=== PATIENT | female | born 1950 | race Caucasian/White ===

== ENCOUNTER 2017-05-22 16:38 | Inpatient (IN) | payer MEDICARE ==
[2017-05-22 17:20] LABS: #Eosinphils 0.2 thou/uL (0.0-0.7); #Lymphocytes 0.8 thou/uL (1.20-3.40); #Monocytes 0.6 thou/uL (0.11-0.59); #Neutrophils 5.1 thou/uL (1.40-6.50); %Basophils 0.2 % (0.0-1.0); %Eosinophils 2.8 % (0.0-10.0); %Lymphocytes 11.5 % (21.0-51.0); %Monocytes 9.5 % (0.0-10.0); Hematocrit 39.8 % (36.0-47.0); Mean Platelet Volume 10.7 fL (7.4-10.4); Red Blood Cell (RBC) Count 4.32 mill/uL (4.20-5.40); White Blood Cell (WBC) Count 6.7 thou/uL (4.8-10.8)
[2017-05-22 17:27] LABS: PTT 29.9 SEC (22.9-36.1)
[2017-05-22 17:46] LABS: Anion Gap 10 mmol/L (10-20); BUN (Urea Nitrogen) 17 mg/dL (9.8-20.1); Calc. Creatinine Clearance 72 mL/min (70-130); Carbon Dioxide 25 mmol/L (23-31); Chloride 109 mmol/L (98-107)
[2017-05-22 17:47] LABS: ALT (SGPT) 10 U/L (8-55); AST (SGOT) 14 U/L (5-34); Alkaline Phosphatase 105 U/L (40-150); Bilirubin, Total 0.3 mg/dL (0.2-1.2); Calcium 9.5 mg/dL (7.8-10.44); Estimated GFR-MDRD 49; Globulin 2.8 g/dL (2.4-3.5); Magnesium 2.1 mg/dL (1.6-2.6); Protein, Total 6.8 g/dL (6.0-8.3)
--- NOTE | 2017-05-22 17:54 | RAD ---
PA AND LATERAL CHEST X-RAY 05/22/17 HISTORY: CHF. COMPARISON: 01/29/17. FINDINGS: The cardiac silhouette remains enlarged. The pulmonary vasculature is within normal limits. There ar e small bilateral pleural effusions, greater on the left with associated subsegmental atelectasis in the region of the lingula. Vascular calcifications are seen in the thoracic aorta as well as invol ving the visualized abdominal aorta. Degenerative changes are present in the spine. No other interva l change. IMPRESSION: 1. Cardiomegaly with pulmonary vasculature at the upper limits of normal. 2. Small bilateral pleural effusions. POS: [facility]
[2017-05-22 18:01] LABS: Bilirubin Negative (Negative); Blood, Urine Negative (Negative); Glucose, Urine (Dipstick) Negative (Negative); Ketone, Urine Negative (Negative); Nitrite Negative (Negative); Protein, Urine (Dipstick) Negative (Neg-Trace)
[2017-05-22 18:03] LABS: Bacteria/HPF None Seen HPF (None Seen); Hyaline Casts/LPF 0-3 HYALINE CAST LPF (0-3 Hyaline); RBC/HPF 0-3 HPF (0-3); Squamous Epithelial 0-3 HPF (0-3)
[2017-05-22] MEDS ORDERED: Furosemide 100 MG/10 ML VIAL SLOW IVP SCH (18:15)
--- NOTE | 2017-05-22 19:46 | HP ---
DATE OF ADMISSION: 05/22/2017 ADMITTING PHYSICIAN: Dinh Arce MD REASON FOR ADMISSION: Heart failure and pericardial effusion. HISTORY OF PRESENT ILLNESS: Ms. Swan is a pleasant 66-year-old white female who comes to the hospital as a direct admit from my office. She had a scheduled transthoracic echo in the office [facility] and she was found to have a large pericardial effusion. There was no hemodynamic evidence of [place] ponade, normal blood pressures; however, talking with her, she seems to be in heart failure. She is very symptomatic. She gets short of breath with any exertion. She has noticed increased swelling on both legs to the point where her shoes almost do not fit anymore. She has noted she cannot buckl e her jeans anymore as her abdominal girth is also increased. She has noted coughing when she lays flat on her back. She gets a little short of breath and she has had to lift her back with about 4 p illows at about 30 degrees to try to feel a little bit better and wake up. Sometimes she would fall off the pillows and wakeup coughing and had to get accommodated again. She denies any chest pain, tightness, or pressure. No syncope or presyncope. PAST MEDICAL HISTORY: 1. Paroxysmal atrial fibrillation. 2. Chronic myeloid leukemia in remission, treated by MD Aldair. 3. Hypertension. 4. Hyperlipidemia. 5. Anxiety of depression. 6. Obesity. 7. Diverticulitis. 8. Coronary artery disease, status post stenting to the LAD with jailing of the diagonal and subseq uent small diagonal OH. PAST SURGICAL HISTORY: 1. History of pericardial effusion, status post pericardiocentesis in the past. 2. Hysterectomy. 3. Bilateral tubal ligation. FAMILY HISTORY: Positive for early coronary artery disease, two brothers with MIs, one at 46 and on e at 54. OUTPATIENT MEDICATIONS: Include: 1. Allopurinol 100 mg a day. 2. Tylenol No.3. 3. Iron sulfate. 4. Fluoxetine 20 mg b.i.d. 5. Flexeril. 6. Bosutinib 200 mg daily. 7. Aspirin 81 daily. 8. Amiodarone 200 mg. 9. Ticagrelor 90 mg b.i.d. 10. Simvastatin 20 mg at bedtime. 11. Klor-Con. 12. Nifedipine 60 mg. 13. Lisinopril 5 mg a day. ALLERGIES: No known drug allergies. SOCIAL HISTORY: No alcohol, tobacco, or drugs. REVIEW OF SYSTEMS: Twelve-point review of systems was done and is all negative unless stated in the history of present illness. PHYSICAL EXAMINATION: VITAL SIGNS: Temperature 97.6, pulse 60, respiration rate 16, satting 95% on room air. Blood press ure 186/83. GENERAL: Awake, alert, oriented x3, in no distress. HEENT: Normocephalic, atraumatic. NECK: Supple. LUNGS: Clear. CARDIOVASCULAR: S1, S2 little distant, but not muffled. No S3 or S4. No murmurs or rubs. ABDOMEN: Soft, positive bowel sounds. EXTREMITIES: 3+ edema. SKIN: Warm and dry. LABORATORY WORK: Reviewed. CBC is unremarkable. White count is 6.7 with 76% neutrophils, 11% lymp hocytes. Coags were normal. Chemistries were unremarkable except for creatinine 1.12, which is georgia[place] se to her baseline of 0.7 to 0.9. BNP was 671. UA shows small amount of leukocyte esterase, 7-10 w teresa cells. TSH is pending. IMAGING: EKG shows sinus bradycardia with lateral infarct, age undetermined. ASSESSMENT: 1. Large pericardial effusion. 2. Acute on chronic systolic heart failure. 3. Coronary artery disease, stable. 4. Paroxysmal atrial fibrillation, currently in sinus. 5. Chronic amiodarone use. 6. Chronic myeloid leukemia in remission. PLAN: 1. We will try to diurese her to see if we can make her feel better; if her effusion does not get b adriana or she remains short of breath, we will plan on doing a window tomorrow. We will have to leav e her n.p.o. post-midnight just in case this happens. 2. Lovenox subcutaneous for DVT prophylaxis. 3. Proton pump inhibitor for stress ulcer prophylaxis. 4. We will hold any antihypertensives given the possibility of her going as tamponade and needing a ll the blood pressure she can have. 5. FULL CODE.
[2017-05-22] MEDS ORDERED: FLU VACC TS2017-18 (>65YR) 0.5 ML SYRINGE IM ONE (21:00)
[2017-05-22] MEDS: Pregabalin 50 MG CAP PO SCH (21:18)
[2017-05-22] MEDS: TICAGRELOR 90 MG TABLET PO SCH (21:19)
[2017-05-22] MEDS: Atorvastatin Calcium 10 MG TAB PO SCH (21:19)
[2017-05-23] MEDS ORDERED: Furosemide 100 MG/10 ML VIAL SLOW IVP SCH (06:00)
[2017-05-23 06:13] VITALS: BMI 30.7
[2017-05-23] MEDS: Pregabalin 50 MG CAP PO SCH ×2 (08:24→21:20)
[2017-05-23] MEDS: FLUoxetine HCl 20 MG/5 ML UDCUP PO SCH (08:24)
[2017-05-23] MEDS: Aspirin 81 mg Enteric Coated Tablet PO SCH (08:24)
[2017-05-23] MEDS: TICAGRELOR 90 MG TABLET PO SCH (08:24)
[2017-05-23] MEDS ORDERED: Enoxaparin Sodium 40 MG/0.4 ML SYRINGE SC SCH (09:00)
[2017-05-23 11:11] LABS: #Eosinphils 0.1 thou/uL (0.0-0.7); #Lymphocytes 0.7 thou/uL (1.20-3.40); #Monocytes 0.5 thou/uL (0.11-0.59); #Neutrophils 4.1 thou/uL (1.40-6.50); %Basophils 0.5 % (0.0-1.0); %Eosinophils 2.7 % (0.0-10.0); %Lymphocytes 12.1 % (21.0-51.0); %Monocytes 9.6 % (0.0-10.0); Hematocrit 39.1 % (36.0-47.0); Mean Platelet Volume 10.7 fL (7.4-10.4); Red Blood Cell (RBC) Count 4.28 mill/uL (4.20-5.40); White Blood Cell (WBC) Count 5.4 thou/uL (4.8-10.8)
[2017-05-23 11:26] LABS: Anion Gap 12 mmol/L (10-20); BUN (Urea Nitrogen) 15 mg/dL (9.8-20.1); Calc. Creatinine Clearance 62 mL/min (70-130); Calcium 9.8 mg/dL (7.8-10.44); Carbon Dioxide 30 mmol/L (23-31); Chloride 103 mmol/L (98-107); Estimated GFR-MDRD 43
[2017-05-23] MEDS ORDERED: Fentanyl 100 MCG/2 ML VIAL ONE ×4 (11:31→13:44)
[2017-05-23] MEDS ORDERED: Norepinephrine 4 MG/4 ML VIAL ONE (11:58)
--- NOTE | 2017-05-23 12:13 | PDOC.CTH ---
Cardiology Progress Note - Subjective No new issues or complaints. He has not any more episodes. - Objective Vital Signs Temp Pulse Resp BP Pulse Ox 05/23/17 08:24 97.7 F 51 L 14 162/72 H 94 L 05/23/17 04:32 97.7 F 51 L 18 148/66 H 95 Weight 196 lb 6.4 oz 05/22/17 05/23/17 05/24/17 06:59 06:59 06:59 Intake Total 360 Output Total 2700 Balance -2340 - Physical Examination General/Neuro: alert & oriented x3, NAD Neck: no JVD present Lungs: CTA, unlabored respirations Heart: RRR Abdomen: NT/ND Extremities: other: (no edema.) - Telemetry Telemetry Rhythm: NSR - Labs Result Diagrams: 05/23/17 10:39 05/23/17 10:39 - Assessment/Plan 1. Large pericardial effusion 2. Acute decompensated heart failure likely from effusion. 3. CML 4. CAD, S/P LAD PCI, stable PLAN: - Dr. Tsai saw pt and will take her to do a window today. - Likely cause of her effusions is the Bosutinib currently on hold.
[2017-05-23] MEDS ORDERED: Ondansetron HCl/PF 4 MG/2 ML Vial IVP PRN ×2 (12:20→14:31)
[2017-05-23] MEDS ORDERED: Propofol 200 MG/20 ML VIAL ONE (12:23)
[2017-05-23] MEDS ORDERED: Ondansetron HCl/PF 4 MG/2 ML Vial ONE (12:23)
[2017-05-23] MEDS ORDERED: Dexamethasone 20 MG/5 ML VIAL ONE (12:23)
[2017-05-23] MEDS ORDERED: Lidocaine 1% PF 5 ML VIAL ONE (12:23)
[2017-05-23] MEDS ORDERED: Glycopyrrolate 0.2 MG/ML 5 ML SYRINGE ONE (12:23)
[2017-05-23 13:05] LABS: BF Reference Range Comment Note:
--- NOTE | 2017-05-23 13:36 | CON ---
DATE OF CONSULTATION: 05/23/2017 REASON FOR CONSULTATION: Evaluation for subxiphoid pericardial window. PERTINENT HISTORY: Patient is a 66-year-old female with recent history of progressive exertional shortness of breath, abdominal and lower extremity edema , and 4-pillow orthopnea. She was seen by Dr. Arce in the office yesterday where transthoracic echo demonstrated a large pericardial effusion without distinct tamponade physiology. She was subsequently admitted. BNP was elevated at 671. Chest x-ray demonstrated an enlarged cardiac silhouette, increased pulmonary vasculature, and small bilateral pleural effusions. On the transthoracic echocardiogram, ejection fraction was 60%. The patient's symptoms have not improved overnight with aggressive diuresis. The patient is now referred for subxiphoid pericardial window. PAST MEDICAL HISTORY: 1. Hypertension. 2. Paroxysmal atrial fibrillation. 3. CML. 4. Dyslipidemia. 5. Anxiety/depression. 6. Obesity. 7. Diverticulitis. 8. Coronary artery disease, status post recent LAD stent. PAST SURGICAL HISTORY: 1. Hysterectomy. 2. BTL. 3. Pericardiocentesis approximately 2 years ago at [facility] in [place], details unknown. FAMILY HISTORY: Noncontributory. ALLERGIES: None. REVIEW OF SYSTEMS: No history of diabetes, kidney or liver disease, stroke, or claudication. SOCIAL HISTORY: Nonsmoker. Nondrinker. CURRENT MEDICATIONS: Amiodarone 200 mg daily, Ecotrin 81 mg daily, Lipitor 10 mg daily, Lovenox 40 mg daily, Prozac 20 mg daily, Lasix 80 mg IV q.6 hours, Protonix 40 mg daily, Lyrica 50 mg b.i.d., and Brilinta 90 mg b.i.d. with last dose given last evening. LABORATORY DATA AND X-RAY: Creatinine 1.12. INR 1.0. Hemoglobin 12.4. Platelet count 178,000. PHYSICAL EXAMINATION: VITAL SIGNS: Height 5 feet 8 inches, weight 196 pounds, blood pressure 162/72, heart rate 51, temperature 97.7. GENERAL: Obese female in no acute distress. She is fully oriented. HEENT: Grossly unremarkable. NECK: Without obvious JVD or adenopathy. HEART: Sinus bradycardia with markedly diminished tones. No murmur or rub. ABDOMEN: Soft and nontender. EXTREMITIES: With marked pretibial edema bilaterally. VASCULAR: Palpable radial and femoral pulses bilaterally. No carotid bruits were appreciated. NEUROLOGIC: No focal deficits. IMPRESSION: Large pericardial effusion in setting of unexplained and markedly symptomatic heart failure. RECOMMENDATIONS: Subxiphoid pericardial window to which the patient is in agreement following discussion with her referring admissions supervisor and myself. The indications, benefits, alternatives, and risks were explained in detail to the patient and her and daughter. All questions were answered. The patient agrees to proceed without reservations. MILLER
[2017-05-23 13:54] LABS: BF Color Red; BF WBC/Nonhematics Ct. - Manua 15 /cumm; RBC Count-Automated 82000 /cumm
--- NOTE | 2017-05-23 14:02 | RAD ---
SINGLE VIEW OF THE CHEST: COMPARISON: 01/29/2017 HISTORY: Status post pericardial drain. FINDINGS: Single view of the chest shows an enlarged cardiomediastinal silhouette. A drain projects over the heart. There is no evidence of consolidation, mass, pneumothorax, or pleural effusion. IMPRESSION: Cardiomegaly without evidence of acute cardiopulmonary disease. POS: [facility]
[2017-05-23 14:17] LABS: Number Cells Counted-Fluids 6
[2017-05-23] MEDS ORDERED: HYDROcodone/Acetaminophen 5/325 mg Tablet PO PRN (14:31)
--- NOTE | 2017-05-23 15:01 | OP ---
PREOPERATIVE DIAGNOSIS: Pericardial effusion. SURGEON: Linwood Tsai M.D. GATE SERVICES SUPERVISOR: None. POSTOPERATIVE DIAGNOSIS: Pericardial effusion. SPONGE AND NEEDLE COUNTS: Correct. ANESTHESIA: General. OPERATION PERFORMED: Subxiphoid pericardial window with drainage and biopsy. FINDINGS AT OPERATION: Approximately 600 mL of rust-colored fluid which was sent for cytology, cell count, and culture. No obvious epicardial or parietal pericardial studding within the limits of visual and digital exploration. DESCRIPTION OF OPERATION: The patient was taken to the operating room. Following the induction of general endotracheal anesthesia, the patient was prepped and draped in the usual sterile fashion. A small subxiphoid incision was made. Dissection was carried back to the pericardium. An opening in the pericardium was made retrieving the above volume of rust-colored pericardial fluid. An oval piece of parietal pericardium was excised and sent for permanent pathology. Visual and digital exploration revealed no obvious studding of the epicardial or parietal pleural surfaces. Meticulous hemostasis was assured. A 24 Raphael drain was placed within the pericardial well. It exited via a separate stab wound inferior to the incision and was secured to the skin with a silk stitch. Drain was placed to bulb suction. Fascia was closed with interrupted [id number] Vicryl sutures. Subcutaneous tissues were reapproximated with a running 2-0 Vicryl suture followed by skin closure with a 3-0 Vicryl subcuticular stitch. Dermabond was applied. The patient was subsequently awakened and taken to the recovery room in stable condition. Blood loss negligible. MTDD
[2017-05-23] MEDS: HYDROcodone/Acetaminophen 5/325 mg Tablet PO PRN (17:29)
[2017-05-23] MEDS ORDERED: Sodium Chloride 0.9% 10 ML ONE (21:07)
[2017-05-23] MEDS: Atorvastatin Calcium 10 MG TAB PO SCH (21:20)
[2017-05-23] MEDS: Ketorolac Tromethamine 30 MG/ML VIAL IVP PRN (21:21)
[2017-05-24] MEDS ORDERED: Sodium Chloride 0.9% 10 ML ONE ×2 (05:46→06:05)
[2017-05-24] MEDS: Ketorolac Tromethamine 30 MG/ML VIAL IVP PRN ×2 (06:07→12:40)
[2017-05-24 06:20] LABS: #Lymphocytes 0.6 thou/uL (1.20-3.40); #Monocytes 1.2 thou/uL (0.11-0.59); #Neutrophils 10.7 thou/uL (1.40-6.50); %Eosinophils 0.1 % (0.0-10.0); %Monocytes 9.2 % (0.0-10.0); Hematocrit 40.8 % (36.0-47.0); Mean Platelet Volume 10.8 fL (7.4-10.4); Red Blood Cell (RBC) Count 4.46 mill/uL (4.20-5.40); White Blood Cell (WBC) Count 12.5 thou/uL (4.8-10.8)
[2017-05-24 06:42] LABS: Anion Gap 13 mmol/L (10-20); BUN (Urea Nitrogen) 16 mg/dL (9.8-20.1); Calc. Creatinine Clearance 64 mL/min (70-130); Calcium 8.9 mg/dL (7.8-10.44); Carbon Dioxide 27 mmol/L (23-31); Chloride 101 mmol/L (98-107); Estimated GFR-MDRD 44
[2017-05-24] MEDS: Aspirin 81 mg Enteric Coated Tablet PO SCH (07:40)
[2017-05-24] MEDS: Pregabalin 50 MG CAP PO SCH ×2 (07:40→22:28)
[2017-05-24] MEDS: FLUoxetine HCl 20 MG/5 ML UDCUP PO SCH (09:15)
[2017-05-24] MEDS: Atorvastatin Calcium 10 MG TAB PO SCH (22:28)
[2017-05-25] MEDS: HYDROcodone/Acetaminophen 5/325 mg Tablet PO PRN (04:16)
[2017-05-25 05:55] LABS: #Eosinphils 0.1 thou/uL (0.0-0.7); #Lymphocytes 0.7 thou/uL (1.20-3.40); #Monocytes 1.1 thou/uL (0.11-0.59); #Neutrophils 6.4 thou/uL (1.40-6.50); %Basophils 0.2 % (0.0-1.0); %Eosinophils 0.8 % (0.0-10.0); %Lymphocytes 8.1 % (21.0-51.0); Hematocrit 38.6 % (36.0-47.0); Mean Platelet Volume 10.9 fL (7.4-10.4); Red Blood Cell (RBC) Count 4.25 mill/uL (4.20-5.40); White Blood Cell (WBC) Count 8.2 thou/uL (4.8-10.8)
[2017-05-25 06:23] LABS: Anion Gap 11 mmol/L (10-20); BUN (Urea Nitrogen) 20 mg/dL (9.8-20.1); Calc. Creatinine Clearance 58 mL/min (70-130); Calcium 8.6 mg/dL (7.8-10.44); Carbon Dioxide 27 mmol/L (23-31); Chloride 103 mmol/L (98-107); Estimated GFR-MDRD 40
[2017-05-25] MEDS: FLUoxetine HCl 20 MG/5 ML UDCUP PO SCH (07:32)
[2017-05-25] MEDS: Aspirin 81 mg Enteric Coated Tablet PO SCH (07:32)
[2017-05-25] MEDS: Pregabalin 50 MG CAP PO SCH ×2 (07:32→21:19)
[2017-05-25] MEDS ORDERED: Furosemide 20 MG/2 ML VIAL SLOW IVP SCH (10:45)
[2017-05-25] MEDS ORDERED: Milk Of Magnesia 30 ML UDCUP PO PRN (14:49)
[2017-05-25] MEDS: Ketorolac Tromethamine 30 MG/ML VIAL IVP PRN (21:19)
[2017-05-25] MEDS: Atorvastatin Calcium 10 MG TAB PO SCH (21:19)
[2017-05-26 06:32] LABS: Anion Gap 10 mmol/L (10-20); BUN (Urea Nitrogen) 14 mg/dL (9.8-20.1); Calc. Creatinine Clearance 70 mL/min (70-130); Calcium 8.8 mg/dL (7.8-10.44); Carbon Dioxide 31 mmol/L (23-31); Chloride 102 mmol/L (98-107); Estimated GFR-MDRD 50; Hematocrit 36.2 % (36.0-47.0); Mean Platelet Volume 11.2 fL (7.4-10.4); Neutrophil 59 % (42-75); Reactive Lymphocytes 1 % (0-10); Red Blood Cell (RBC) Count 3.94 mill/uL (4.20-5.40); White Blood Cell (WBC) Count 4.6 thou/uL (4.8-10.8)
[2017-05-26] MEDS: Aspirin 81 mg Enteric Coated Tablet PO SCH (08:55)
[2017-05-26] MEDS: FLUoxetine HCl 20 MG/5 ML UDCUP PO SCH (08:55)
[2017-05-26] MEDS: Pregabalin 50 MG CAP PO SCH ×2 (08:56→20:47)
--- NOTE | 2017-05-26 11:35 | PDOC.CTH ---
Cardiology Progress Note - Subjective She feels better. She is able to sleep better. No longer having a cough, no PND or orthopnea. Her drain continues to get serosanguineous fluid out. - Objective Vital Signs Temp Pulse Pulse Pulse Resp BP BP 05/26/17 10:07 90 80 134/67 98/56 L 05/26/17 08:51 98.2 F 105 H 16 05/26/17 04:00 98.3 F 88 18 BP Pulse Ox Pulse Ox Pulse Ox 05/26/17 10:07 96 95 05/26/17 08:51 114/75 98 05/26/17 04:00 104/57 L 98 Weight 193 lb 3.2 oz 05/25/17 05/26/17 05/27/17 06:59 06:59 06:59 Intake Total 2024 1320 Output Total 1610 2920 Balance 415 -1600 - Physical Examination General/Neuro: alert & oriented x3, NAD Neck: no JVD present Lungs: CTA, unlabored respirations Heart: RRR Abdomen: NT/ND Extremities: + edema B (Trace) - Telemetry Telemetry Rhythm: Afib HR 105 - Labs Result Diagrams: 05/26/17 04:55 05/26/17 04:55 - Assessment/Plan 1. Large pericardial effusion 2. Acute decompensated heart failure likely from effusion. 3. CML 4. CAD, S/P LAD PCI, stable 5. Paroxysmal Afib 6. Hx of GI bleeding, diverticular bleed. PLAN: - S/P pericardial window, still draining. - Afib is reasonably well controlled she is going in and out of afib. Aspirin alone for stroke prophylaxis for now as she has a history of diverticular bleed and is already on both aspirin and brilinta. - Will back off on IV lasix for now. - Will talk to her Installer Technician Dr. Marcus Harris in [facility] to get guidance as far as her Bosulif is concerned. he may want to decrease dose as this is most likely cause of her effusion. - Will repeat echocardiogram to assess effusion.
[2017-05-26] MEDS ORDERED: Enoxaparin Sodium 30 MG/0.3 ML SYRINGE SC SCH (11:45)
[2017-05-26] MEDS ORDERED: Senokot S 8.6-50 MG TAB PO SCH (12:15)
[2017-05-26] MEDS: Atorvastatin Calcium 10 MG TAB PO SCH (20:46)
[2017-05-26] MEDS: Senokot S 8.6-50 MG TAB PO SCH (20:48)
[2017-05-26] MEDS: Ketorolac Tromethamine 30 MG/ML VIAL IVP PRN (20:52)
[2017-05-27 06:29] LABS: Anion Gap 12 mmol/L (10-20); BUN (Urea Nitrogen) 18 mg/dL (9.8-20.1); Calc. Creatinine Clearance 70 mL/min (70-130); Calcium 8.6 mg/dL (7.8-10.44); Carbon Dioxide 26 mmol/L (23-31); Chloride 104 mmol/L (98-107); Estimated GFR-MDRD 50
[2017-05-27 06:45] LABS: Hematocrit 37.1 % (36.0-47.0); Mean Platelet Volume 11.5 fL (7.4-10.4); Neutrophil 70 % (42-75); Red Blood Cell (RBC) Count 4.08 mill/uL (4.20-5.40); White Blood Cell (WBC) Count 5.5 thou/uL (4.8-10.8)
[2017-05-27] MEDS: Aspirin 81 mg Enteric Coated Tablet PO SCH (08:39)
[2017-05-27] MEDS: Pregabalin 50 MG CAP PO SCH ×2 (08:39→20:33)
[2017-05-27] MEDS: Enoxaparin Sodium 30 MG/0.3 ML SYRINGE SC SCH (08:40)
[2017-05-27] MEDS: Senokot S 8.6-50 MG TAB PO SCH ×2 (08:40→20:33)
[2017-05-27] MEDS: FLUoxetine HCl 20 MG/5 ML UDCUP PO SCH (09:44)
--- NOTE | 2017-05-27 17:34 | PDOC.CTH ---
Cardiology Progress Note - Subjective She is doing well. She continues to put out fluid from her drain. - Objective Vital Signs Temp Pulse Pulse Pulse Resp BP BP 05/27/17 16:35 97.5 F L 57 L 18 05/27/17 12:12 97.9 F 55 L 16 05/27/17 09:25 64 61 137/63 110/52 L 05/27/17 08:45 98.0 F 54 L 16 BP BP Pulse Ox Pulse Ox Pulse Ox 05/27/17 16:35 156/67 H 97 05/27/17 12:12 134/57 L 97 05/27/17 09:25 97 98 05/27/17 08:45 112/56 L 97 Weight 193 lb 6.4 oz 05/26/17 05/27/17 05/28/17 06:59 06:59 06:59 Intake Total 1320 1880 Output Total 2920 4140 50 Balance -1600 -2260 -50 - Physical Examination General/Neuro: alert & oriented x3, NAD Neck: carotid US brisk Lungs: unlabored respirations Heart: RRR Abdomen: NT/ND Extremities: + edema B (Trace) - Telemetry Telemetry Rhythm: NSR, Afib earlier - Labs Result Diagrams: 05/27/17 05:53 05/27/17 05:53 - Assessment/Plan 1. Large pericardial effusion 2. Acute decompensated heart failure likely from effusion. Improved. 3. CML 4. CAD, S/P LAD PCI, stable 5. Paroxysmal Afib 6. Hx of GI bleeding, diverticular bleed. PLAN: - S/P pericardial window, still draining. - Currently in sinus. Will stop diltiazem and restart her home dose of amiodarone. - Will try to talk to her Pinion Polisher Dr. Marcus Harris in [facility] for management of her CLL. - Repeat echo with reduced LV function likely from Afib. Will re evaluate before discharge hopefully while in sinus. - Will restart Brilinta once drain out.
[2017-05-27] MEDS ORDERED: Simvastatin 20 MG TAB PO SCH (21:00)
[2017-05-28 05:28] LABS: #Eosinphils 0.2 thou/uL (0.0-0.7); #Monocytes 0.8 thou/uL (0.11-0.59); #Neutrophils 3.7 thou/uL (1.40-6.50); %Basophils 0.7 % (0.0-1.0); %Eosinophils 2.9 % (0.0-10.0); %Lymphocytes 17.8 % (21.0-51.0); %Monocytes 13.3 % (0.0-10.0); Hematocrit 36.7 % (36.0-47.0); Mean Platelet Volume 10.7 fL (7.4-10.4); Red Blood Cell (RBC) Count 4.03 mill/uL (4.20-5.40); White Blood Cell (WBC) Count 5.6 thou/uL (4.8-10.8)
[2017-05-28 05:54] LABS: Anion Gap 9 mmol/L (10-20); BUN (Urea Nitrogen) 16 mg/dL (9.8-20.1); Calc. Creatinine Clearance 77 mL/min (70-130); Carbon Dioxide 31 mmol/L (23-31); Chloride 104 mmol/L (98-107); Estimated GFR-MDRD 55
[2017-05-28] MEDS ORDERED: Lisinopril 5 MG TAB PO SCH (09:00)
[2017-05-28] MEDS ORDERED: Allopurinol 100 MG TAB PO SCH (09:00)
[2017-05-28] MEDS: Pregabalin 50 MG CAP PO SCH (09:25)
[2017-05-28] MEDS: Aspirin 81 mg Enteric Coated Tablet PO SCH (09:27)
[2017-05-28] MEDS: Senokot S 8.6-50 MG TAB PO SCH (09:27)
[2017-05-28] MEDS: Enoxaparin Sodium 30 MG/0.3 ML SYRINGE SC SCH (09:27)
[2017-05-28] MEDS: FLUoxetine HCl 20 MG/5 ML UDCUP PO SCH (09:28)
[2017-05-28 12:14] VITALS: BP 131/60; TEMP 97.8
--- NOTE | 2017-05-28 13:46 | DIS ---
DATE OF ADMISSION: 05/22/2017 DATE OF DISCHARGE: 05/28/2017 DISCHARGING PHYSICIAN: Dinh Arce M.D. PRIMARY DIAGNOSES: 1. Large pericardial fluid. 2. Decompensated heart failure. 3. Atrial fibrillation, paroxysmal. 4. Coronary artery disease, stable. SUMMARY: Ms. Swan is a very pleasant 66-year-old white female who comes to the hospital as a direct admission for a large pericardial effusion and heart failure. She saw Dr. Tsai for window and about 600 mL of serosanguineous fluid were removed. The drain stayed until this morning. When the drain was removed, the drainage was minimal. She is doing much better. She was diuresed with I V Lasix. She put out about 6 liters of total negative and lost about 10 pounds. She is feeling muc h better. We have stopped her Bosutinib, which we think is the cause of her effusion. She will see her oncologist in the next day, actually she has talked over the phone with him today to see where to go with this medication to see if there is any alternatives. In the meantime, this has to be sto pped as pericardial effusion is a life-threatening condition. She had an echocardiogram while she w as in atrial fibrillation and her EF was a little bit reduced at about 40%-45%, so she was started o n heart failure medications, but I am optimistic that this will improve once she is back in sinus. She is currently in sinus bradycardia. Her EF during her original echo in the office was normal hea rt function. She is doing much better. She will be discharged home in stable condition. DISCHARGE MEDICATIONS: Unchanged except for stopping Bosutinib, stopping ticagrelor, stopping nifed ipine, increasing lisinopril to 10 mg a day, adding Coreg to 3.125 mg b.i.d. and adding Plavix 75 mg a day. Prescriptions have been written and given to her. She will follow up with us in 1 week with pre-clinic echocardiogram. Over 30 minutes were spent at bedside with counseling on discharge.
[2017-05-28] MEDS ORDERED: Carvedilol 3.125 MG TAB PO SCH (17:00)
[2017-05-29] MEDS ORDERED: Clopidogrel Bisulfate 75 MG TAB PO SCH (09:00)
[2017-05-29] MEDS ORDERED: Lisinopril 10 MG TAB PO SCH (09:00)
== END 2017-05-28 16:21 | disposition home or self-care (01) | DRG 270 ==
LOC: 2NO 16:38
PROVIDERS: ADMIT Internal Medicine Cardiovascular Disease; ATTEND Internal Medicine Cardiovascular Disease
PROC: 0W9D0ZZ Drainage of Pericardial Cavity, Open Approach (ICD-10-PCS; principal; 2017-05-23)
DX: I31.3 Pericardial effusion (noninflammatory) (principal); I50.23 Acute on chronic systolic (congestive) heart failure; C92.11 Chronic myeloid leukemia, BCR/ABL-positive, in remission; I11.0 Hypertensive heart disease with heart failure; I48.0 Paroxysmal atrial fibrillation; I25.10 Atherosclerotic heart disease of native coronary artery without angina pectoris; Z79.899 Other long term (current) drug therapy; Z95.5 Presence of coronary angioplasty implant and graft; Z82.49 Family history of ischemic heart disease and other diseases of the circulatory system
CPT/HCPCS: 36415; 71010; 71020; 80048; 80053; 81001; 83735; 83880; 84443; 85025; 85060; 85610; 85730; 86850; 86900; 86901; 87040; 87070; 87205; 88112; 88305; 89051; 90471; 90682; 93005; 93010; 93306; 93798; A4216; G0008; J0690; J1100; J1650; J1885; J1940; J2001; J2405; J2704; J3010; J7050; Q2036

== ENCOUNTER 2017-06-02 03:21 | Inpatient (IN) | payer MEDICARE ==
[2017-06-02] MEDS ORDERED: Diltiazem 125 MG/25 ML ONE (03:59)
[2017-06-02 04:10] LABS: #Basophils 0.1 thou/uL (0.0-0.2); #Eosinphils 0.1 thou/uL (0.0-0.7); #Lymphocytes 1.3 thou/uL (1.20-3.40); #Neutrophils 8.1 thou/uL (1.40-6.50); %Basophils 0.6 % (0.0-1.0); %Eosinophils 1.4 % (0.0-10.0); %Lymphocytes 12.3 % (21.0-51.0); %Monocytes 9.4 % (0.0-10.0); Bilirubin Negative (Negative); Blood, Urine Negative (Negative); Glucose, Urine (Dipstick) Negative (Negative); Hematocrit 39.4 % (36.0-47.0); Ketone, Urine Negative (Negative); Mean Platelet Volume 10.7 fL (7.4-10.4); Nitrite Negative (Negative); Protein, Urine (Dipstick) Trace mg/dL (Neg-Trace); Red Blood Cell (RBC) Count 4.42 mill/uL (4.20-5.40); White Blood Cell (WBC) Count 10.6 thou/uL (4.8-10.8)
[2017-06-02] MEDS ORDERED: Nitroglycerin 0.4 MG TAB (25 Tab Bottle) ONE (04:13)
[2017-06-02] MEDS ORDERED: Nitroglycerin 2% Ointment 1 INCH/1 GM Packet ONE (04:13)
[2017-06-02 04:16] LABS: PTT 34.7 SEC (22.9-36.1); Prothrombin Time 13.7 SEC (12.0-14.7)
[2017-06-02 04:34] LABS: Troponin I 0.034 ng/mL (< 0.028)
[2017-06-02 04:48] LABS: ALT (SGPT) 17 U/L (8-55); AST (SGOT) 33 U/L (5-34); Alkaline Phosphatase 210 U/L (40-150); Anion Gap 14 mmol/L (10-20); BUN (Urea Nitrogen) 19 mg/dL (9.8-20.1); Bilirubin, Total 0.4 mg/dL (0.2-1.2); CK (CPK) 45 U/L (29-168); Calc. Creatinine Clearance 0 mL/min (70-130); Calcium 9.3 mg/dL (7.8-10.44); Carbon Dioxide 24 mmol/L (23-31); Chloride 106 mmol/L (98-107); Estimated GFR-MDRD 48; Globulin 3.2 g/dL (2.4-3.5); Lipase 15 U/L (8-78); Protein, Total 6.9 g/dL (6.0-8.3)
[2017-06-02] MEDS ORDERED: Acetaminophen 325 MG TAB PO PRN (07:01)
[2017-06-02] MEDS ORDERED: HYDROcodone/Acetaminophen 5/325 mg Tablet PO PRN ×2 (07:01)
[2017-06-02] MEDS ORDERED: Ondansetron ODT 4 MG TAB PO PRN (07:02)
[2017-06-02] MEDS ORDERED: Ondansetron HCl/PF 4 MG/2 ML Vial IVP PRN (07:02)
[2017-06-02] MEDS ORDERED: Diltiazem 125 MG in Sodium Chloride 0.9% 100 ML IVPB SCH ×2 (07:15→08:30)
[2017-06-02] MEDS ORDERED: Calcium Carbonate 500 MG ChewTAB PO PRN (08:15)
[2017-06-02] MEDS ORDERED: Senokot 8.6 MG TAB PO PRN (08:15)
[2017-06-02] MEDS ORDERED: Nitroglycerin 0.4 MG TAB (25 Tab Bottle) PO PRN (08:15)
[2017-06-02 08:42] LABS: Magnesium 2.1 mg/dL (1.6-2.6); Phosphorus 3.1 mg/dL (2.3-4.7)
[2017-06-02 08:50] LABS: Troponin I 0.063 ng/mL (< 0.028)
--- NOTE | 2017-06-02 08:50 | HP ---
DATE OF ADMISSION: 06/02/2017 PRIMARY CARE PHYSICIAN: Sara Roy D.O. PRIMARY AERIAL INSTALLER: Dinh Arce M.D. CHIEF COMPLAINT: Chest discomfort. HISTORY OF PRESENT ILLNESS: Patient is a 66-year-old female with coronary artery disease, status po st OH with recent pericardial window presented to the hospital with above complaints. Patient felt normal after surgical procedure. The patient woke up around 1 a.m. with sudden onset of chest discomfort along with shortness of yusef th. The chest discomfort was moderate in intensity, left-sided, radiating to her left arm. She fel t nauseous; however, denies any vomiting, diaphoresis. She also felt intermittent palpitations. Fo r this reason, she presented to the emergency room. She denies recent immobilization. She has been ambulating normally post-surgery. No fevers or chills reported. In the emergency room, initial vital signs showed temperature of 97.7, respiration 22, pulse rate in 140s with blood pressure in systolic 150s. Her EKG showed atrial fibrillation with rapid ventricul ar response at heart rate of 149. She was started on Cardizem drip. An one inch nitro patch was pl aced after sublingual tablet. She received 20 mg of Cardizem IV push along with aspirin as well. PAST MEDICAL HISTORY: 1. Recent pericardial window for large pericardial effusion. 2. Paroxysmal atrial fibrillation. 3. Coronary artery disease status post OH in the past. 4. Chronic myeloid leukemia followed by MD Quinteros. 5. Dyslipidemia. 6. Anxiety and depression. 7. Diverticulosis 8. Chronic low back pain. PAST SURGICAL HISTORY: 1. Coronary stent placement. 2. Recent pericardial window. 3. History of pericardiocentesis in the past for pericardial effusion. 4. Hysterectomy. 5. Bilateral tubal ligation. ALLERGIES: Patient denies any drug allergies. CURRENT HOME MEDICATIONS: Patient does not remember any of her home medications. Her is ge tting the list today. SOCIAL HISTORY: Currently lives at home. No tobacco, alcohol or drug use. Makes her own decision. She is FULL CODE. FAMILY HISTORY: Positive for OH in her father. One brother had OH at age of 46. Another brother d ied at age 54 from OH. REVIEW OF SYSTEMS: The following complete review of systems was negative, unless otherwise mentione d in the HPI or below: Constitutional: Weight loss or gain, ability to conduct usual activities. Skin: Rash, itching. Eyes: Double vision, pain. ENT/Mouth: Nose bleeding, neck stiffness, pain, tenderness. Cardiovascular: Palpitations, dyspnea on exertion, orthopnea. Respiratory: Shortness of breath, wheezing, cough, hemoptysis, fever or night sweats. Gastrointestinal: Poor appetite, abdominal pain, heartburn, nausea, vomiting, constipation, or diar darling. Genitourinary: Urgency, frequency, dysuria, nocturia. Musculoskeletal: Pain, swelling. Neurologic/Psychiatric: Anxiety, depression. Allergy/Immunologic: Skin rash, bleeding tendency. PHYSICAL EXAMINATION: VITAL SIGNS: As discussed above. GENERAL: A 66-year-old female in no apparent distress. Denies any chest discomfort at this time, a ppears comfortable. Shortness of breath has improved. HEENT: Head is atraumatic, normocephalic. Sclerae are anicteric. Moist mucous membrane, no oral l esion. NECK: Supple, no JVD elevation. LUNGS: Showed bibasilar crackles with scattered rhonchi. No wheezing. Lungs were symmetrical. HEART: S1 and S2 present. Irregularly irregular, rate controlled. Recent surgical scars are heali ng well. ABDOMEN: Soft, nontender, bowel sounds present. EXTREMITIES: No edema or calf tenderness. NEUROLOGIC: Grossly nonfocal, moves all four extremities. PSYCHIATRY: Alert, awake, oriented x3. SKIN: Warm and dry. LYMPH NODES: No palpable lymph nodes in the neck. PERIPHERAL VASCULAR: Radial pulses palpable bilaterally. MUSCULOSKELETAL: No joint swelling or tenderness. LABORATORY DATA AND IMAGIN. CBC showed WBC 10.6 with hemoglobin 12.7. 2. PT, INR, PTT normal range. 3. Potassium 5.3 with creatinine 1.1, BUN 19, lactic acid was 1. Initial troponin 0.034, CK-MB 1.4 . Urinalysis was negative for WBC, bacteria. 4. Chest x-ray by my review showed pulmonary vascular congestion. 5. EKG by my review as discussed above. IMPRESSION AND PLAN: 1. Atrial fibrillation with rapid ventricular response. Cardizem drip will be continued. We will resume home dose of amiodarone 200 mg daily along with carvedilol 3.125. Cardiology will be consult ed. We will continue aspirin and Plavix for now. Will discuss with Cardiology regarding anticoagul ation. 2. Coronary artery disease, status post stent placement and myocardial infarction in the past. Pat ient has indeterminate troponins. We will continue aspirin, Plavix, and beta blockers. We will res ume other home medications once confirmed. The patient is not sure whether she is on SINDI inhibitor at home. to get accurate list of medications. 3. Indeterminate troponins, probably secondary to demand ischemia from rapid ventricular rate. We will repeat cardiac enzymes. 4. Chronic kidney disease stage 3. 5. Hyperkalemia, probably medication induced. 6. Chronic myeloid leukemia, currently in remission, followed by MD Quinteros. Bosutinib was discon tinued by Cardiology on 05/28/2017. Per patient report, she was started back on this medicine at a lower dose. Again, the accurate list of home medications will be provided by the later srinivas bell. 7. Chronic low back pain. 8. Obesity with body mass index at 30.7 in the past. 9. History of paroxysmal atrial fibrillation. 10. Dyslipidemia. 11. Anxiety and depression. 12. Plan of care was discussed with the patient. She stated understanding. 13. The patient will require 2-3 days for stabilization and echocardiogram will be repeated.
[2017-06-02] MEDS ORDERED: Clopidogrel Bisulfate 75 MG TAB PO SCH (09:00)
[2017-06-02] MEDS ORDERED: Carvedilol 3.125 MG TAB PO SCH (09:00)
--- NOTE | 2017-06-02 09:02 | RAD ---
PORTABLE CHEST ONE VIEW: 06/02/2017 at 4:27 a.m. HISTORY: Atrial fibrillation. Chest pain. COMPARISON: 05/23/2017 FINDINGS: The heart size is enlarged. There is pulmonary vascular congestion. No lobar consolidation, pneumo thorax, deon pulmonary edema, or large effusions are seen. A small left pleural effusion may be pr esent. POS: [facility]
[2017-06-02] MEDS: Clopidogrel Bisulfate 75 MG TAB PO SCH (11:30)
[2017-06-02] MEDS: Amiodarone 200 MG TAB PO SCH (11:30)
[2017-06-02] MEDS: Aspirin 81 mg Enteric Coated Tablet PO SCH (11:30)
[2017-06-02] MEDS: Docusate 100 MG CAP PO SCH ×2 (11:31→20:30)
[2017-06-02] MEDS: Acetaminophen 325 MG TAB PO PRN ×2 (11:31→23:38)
[2017-06-02] MEDS: Famotidine 20 MG TAB PO SCH ×2 (11:31→20:30)
--- NOTE | 2017-06-02 12:06 | ULT ---
ULTRASOUND WITH DOPPLER DUPLEX VENOUS LOWER EXTREMITIES BILATERAL: HISTORY: 66-year-old female with dyspnea. TECHNIQUE: Color flow Doppler, spectral waveform analysis of pulsed Doppler, and chavarria-scale imaging with compre ssion and augmentation, were used to evaluate the bilateral common femoral, femoral, popliteal, post erior tibial, and superficial femoral, veins; and the proximal portions of the profunda femoral and greater saphenous, veins. FINDINGS: There is normal compressibility, demonstration of blood flow by color Doppler and pulsed Doppler, an d response to augmentation, in all interrogated veins. There is mild bilateral lower extremity soft tissue edema. IMPRESSION: 1. No deep vein thrombosis in the bilateral lower extremities. 2. Mild bilateral lower extremity soft tissue edema. jnr POS: [id number]
[2017-06-02 12:33] LABS: Troponin I 0.052 ng/mL (< 0.028)
[2017-06-02] MEDS ORDERED: Furosemide 40 MG/4 ML VIAL SLOW IVP SCH (16:15)
[2017-06-02] MEDS ORDERED: Protamine Sulfate 250 MG/25 ML VIAL ONE (16:41)
[2017-06-02] MEDS ORDERED: Heparin 30,000 units/30 ml VIAL ONE (16:41)
[2017-06-02] MEDS ORDERED: Papaverine 60 MG/2 ML VIAL ONE (16:41)
[2017-06-02] MEDS ORDERED: Calcium Chloride 1 GM/10 ML Abboject SYRINGE ONE (16:41)
[2017-06-02] MEDS ORDERED: Heparin 5,000 UNITS/ML VIAL ONE (16:41)
[2017-06-02] MEDS ORDERED: Thrombin 5000 UNITS/5 ML VIAL ONE (16:41)
[2017-06-02] MEDS ORDERED: Nitroglycerin 50 MG/250 ML BOT ONE (16:41)
[2017-06-02] MEDS ORDERED: DOPamine 400 MG/10 ML VIAL ONE (16:41)
--- NOTE | 2017-06-02 17:49 | CON ---
CARDIOLOGY CONSULTATION NOTE DATE OF CONSULTATION: 06/02/2017 REASON FOR CONSULTATION: Atrial fibrillation, rapid ventricular response and heart failure. HISTORY OF PRESENT ILLNESS: Ms. Swan is a very pleasant 66-year-old white female well known to myself who comes to the hospital for increased shortness of breath. She states that she noticed since she left the hospital recently that her breathing started to get worse. She decided to come in for evaluation. She was found to be in atrial fibrillation with rapid ventricular response, so she was admitted for further treatment. She was started on a diltiazem drip for rate control and her heart rate went in the 150s down to the 90s, 80s and she continues to feel short of breath. She also noted that she has been feeling short of breath again when she was lying flat on her back just like she was last time she was here and she is concerned her effusion might come back. She restarted her bosutinib over the weekend. Today is Friday and she had been off of it for about the last week or so. PAST MEDICAL HISTORY: 1. History of paroxysmal atrial fibrillation. On talking to her, she did not have any atrial fibrillation beforehand and her atrial fibrillation started after being on this bosutinib medication. 2. Coronary artery disease, status post percutaneous coronary intervention to her left anterior descending with a bare metal stent in 01/2017. This was complicated by jailing the diagonal and subsequently losing that diagonal as it had severe ostial disease, it was a small vessel. Her left ventricular function was about 50% after the whole event that she had been doing well. A repeat echocardiogram after the [place] showed preserved ejection fraction with a little hypokinesis of the anterolateral wall. When she came in last time she did have paroxysms of atrial fibrillation, but they improved on their own. She went back into normal sinus rhythm once we restarted her amiodarone. 3. 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 4. Hyperlipidemia. 5. Anxiety and depression. 6. Diverticulosis. 7. Chronic low back pain. PAST SURGICAL HISTORY: 1. PCI to LAD as above. 2. Recent pericardial window. 3. Pericardiocentesis in the past in the setting of bosutinib, which is thought to be the culprit of the effusion. 4. Hysterectomy. 5. Bilateral tubal ligation. ALLERGIES: No known drug allergies. OUTPATIENT MEDICATIONS: 1. Bosutinib 200 mg a day. 2. Cyclobenzaprine. 3. Zocor 20 mg at bedtime. 4. Iron sulfate. 5. Plavix 75 mg a day. 6. Lyrica 50 mg b.i.d. 7. Zestril 10 mg a day. 8. Fluoxetine 20 mg a day. 9. Carvedilol 3.125 mg b.i.d. 10. Aspirin 81 a day. 11. Amiodarone 200 mg a day. 12. Allopurinol 100 mg a day. SOCIAL HISTORY: No alcohol, tobacco or drugs. FAMILY HISTORY: [place] in her father, brother with [place] at 46, another brother of [place] at 54. REVIEW OF SYSTEMS: A twelve-point review of systems was done and is all negative unless stated in the history of present illness. PHYSICAL EXAMINATION: VITAL SIGNS: Temperature 98.0, pulse 85, respiration rate 16, satting 95% on room air on 2 liters and blood pressure 143/68. GENERAL: Awake, alert, and oriented x3, in no distress. HEENT: Normocephalic, atraumatic. NECK: Supple. LUNGS: Clear. CARDIOVASCULAR: S1, S2. Irregularly irregular heart rate. ABDOMEN: Soft, positive bowel sounds. EXTREMITIES: 2+ edema. SKIN: Warm and dry. LABORATORY DATA AND IMAGING DATA: Laboratory work was reviewed. Sodium of 139 , potassium is 5.3, creatinine is 1.1 4 less slightly higher than before. Troponins have been 0.03, 0.06 and 0.05, indeterminate range. CK-MB was normal x3, Phos and mag were normal. UA was normal. Chloride was normal. Hematology was unremarkable. Hemoglobin of 12.7. EKG was reviewed, AFib, RVR. ASSESSMENT AND PLAN: Include; 1. Atrial fibrillation with rapid ventricular response: Rate controlled on diltiazem. We will continue home dose of amiodarone and we will switch her Coreg to 12.5 b.i.d. 2. Echocardiogram shows reduced left ventricular function: May be related to her atrial fibrillation. She may need a repeat heart catheterization, we will hold off at this time. We will continue to treat medically for left ventricular dysfunction. We will give her some IV Lasix as this is probably just a systolic dysfunction. 3. Pericardial effusion: Small effusion now compared to before, we will watch the next few days with a repeat echo. Thank you for letting us to participate in care of your patient. We will follow. MILLER
[2017-06-02] MEDS: Carvedilol 25 MG TAB PO SCH (20:30)
[2017-06-03] MEDS: Furosemide 40 MG/4 ML VIAL SLOW IVP SCH ×2 (05:26→13:22)
[2017-06-03 05:42] LABS: #Lymphocytes 0.8 thou/uL (1.20-3.40); #Monocytes 0.6 thou/uL (0.11-0.59); #Neutrophils 7.6 thou/uL (1.40-6.50); %Basophils 0.4 % (0.0-1.0); %Eosinophils 0.5 % (0.0-10.0); %Lymphocytes 8.5 % (21.0-51.0); %Monocytes 6.2 % (0.0-10.0); Hematocrit 37.8 % (36.0-47.0); Mean Platelet Volume 10.1 fL (7.4-10.4); Red Blood Cell (RBC) Count 4.33 mill/uL (4.20-5.40)
[2017-06-03 06:04] LABS: ALT (SGPT) 14 U/L (8-55); AST (SGOT) 15 U/L (5-34); Alkaline Phosphatase 150 U/L (40-150); Anion Gap 12 mmol/L (10-20); BUN (Urea Nitrogen) 17 mg/dL (9.8-20.1); Bilirubin, Total 0.5 mg/dL (0.2-1.2); Calc. Creatinine Clearance 71 mL/min (70-130); Calcium 9.4 mg/dL (7.8-10.44); Carbon Dioxide 27 mmol/L (23-31); Chloride 105 mmol/L (98-107); Estimated GFR-MDRD 50; Globulin 3.1 g/dL (2.4-3.5); Protein, Total 6.6 g/dL (6.0-8.3)
[2017-06-03] MEDS: Docusate 100 MG CAP PO SCH ×2 (07:57→20:17)
[2017-06-03] MEDS: Carvedilol 25 MG TAB PO SCH (07:57)
[2017-06-03] MEDS: Aspirin 81 mg Enteric Coated Tablet PO SCH (07:57)
[2017-06-03] MEDS: Clopidogrel Bisulfate 75 MG TAB PO SCH (07:57)
[2017-06-03] MEDS: Acetaminophen 325 MG TAB PO PRN ×3 (07:57→20:20)
[2017-06-03] MEDS: Amiodarone 200 MG TAB PO SCH (07:57)
[2017-06-03] MEDS: Famotidine 20 MG TAB PO SCH ×2 (07:57→20:17)
[2017-06-03] MEDS: Promethazine 25 MG TAB PO PRN (11:56)
--- NOTE | 2017-06-03 16:53 | PDOC.CTH ---
Cardiology Progress Note - Subjective She is feeling slightly better but still SOB and cannot lay flat without getting short winded. - Objective Vital Signs Temp Pulse Resp BP Pulse Ox 06/03/17 15:35 98.5 F 51 L 20 104/54 L 93 L 06/03/17 11:50 97.8 F 55 L 20 140/65 93 L 06/03/17 08:00 97.8 F 50 L 20 06/03/17 07:53 97.8 F 50 L 20 167/70 H 93 L Weight 198 lb 1.6 oz 06/02/17 06/03/17 06/04/17 06:59 06:59 06:59 Intake Total 1230 Output Total 1400 Balance -170 - Physical Examination General/Neuro: alert & oriented x3, NAD Neck: no JVD present Lungs: unlabored respirations Heart: RRR, other: (bradyc) Abdomen: NT/ND Extremities: + edema B (1+) - Telemetry Telemetry Rhythm: S elizabeth - Labs Result Diagrams: 06/03/17 04:57 06/03/17 04:57 Troponin/CKMB CK-MB (CK-2) 1.9 ng/mL (0-6.6) 06/02/17 11:48 Troponin I 0.052 ng/mL (< 0.028) H 06/02/17 11:48 - Assessment/Plan 1. Afib RVR, paroxysmal, now in sinus. 2. LV dysfunction. EF now at 30-35% 3. Pericardial effusion, small no tamponade 4. 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 Acute on chronic systolic dysfunction. PLAN: - Will continue IV diuresis. - Will repeat echo now that she is back in sinus. - If her EF remians low in sinus will have to do a LHC to assess her LAD stent and if intervention needed will choose GREG this time. - Continue amiodarone
[2017-06-03] MEDS ORDERED: Carvedilol 6.25 MG TAB PO SCH (17:00)
--- NOTE | 2017-06-03 20:45 | PDOC.PN ---
- Subjective Encounter Start Date: 06/03/17 Encounter Start Time: 14:00 Patient seen and examined. No new complaints. No overnight events. In SR/SB. Cardizem drip dced. - Objective Resuscitation Status: Resuscitation Status FULL:Full Resuscitation MAR Reviewed: Yes Vital Signs & Weight: Vital Signs (12 hours) Temp Pulse Resp BP Pulse Ox 06/03/17 19:55 98.7 F 58 L 20 148/60 H 91 L 06/03/17 15:35 98.5 F 51 L 20 104/54 L 93 L 06/03/17 11:50 97.8 F 55 L 20 140/65 93 L Weight Weight 198 lb 1.6 oz I&O: 06/02/17 06/03/17 06/04/17 06:59 06:59 06:59 Intake Total 1230 2400 Output Total 1400 2800 Balance -170 -400 Result Diagrams: 06/03/17 04:57 06/04/17 06:00 EKG Reviewed by me: Yes (Tele SB) Phys Exam - Physical Examination Constitutional: NAD Respiratory: no wheezing, no rhonchi Cardiovascular: RRR, no rub Gastrointestinal: soft, non-tender, positive bowel sounds Musculoskeletal: no edema Neurological: non-focal, moves all 4 limbs Psychiatric: A&O x 3 Dx/Plan - Plan IMPRESSION: 1. Atrial fibrillation with rapid ventricular response. in SR. Off Cardizem drip. on home dose of amiodarone 200 mg daily + carvedilol 3.125. Cardiology following. 2. Coronary artery disease, status post stent placement and myocardial infarction in the past. 3. Indeterminate troponins, probably secondary to demand ischemia from rapid ventricular rate. 4. New onset systolic heart failure - acute - on diuretics 5. Hyperkalemia, probably medication induced. improved 6. Chronic myeloid leukemia, currently in remission, followed by [facility]. on Bosutinib 7. Chronic low back pain. 8. Obesity with body mass index at 30.7 in the past. 9. History of paroxysmal atrial fibrillation. 10. Dyslipidemia. 11. Anxiety and depression. 12. Chronic kidney disease stage 3. PLAN: * Cont current meds as below * Reduce Coreg dose due to bradycardia * Cont diuresis * AM labs * Consut CV team * Counselled on CHF * ?[facility] * Resume other home meds * Hold Lisinopril for now to facilitate diuresis Review of Systems - Review of Systems Respiratory: negative: Cough, Dry, Shortness of Breath, Hemoptysis, SOB with Excertion, Pleuritic Pain, Sputum, Wheezing Cardiovascular: negative: Chest Pain, Palpitations, Orthopnea, Paroxysmal Noc. Dyspnea, Edema, Light Headedness, Other Gastrointestinal: negative: Nausea, Vomiting, Abdominal Pain, Diarrhea, Constipation, Melena, Hematochezia, Other - Medications/Allergies Allergies/Adverse Reactions: Allergies Allergy/AdvReac Type Severity Reaction Status Date / Time No Known Drug Allergies Allergy Verified 01/29/17 19:23 Medications: Current Medications Acetaminophen (Tylenol) 650 mg PO Q4H PRN PRN Reason: Headache/Fever or Pain Last Admin: 06/03/17 20:20 Dose: 650 mg Amiodarone HCl (Cordarone) 200 mg PO DAILY [facility] Last Admin: 06/03/17 07:57 Dose: 200 mg Aspirin (Ecotrin) 81 mg PO DAILY [facility] Last Admin: 06/03/17 07:57 Dose: 81 mg Calcium Carbonate (Tums) 1,000 mg PO Q4H PRN PRN Reason: Heartburn or Indigestion Carvedilol (Coreg) 3.125 mg PO BID [facility] Clopidogrel Bisulfate (Plavix) 75 mg PO QAM [facility] Last Admin: 06/03/17 07:57 Dose: 75 mg Docusate Sodium (Colace) 100 mg PO BID [facility] Last Admin: 06/03/17 20:17 Dose: 100 mg Famotidine (Pepcid) 20 mg PO BID [facility] Last Admin: 06/03/17 20:17 Dose: 20 mg Furosemide (Lasix) 80 mg SLOW IVP 0600,1400 [facility] Nitroglycerin (Nitrostat) 0.4 mg PO Q5MIN PRN PRN Reason: Chest Pain Promethazine HCl (Phenergan) 25 mg PO Q4H PRN PRN Reason: Nausea Last Admin: 06/03/17 11:56 Dose: 25 mg Senna (Senokot) 2 tab PO HSPRN PRN PRN Reason: Constipation Sodium Chloride (Flush - Normal Saline) 10 ml IVF Q12HR [facility] Last Admin: 06/03/17 20:17 Dose: 10 ml Sodium Chloride (Flush - Normal Saline) 10 ml IVF PRN PRN PRN Reason: Saline Flush Last Admin: 06/03/17 13:22 Dose: 10 ml
[2017-06-04] MEDS: Furosemide 100 MG/10 ML VIAL SLOW IVP SCH ×2 (05:13→12:58)
[2017-06-04] MEDS ORDERED: Cyclobenzaprine 10 MG TAB PO PRN (05:53)
[2017-06-04 07:22] LABS: Anion Gap 12 mmol/L (10-20); BUN (Urea Nitrogen) 19 mg/dL (9.8-20.1); Calc. Creatinine Clearance 66 mL/min (70-130); Calcium 9.4 mg/dL (7.8-10.44); Carbon Dioxide 28 mmol/L (23-31); Chloride 102 mmol/L (98-107); Estimated GFR-MDRD 46; Magnesium 1.8 mg/dL (1.6-2.6); Phosphorus 2.4 mg/dL (2.3-4.7)
[2017-06-04] MEDS: Pregabalin 50 MG CAP PO SCH ×2 (07:43→20:40)
[2017-06-04] MEDS: Allopurinol 100 MG TAB PO SCH (07:44)
[2017-06-04] MEDS: Docusate 100 MG CAP PO SCH ×2 (07:44→20:41)
[2017-06-04] MEDS: Aspirin 81 mg Enteric Coated Tablet PO SCH (07:44)
[2017-06-04] MEDS: Famotidine 20 MG TAB PO SCH ×2 (07:44→20:41)
[2017-06-04] MEDS: Amiodarone 200 MG TAB PO SCH (07:44)
[2017-06-04] MEDS: FLUoxetine HCl 20 MG CAP PO SCH (07:45)
[2017-06-04] MEDS: Carvedilol 3.125 MG TAB PO SCH ×2 (07:45→20:41)
[2017-06-04] MEDS: Clopidogrel Bisulfate 75 MG TAB PO SCH (07:45)
[2017-06-04] MEDS: Promethazine 25 MG TAB PO PRN (07:48)
[2017-06-04] MEDS ORDERED: FLUoxetine HCl 20 MG/5 ML UDCUP PO SCH (09:00)
[2017-06-04] MEDS ORDERED: BOSUTINIB PO SCH (09:00)
--- NOTE | 2017-06-04 13:04 | PDOC.CTH ---
Cardiology Progress Note - Subjective Her breathing remains difficult. She had been in sinus rhythm but converted back to afib earlier today. - Objective Vital Signs Temp Pulse Pulse Pulse Resp BP BP 06/04/17 11:23 98.1 F 54 L 16 06/04/17 10:19 56 L 56 L 135/63 165/71 H 06/04/17 08:00 99.4 F 59 L 20 06/04/17 07:45 98.4 F 58 L 16 06/04/17 04:00 99.4 F 59 L 20 BP Pulse Ox Pulse Ox Pulse Ox 06/04/17 11:23 131/59 L 93 L 06/04/17 10:19 90 L 94 L 06/04/17 08:00 06/04/17 07:45 143/65 H 95 06/04/17 04:00 144/63 H 92 L Weight 196 lb 4.8 oz 06/03/17 06/04/17 06/05/17 06:59 06:59 06:59 Intake Total 1230 2528 Output Total 1400 2800 Balance -170 -272 - Physical Examination General/Neuro: alert & oriented x3 Neck: no JVD present Lungs: unlabored respirations Heart: other: (irreg) Abdomen: NT/ND Extremities: + edema B (1+) - Telemetry Telemetry Rhythm: Afib HRT 105-115 - Labs Result Diagrams: 06/03/17 04:57 06/04/17 06:00 Troponin/CKMB CK-MB (CK-2) 1.9 ng/mL (0-6.6) 06/02/17 11:48 Troponin I 0.052 ng/mL (< 0.028) H 06/02/17 11:48 - Assessment/Plan 1. Afib RVR, paroxysmal, now in sinus. 2. LV dysfunction. EF now at 30-35% 3. Pericardial effusion, small no tamponade 4. 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 Acute on chronic systolic dysfunction. PLAN: - Will continue IV diuresis. - Repeat echo showed EF at 35-40% with anterior and anterolateral hypokinesis. - Will have to reassess LAD with a [facility]. She cannot lay flat today so will have to wait until more stable. - Will change amiodarone to a drip. - If diuresis not effective with current lasix dose we may need to add dobatumine. I Am reluctant to add today as she is in afib, would preffer to have her on IV amio for 12 hours before considering starting an inotrope.
[2017-06-04] MEDS: Amiodarone HCl 450 MG, Admixture Fee 1 EACH in Dextrose 5% in Water 250 ML IVPB SCH ×6 (13:25→21:44)
--- NOTE | 2017-06-04 15:48 | PDOC.PN ---
- Subjective Encounter Start Date: 06/04/17 Encounter Start Time: 15:00 Patient seen and examined. No overnight events. SOB + - Objective Resuscitation Status: Resuscitation Status FULL:Full Resuscitation MAR Reviewed: Yes Vital Signs & Weight: Vital Signs (12 hours) Temp Pulse Pulse Pulse Resp BP BP 06/04/17 15:32 98.9 F 107 H 16 06/04/17 13:48 06/04/17 11:23 98.1 F 54 L 16 06/04/17 10:19 56 L 56 L 135/63 165/71 H 06/04/17 08:00 99.4 F 59 L 20 06/04/17 07:45 98.4 F 58 L 16 06/04/17 04:00 99.4 F 59 L 20 BP Pulse Ox Pulse Ox Pulse Ox 06/04/17 15:32 135/76 96 06/04/17 13:48 98 06/04/17 11:23 131/59 L 93 L 06/04/17 10:19 90 L 94 L 06/04/17 08:00 06/04/17 07:45 143/65 H 95 06/04/17 04:00 144/63 H 92 L Weight Weight 196 lb 4.8 oz I&O: 06/03/17 06/04/17 06/05/17 06:59 06:59 06:59 Intake Total 1230 2528 Output Total 1400 2800 Balance -170 -272 Result Diagrams: 06/05/17 04:32 06/05/17 04:32 EKG Reviewed by me: Yes (Tele Afib) Phys Exam - Physical Examination Constitutional: NAD Respiratory: no wheezing, no rhonchi Bibasilar rales Cardiovascular: no rub, irregular Gastrointestinal: soft, non-tender, positive bowel sounds Musculoskeletal: no edema Neurological: moves all 4 limbs Dx/Plan - Plan IMPRESSION: 1. Atrial fibrillation with rapid ventricular response. in SR. Off Cardizem drip. Started on Amiodarone drip. on carvedilol 3.125. Cardiology following. 2. Coronary artery disease, status post stent placement and myocardial infarction in the past. on aspirin, Plavix, and beta blockers. 3. NSVT earlier today. 4. New onset systolic heart failure - acute - on diuretics - dose increased 5. Hyperkalemia, probably medication induced. resolved 6. Chronic myeloid leukemia, currently in remission, followed by [facility]. on Bosutinib at home - discontinued by Cardiology 7. Chronic low back pain. 8. Obesity with body mass index at 30.7 in the past. 9. History of paroxysmal atrial fibrillation. 10. Dyslipidemia. 11. Anxiety and depression. 12. Indeterminate troponins, probably secondary to demand ischemia from rapid ventricular rate. 13. Chronic kidney disease stage 3. PLAN: * Cont current meds as below * Cont diuresis * Echo repeated today * AM labs * 2 gm Mg IVPB x 1 * Lisinopril on hold * AM labs Review of Systems - Review of Systems Respiratory: Shortness of Breath, SOB with Excertion. negative: Cough, Dry, Hemoptysis, Pleuritic Pain, Sputum, Wheezing Cardiovascular: Orthopnea. negative: Chest Pain, Palpitations, Paroxysmal Noc. Dyspnea, Edema, Light Headedness, Other Gastrointestinal: negative: Nausea, Vomiting, Abdominal Pain, Diarrhea, Constipation, Melena, Hematochezia, Other - Medications/Allergies Allergies/Adverse Reactions: Allergies Allergy/AdvReac Type Severity Reaction Status Date / Time No Known Drug Allergies Allergy Verified 01/29/17 19:23 Medications: Current Medications Acetaminophen (Tylenol) 650 mg PO Q4H PRN PRN Reason: Headache/Fever or Pain Last Admin: 06/03/17 20:20 Dose: 650 mg Allopurinol (Zyloprim) 100 mg PO DAILY [facility] Last Admin: 06/04/17 07:44 Dose: 100 mg Aspirin (Ecotrin) 81 mg PO DAILY [facility] Last Admin: 06/04/17 07:44 Dose: 81 mg Calcium Carbonate (Tums) 1,000 mg PO Q4H PRN PRN Reason: Heartburn or Indigestion Carvedilol (Coreg) 3.125 mg PO BID [facility] Last Admin: 06/04/17 07:45 Dose: 3.125 mg Clopidogrel Bisulfate (Plavix) 75 mg PO QAM [facility] Last Admin: 06/04/17 07:45 Dose: 75 mg Cyclobenzaprine HCl (Flexeril) 5 mg PO TIDPRN PRN PRN Reason: Back spasm Docusate Sodium (Colace) 100 mg PO BID [facility] Last Admin: 06/04/17 07:44 Dose: 100 mg Enoxaparin Sodium (Lovenox) 90 mg SC 0900,2100 [facility] Famotidine (Pepcid) 20 mg PO BID [facility] Last Admin: 06/04/17 07:44 Dose: 20 mg Fluoxetine HCl (Prozac) 20 mg PO DAILY [facility] Last Admin: 06/04/17 07:45 Dose: 20 mg Furosemide (Lasix) 80 mg SLOW IVP 0600,1400 [facility] Last Admin: 06/04/17 12:58 Dose: 80 mg Amiodarone HCl 450 mg/Miscellaneous Medication 1 each/ Dextrose/Water 259 mls @ 0 mls/hr IVPB INF [facility]; Per Protocol PRN Reason: Protocol Last Admin: 06/04/17 13:25 Dose: 259 mls Magnesium Sulfate 2 gm/ Sodium (Chloride) 104 mls @ 100 mls/hr IVPB ONE [facility] Lisinopril (Zestril) 2.5 mg PO DAILY [facility] Nitroglycerin (Nitrostat) 0.4 mg PO Q5MIN PRN PRN Reason: Chest Pain Pregabalin (Lyrica) 50 mg PO BID [facility] Last Admin: 06/04/17 07:43 Dose: 50 mg Promethazine HCl (Phenergan) 25 mg PO Q4H PRN PRN Reason: Nausea Last Admin: 06/04/17 07:48 Dose: 25 mg Senna (Senokot) 2 tab PO HSPRN PRN PRN Reason: Constipation Simvastatin (Zocor) 20 mg PO HS [facility] Sodium Chloride (Flush - Normal Saline) 10 ml IVF Q12HR [facility] Last Admin: 06/04/17 07:45 Dose: 10 ml Sodium Chloride (Flush - Normal Saline) 10 ml IVF PRN PRN PRN Reason: Saline Flush Last Admin: 06/03/17 13:22 Dose: 10 ml
--- NOTE | 2017-06-04 16:05 | RAD ---
UPRIGHT PORTABLE CHEST ONE VIEW: History: 66-year-old female with history of atrial fibrillation with history of chest pain and shortness of b reath, follow up. Comparison: 06-02-17 FINDINGS: There is cardiomegaly with bilateral vascular congestion and mild interstitial edema and pleural eff usions, showing improvement from the 06-02-17 study. Monitor leads overlie the chest. IMPRESSION: Improving congestive heart failure and vascular congestion and interstitial edema. Continued short t erm follow up for complete clearing or stability. POS: JUDAH
[2017-06-04] MEDS ORDERED: Magnesium 2 GM/NS 0.9% 50 ML 2 GM in Premix Bag 1 BAG IVPB SCH ×4 (16:15)
--- NOTE | 2017-06-04 17:52 | RAD ---
UNILATERAL VIEW OF THE CHEST 06/04/2017 HISTORY: Newly developed atrial fibrillation. COMPARISON: Portable AP chest x-ray also obtained on 06/04/2017, earlier today. FINDINGS: There is evidence of what appears to be bilateral pleural effusions, larger on the left. There are minimal patchy densities seen overlying the posterior lung bases on the lateral projection, likely i n the left lower lobe which may be related to atelectasis as well. There are degenerative changes i n the spine. IMPRESSION: Bilateral pleural effusions, greater on the left, with probable atelectasis at the left lung base. POS: MED
[2017-06-04] MEDS: Enoxaparin Sodium 100 MG/ML SYRINGE SC SCH (20:40)
[2017-06-04] MEDS: Simvastatin 20 MG TAB PO SCH (20:41)
[2017-06-04] MEDS ORDERED: Enoxaparin Sodium 80 MG/0.8 ML SYRINGE SC SCH (21:00)
[2017-06-05 05:15] LABS: Hematocrit 39.4 % (36.0-47.0)
[2017-06-05 05:31] LABS: Anion Gap 12 mmol/L (10-20); BUN (Urea Nitrogen) 18 mg/dL (9.8-20.1); BUN/Creatinine Ratio 17.65; Calc. Creatinine Clearance 72 mL/min (70-130); Calcium 9.5 mg/dL (7.8-10.44); Carbon Dioxide 30 mmol/L (23-31); Chloride 101 mmol/L (98-107); Estimated GFR-MDRD 54; Magnesium 2.1 mg/dL (1.6-2.6); Phosphorus 2.5 mg/dL (2.3-4.7)
[2017-06-05] MEDS: Furosemide 100 MG/10 ML VIAL SLOW IVP SCH ×2 (05:45→13:13)
[2017-06-05] MEDS: Docusate 100 MG CAP PO SCH ×2 (08:44→21:04)
[2017-06-05] MEDS: Allopurinol 100 MG TAB PO SCH (08:44)
[2017-06-05] MEDS: Clopidogrel Bisulfate 75 MG TAB PO SCH (08:44)
[2017-06-05] MEDS: Aspirin 81 mg Enteric Coated Tablet PO SCH (08:44)
[2017-06-05] MEDS: Carvedilol 3.125 MG TAB PO SCH ×2 (08:44→21:04)
[2017-06-05] MEDS: Enoxaparin Sodium 100 MG/ML SYRINGE SC SCH (08:45)
[2017-06-05] MEDS: Lisinopril 2.5 MG TAB PO SCH (08:45)
[2017-06-05] MEDS: FLUoxetine HCl 20 MG CAP PO SCH (08:45)
[2017-06-05] MEDS: Famotidine 20 MG TAB PO SCH ×2 (08:45→21:04)
[2017-06-05] MEDS: Pregabalin 50 MG CAP PO SCH ×2 (08:46→21:04)
[2017-06-05] MEDS: Amiodarone HCl 450 MG, Admixture Fee 1 EACH in Dextrose 5% in Water 250 ML IVPB SCH ×3 (13:12)
[2017-06-05] MEDS: Potassium Chloride 10 MEQ TAB PO SCH ×2 (13:14→16:54)
[2017-06-05] MEDS ORDERED: Communication Order-Pharmacy FS SCH (13:15)
--- NOTE | 2017-06-05 15:08 | PDOC.PN ---
- Subjective Encounter Start Date: 06/05/17 Encounter Start Time: 08:30 Patient seen and examined. No new complaints. No overnight events. SOB better. - Objective Resuscitation Status: Resuscitation Status FULL:Full Resuscitation MAR Reviewed: Yes Vital Signs & Weight: Vital Signs (12 hours) Temp Pulse Pulse Pulse Resp BP BP 06/05/17 11:45 98.9 F 57 L 18 06/05/17 09:40 122 H 126 H 122/78 06/05/17 08:45 110 H 121/81 06/05/17 08:00 98.9 F 57 L 18 06/05/17 07:54 98.1 F 110 H 16 06/05/17 04:45 98.8 F 97 20 BP BP Pulse Ox Pulse Ox Pulse Ox 06/05/17 11:45 120/61 95 06/05/17 09:40 122/79 96 95 06/05/17 08:45 06/05/17 08:00 06/05/17 07:54 135/85 95 06/05/17 04:45 127/68 93 L Weight Weight 186 lb 3.2 oz I&O: 06/04/17 06/05/17 06/06/17 06:59 06:59 06:59 Intake Total 2528 2554 Output Total 2800 3750 Balance -272 -0856 Result Diagrams: 06/05/17 04:32 06/05/17 04:32 EKG Reviewed by me: Yes (Tele Afib) Phys Exam - Physical Examination Constitutional: NAD Respiratory: no wheezing, no rales Dec AE at bases Cardiovascular: no rub, irregular Gastrointestinal: soft, non-tender, positive bowel sounds Musculoskeletal: no edema Neurological: moves all 4 limbs Psychiatric: A&O x 3 Dx/Plan - Plan IMPRESSION: 1. Atrial fibrillation with rapid ventricular response. in SR. Off Cardizem drip. Started on Amiodarone drip. on carvedilol 3.125. Cardiology following. Anticoag 2. Coronary artery disease, status post stent placement and myocardial infarction in the past. on aspirin, Plavix, and beta blockers. 3. NSVT. on Amiodarone. 4. New onset systolic heart failure - acute - on diuretics 5. Hypokalemia 6. Chronic myeloid leukemia, currently in remission, followed by [facility]. on Bosutinib at home - discontinued by Cardiology 7. Chronic low back pain. 8. Obesity with body mass index at 30.7 in the past. 9. History of paroxysmal atrial fibrillation. 10. Dyslipidemia. 11. Anxiety and depression. 12. Indeterminate troponins, probably secondary to demand ischemia from rapid ventricular rate. 13. Chronic kidney disease stage 3. 14. Hyperkalemia - resolved PLAN: * Replace Potassium * Cont current meds as below * Cont diuresis per Cardiology * Low dose Lisinopril * AM labs * Cont to monitor * Cardiac rehab * On Amiodarone drip * ?Cardiac Cath Review of Systems - Review of Systems Respiratory: SOB with Excertion. negative: Cough, Dry, Shortness of Breath, Hemoptysis, Pleuritic Pain, Sputum, Wheezing Cardiovascular: negative: Chest Pain, Palpitations, Orthopnea, Paroxysmal Noc. Dyspnea, Edema, Light Headedness, Other - Medications/Allergies Allergies/Adverse Reactions: Allergies Allergy/AdvReac Type Severity Reaction Status Date / Time No Known Drug Allergies Allergy Verified 01/29/17 19:23 Medications: Current Medications Acetaminophen (Tylenol) 650 mg PO Q4H PRN PRN Reason: Headache/Fever or Pain Last Admin: 06/03/17 20:20 Dose: 650 mg Allopurinol (Zyloprim) 100 mg PO DAILY [facility] Last Admin: 06/05/17 08:44 Dose: 100 mg Aspirin (Ecotrin) 81 mg PO DAILY [facility] Last Admin: 06/05/17 08:44 Dose: 81 mg Calcium Carbonate (Tums) 1,000 mg PO Q4H PRN PRN Reason: Heartburn or Indigestion Carvedilol (Coreg) 3.125 mg PO BID [facility] Last Admin: 06/05/17 08:44 Dose: 3.125 mg Clopidogrel Bisulfate (Plavix) 75 mg PO QAM [facility] Last Admin: 06/05/17 08:44 Dose: 75 mg Cyclobenzaprine HCl (Flexeril) 5 mg PO TIDPRN PRN PRN Reason: Back spasm Docusate Sodium (Colace) 100 mg PO BID [facility] Last Admin: 06/05/17 08:44 Dose: 100 mg Famotidine (Pepcid) 20 mg PO BID [facility] Last Admin: 06/05/17 08:45 Dose: 20 mg Fluoxetine HCl (Prozac) 20 mg PO DAILY [facility] Last Admin: 06/05/17 08:45 Dose: 20 mg Furosemide (Lasix) 80 mg SLOW IVP 0600,1400 [facility] Last Admin: 06/05/17 13:13 Dose: 80 mg Amiodarone HCl 450 mg/Miscellaneous Medication 1 each/ Dextrose/Water 259 mls @ 0 mls/hr IVPB INF [facility]; Per Protocol PRN Reason: Protocol Last Admin: 06/05/17 13:12 Dose: 259 mls Sodium Chloride (Normal Saline 0.9%) 1,000 mls @ 50 mls/hr IV .Q20H [facility] Stop: 06/06/17 11:00 Lisinopril (Zestril) 2.5 mg PO DAILY [facility] Last Admin: 06/05/17 08:45 Dose: 2.5 mg Miscellaneous Information (Communication Order-Pharmacy) 0 each FS ONE [facility] Stop: 06/05/17 23:59 Nitroglycerin (Nitrostat) 0.4 mg PO Q5MIN PRN PRN Reason: Chest Pain Potassium Chloride (Klor-Con 10) 20 meq PO TID-WM [facility] Stop: 06/06/17 08:01 Last Admin: 06/05/17 13:14 Dose: 20 meq Pregabalin (Lyrica) 50 mg PO BID [facility] Last Admin: 06/05/17 08:46 Dose: 50 mg Promethazine HCl (Phenergan) 25 mg PO Q4H PRN PRN Reason: Nausea Last Admin: 06/04/17 07:48 Dose: 25 mg Senna (Senokot) 2 tab PO HSPRN PRN PRN Reason: Constipation Simvastatin (Zocor) 20 mg PO HS [facility] Last Admin: 06/04/17 20:41 Dose: 20 mg Sodium Chloride (Flush - Normal Saline) 10 ml IVF Q12HR [facility] Last Admin: 06/05/17 08:46 Dose: Not Given Sodium Chloride (Flush - Normal Saline) 10 ml IVF PRN PRN PRN Reason: Saline Flush Last Admin: 06/03/17 13:22 Dose: 10 ml
--- NOTE | 2017-06-05 18:12 | PDOC.CTH ---
Cardiology Progress Note - Subjective She feels much better today, she has diuressed better . She went back into afib yesterday evening but is back on sinus this morning. She is now able to lay flat. - Objective Vital Signs Temp Pulse Pulse Pulse Resp BP BP 06/05/17 15:35 98.5 F 54 L 18 06/05/17 11:45 98.9 F 57 L 18 06/05/17 09:40 122 H 126 H 122/78 06/05/17 08:45 110 H 121/81 06/05/17 08:06 06/05/17 08:00 98.9 F 57 L 18 06/05/17 07:54 98.1 F 110 H 16 BP BP Pulse Ox Pulse Ox Pulse Ox 06/05/17 15:35 110/57 L 94 L 06/05/17 11:45 120/61 95 06/05/17 09:40 122/79 96 95 06/05/17 08:45 06/05/17 08:06 96 06/05/17 08:00 06/05/17 07:54 135/85 95 Weight 186 lb 3.2 oz 06/04/17 06/05/17 06/06/17 06:59 06:59 06:59 Intake Total 2528 2554 Output Total 2800 3750 1400 Balance -140 -2555 -1400 - Physical Examination General/Neuro: alert & oriented x3, NAD Neck: no JVD present Lungs: unlabored respirations Heart: RRR Abdomen: NT/ND Extremities: + edema B (1+) - Telemetry Telemetry Rhythm: S Kane - Labs Result Diagrams: 06/05/17 04:32 06/05/17 04:32 Troponin/CKMB CK-MB (CK-2) 1.9 ng/mL (0-6.6) 06/02/17 11:48 Troponin I 0.052 ng/mL (< 0.028) H 06/02/17 11:48 - Assessment/Plan 1. Afib RVR, paroxysmal, now in sinus. 2. LV dysfunction. EF now at 35-40% 3. Pericardial effusion, small no tamponade 4. 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 Acute on chronic systolic dysfunction. PLAN: - Will continue IV diuresis today. - Continue amiodarone to a drip. - Will plan on doing LHC tomorrow. we spoke about risks and benefits and she agrees to proceed. - Replace Buddy
[2017-06-05] MEDS: Simvastatin 20 MG TAB PO SCH (21:04)
[2017-06-06] MEDS: Amiodarone HCl 450 MG, Admixture Fee 1 EACH in Dextrose 5% in Water 250 ML IVPB SCH ×6 (04:20→20:33)
[2017-06-06 04:25] LABS: Hematocrit 37.7 % (36.0-47.0)
[2017-06-06 04:44] LABS: Anion Gap 9 mmol/L (10-20); BUN (Urea Nitrogen) 21 mg/dL (9.8-20.1); BUN/Creatinine Ratio 15.56; Calc. Creatinine Clearance 55 mL/min (70-130); Calcium 9.3 mg/dL (7.8-10.44); Carbon Dioxide 33 mmol/L (23-31); Chloride 101 mmol/L (98-107); Estimated GFR-MDRD 39; Phosphorus 2.5 mg/dL (2.3-4.7)
[2017-06-06] MEDS ORDERED: Sodium Chloride 0.9% 1,000 ML IV SCH (06:00)
[2017-06-06] MEDS: Aspirin 81 mg Enteric Coated Tablet PO SCH (06:34)
[2017-06-06] MEDS: Potassium Chloride 10 MEQ TAB PO SCH (06:34)
[2017-06-06] MEDS: Clopidogrel Bisulfate 75 MG TAB PO SCH (06:35)
[2017-06-06] MEDS: Carvedilol 3.125 MG TAB PO SCH ×2 (06:35→20:33)
[2017-06-06] MEDS: Lisinopril 2.5 MG TAB PO SCH (06:35)
[2017-06-06] MEDS: FLUoxetine HCl 20 MG CAP PO SCH (06:35)
[2017-06-06] MEDS: Famotidine 20 MG TAB PO SCH ×2 (06:35→20:33)
[2017-06-06] MEDS: Allopurinol 100 MG TAB PO SCH (06:35)
[2017-06-06] MEDS: Pregabalin 50 MG CAP PO SCH ×2 (06:36→20:34)
[2017-06-06] MEDS: Docusate 100 MG CAP PO SCH ×2 (06:36→20:34)
[2017-06-06] MEDS: Furosemide 100 MG/10 ML VIAL SLOW IVP SCH (06:48)
[2017-06-06] MEDS ORDERED: Midazolam HCl 2 mg/2 ml Vial ONE (07:14)
[2017-06-06] MEDS ORDERED: Fentanyl 100 MCG/2 ML VIAL ONE (07:15)
[2017-06-06] MEDS ORDERED: traMADol HCl 50 MG TAB PO PRN (07:29)
[2017-06-06] MEDS ORDERED: Acetaminophen/Codeine 30-300mg Tablet PO PRN (07:29)
[2017-06-06] MEDS ORDERED: Sodium Chloride 0.9% 200 ML IV SCH (07:30)
[2017-06-06] MEDS ORDERED: Iopamidol 370 76% 100 ML VIAL ONE (15:52)
--- NOTE | 2017-06-06 18:55 | CON ---
DATE OF CONSULTATION: 06/06/2017 REASON FOR CONSULTATION: Evaluation for coronary artery bypass surgery. PERTINENT HISTORY: Patient is a 66-year-old female with a history of coronary artery disease, having undergone stenting to the proximal-mid LAD in January of this year, at which time ejection fraction was 60%. Two large diagonals were jailed in the process of stent placement. She was hospitalized earlier this month for a recurrent pericardial effusion for which subxiphoid pericardial window was performed on 05/23/2017, retrieving approximately 600 mL of rust- colored fluid with nondiagnostic analysis; however, cytology and pathology of the excised pericardium were both negative for malignancy. Ejection fraction at that time by echo had decreased to 40-45%. She was readmitted on 06/02/2017 for complaints of progressive shortness of breath and left shoulder pain, at which time she was found to be in atrial fibrillation with rapid ventricular response. Peak troponin I was 0.063; however, BNP was elevated at 2643 with chest x-ray demonstrating bilateral pleural effusions. Diuresis was conducted. She had return to normal sinus rhythm with amiodarone therapy. Transthoracic echo at this time; however, demonstrated continued decrement in her heart function with ejection fraction now 30% to 35% with global hypokinesis and a small residual pericardial effusion. Repeat cardiac catheterization today demonstrated severe LAD in-stent restenosis with very minimal appreciation of the above-mentioned jailed diagonal branches. Ejection fraction at catheterization today was 30% with LVEDP of 12-17. The patient was subsequently referred for coronary artery bypass surgery. PAST MEDICAL HISTORY: 1. 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 2. Paroxysmal atrial fibrillation. 3. Hypertension. 4. Dyslipidemia. 5. Anxiety/depression. 6. Obesity. 7. Diverticular disease. 8. 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 PAST SURGICAL HISTORY: 1. Hysterectomy. 2. BTL. 3. Pericardiocentesis 2 years ago at [facility] [place] in [place]. 4. Recent subxiphoid pericardial window as described above. FAMILY HISTORY: Significant for coronary artery disease in her father and 2 brothers. ALLERGIES: None. REVIEW OF SYSTEMS: No history of diabetes, kidney or liver disease, stroke, or claudication. SOCIAL HISTORY: Nonsmoker. Nondrinker. LABORATORY DATA AND X-RAY: Creatinine 1.0-1.35. INR 1.0. Hemoglobin 12.0, platelet count 253,000. Chest x-ray and echo as described above. CURRENT MEDICATIONS: Allopurinol 100 mg daily; amiodarone drip; aspirin 81 mg daily; Coreg 3.125 mg b.i.d.; Plavix 75 mg daily, stopped today; Flexeril 5 mg t.i.d. p.r.n.; Colace 100 mg b.i.d.; Prozac 20 mg daily; Pepcid 20 mg b.i.d.; Lasix 80 mg IV q.6 hours, stopped today; Zestril 2.5 mg daily; potassium 20 mEq t.i.d., stopped today; Lyrica 50 mg b.i.d.; Zocor 20 mg at bedtime; and multiple p.r.n. medications. PHYSICAL EXAMINATION: VITAL SIGNS: Height 5 feet 8 inches, weight 189 pounds. Blood pressure 145/69 , heart rate 58, temperature 99.2. GENERAL: Obese female currently in no acute distress. She is not on supplemental oxygen and can lay flat. She is fully oriented. HEENT: Grossly unremarkable. NECK: Without JVD or adenopathy. LUNGS: With slightly diminished breath sounds at each base. HEART: Sinus bradycardia without murmur or rub. ABDOMEN: Soft and nontender without palpable mass or hepatosplenomegaly. Subxiphoid incision is clean, intact and dry. EXTREMITIES Without appreciable edema. VASCULAR: Palpable radial, femoral, and ankle pulses bilaterally. No carotid bruits were appreciated. NEUROLOGIC: No focal deficits. IMPRESSION: 1. Acute coronary syndrome, severe 1-vessel coronary artery disease with severe left anterior descending in-stent restenosis, and moderate to severe reduction in left ventricular systolic function. 2. Paroxysmal atrial fibrillation. 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 The indications, benefits, alternatives, and risks were explained in detail to the patient and her . All questions were answered. The patient agrees to proceed without reservations. Case will be scheduled for this coming 06/10/2017. It was explained that attempted epicardial MAZE ablation will be performed as well as ligation of the left atrial appendage. MILLER
[2017-06-06] MEDS: Simvastatin 20 MG TAB PO SCH (20:33)
--- NOTE | 2017-06-06 21:33 | PDOC.PN ---
- Subjective Encounter Start Date: 06/06/17 Encounter Start Time: 16:30 Patient seen and examined. No new complaints. No overnight events. s/p Cath. - Objective Resuscitation Status: Resuscitation Status FULL:Full Resuscitation MAR Reviewed: Yes Vital Signs & Weight: Vital Signs (12 hours) Temp Pulse Resp BP Pulse Ox 06/06/17 19:52 98.7 F 64 14 95/51 L 94 L 06/06/17 15:50 99.2 F 57 L 16 145/69 H 94 L 06/06/17 11:35 98.4 F 55 L 16 120/60 95 Weight Weight 189 lb 6.4 oz I&O: 06/05/17 06/06/17 06/07/17 06:59 06:59 06:59 Intake Total 2554 486 1154 Output Total 3750 1400 1000 Balance -1196 -914 154 Result Diagrams: 06/06/17 04:00 06/07/17 03:27 EKG Reviewed by me: Yes (Tele SB) Phys Exam - Physical Examination Constitutional: NAD Respiratory: no wheezing, no rhonchi Cardiovascular: RRR, no rub Gastrointestinal: soft, no distention, positive bowel sounds Musculoskeletal: no edema Neurological: non-focal, moves all 4 limbs Dx/Plan - Plan cont current plan of care, DVT proph w/SCDs IMPRESSION: 1. Atrial fibrillation with rapid ventricular response. in SR. on Amiodarone drip. on carvedilol 3.125. Cardiology following. Off Cardizem drip. 2. Coronary artery disease, status post stent placement and myocardial infarction in the past. on aspirin, Plavix, and beta blockers. CABG on 06/10 3. NSVT. on Amiodarone. 4. New onset systolic heart failure - acute - on diuretics - Repeat Echo is SR - EF 35-40% 5. Hypokalemia - replaced 6. Chronic myeloid leukemia, currently in remission, followed by MD Quinteros. (on Bosutinib at home - discontinued by Cardiology) 7. Chronic low back pain. 8. Obesity with body mass index at 30.7 in the past. 9. History of paroxysmal atrial fibrillation. 10. Dyslipidemia. 11. Anxiety and depression. 12. Indeterminate troponins, probably secondary to demand ischemia from rapid ventricular rate. 13. Chronic kidney disease stage 3 with mild JOSE ENRIQUE/Contraction alkalosis. 14. Hyperkalemia - resolved PLAN: * Cont current meds as below * DC IV Lasix due to elevated Cr * Hold Lisinopril due to JOSE ENRIQUE * AM labs * Cont to monitor * Cardiac rehab * On Amiodarone drip per Cardiology Review of Systems - Review of Systems Respiratory: negative: Cough, Dry, Shortness of Breath, Hemoptysis, SOB with Excertion, Pleuritic Pain, Sputum, Wheezing Cardiovascular: negative: Chest Pain, Palpitations, Orthopnea, Paroxysmal Noc. Dyspnea, Edema, Light Headedness, Other Gastrointestinal: negative: Nausea, Vomiting, Abdominal Pain, Diarrhea, Constipation, Melena, Hematochezia, Other - Medications/Allergies Allergies/Adverse Reactions: Allergies Allergy/AdvReac Type Severity Reaction Status Date / Time No Known Drug Allergies Allergy Verified 01/29/17 19:23 Medications: Current Medications Acetaminophen (Tylenol) 650 mg PO Q4H PRN PRN Reason: Headache/Fever or Pain Last Admin: 06/03/17 20:20 Dose: 650 mg Acetaminophen/Codeine Phosphate (Tylenol #3) 1 tab PO Q4H PRN PRN Reason: Mild Pain (1-3) Allopurinol (Zyloprim) 100 mg PO DAILY [facility] Last Admin: 06/07/17 08:37 Dose: 100 mg Aspirin (Ecotrin) 81 mg PO DAILY [facility] Last Admin: 06/07/17 08:35 Dose: 81 mg Calcium Carbonate (Tums) 1,000 mg PO Q4H PRN PRN Reason: Heartburn or Indigestion Carvedilol (Coreg) 3.125 mg PO BID [facility] Last Admin: 06/07/17 08:36 Dose: 3.125 mg Cyclobenzaprine HCl (Flexeril) 5 mg PO TIDPRN PRN PRN Reason: Back spasm Docusate Sodium (Colace) 100 mg PO BID [facility] Last Admin: 06/07/17 08:35 Dose: Not Given Famotidine (Pepcid) 20 mg PO BID [facility] Last Admin: 06/07/17 08:36 Dose: 20 mg Fluoxetine HCl (Prozac) 20 mg PO DAILY [facility] Last Admin: 06/07/17 08:37 Dose: 20 mg Furosemide (Lasix) 40 mg PO DAILY-AC [facility] Amiodarone HCl 450 mg/Miscellaneous Medication 1 each/ Dextrose/Water 259 mls @ 0 mls/hr IVPB INF [facility]; Per Protocol PRN Reason: Protocol Last Admin: 06/06/17 20:33 Dose: 259 mls Lisinopril (Zestril) 2.5 mg PO DAILY [facility] Last Admin: 06/06/17 06:35 Dose: 2.5 mg Nitroglycerin (Nitrostat) 0.4 mg PO Q5MIN PRN PRN Reason: Chest Pain Potassium Chloride (Klor-Con 10) 10 meq PO BID-[facility] Last Admin: 06/07/17 08:35 Dose: 10 meq Pregabalin (Lyrica) 50 mg PO BID [facility] Last Admin: 06/07/17 08:35 Dose: 50 mg Promethazine HCl (Phenergan) 25 mg PO Q4H PRN PRN Reason: Nausea Last Admin: 06/04/17 07:48 Dose: 25 mg Senna (Senokot) 2 tab PO HSPRN PRN PRN Reason: Constipation Simvastatin (Zocor) 20 mg PO HS [facility] Last Admin: 06/06/17 20:33 Dose: 20 mg Sodium Chloride (Flush - Normal Saline) 10 ml IVF Q12HR [facility] Last Admin: 06/07/17 08:37 Dose: Not Given Sodium Chloride (Flush - Normal Saline) 10 ml IVF PRN PRN PRN Reason: Saline Flush Last Admin: 06/03/17 13:22 Dose: 10 ml Tramadol HCl (Ultram) 50 mg PO Q6H PRN PRN Reason: Moderate Pain (4-6)
[2017-06-07 03:57] LABS: Anion Gap 11 mmol/L (10-20); BUN (Urea Nitrogen) 17 mg/dL (9.8-20.1); BUN/Creatinine Ratio 14.17; Calc. Creatinine Clearance 63 mL/min (70-130); Calcium 9.1 mg/dL (7.8-10.44); Carbon Dioxide 27 mmol/L (23-31); Chloride 104 mmol/L (98-107); Estimated GFR-MDRD 45
[2017-06-07 04:18] LABS: Phosphorus 2.8 mg/dL (2.3-4.7)
[2017-06-07] MEDS: Potassium Chloride 10 MEQ TAB PO SCH ×2 (08:35→17:06)
[2017-06-07] MEDS: Aspirin 81 mg Enteric Coated Tablet PO SCH (08:35)
[2017-06-07] MEDS: Pregabalin 50 MG CAP PO SCH ×2 (08:35→20:35)
[2017-06-07] MEDS: Docusate 100 MG CAP PO SCH ×2 (08:35→20:36)
[2017-06-07] MEDS: Carvedilol 3.125 MG TAB PO SCH ×2 (08:36→20:36)
[2017-06-07] MEDS: Famotidine 20 MG TAB PO SCH ×2 (08:36→20:36)
[2017-06-07] MEDS: Allopurinol 100 MG TAB PO SCH (08:37)
[2017-06-07] MEDS: FLUoxetine HCl 20 MG CAP PO SCH (08:37)
--- NOTE | 2017-06-07 10:13 | PDOC.PN ---
- Subjective Encounter Start Date: 06/07/17 Encounter Start Time: 08:30 Patient seen and examined. No new complaints. No overnight events - Objective Resuscitation Status: Resuscitation Status FULL:Full Resuscitation MAR Reviewed: Yes Vital Signs & Weight: Vital Signs (12 hours) Temp Pulse Resp BP Pulse Ox 06/07/17 07:33 99.2 F 56 L 20 137/60 93 L 06/07/17 04:19 98 F 96 18 121/58 L 96 06/07/17 00:06 98 F 54 L 16 94/53 L 94 L Weight Weight 191 lb 3.2 oz I&O: 06/06/17 06/07/17 06/08/17 06:59 06:59 06:59 Intake Total 486 1274 Output Total 1400 1250 Balance -914 24 Result Diagrams: 06/06/17 04:00 06/07/17 03:27 EKG Reviewed by me: Yes (Tele SB) Phys Exam - Physical Examination Constitutional: NAD Respiratory: no wheezing, no rhonchi Cardiovascular: RRR, no rub Gastrointestinal: soft, non-tender, positive bowel sounds Musculoskeletal: no edema Neurological: moves all 4 limbs Dx/Plan - Plan DVT proph w/SCDs IMPRESSION: 1. Atrial fibrillation with rapid ventricular response. in SR. on Amiodarone drip. on carvedilol 3.125. Cardiology following. Off Cardizem drip. 2. Coronary artery disease, status post stent placement and myocardial infarction in the past. on aspirin, Plavix, and beta blockers. - for CABG on 3. NSVT. on Amiodarone. 4. New onset systolic heart failure - acute - on diuretics - Repeat Echo is SR - EF 35-40% 5. Hypokalemia - replaced 6. Chronic myeloid leukemia, currently in remission, followed by MD Quinteros. (on Bosutinib at home - discontinued by Cardiology) 7. Chronic low back pain. 8. Obesity with body mass index at 30.7 in the past. 9. History of paroxysmal atrial fibrillation. 10. Dyslipidemia. 11. Anxiety and depression. 12. Indeterminate troponins, probably secondary to demand ischemia from rapid ventricular rate. 13. Chronic kidney disease stage 3 with mild JOSE ENRIQUE/Contraction alkalosis. 14. Hyperkalemia - resolved PLAN: * Resume PO Lasix and Lisinopril * Cont current meds as below * AM labs * Cont to monitor * On Amiodarone drip per Cardiology Review of Systems - Review of Systems Respiratory: negative: Cough, Dry, Shortness of Breath, Hemoptysis, SOB with Excertion, Pleuritic Pain, Sputum, Wheezing Cardiovascular: negative: Chest Pain, Palpitations, Orthopnea, Paroxysmal Noc. Dyspnea, Edema, Light Headedness, Other Gastrointestinal: negative: Nausea, Vomiting, Abdominal Pain, Diarrhea, Constipation, Melena, Hematochezia, Other - Medications/Allergies Allergies/Adverse Reactions: Allergies Allergy/AdvReac Type Severity Reaction Status Date / Time No Known Drug Allergies Allergy Verified 01/29/17 19:23 Medications: Current Medications Acetaminophen (Tylenol) 650 mg PO Q4H PRN PRN Reason: Headache/Fever or Pain Last Admin: 06/03/17 20:20 Dose: 650 mg Acetaminophen/Codeine Phosphate (Tylenol #3) 1 tab PO Q4H PRN PRN Reason: Mild Pain (1-3) Allopurinol (Zyloprim) 100 mg PO DAILY [facility] Last Admin: 06/07/17 08:37 Dose: 100 mg Aspirin (Ecotrin) 81 mg PO DAILY [facility] Last Admin: 06/07/17 08:35 Dose: 81 mg Calcium Carbonate (Tums) 1,000 mg PO Q4H PRN PRN Reason: Heartburn or Indigestion Carvedilol (Coreg) 3.125 mg PO BID [facility] Last Admin: 06/07/17 08:36 Dose: 3.125 mg Cyclobenzaprine HCl (Flexeril) 5 mg PO TIDPRN PRN PRN Reason: Back spasm Docusate Sodium (Colace) 100 mg PO BID [facility] Last Admin: 06/07/17 08:35 Dose: Not Given Famotidine (Pepcid) 20 mg PO BID [facility] Last Admin: 06/07/17 08:36 Dose: 20 mg Fluoxetine HCl (Prozac) 20 mg PO DAILY [facility] Last Admin: 06/07/17 08:37 Dose: 20 mg Furosemide (Lasix) 40 mg PO DAILY-AC [facility] Amiodarone HCl 450 mg/Miscellaneous Medication 1 each/ Dextrose/Water 259 mls @ 0 mls/hr IVPB INF [facility]; Per Protocol PRN Reason: Protocol Last Admin: 06/06/17 20:33 Dose: 259 mls Lisinopril (Zestril) 2.5 mg PO DAILY [facility] Nitroglycerin (Nitrostat) 0.4 mg PO Q5MIN PRN PRN Reason: Chest Pain Potassium Chloride (Klor-Con 10) 10 meq PO BID-[facility] Last Admin: 06/07/17 08:35 Dose: 10 meq Pregabalin (Lyrica) 50 mg PO BID [facility] Last Admin: 06/07/17 08:35 Dose: 50 mg Promethazine HCl (Phenergan) 25 mg PO Q4H PRN PRN Reason: Nausea Last Admin: 06/04/17 07:48 Dose: 25 mg Senna (Senokot) 2 tab PO HSPRN PRN PRN Reason: Constipation Simvastatin (Zocor) 20 mg PO HS [facility] Last Admin: 06/06/17 20:33 Dose: 20 mg Sodium Chloride (Flush - Normal Saline) 10 ml IVF Q12HR [facility] Last Admin: 06/07/17 08:37 Dose: Not Given Sodium Chloride (Flush - Normal Saline) 10 ml IVF PRN PRN PRN Reason: Saline Flush Last Admin: 06/03/17 13:22 Dose: 10 ml Tramadol HCl (Ultram) 50 mg PO Q6H PRN PRN Reason: Moderate Pain (4-6)
[2017-06-07] MEDS: Amiodarone HCl 450 MG, Admixture Fee 1 EACH in Dextrose 5% in Water 250 ML IVPB SCH ×3 (11:54)
--- NOTE | 2017-06-07 18:38 | PRG ---
DATE OF SERVICE: 06/07/2017 SUBJECTIVE: Ms. Swan is feeling well. No complaints. No chest pain. OBJECTIVE: VITAL SIGNS: Blood pressure 142/66, pulse 56 and regular. LUNGS: Clear. CARDIAC: Normal S1, S2. ABDOMEN: Soft, nontender. EXTREMITIES: No edema. ASSESSMENT: 1. Coronary artery disease was scheduled for bypass next week. 2. Atrial fibrillation, maintaining sinus rhythm. PLAN: 1. Decrease amiodarone intravenously. 2. Start oral amiodarone. 3. Surgery scheduled for Friday.
[2017-06-07] MEDS: Simvastatin 20 MG TAB PO SCH (20:36)
[2017-06-07] MEDS: Amiodarone 200 MG TAB PO SCH (20:36)
[2017-06-08 04:59] LABS: Anion Gap 11 mmol/L (10-20); BUN (Urea Nitrogen) 15 mg/dL (9.8-20.1); Calc. Creatinine Clearance 73 mL/min (70-130); Calcium 9.2 mg/dL (7.8-10.44); Carbon Dioxide 26 mmol/L (23-31); Chloride 105 mmol/L (98-107); Estimated GFR-MDRD 52; Magnesium 2.2 mg/dL (1.6-2.6)
[2017-06-08] MEDS: Pregabalin 50 MG CAP PO SCH ×2 (08:26→20:29)
[2017-06-08] MEDS: Lisinopril 2.5 MG TAB PO SCH (08:27)
[2017-06-08] MEDS: Famotidine 20 MG TAB PO SCH ×2 (08:27→20:30)
[2017-06-08] MEDS: Allopurinol 100 MG TAB PO SCH (08:27)
[2017-06-08] MEDS: Potassium Chloride 10 MEQ TAB PO SCH ×2 (08:27→15:22)
[2017-06-08] MEDS: Furosemide 40 MG TAB PO SCH (08:27)
[2017-06-08] MEDS: Amiodarone 200 MG TAB PO SCH ×3 (08:27→20:30)
[2017-06-08] MEDS: FLUoxetine HCl 20 MG CAP PO SCH (08:27)
[2017-06-08] MEDS: Carvedilol 3.125 MG TAB PO SCH ×2 (08:27→20:30)
[2017-06-08] MEDS: Docusate 100 MG CAP PO SCH ×2 (08:27→20:30)
[2017-06-08] MEDS: Aspirin 81 mg Enteric Coated Tablet PO SCH (08:27)
--- NOTE | 2017-06-08 10:38 | PDOC.PN ---
- Subjective Encounter Start Date: 06/08/17 Encounter Start Time: 10:36 Patient seen at bedside. No overnight events, no C/P, SOB - Objective Resuscitation Status: Resuscitation Status FULL:Full Resuscitation MAR Reviewed: Yes Vital Signs & Weight: Vital Signs (12 hours) Temp Pulse Resp BP Pulse Ox 06/08/17 08:27 59 L 06/08/17 08:00 97.8 F 59 L 18 06/08/17 07:40 97.8 F 59 L 18 148/69 H 93 L 06/08/17 03:51 99.0 F 56 L 16 111/54 L 92 L 06/07/17 23:33 99.5 F 61 20 113/56 L 92 L Weight Weight 192 lb 9.6 oz I&O: 06/07/17 06/08/17 06/09/17 06:59 06:59 06:59 Intake Total 1274 1662 Output Total 1250 Balance 24 1662 Result Diagrams: 06/06/17 04:00 06/08/17 04:32 Phys Exam - Physical Examination Constitutional: NAD HEENT: moist MMs Neck: no JVD Respiratory: clear to auscultation bilateral Cardiovascular: RRR Gastrointestinal: soft Musculoskeletal: pulses present Neurological: moves all 4 limbs Psychiatric: A&O x 3 Dx/Plan (1) Atrial fibrillation with RVR Code(s): I48.91 - UNSPECIFIED ATRIAL FIBRILLATION Status: Resolved (2) NSTEMI (non-ST elevated myocardial infarction) Code(s): I21.4 - NON-ST ELEVATION (NSTEMI) MYOCARDIAL INFARCTION Status: Acute (3) CML (chronic myelocytic leukemia) Code(s): C92.10 - CHRONIC MYELOID LEUK, BCR/ABL-POSITIVE, NOT ACHIEVE REMIS Status: Chronic (4) Dyslipidemia Code(s): E78.5 - HYPERLIPIDEMIA, UNSPECIFIED Status: Chronic (5) Hypertension Code(s): I10 - ESSENTIAL (PRIMARY) HYPERTENSION Status: Chronic - Plan cont current plan of care, plan discussed w/ family, social services counselor, incentive spirometry, out of bed/ambulate * IV Amiodarone has been d/c and transitioned to PO. * ASA/Coreg/Statin * Continue with diuresis * Bosutinib for CML on hold per cardiology * For CABG on 06/10 *
--- NOTE | 2017-06-08 16:35 | ULT ---
LEFT UPPER EXTREMITY VENOUS DUPLEX ULTRASOUND INCLUDING COLOR AND SPECTRAL DOPPLER IMAGING: History: Palpable finding in the lateral aspect of the arm above the level of the elbow. Newly diagnosed atri al fibrillation. The left jugular, subclavian, axillary, brachial, and radial and ulnar veins appear patent. Left cep halic and basilic veins appear patent. IMPRESSION: No evidence for deep venous thrombosis. No significant superficial thrombosed veins demonstrated. POS: STACIA
[2017-06-08] MEDS: Simvastatin 20 MG TAB PO SCH (20:30)
[2017-06-09] MEDS: Carvedilol 3.125 MG TAB PO SCH ×2 (09:57→20:15)
[2017-06-09] MEDS: Allopurinol 100 MG TAB PO SCH (09:57)
[2017-06-09] MEDS: FLUoxetine HCl 20 MG CAP PO SCH (09:57)
[2017-06-09] MEDS: Aspirin 81 mg Enteric Coated Tablet PO SCH (09:57)
[2017-06-09] MEDS: Docusate 100 MG CAP PO SCH ×2 (09:57→20:14)
[2017-06-09] MEDS: Furosemide 40 MG TAB PO SCH (09:57)
[2017-06-09] MEDS: Lisinopril 2.5 MG TAB PO SCH (09:57)
[2017-06-09] MEDS: Amiodarone 200 MG TAB PO SCH ×3 (09:57→20:14)
[2017-06-09] MEDS: Famotidine 20 MG TAB PO SCH ×2 (09:58→20:14)
[2017-06-09] MEDS: Pregabalin 50 MG CAP PO SCH ×2 (09:58→20:14)
[2017-06-09] MEDS: Potassium Chloride 10 MEQ TAB PO SCH ×2 (09:58→17:05)
[2017-06-09] MEDS ORDERED: Ibuprofen 200 MG TAB PO SCH (10:45)
--- NOTE | 2017-06-09 11:29 | PDOC.PN ---
- Subjective Encounter Start Date: 06/09/17 Encounter Start Time: 10:30 Patient seen and examined. No new complaints. No overnight events. Swelling of the left arm - same as yesterday - doppler negative for DVT - Objective Resuscitation Status: Resuscitation Status FULL:Full Resuscitation MAR Reviewed: Yes Vital Signs & Weight: Vital Signs (12 hours) Temp Pulse Resp BP Pulse Ox 06/09/17 09:57 64 06/09/17 08:03 96 06/09/17 08:00 100.9 F H 64 20 147/66 H 93 L 06/09/17 04:45 99.4 F 63 16 169/73 H 94 L 06/09/17 00:00 98.9 F 57 L 19 130/62 93 L Weight Weight 192 lb I&O: 06/08/17 06/09/17 06/10/17 06:59 06:59 06:59 Intake Total 1662 1860 Balance 1662 1860 Result Diagrams: 06/06/17 04:00 06/08/17 04:32 EKG Reviewed by me: Yes (Tele SR) Phys Exam - Physical Examination Constitutional: NAD Respiratory: no wheezing, no rhonchi Cardiovascular: RRR, no rub Gastrointestinal: soft, non-tender, positive bowel sounds Musculoskeletal: no edema warmth/tenderness over the left arm near elbow Neurological: non-focal, moves all 4 limbs Psychiatric: A&O x 3 Dx/Plan - Plan cont current plan of care, DVT proph w/SCDs IMPRESSION: 1. Atrial fibrillation with rapid ventricular response. in SR. on Amiodarone & carvedilol 3.125. Cardiology following. Off Cardizem/Amiodarone drip. 2. Coronary artery disease, status post stent placement and myocardial infarction in the past. on aspirin and beta blockers. - for CABG on 06/10. Plavix on hold 3. NSVT. no new episodes. on Amiodarone. 4. New onset systolic heart failure - acute - prob due to ischemic CM with tachyarrythmias, on diuretics - Repeat Echo is SR - EF 35-40% 5. Hypokalemia - replaced 6. Chronic myeloid leukemia, currently in remission, followed by MD Quinteros. (on Bosutinib at home - discontinued by Cardiology) 7. Chronic low back pain. 8. Obesity with body mass index at 30.7 in the past. 9. History of paroxysmal atrial fibrillation. 10. Dyslipidemia. 11. Anxiety and depression. 12. Indeterminate troponins, probably secondary to demand ischemia from rapid ventricular rate. 13. Chronic kidney disease stage 3 with mild JOSE ENRIQUE/Contraction alkalosis. 14. Hyperkalemia - resolved 15. Superficial thrombophlebitis PLAN: * Add Keflex. Will give one dose of 400 mg Ibuprofen * Cont current meds as below * AM labs * Cont to monitor * Cardio/CT following Review of Systems - Review of Systems Respiratory: negative: Cough, Dry, Shortness of Breath, Hemoptysis, SOB with Excertion, Pleuritic Pain, Sputum, Wheezing Cardiovascular: negative: Chest Pain, Palpitations, Orthopnea, Paroxysmal Noc. Dyspnea, Edema, Light Headedness, Other Gastrointestinal: negative: Nausea, Vomiting, Abdominal Pain, Diarrhea, Constipation, Melena, Hematochezia, Other - Medications/Allergies Allergies/Adverse Reactions: Allergies Allergy/AdvReac Type Severity Reaction Status Date / Time No Known Drug Allergies Allergy Verified 01/29/17 19:23 Medications: Current Medications Acetaminophen (Tylenol) 650 mg PO Q4H PRN PRN Reason: Headache/Fever or Pain Last Admin: 06/03/17 20:20 Dose: 650 mg Acetaminophen/Codeine Phosphate (Tylenol #3) 1 tab PO Q4H PRN PRN Reason: Mild Pain (1-3) Allopurinol (Zyloprim) 100 mg PO DAILY [facility] Last Admin: 06/09/17 09:57 Dose: 100 mg Amiodarone HCl (Cordarone) 200 mg PO TID [facility] Last Admin: 06/09/17 09:57 Dose: 200 mg Aspirin (Ecotrin) 81 mg PO DAILY [facility] Last Admin: 06/09/17 09:57 Dose: 81 mg Calcium Carbonate (Tums) 1,000 mg PO Q4H PRN PRN Reason: Heartburn or Indigestion Carvedilol (Coreg) 3.125 mg PO BID [facility] Last Admin: 06/09/17 09:57 Dose: 3.125 mg Cephalexin (Keflex) 250 mg PO QID [facility] Cyclobenzaprine HCl (Flexeril) 5 mg PO TIDPRN PRN PRN Reason: Back spasm Docusate Sodium (Colace) 100 mg PO BID [facility] Last Admin: 06/09/17 09:57 Dose: 100 mg Famotidine (Pepcid) 20 mg PO BID [facility] Last Admin: 06/09/17 09:58 Dose: 20 mg Fluoxetine HCl (Prozac) 20 mg PO DAILY [facility] Last Admin: 06/09/17 09:57 Dose: 20 mg Furosemide (Lasix) 40 mg PO DAILY-AC [facility] Last Admin: 06/09/17 09:57 Dose: 40 mg Ibuprofen (Motrin) 400 mg PO NOW [facility] Stop: 06/09/17 12:00 Lisinopril (Zestril) 2.5 mg PO DAILY [facility] Last Admin: 06/09/17 09:57 Dose: 2.5 mg Nitroglycerin (Nitrostat) 0.4 mg PO Q5MIN PRN PRN Reason: Chest Pain Potassium Chloride (Klor-Con 10) 10 meq PO BID-[facility] Last Admin: 06/09/17 09:58 Dose: 10 meq Pregabalin (Lyrica) 50 mg PO BID [facility] Last Admin: 06/09/17 09:58 Dose: 50 mg Promethazine HCl (Phenergan) 25 mg PO Q4H PRN PRN Reason: Nausea Last Admin: 06/04/17 07:48 Dose: 25 mg Senna (Senokot) 2 tab PO HSPRN PRN PRN Reason: Constipation Simvastatin (Zocor) 20 mg PO HS [facility] Last Admin: 06/08/17 20:30 Dose: 20 mg Sodium Chloride (Flush - Normal Saline) 10 ml IVF Q12HR [facility] Last Admin: 06/09/17 09:58 Dose: 10 ml Sodium Chloride (Flush - Normal Saline) 10 ml IVF PRN PRN PRN Reason: Saline Flush Last Admin: 06/03/17 13:22 Dose: 10 ml Tramadol HCl (Ultram) 50 mg PO Q6H PRN PRN Reason: Moderate Pain (4-6)
--- NOTE | 2017-06-09 12:34 | PDOC.CTH ---
Cardiology Progress Note - Subjective She is doing well. Her breathing is back to normal. No chest pain. - Objective Vital Signs Temp Pulse Resp BP Pulse Ox 06/09/17 12:00 99.3 F 60 20 124/59 L 96 06/09/17 09:57 64 06/09/17 08:30 100.9 F H 64 20 96 06/09/17 08:03 96 06/09/17 08:00 100.9 F H 64 20 147/66 H 93 L 06/09/17 04:45 99.4 F 63 16 169/73 H 94 L Weight 192 lb 06/08/17 06/09/17 06/10/17 06:59 06:59 06:59 Intake Total 1662 1860 600 Balance 1662 1860 600 - Physical Examination General/Neuro: alert & oriented x3, NAD Neck: no JVD present Lungs: unlabored respirations Heart: RRR Abdomen: NT/ND Extremities: other: (no edema) - Telemetry Telemetry Rhythm: NSR - Labs Result Diagrams: 06/06/17 04:00 06/08/17 04:32 Troponin/CKMB CK-MB (CK-2) 1.9 ng/mL (0-6.6) 06/02/17 11:48 Troponin I 0.052 ng/mL (< 0.028) H 06/02/17 11:48 - Assessment/Plan 1. Afib RVR, paroxysmal, currently in sinus. 2. LV dysfunction. EF now at 35-40% 3. Pericardial effusion, small no tamponade 4. 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 Acute on chronic systolic dysfunction. Improved. 6. Severe in stent re stenosis of the LAD. DONNY II flow to both diagonals. PLAN: - SHANNON Tsai evaluated her and is planing on doing CABG with CUCA appendage ligation and epicardial MAZE procedure tomorrow.
[2017-06-09] MEDS: Cephalexin 250 MG CAP PO SCH ×3 (14:10→20:18)
[2017-06-09] MEDS ORDERED: Communication Order-Pharmacy FS ONE (18:09)
[2017-06-09] MEDS: Simvastatin 20 MG TAB PO SCH (20:15)
[2017-06-10 05:13] LABS: Anion Gap 12 mmol/L (10-20); BUN (Urea Nitrogen) 17 mg/dL (9.8-20.1); BUN/Creatinine Ratio 15.89; Calc. Creatinine Clearance 71 mL/min (70-130); Calcium 9.3 mg/dL (7.8-10.44); Carbon Dioxide 26 mmol/L (23-31); Chloride 105 mmol/L (98-107); Estimated GFR-MDRD 51; Magnesium 2.1 mg/dL (1.6-2.6)
[2017-06-10 05:16] LABS: #Eosinphils 0.1 thou/uL (0.0-0.7); #Lymphocytes 0.9 thou/uL (1.20-3.40); #Monocytes 1.2 thou/uL (0.11-0.59); #Neutrophils 6.5 thou/uL (1.40-6.50); %Basophils 0.2 % (0.0-1.0); %Eosinophils 1.4 % (0.0-10.0); %Lymphocytes 10.4 % (21.0-51.0); %Monocytes 13.4 % (0.0-10.0); Hematocrit 39.4 % (36.0-47.0); Mean Platelet Volume 10.2 fL (7.4-10.4); Red Blood Cell (RBC) Count 4.47 mill/uL (4.20-5.40); White Blood Cell (WBC) Count 8.7 thou/uL (4.8-10.8)
[2017-06-10] MEDS: Lisinopril 2.5 MG TAB PO SCH (05:47)
[2017-06-10] MEDS: Carvedilol 3.125 MG TAB PO SCH (05:48)
[2017-06-10] MEDS ORDERED: Norepinephrine 8 MG/0.9% NS 250 ML ONE (07:05)
[2017-06-10] MEDS ORDERED: Vecuronium 10 MG VIAL ONE (07:05)
[2017-06-10] MEDS ORDERED: Albumin 5% 500 ML ONE (07:05)
[2017-06-10] MEDS ORDERED: Calcium Carbonate 500 MG ChewTAB PO PRN (09:09)
[2017-06-10] MEDS ORDERED: Acetaminophen 325 MG TAB PO PRN (09:09)
[2017-06-10] MEDS ORDERED: Nitroglycerin 0.4 MG TAB (25 Tab Bottle) PO PRN (09:10)
[2017-06-10] MEDS ORDERED: Promethazine 25 MG TAB PO PRN (09:11)
[2017-06-10] MEDS ORDERED: Cyclobenzaprine 10 MG TAB PO PRN (09:11)
[2017-06-10] MEDS ORDERED: Senokot 8.6 MG TAB PO PRN (09:11)
[2017-06-10] MEDS ORDERED: traMADol HCl 50 MG TAB PO PRN (09:13)
[2017-06-10] MEDS ORDERED: Acetaminophen/Codeine 30-300mg Tablet PO PRN (09:13)
[2017-06-10] MEDS ORDERED: Communication Order-Pharmacy FS SCH (09:15)
[2017-06-10] MEDS: Cephalexin 250 MG CAP PO SCH ×4 (09:36→21:23)
[2017-06-10] MEDS: Amiodarone 200 MG TAB PO SCH ×3 (09:37→21:23)
[2017-06-10] MEDS: FLUoxetine HCl 20 MG CAP PO SCH (09:37)
[2017-06-10] MEDS: Allopurinol 100 MG TAB PO SCH (09:37)
[2017-06-10] MEDS: Potassium Chloride 10 MEQ TAB PO SCH ×2 (09:37→16:40)
[2017-06-10] MEDS: Pregabalin 50 MG CAP PO SCH ×2 (09:38→21:22)
[2017-06-10] MEDS: Aspirin 81 mg Enteric Coated Tablet PO SCH (09:38)
[2017-06-10] MEDS: Furosemide 40 MG TAB PO SCH (09:38)
--- NOTE | 2017-06-10 11:29 | PDOC.PN ---
- Subjective Encounter Start Date: 06/10/17 Encounter Start Time: 11:28 CC; AFIB Sub: Pt denies any complaints. Procedure cancelled this am. - Objective Resuscitation Status: Resuscitation Status FULL:Full Resuscitation Vital Signs & Weight: Vital Signs (12 hours) Temp Pulse Resp BP Pulse Ox 06/10/17 08:00 98.7 F 111 H 18 06/10/17 07:37 98.7 F 111 H 18 140/90 93 L 06/10/17 04:05 98.3 F 52 L 18 132/61 93 L 06/10/17 00:04 98.3 F 51 L 18 143/66 H 95 Weight Weight 191 lb 1.6 oz I&O: 06/09/17 06/10/17 06/11/17 06:59 06:59 06:59 Intake Total 1859 1969 Balance 1859 1969 Result Diagrams: 06/10/17 04:39 06/10/17 04:39 Additional Labs: Accuchecks 06/10/17 04:57 POC Glucose 81 Phys Exam - Physical Examination Constitutional: NAD HEENT: moist MMs Neck: no JVD Respiratory: no wheezing, no rales, no rhonchi Cardiovascular: RRR, no significant murmur, no rub, gallop Gastrointestinal: soft, non-tender distended, no guarding, no rebound tenderness Musculoskeletal: no edema Neurological: non-focal Psychiatric: normal affect Skin: no rash Dx/Plan - Plan Pt is 66 yrs old female 1. Atrial fibrillation with rapid ventricular response. in SR. on Amiodarone & carvedilol 3.125. Cardiology following. Off Cardizem/Amiodarone drip. 2. Coronary artery disease, status post stent placement and myocardial infarction in the past. on aspirin and beta blockers. - for CABG on 06/10. Plavix on hold 3. NSVT. no new episodes. on Amiodarone. 4. New onset systolic heart failure - acute - prob due to ischemic CM with tachyarrythmias, on diuretics - Repeat Echo is SR - EF 35-40% 5. Hypokalemia - replaced 6. Chronic myeloid leukemia, currently in remission, followed by MD Quinteros. (on Bosutinib at home - discontinued by Cardiology) 7. Chronic low back pain. 8. Obesity with body mass index at 30.7 in the past. 9. History of paroxysmal atrial fibrillation. 10. Dyslipidemia. 11. Anxiety and depression. 12. Indeterminate troponins, probably secondary to demand ischemia from rapid ventricular rate. 13. Chronic kidney disease stage 3 with mild JOSE ENRIQUE/Contraction alkalosis. 14. Hyperkalemia - resolved 15. Superficial thrombophlebitis PLAN: * HR controlled. continue po amiodaroine. Possible CABG in amAppreciate cardio and CT surgery input * bp stable. continue coreg * Continue allopurinol * K level stable * AM labs * Cont to monitor case d/w pt & RN
--- NOTE | 2017-06-10 12:47 | PDOC.CTH ---
Cardiology Progress Note - Subjective She is doing well. No new issues or complaints. - Objective Vital Signs Temp Pulse Resp BP Pulse Ox 06/10/17 11:45 97.6 F 58 L 18 120/58 L 92 L 06/10/17 08:00 98.7 F 111 H 18 06/10/17 07:37 98.7 F 111 H 18 140/90 93 L 06/10/17 04:05 98.3 F 52 L 18 132/61 93 L Weight 191 lb 1.6 oz 06/09/17 06/10/17 06/11/17 06:59 06:59 06:59 Intake Total 1859 1969 Balance 1859 1969 - Physical Examination General/Neuro: alert & oriented x3, NAD Neck: no JVD present Lungs: unlabored respirations Heart: RRR Abdomen: NT/ND Extremities: + edema B (trace) - Telemetry Telemetry Rhythm: Afib --> NSR - Labs Result Diagrams: 06/10/17 04:39 06/10/17 04:39 Troponin/CKMB CK-MB (CK-2) 1.9 ng/mL (0-6.6) 06/02/17 11:48 Troponin I 0.052 ng/mL (< 0.028) H 06/02/17 11:48 - Assessment/Plan 1. Afib RVR, paroxysmal, currently in sinus. 2. LV dysfunction. EF now at 35-40% 3. Pericardial effusion, small no tamponade 4. 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 Acute on chronic systolic dysfunction. Improved. 6. Severe in stent re stenosis of the LAD. DONNY II flow to both diagonals. PLAN: - PO lasix - Had a small run of afib this morning from 6am to 9am, back in sinus. - Dr. Tsai to do CABG with CUCA appendage ligation and epicardial MAZE procedure tomorrow.
[2017-06-10] MEDS ORDERED: Simvastatin 20 MG TAB PO SCH (21:00)
[2017-06-10] MEDS: Famotidine 20 MG TAB PO SCH (21:23)
[2017-06-10] MEDS: Docusate 100 MG CAP PO SCH (21:31)
[2017-06-11] MEDS ORDERED: Lisinopril 2.5 MG TAB PO SCH (05:30)
[2017-06-11] MEDS ORDERED: Carvedilol 3.125 MG TAB PO SCH (05:30)
[2017-06-11] MEDS ORDERED: Heparin 10,000 UNITS/1 ML VIAL 30,000 UNITS in Sodium Chloride 0.9% 1,000 ML FS SCH (07:00)
[2017-06-11] MEDS ORDERED: Furosemide 40 MG TAB PO SCH (07:30)
[2017-06-11] MEDS ORDERED: CEFAZOLIN/Water 2 GM/20 ML SYRINGE ONE (07:56)
[2017-06-11] MEDS ORDERED: Midazolam HCl 5 mg/5 ml Vial ONE (08:54)
[2017-06-11] MEDS ORDERED: Albumin 5% 0 ML ONE (08:54)
[2017-06-11] MEDS ORDERED: Fentanyl 250 MCG/5 ML VIAL ONE (08:54)
[2017-06-11] MEDS ORDERED: Vancomycin HCl 1.5 GM, Admixture Fee 1 EACH in Sodium Chloride 0.9% 250 ML 300 ML IVPB SCH (09:00)
[2017-06-11] MEDS ORDERED: Phenylephrine 10 MG/NS 250 ML 250 ML ONE (09:02)
--- NOTE | 2017-06-11 09:17 | PDOC.PN ---
- Subjective Encounter Start Date: 06/11/17 Encounter Start Time: 14:50 -: non-verbal Subjective: Patient just back from CABG with mammary artery. Still intubated. - Objective Resuscitation Status: Resuscitation Status FULL:Full Resuscitation MAR Reviewed: Yes Vital Signs & Weight: Vital Signs (12 hours) Temp Pulse Resp BP BP BP Pulse Ox 06/11/17 07:30 98.5 F 54 L 18 06/11/17 05:24 54 L 131/63 06/11/17 05:15 98.5 F 54 L 18 131/63 96 06/11/17 00:14 98.4 F 51 L 16 118/56 L 96 Weight Weight 192 lb I&O: 06/10/17 06/11/17 06/12/17 06:59 06:59 06:59 Intake Total 1969 1270 Balance 1969 1270 Result Diagrams: 06/10/17 04:39 06/10/17 04:39 Additional Labs: Accuchecks 06/11/17 05:21 POC Glucose 103 Phys Exam - Physical Examination Constitutional: NAD HEENT: moist MMs Respiratory: no wheezing, no rales, no rhonchi Cardiovascular: RRR loud friction rub after surgery Gastrointestinal: soft, positive bowel sounds Musculoskeletal: no edema, pulses present Deviation from normal: Sedated on vent Dx/Plan - Plan 1. Atrial fibrillation with rapid ventricular response now in SR. on Amiodarone & carvedilol 3.125. Cardiology following. Off Cardizem/Amiodarone drip. 2. Coronary artery disease, status post stent placement and myocardial infarction in the past. On aspirin and beta blockers. Plavix on hold. CABG done today. 3. NSVT. no new episodes. on Amiodarone. 4. New onset systolic heart failure - acute - prob due to ischemic CM with tachyarrythmias, on diuretics - Repeat Echo is SR - EF 35-40% 5. Hypokalemia - replaced 6. Chronic myeloid leukemia, currently in remission, followed by MD Quinteros. (on Bosutinib at home - discontinued by Cardiology) 7. Chronic low back pain. 8. Obesity with body mass index at 30.7 in the past. 9. History of paroxysmal atrial fibrillation. 10. Dyslipidemia. 11. Anxiety and depression. 12. Indeterminate troponins, probably secondary to demand ischemia from rapid ventricular rate. 13. Chronic kidney disease stage 3 with mild JOSE ENRIQUE/Contraction alkalosis. 14. Hyperkalemia - resolved 15. Superficial thrombophlebitis PLAN: * HR controlled. continue po amiodaroine. CABG done today. * bp stable. continue coreg * Continue allopurinol * K level stable * AM labs * Cont to monitor - Discharge Day Encounter end time: 15:10
[2017-06-11] MEDS ORDERED: CEFAZOLIN 2 GM in Sodium Chloride 0.9% 100 ML IVPB SCH (09:30)
[2017-06-11] MEDS ORDERED: CEFAZOLIN/Water 2 GM/20 ML SYRINGE SLOW IVP SCH (09:30)
[2017-06-11] MEDS ORDERED: Etomidate 20 MG/10 ML VIAL ONE (09:42)
[2017-06-11] MEDS ORDERED: PHENYLEPHRINE-NS 100 MCG/ML 10 ML SYRINGE ONE (09:42)
[2017-06-11] MEDS ORDERED: Lidocaine 2% MPF 10 ML AMP (For Epidural Use) ONE (09:42)
[2017-06-11] MEDS ORDERED: ePHEDrine/0.9% NaCl/PF SYRINGE 50 mg/10 ml ONE (09:42)
[2017-06-11] MEDS ORDERED: Vecuronium 10 MG VIAL ONE (09:42)
[2017-06-11] MEDS ORDERED: Albumin 5% 500 ML ONE (09:47)
[2017-06-11] MEDS: Potassium Chloride 10 MEQ TAB PO SCH (12:58)
[2017-06-11] MEDS: Allopurinol 100 MG TAB PO SCH (12:58)
[2017-06-11] MEDS: Cephalexin 250 MG CAP PO SCH (12:58)
[2017-06-11] MEDS: Aspirin 81 mg Enteric Coated Tablet PO SCH (12:58)
[2017-06-11] MEDS: Amiodarone 200 MG TAB PO SCH (12:58)
[2017-06-11] MEDS: Pregabalin 50 MG CAP PO SCH (12:59)
[2017-06-11] MEDS: FLUoxetine HCl 20 MG CAP PO SCH (12:59)
[2017-06-11] MEDS: Famotidine 20 MG TAB PO SCH (12:59)
[2017-06-11] MEDS: Docusate 100 MG CAP PO SCH (12:59)
[2017-06-11] MEDS ORDERED: Bisacodyl 10 MG SUPP PR PRN (14:41)
[2017-06-11] MEDS ORDERED: DOPamine 400 MG/D5W 250 ML 250 ML IVPB PRN (14:41)
[2017-06-11] MEDS ORDERED: HYDROcodone/Acetaminophen 5/325 mg Tablet PO PRN (14:41)
[2017-06-11] MEDS ORDERED: Promethazine HCl 25 MG/ML VIAL IM PRN (14:41)
[2017-06-11] MEDS ORDERED: Guaifenesin DM 100-10/5 ML UDCUP PO PRN (14:41)
[2017-06-11] MEDS ORDERED: Phenylephrine 10 MG/NS 250 ML 250 ML IVPB PRN (14:41)
[2017-06-11] MEDS ORDERED: Bisacodyl 5 MG TAB PO PRN (14:41)
[2017-06-11] MEDS ORDERED: Fentanyl 100 MCG/2 ML VIAL SLOW IVP PRN (14:41)
[2017-06-11] MEDS ORDERED: Nitroglycerin 50 MG/250 ML BOT 250 ML IVPB PRN (14:41)
[2017-06-11] MEDS ORDERED: Mag-Al 1200 mg/1200 mg/30 ML UDCUP PO PRN (14:41)
[2017-06-11] MEDS ORDERED: Potassium Chloride 20 MEQ/100 ML PREMIX BAG IVPB PRN (14:41)
[2017-06-11] MEDS ORDERED: hydrALAZINE 20 MG/ML VIAL SLOW IVP PRN (14:41)
[2017-06-11] MEDS ORDERED: Acetaminophen 325 MG TAB PO PRN (14:41)
[2017-06-11] MEDS ORDERED: Post-Op Insulin Drip Protocol IVPB ONE (14:41)
[2017-06-11] MEDS ORDERED: Norepinephrine 8 MG/0.9% NS 250 ML IVPB PRN (14:41)
[2017-06-11] MEDS ORDERED: Sodium Chloride 0.9% 1,000 ML IV SCH (14:45)
[2017-06-11 14:59] LABS: Oxyhemoglobin 95.5 % (94.0-97.0); Sodium 142 mmol/L (135-148)
[2017-06-11] MEDS: Fentanyl 100 MCG/2 ML VIAL SLOW IVP PRN ×2 (15:00→22:32)
[2017-06-11] MEDS ORDERED: Dextrose 5% in Water 1,000 ML IV PRN (15:00)
[2017-06-11] MEDS ORDERED: Dextrose 50% Abboject 50 ML SYRINGE SLOW IVP PRN (15:00)
[2017-06-11] MEDS ORDERED: Insulin Regular 300 UNITS/3 ML VIAL SC PRN (15:00)
[2017-06-11 15:03] LABS: Mechanical Tidal Volume 500 ml; Modified Allen's Test POSITIVE; Vent YES
[2017-06-11 15:04] LABS: Mode SIMV; Pressure Support 10 cmH2O
[2017-06-11 15:09] LABS: #Eosinphils 0.1 thou/uL (0.0-0.7); #Lymphocytes 0.9 thou/uL (1.20-3.40); #Neutrophils 12.6 thou/uL (1.40-6.50); %Basophils 0.2 % (0.0-1.0); %Eosinophils 0.8 % (0.0-10.0); %Lymphocytes 6.3 % (21.0-51.0); %Monocytes 6.6 % (0.0-10.0); Hematocrit 30.1 % (36.0-47.0); Red Blood Cell (RBC) Count 3.44 mill/uL (4.20-5.40); White Blood Cell (WBC) Count 14.6 thou/uL (4.8-10.8)
[2017-06-11 15:13] LABS: Prothrombin Time 16.1 SEC (12.0-14.7)
[2017-06-11 15:24] LABS: Anion Gap 10 mmol/L (10-20); BUN (Urea Nitrogen) 15 mg/dL (9.8-20.1); Calc. Creatinine Clearance 92 mL/min (70-130); Calcium 8.7 mg/dL (7.8-10.44); Carbon Dioxide 25 mmol/L (23-31); Chloride 108 mmol/L (98-107); Estimated GFR-MDRD 69
[2017-06-11] MEDS: Ondansetron HCl/PF 4 MG/2 ML Vial IVP PRN (15:34)
--- NOTE | 2017-06-11 16:07 | OP ---
PREOPERATIVE DIAGNOSES: Acute coronary syndrome, severe 1-vessel coronary artery disease with severe left anterior descending in-stent restenosis, and moderate to severe reduction in left ventricular function. SURGEON: Linwood Tsai M.D. INDUCTION MACHINE OPERATOR: Dr. Zelaya. POSTOPERATIVE DIAGNOSES: Acute coronary syndrome, severe 1-vessel coronary artery disease with severe left anterior descending in-stent restenosis, and moderate to severe reduction in left ventricular function. SPONGE AND NEEDLE COUNTS: Correct. ANESTHESIA: General. OPERATION PERFORMED: Off-pump coronary artery bypass grafting x1 with left internal mammary artery to LAD. FINDINGS AT OPERATION: Diffusely thickened, inflamed, and hemorrhagic pericardium producing diffuse pericardial adhesions. Epicardial tissues were very friable and also covered with fibro-exudative debris. The LAD was ultimately able to be identified. It was a good target vessel at 2 mm. Left internal mammary artery was an excellent conduit. Diagonal branches were not able to be identified. DESCRIPTION OF PROCEDURE: The patient was taken to the operating room. Following the induction of general endotracheal anesthesia, the patient was prepped and draped in the usual sterile fashion. Sternotomy was performed using the oscillating saw. This was due to her prior history of both pericardiocentesis and recent subxiphoid pericardial window. Pericardium was carefully opened. The above described issues related to the pericardium and epicardium made dissection and isolation of the heart exceedingly difficult. The ascending aorta was additionally encased in thick scar. Ultimately, the heart was able to be isolated. The LAD was able to be identified. It was felt that this could be bypassed using the off pump approach. Attempting to bypass the diagonals and perform the epicardial MAZE with ligation of the left atrial appendage would have required cannulation and placing the patient on cardiopulmonary bypass. This was not deemed possible via the conventional approach and would have required placing the patient on pump through the groin vessels.. Decision was made to proceed with off pump bypass to the LAD only. Left internal mammary artery was now taken down in extrapleural fashion. Heparin dose was given achieving an ACT greater than 350. The operation was performed using the [employer] system and Mist Blower. The left internal mammary artery was now anastomosed in end-to-side fashion to the LAD using a continuous 7-0 Prolene suture. Anastomosis required no additional sutures. Mammary artery pedicle was tacked to the epicardium using 6-0 Prolene sutures. Heparin was fully reversed with protamine. Diffuse bleeding ultimately responded to 2 units of FFP and 1 single donor pack of platelets. The patient was on aspirin and plavix preoperatively. Left pleural cavity was opened with retrieval of approximately 400 mL of serous fluid. Sternum was markedly friable requiring careful attention to wire closure. Raphael drains were positioned within the pericardial well and left pleural cavity. Sternum was reapproximated with interrupted #5 stainless steel wires. Linea alba and fascia were closed with running #1 Vicryl sutures followed by closure of the subcutaneous tissues with a running 2-0 Vicryl suture. Skin was closed with a 4-0 Monocryl stitch. Dermabond was applied. The patient was subsequently taken to the ICU. MILLER
--- NOTE | 2017-06-11 17:13 | RAD ---
PORTABLE SUPINE FRONTAL CHEST RADIOGRAPH: 06/11/2017 COMPARISON: 06/04/2017 HISTORY: Status post open heart surgery. FINDINGS: There is an endotracheal tube in proper position. There is a right-sided vascular catheter, distal tip overlying the right atrium. There are postoperative drains overlying the left hemithorax, the m ediastinum, and the left lung base. There is dense opacity in the left lower lobe region suggesting consolidation/collapse of the left lower lobe with possible associated pleural fluid. Midline ster notomy wires and mediastinal clips have been placed since the prior exam. IMPRESSION: Postoperative lines and tubes as above. Findings are consistent with interval midline sternotomy an d CABG. Dense opacity in the left base for which follow-up radiograph is advised. POS: [facility]
[2017-06-11 17:26] LABS: Oxyhemoglobin 95.5 % (94.0-97.0); Sodium 141 mmol/L (135-148)
[2017-06-11 17:28] LABS: Mode PSV; PIP 5 cmH2O; Spontaneous Rate 13 min; Vent YES
[2017-06-11] MEDS: Ketorolac Tromethamine 30 MG/ML VIAL IVP SCH ×2 (18:11→23:56)
[2017-06-11] MEDS: CEFAZOLIN/Water 2 GM/20 ML SYRINGE SLOW IVP SCH (18:11)
--- NOTE | 2017-06-11 19:04 | PDOC.CTH ---
Cardiology Progress Note - Subjective She had CABg earlier today. She is awake following commands. Will be extubated soon. - Objective Vital Signs Temp Pulse Resp BP Pulse Ox 06/11/17 18:00 13 06/11/17 16:00 98.2 F 11 L 06/11/17 15:03 97.8 F 50 L 12 97 06/11/17 14:47 61 06/11/17 14:44 97.8 F 129/50 L 100 06/11/17 07:30 98.5 F 54 L 18 Weight 192 lb 06/10/17 06/11/17 06/12/17 06:59 06:59 06:59 Intake Total 1969 1270 268.5 Output Total 382 Balance 1969 1270 -113.5 - Physical Examination General/Neuro: other: (Intubated) Neck: no JVD present Lungs: unlabored respirations Heart: RRR Abdomen: NT/ND Extremities: + edema B (trace) - Telemetry Telemetry Rhythm: S elizabeth - Labs Result Diagrams: 06/11/17 15:01 06/11/17 15:01 Troponin/CKMB CK-MB (CK-2) 1.9 ng/mL (0-6.6) 06/02/17 11:48 Troponin I 0.052 ng/mL (< 0.028) H 06/02/17 11:48 - Assessment/Plan 1. Afib RVR, paroxysmal, currently in sinus. 2. LV dysfunction. EF now at 35-40% 3. Pericardial effusion, small no tamponade 4. 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 Acute on chronic systolic dysfunction. Improved. 6. Severe in stent re stenosis of the LAD. DONNY II flow to both diagonals. 7. S/P CABG with ALDANA to LAD. PLAN: - She had a bloody effusion and pericardium was fibrosed. Dr. Tsai could not identify two small diagonals and could only treat his LAD with a ALDANA. Could not do a CUCA ligation or epicardial MAZE due to the large amount of adhesions and hemorrhagic pericardium. - Continue supportive care for now.
[2017-06-11] MEDS: HYDROcodone/Acetaminophen 5/325 mg Tablet PO PRN (19:30)
[2017-06-11 19:56] LABS: Hematocrit 28.1 % (36.0-47.0)
[2017-06-11] MEDS: Famotidine/PF 20 mg/2ml Vial SLOW IVP SCH (20:02)
[2017-06-11] MEDS: Vancomycin HCl 1.5 GM in Sodium Chloride 0.9% 250 ML 300 ML IVPB SCH (23:56)
[2017-06-12] MEDS: CEFAZOLIN/Water 2 GM/20 ML SYRINGE SLOW IVP SCH ×2 (01:15→09:38)
[2017-06-12 05:09] LABS: Anion Gap 13 mmol/L (10-20); BUN (Urea Nitrogen) 19 mg/dL (9.8-20.1); Calc. Creatinine Clearance 68 mL/min (70-130); Calcium 8.8 mg/dL (7.8-10.44); Carbon Dioxide 22 mmol/L (23-31); Chloride 109 mmol/L (98-107); Estimated GFR-MDRD 49
[2017-06-12 05:18] LABS: #Basophils 0.1 thou/uL (0.0-0.2); #Lymphocytes 0.5 thou/uL (1.20-3.40); #Monocytes 0.7 thou/uL (0.11-0.59); #Neutrophils 8.3 thou/uL (1.40-6.50); %Basophils 0.6 % (0.0-1.0); %Eosinophils 0.1 % (0.0-10.0); %Lymphocytes 4.7 % (21.0-51.0); Hematocrit 24.2 % (36.0-47.0); Red Blood Cell (RBC) Count 2.72 mill/uL (4.20-5.40); White Blood Cell (WBC) Count 9.5 thou/uL (4.8-10.8)
[2017-06-12] MEDS: Ketorolac Tromethamine 30 MG/ML VIAL IVP SCH ×4 (05:23→23:23)
[2017-06-12] MEDS ORDERED: Amiodarone HCl 150 MG, Admixture Fee 1 EACH in Dextrose 5% in Water 100 ML IVPB SCH ×3 (05:30)
[2017-06-12] MEDS: Amiodarone HCl 450 MG, Admixture Fee 1 EACH in Dextrose 5% in Water 250 ML IVPB SCH ×6 (05:42→14:50)
--- NOTE | 2017-06-12 09:35 | RAD ---
PORTABLE AP CHEST: Date: 06/12/17 HISTORY: Postop open heart surgery. COMPARISON: 06/11/17. FINDINGS: Endotracheal tube has been removed. Right subclavian central venous catheter, mediastinal drains, an d left-sided thoracostomy tube remain in place and unchanged in position. Postsurgical changes relat ed to CABG are again present. Cardiac silhouette is enlarged. There are parenchymal densities at the medial right lung base, probably related to atelectasis. There has been improvement in the dense op acity at the left lung base and the left hemidiaphragm is now visualized, although parenchymal opaci ty does persist. Findings are probably related to improving atelectasis. The aortic contour is also not well visualized on this exam; however, this is a stable finding. No other interval change. IMPRESSION: 1. Interval removal of the nasogastric tube. 2. Remaining lines and tubes are stable in position. 3. Postsurgical changes related to CABG with improvement in aeration at the left lung base, althoug h persistent parenchymal opacity is noted, likely related to atelectasis. 4. Enlargement of the cardiac silhouette which extends up to the level of the aortic arch and aorti c contour is not well delineated. These findings may be postsurgical in origin, and findings are aga in overall stable from the prior study. 5. Mild atelectasis right lung base. POS: [facility]
[2017-06-12] MEDS: FLUoxetine HCl 20 MG CAP PO SCH (09:38)
[2017-06-12] MEDS: Aspirin 325 MG TAB PO SCH (09:38)
[2017-06-12] MEDS: Famotidine/PF 20 mg/2ml Vial SLOW IVP SCH ×2 (09:38→21:37)
[2017-06-12] MEDS: HYDROcodone/Acetaminophen 5/325 mg Tablet PO PRN ×2 (09:43→20:20)
[2017-06-12] MEDS: Ondansetron HCl/PF 4 MG/2 ML Vial IVP PRN (11:44)
[2017-06-12] MEDS: Vancomycin HCl 1.5 GM in Sodium Chloride 0.9% 250 ML 300 ML IVPB SCH (11:45)
[2017-06-12 14:28] VITALS: BMI 35.2
[2017-06-12] MEDS ORDERED: Furosemide 100 MG/10 ML VIAL SLOW IVP SCH (16:30)
--- NOTE | 2017-06-12 17:09 | PDOC.PN ---
- Subjective Encounter Start Date: 06/12/17 Encounter Start Time: 15:00 Patient seen and examined. No new complaints. No overnight events. No CP. - Objective Resuscitation Status: Resuscitation Status FULL:Full Resuscitation MAR Reviewed: Yes Vital Signs & Weight: Vital Signs (12 hours) Temp Pulse Pulse Resp BP Pulse Ox 06/12/17 11:03 97.8 F 99 13 120/70 100 06/12/17 11:00 97.8 F 06/12/17 07:57 97.5 F L 101 H 13 100 06/12/17 07:56 97.5 F L 108 H 13 108/68 100 06/12/17 07:34 97.9 F 96 13 105/60 100 06/12/17 07:00 97.9 F Weight Admit Weight 200 lb Weight 186 lb 11.696 oz Most Recent Monitor Data Heart Rate from ECG 51 NIBP 107/39 NIBP BP-Mean 81 Respiration from ECG 9 SpO2 100 I&O: 06/11/17 06/12/17 06/13/17 06:59 06:59 06:59 Intake Total 1270 1644.4 1146 Output Total 1107 230 Balance 1270 537.4 916 Result Diagrams: 06/12/17 04:29 06/12/17 04:29 Additional Labs: Accuchecks 06/12/17 06/12/17 06/12/17 09:02 08:16 06:41 POC Glucose 115 H 115 H 116 H 06/12/17 06/12/17 06/12/17 05:23 03:57 02:47 POC Glucose 104 117 H 110 06/12/17 06/12/17 06/11/17 01:43 00:37 23:37 POC Glucose 109 117 H 101 06/11/17 06/11/17 06/11/17 22:36 21:38 20:32 POC Glucose 105 119 H 124 H 06/11/17 06/11/17 06/11/17 19:20 17:15 13:14 POC Glucose 119 H 154 H 176 H 06/11/17 06/11/17 12:25 09:57 POC Glucose 133 H 94 EKG Reviewed by me: Yes (Tele SR) Phys Exam - Physical Examination Constitutional: NAD on Amio drip, Chest tube + Respiratory: no wheezing, no rhonchi Dec AE at bases Cardiovascular: RRR, no rub Gastrointestinal: soft, non-tender, positive bowel sounds Musculoskeletal: no edema Neurological: non-focal, moves all 4 limbs Dx/Plan - Plan cont current plan of care, incentive spirometry, DVT proph w/SCDs IMPRESSION: 1. Atrial fibrillation with rapid ventricular response. in SR. Cardiology following. Off Cardizem/ on Amiodarone drip. 2. Coronary artery disease, status post stent placement and myocardial infarction in the past. on aspirin and beta blockers. - s/p CABG on 06/11. Plavix /Coreg on hold 3. NSVT. no new episodes. on Amiodarone. 4. New onset systolic heart failure - acute - prob due to ischemic CM with tachyarrythmias, on diuretics - Repeat Echo is SR - EF 35-40% 5. CKD 3 6. Chronic myeloid leukemia, currently in remission, followed by MD Quinteros. (on Bosutinib at home - discontinued by Cardiology) 7. Chronic low back pain. 8. Obesity with body mass index at 30.7 in the past. 9. History of paroxysmal atrial fibrillation. 10. Dyslipidemia. 11. Anxiety and depression. 12. Indeterminate troponins, probably secondary to demand ischemia from rapid ventricular rate. 13. Superficial thrombophlebitis 14. Hyperkalemia/Hypokalemia - resolved PLAN: * Cont supportive care * Cont current meds as below * AM labs * Cont to monitor * Cardio/CT following Review of Systems - Review of Systems Respiratory: negative: Cough, Dry, Shortness of Breath, Hemoptysis, SOB with Excertion, Pleuritic Pain, Sputum, Wheezing Cardiovascular: negative: Chest Pain, Palpitations, Orthopnea, Paroxysmal Noc. Dyspnea, Edema, Light Headedness, Other Gastrointestinal: negative: Nausea, Vomiting, Abdominal Pain, Diarrhea, Constipation, Melena, Hematochezia, Other - Medications/Allergies Allergies/Adverse Reactions: Allergies Allergy/AdvReac Type Severity Reaction Status Date / Time No Known Drug Allergies Allergy Verified 01/29/17 19:23 Medications: Current Medications Acetaminophen (Tylenol) 650 mg PO Q6H PRN PRN Reason: Headache/Fever Or Mild Pain Hydrocodone Bitart/Acetaminophen ([place] 5/325) 1 tab PO Q4H PRN PRN Reason: Moderate Pain (4-6) Hydrocodone Bitart/Acetaminophen ([place] 5/325) 2 tab PO Q4H PRN PRN Reason: Severe Pain (7-10) Last Admin: 06/12/17 09:43 Dose: 2 tab Al Hydroxide/Mg Hydroxide (Maalox) 30 ml PO Q4H PRN PRN Reason: Indigestion Albuterol/Ipratropium (Duoneb) 3 ml NEB [id number] PRN PRN Reason: SHORTNESS OF BREATH Aspirin (Aspirin) 325 mg PO DAILY [facility] Last Admin: 06/12/17 09:38 Dose: 325 mg Bisacodyl (Dulcolax) 10 mg PO Q12H PRN PRN Reason: Constipation Bisacodyl (Dulcolax) 10 mg NC Q12H PRN PRN Reason: Constipation Dextrose/Water (Dextrose 50%) 25 gm SLOW IVP PRN PRN PRN Reason: PER HYPOGLYCEMIC PROTOCOL Famotidine (Pepcid) 20 mg SLOW IVP Q12HR [facility] Last Admin: 06/12/17 09:38 Dose: 20 mg Fentanyl (Sublimaze) 25 mcg SLOW IVP Q2H PRN PRN Reason: Moderate Pain (4-6) Stop: 06/13/17 14:34 Fentanyl (Sublimaze) 50 mcg SLOW IVP Q2H PRN PRN Reason: Severe Pain (7-10) Stop: 06/13/17 14:34 Last Admin: 06/11/17 22:32 Dose: 50 mcg Fluoxetine HCl (Prozac) 20 mg PO DAILY [facility] Last Admin: 06/12/17 09:38 Dose: 20 mg Furosemide (Lasix) 60 mg SLOW IVP NOW [facility] Stop: 06/12/17 18:30 Glucagon (Glucagon) 1 mg SC PRN PRN PRN Reason: PER HYPOGLYCEMIC PROTOCOL Guaifenesin/Dextromethorphan (Robitussin Dm) 15 ml PO Q4H PRN PRN Reason: Cough Hydralazine HCl (Apresoline) 10 mg SLOW IVP Q6H PRN PRN Reason: To Maintain SBP< 140mmHG Dopamine HCl/Dextrose (Dopamine/D5w) 250 mls @ 0 mls/hr IVPB PRN PRN; Protocol ; Titrate PRN Reason: To maintain SBP > 90 mmHG Norepinephrine Bitartrate (Levophed) 250 mls @ 0 mls/hr IVPB PRN PRN; Protocol ; Titrate PRN Reason: To maintain SBP > 90 mmHG Nicardipine HCl 25 mg/ Sodium (Chloride) 260 mls @ 0 mls/hr IVPB INF PRN; Protocol; Titrate PRN Reason: To Maintain SBP< 140mmHG Nitroglycerin/Dextrose (Nitroglycerin 50 Mg/250 Ml Bot) 250 mls @ 0 mls/hr IVPB PRN PRN; Protocol; Titrate PRN Reason: To Maintain SBP< 140mmHG Phenylephrine HCl (Ramón-Synephrine) 250 mls @ 0 mls/hr IVPB PRN PRN; Protocol; Titrate PRN Reason: To maintain SBP > 90 mmHG Dextrose/Water (D5w) 1,000 mls @ 0 mls/hr IV INF PRN; As Directed PRN Reason: PRN HYPOGLYCEMIC PROTOCOL Amiodarone HCl 450 mg/Miscellaneous Medication 1 each/ Dextrose/Water 259 mls @ 0 mls/hr IVPB INF ZULEIKA; As Directed PRN Reason: Protocol Last Admin: 06/12/17 14:50 Dose: 259 mls Ketorolac Tromethamine (Toradol) 15 mg IVP Q6HR [facility] Stop: 06/14/17 18:01 Last Admin: 06/12/17 11:44 Dose: 15 mg Morphine Sulfate (Morphine) 2 mg SLOW IVP Q15MIN PRN PRN Reason: Severe Pain (7-10) Last Admin: 06/11/17 15:34 Dose: 2 mg Ondansetron HCl (Zofran) 4 mg IVP Q6H PRN PRN Reason: Nausea/Vomiting Last Admin: 06/12/17 11:44 Dose: 4 mg Potassium Chloride (Kcl) 20 meq IVPB PRN PRN PRN Reason: K level </= 4.0 Last Admin: 06/11/17 15:50 Dose: 20 meq Pregabalin (Lyrica) 50 mg PO BID ZULEIKA Promethazine HCl (Phenergan) 6.25 mg IM Q4H PRN PRN Reason: Nausea/Vomiting Sodium Chloride (Flush - Normal Saline) 10 ml IVF PRN PRN PRN Reason: Saline Flush
--- NOTE | 2017-06-12 18:17 | CON ---
DATE OF CONSULTATION: 06/12/2017 HISTORY OF PRESENT ILLNESS: Ms. Swan is a 66-year-old female who is in the Intensive Care Uni . I was consulted because of her presence in Critical Care Unit. She underwent an off pump zamora ry bypass grafting to her LAD using a ALDANA yesterday. She apparently had hemorrhagic thickened infl kateryna pericardium. This made surgery apparently difficult initially. She is doing well postoperatively. She has been extubated. She was sitting in the chair having soft mechanical diet earlier today. She had an episode of nausea this morning that had resolved. Pericardium showed acute inflammation, no granulomas were reported in the report. PAST MEDICAL HISTORY: 1. Remarkable for CML followed at [facility]. 2. History of atrial fibrillation. 3. History of hypertension. 4. Lipid disorder. 5. History of diverticular disease. 6. History of recurrent pericardial effusions, felt to be secondary to her treatment of her leukemi a. 7. History of hysterectomy. 8. History of pericardiocentesis 2 years ago at [facility]. 9. History of a pericardial window. This was done on 05/23/2017. Ejection fraction was noted then to be decreased. FAMILY HISTORY: Negative for lung disease at an early age. REVIEW OF SYSTEMS: Otherwise negative. She has minimal discomfort in her chest. PHYSICAL EXAMINATION: VITAL SIGNS: Heart rate is in the 50s. Blood pressure 107/39, respiratory rate is in the teens. I ntake and output is positive 537. Chest tube put out 640. HEENT: Pupils are equal. NECK: Supple. LUNGS: Clear. HEART: Regular rhythm. S1 and S2 are normal. Still has chest tube in place. ABDOMEN: Soft and nontender. EXTREMITIES: Warm and without edema. LABORATORY DATA: White count 9.5, hemoglobin 7.8, platelets 277,000. Sodium 139, potassium 4.7, ch loride 109, bicarbonate 22, BUN 19, creatinine 1.12. IMPRESSION: 1. Status post coronary bypass grafting. 2. History of drug-induced pericarditis, status post window. 3. History of chronic myeloid leukemia. PLAN: Continue Cardiology. She appears to be medically stable at this time, her drainage appears t o be decreasing out of her chest.
--- NOTE | 2017-06-12 19:20 | PDOC.CTH ---
Cardiology Progress Note - Subjective She is doing better today. She is now extubated and only complain is chest soreness. She went back into afib overnight and is currently rate controlled on Amiodarone drip. - Objective Vital Signs Temp Pulse Pulse Resp BP Pulse Ox 06/12/17 16:00 97.0 F L 06/12/17 11:03 97.8 F 99 13 120/70 100 06/12/17 11:00 97.8 F 06/12/17 07:57 97.5 F L 101 H 13 100 06/12/17 07:56 97.5 F L 108 H 13 108/68 100 06/12/17 07:34 97.9 F 96 13 105/60 100 Admit Weight 200 lb Weight 186 lb 11.696 oz 06/11/17 06/12/17 06/13/17 06:59 06:59 06:59 Intake Total 1270 1644.4 1649 Output Total 1107 310 Balance 1270 537.4 1339 - Physical Examination General/Neuro: alert & oriented x3, NAD Neck: no JVD present Lungs: unlabored respirations Heart: other: (irreg) Abdomen: NT/ND Extremities: + edema B (1+) - Telemetry Telemetry Rhythm: Afib HR 80's - Labs Result Diagrams: 06/12/17 04:29 06/12/17 04:29 Troponin/CKMB CK-MB (CK-2) 1.9 ng/mL (0-6.6) 06/02/17 11:48 Troponin I 0.052 ng/mL (< 0.028) H 06/02/17 11:48 - Assessment/Plan 1. Afib RVR, paroxysmal 2. LV dysfunction. EF at 35-40% 3. 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 Acute on chronic systolic dysfunction. Improved. 6. Severe in stent re stenosis of the LAD. DONNY II flow to both diagonals. 7. S/P CABG with ALDANA to LAD. PLAN: - Continue post operative care. - Aspirin and statin for life. - Currently her BP is borderline low for any BB or ACEI. - Continue amiodarone drip for afib. - She did not get a CUCA ligation but may be a candidate for a watchman or lariat in the future, continue aspirin alone for now.
[2017-06-12] MEDS: Pregabalin 50 MG CAP PO SCH (21:38)
[2017-06-13 04:06] LABS: #Eosinphils 0.2 thou/uL (0.0-0.7); #Lymphocytes 0.9 thou/uL (1.20-3.40); #Monocytes 0.9 thou/uL (0.11-0.59); #Neutrophils 5.8 thou/uL (1.40-6.50); %Basophils 0.6 % (0.0-1.0); %Eosinophils 2.7 % (0.0-10.0); %Lymphocytes 11.1 % (21.0-51.0); %Monocytes 11.4 % (0.0-10.0); Hematocrit 27.5 % (36.0-47.0); Mean Platelet Volume 9.4 fL (7.4-10.4); Red Blood Cell (RBC) Count 3.09 mill/uL (4.20-5.40); White Blood Cell (WBC) Count 7.8 thou/uL (4.8-10.8)
[2017-06-13 04:32] LABS: Anion Gap 13 mmol/L (10-20); BUN (Urea Nitrogen) 27 mg/dL (9.8-20.1); Calc. Creatinine Clearance 33 mL/min (70-130); Calcium 9.4 mg/dL (7.8-10.44); Carbon Dioxide 22 mmol/L (23-31); Chloride 105 mmol/L (98-107); Estimated GFR-MDRD 22
[2017-06-13] MEDS: Amiodarone HCl 450 MG, Admixture Fee 1 EACH in Dextrose 5% in Water 250 ML IVPB SCH ×6 (05:28→22:09)
[2017-06-13] MEDS: Ketorolac Tromethamine 30 MG/ML VIAL IVP SCH (06:39)
[2017-06-13] MEDS: Ondansetron HCl/PF 4 MG/2 ML Vial IVP PRN (06:42)
[2017-06-13] MEDS ORDERED: Sodium Chloride 0.45% 1,000 ML IV SCH (07:30)
--- NOTE | 2017-06-13 07:47 | PRG ---
DATE OF SERVICE: 06/13/2017 Ms. Swan is sitting in a chair already this morning. She says she is feeling better. PHYSICAL EXAMINATION: VITAL SIGNS: Her recorded blood pressure is 64/37, but when I round on her, her blood pressure was in the 90s. Heart rate was in the 50s. I suspect this is not an accurate auto recorded blood pres sure. LUNGS: Clear. HEART: Regular rhythm. ABDOMEN: Soft. Intake and output is positive 1349. Chest tube drainage 270 mL out. LABORATORY: Hemoglobin is 8.3, it was 7.8 yesterday. White count 7.8, platelets 289. Electrolytes are unremarkable. Creatinine is 2.21 up from 1.12. She probably does not need any more diuretics today. I would get rid of the nonsteroidals for pain on her MAR. She does not appear to be bleeding. She may need to continue with her gentle hydration for now.
[2017-06-13] MEDS: Aspirin 325 MG TAB PO SCH (08:33)
[2017-06-13] MEDS: FLUoxetine HCl 20 MG CAP PO SCH (08:33)
[2017-06-13] MEDS: Pregabalin 50 MG CAP PO SCH ×2 (08:33→20:40)
[2017-06-13] MEDS: Sodium Chloride 0.45% 1,000 ML IV SCH (08:48)
--- NOTE | 2017-06-13 08:48 | RAD ---
SEMIUPRIGHT PORTABLE CHEST 1 VIEW: Date: 06/13/17 HISTORY: 66-year-old female follow-up postop open heart. COMPARISON: 06/12/17. FINDINGS: Postop midline sternotomy. Monitor leads overlie the chest. Chest tubes in place. Right subclavian c atheter in place. Mild vascular congestion with some increased markings in the left perihilar region and left lower lobe with some left pleural effusion. Evidence for some postoperative change, probab ly some subsegmental atelectasis. No pneumothorax. IMPRESSION: Cardiomegaly. Recent postop midline sternotomy. Small left pleural effusion and linear parenchymal c hanges in the left perihilar and infrahilar region, probably subsegmental atelectasis. Continue shor t-term follow-up. No pneumothorax. POS: [facility]
[2017-06-13 10:30] LABS: Oxyhemoglobin 97.3 % (94.0-97.0); Sodium 143 mmol/L (135-148)
[2017-06-13 10:31] LABS: Oxyhemoglobin 97.3 % (94.0-97.0); Sodium 141 mmol/L (135-148)
[2017-06-13 10:31] LABS: Oxyhemoglobin 97.5 % (94.0-97.0); Sodium 140 mmol/L (135-148)
[2017-06-13 10:31] LABS: Oxyhemoglobin 96.3 % (94.0-97.0); Sodium 142 mmol/L (135-148)
[2017-06-13 10:33] LABS: Oxyhemoglobin 95.1 % (94.0-97.0); Sodium 143 mmol/L (135-148)
[2017-06-13 10:34] LABS: Oxyhemoglobin 97.8 % (94.0-97.0); Sodium 143 mmol/L (135-148)
[2017-06-13 10:50] LABS: Mode OR ABG; Vent YES
[2017-06-13 10:51] LABS: Mode OR ABG; Vent YES
[2017-06-13 10:52] LABS: Mode OR ABG; Vent YES
[2017-06-13 10:54] LABS: Mode OR ABG; Vent YES
[2017-06-13 10:55] LABS: Vent YES
[2017-06-13 10:56] LABS: Mode OR ABG
[2017-06-13 10:58] LABS: Mode OR ABG; Vent YES
--- NOTE | 2017-06-13 13:27 | PDOC.CTH ---
Cardiology Progress Note - Subjective She is doing better today. Less soreness. Trying to have a BM but no movement yet. - Objective Vital Signs Temp Pulse Resp Pulse Ox 06/13/17 11:00 98.0 F 06/13/17 08:00 98.0 F 54 L 12 96 06/13/17 07:00 97.6 F 06/13/17 04:00 97.6 F Admit Weight 200 lb Weight 188 lb 14.978 oz 06/12/17 06/13/17 06/14/17 06:59 06:59 06:59 Intake Total 1644.4 2079 240 Output Total 1107 730 150 Balance 537.4 1349 90 - Physical Examination General/Neuro: alert & oriented x3, NAD Neck: no JVD present Lungs: unlabored respirations Heart: RRR Abdomen: NT/ND Extremities: other: (no edema) - Telemetry Telemetry Rhythm: AFib --> S Kane - Labs Result Diagrams: 06/13/17 03:20 06/13/17 03:20 Troponin/CKMB CK-MB (CK-2) 1.9 ng/mL (0-6.6) 06/02/17 11:48 Troponin I 0.052 ng/mL (< 0.028) H 06/02/17 11:48 - Assessment/Plan 1. Afib RVR, paroxysmal, currenlty in sinus 2. LV dysfunction. EF at 35-40% 3. 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 Acute on chronic systolic dysfunction. Improved. 6. Severe in stent re stenosis of the LAD. DONNY II flow to both diagonals. 7. S/P CABG with ALDANA to LAD. 8. JOSE ENRIQUE on CKD. PLAN: - Continue post operative care. - Aspirin and statin for life. - Currently her BP is borderline low for any BB or ACEI. - Continue amiodarone drip to avoid her going back into afib. Plan to switch to 200 mg BID tomorrow. - Continue aspirin alone for stroke prophylaxis.
--- NOTE | 2017-06-13 16:01 | EKG ---
Test Reason : POST CABG Blood Pressure : / mmHG Vent. Rate : 063 BPM Atrial Rate : 063 BPM P-R Int : 156 ms QRS Dur : 102 ms QT Int : 500 ms P-R-T Axes : -23 048 068 degrees QTc Int : 511 ms Normal sinus rhythm Lateral infarct , age undetermined T wave abnormality, consider anterior ischemia Prolonged QT Abnormal ECG When compared with ECG of 02-JUN-2017 03:29, (Unconfirmed) Previous ECG has undetermined rhythm, needs review Incomplete left bundle branch block is no longer Present Lateral infarct is now Present Confirmed by DR. Buddy GRIFFIN ([id number]) on 06/13/2017 4:00:39 PM Referred By: BRIAN Confirmed By:DR. Buddy GRIFFIN
--- NOTE | 2017-06-13 16:30 | PDOC.PN ---
- Subjective Encounter Start Date: 06/13/17 Encounter Start Time: 15:00 Patient seen and examined. No new complaints. No overnight events. Feels better. Pain controlled. - Objective Resuscitation Status: Resuscitation Status FULL:Full Resuscitation MAR Reviewed: Yes Vital Signs & Weight: Vital Signs (12 hours) Temp Pulse Resp Pulse Ox 06/13/17 11:00 98.0 F 06/13/17 08:00 98.0 F 54 L 12 96 06/13/17 07:00 97.6 F Weight Admit Weight 200 lb Weight 188 lb 14.978 oz Most Recent Monitor Data Heart Rate from ECG 53 NIBP 112/49 NIBP BP-Mean 61 Respiration from ECG 21 SpO2 87 I&O: 06/12/17 06/13/17 06/14/17 06:59 06:59 06:59 Intake Total 1644.4 2079 480 Output Total 1107 730 305 Balance 537.4 1349 175 Result Diagrams: 06/13/17 03:20 06/13/17 03:20 Additional Labs: Accuchecks 06/12/17 06/12/17 11:53 09:40 POC Glucose 113 H 93 EKG Reviewed by me: Yes (Tele SR) Phys Exam - Physical Examination Constitutional: NAD Respiratory: no wheezing, no rhonchi Dec AE at bases, Chest tube + Cardiovascular: RRR, no rub Gastrointestinal: soft, non-tender, positive bowel sounds Musculoskeletal: no edema Neurological: non-focal, moves all 4 limbs Dx/Plan - Plan incentive spirometry, out of bed/ambulate, DVT proph w/SCDs IMPRESSION: 1. Atrial fibrillation with rapid ventricular response. in SR. Cardiology following. Off Cardizem. currently on Amiodarone drip. 2. Coronary artery disease, status post stent placement and myocardial infarction in the past. on aspirin and beta blockers. - s/p CABG on 06/11. Plavix /Coreg on hold 3. NSVT. no new episodes. on Amiodarone. 4. New onset systolic heart failure - acute - prob due to ischemic CM with tachyarrythmias - Repeat Echo is SR - EF 35-40% 5. CKD 3 6. Chronic myeloid leukemia, currently in remission, followed by MD Quinteros. (on Bosutinib at home - discontinued by Cardiology) 7. Chronic low back pain. 8. Obesity with body mass index at 30.7 in the past. 9. History of paroxysmal atrial fibrillation. 10. Dyslipidemia. 11. Anxiety and depression. 12. Indeterminate troponins, probably secondary to demand ischemia from rapid ventricular rate. 13. Superficial thrombophlebitis - resolved. 14. Hyperkalemia/Hypokalemia - resolved PLAN: * Cont supportive care * Cont current meds as below * AM labs * Cont to monitor * Cardio/CT following * Change Amiodarone to PO per Cardiology in AM Review of Systems - Review of Systems Respiratory: negative: Cough, Dry, Shortness of Breath, Hemoptysis, SOB with Excertion, Pleuritic Pain, Sputum, Wheezing Cardiovascular: negative: Chest Pain, Palpitations, Orthopnea, Paroxysmal Noc. Dyspnea, Edema, Light Headedness, Other Gastrointestinal: negative: Nausea, Vomiting, Abdominal Pain, Diarrhea, Constipation, Melena, Hematochezia, Other - Medications/Allergies Allergies/Adverse Reactions: Allergies Allergy/AdvReac Type Severity Reaction Status Date / Time No Known Drug Allergies Allergy Verified 01/29/17 19:23 Medications: Current Medications Acetaminophen (Tylenol) 650 mg PO Q6H PRN PRN Reason: Headache/Fever Or Mild Pain Hydrocodone Bitart/Acetaminophen ([place] 5/325) 1 tab PO Q4H PRN PRN Reason: Moderate Pain (4-6) Last Admin: 06/13/17 14:11 Dose: 1 tab Hydrocodone Bitart/Acetaminophen ([place] 5/325) 2 tab PO Q4H PRN PRN Reason: Severe Pain (7-10) Last Admin: 06/12/17 09:43 Dose: 2 tab Al Hydroxide/Mg Hydroxide (Maalox) 30 ml PO Q4H PRN PRN Reason: Indigestion Albuterol/Ipratropium (Duoneb) 3 ml NEB [id number] PRN PRN Reason: SHORTNESS OF BREATH Aspirin (Aspirin) 325 mg PO DAILY ZULEIKA Last Admin: 06/13/17 08:33 Dose: 325 mg Bisacodyl (Dulcolax) 10 mg PO Q12H PRN PRN Reason: Constipation Bisacodyl (Dulcolax) 10 mg [place] Q12H PRN PRN Reason: Constipation Dextrose/Water (Dextrose 50%) 25 gm SLOW IVP PRN PRN PRN Reason: PER HYPOGLYCEMIC PROTOCOL Famotidine (Pepcid) 20 mg SLOW IVP 2100 ZULEIKA Fluoxetine HCl (Prozac) 20 mg PO DAILY ZULEIKA Last Admin: 06/13/17 08:33 Dose: 20 mg Glucagon (Glucagon) 1 mg SC PRN PRN PRN Reason: PER HYPOGLYCEMIC PROTOCOL Guaifenesin/Dextromethorphan (Robitussin Dm) 15 ml PO Q4H PRN PRN Reason: Cough Hydralazine HCl (Apresoline) 10 mg SLOW IVP Q6H PRN PRN Reason: To Maintain SBP< 140mmHG Dopamine HCl/Dextrose (Dopamine/D5w) 250 mls @ 0 mls/hr IVPB PRN PRN; Protocol ; Titrate PRN Reason: To maintain SBP > 90 mmHG Norepinephrine Bitartrate (Levophed) 250 mls @ 0 mls/hr IVPB PRN PRN; Protocol ; Titrate PRN Reason: To maintain SBP > 90 mmHG Nicardipine HCl 25 mg/ Sodium (Chloride) 260 mls @ 0 mls/hr IVPB INF PRN; Protocol; Titrate PRN Reason: To Maintain SBP< 140mmHG Nitroglycerin/Dextrose (Nitroglycerin 50 Mg/250 Ml Bot) 250 mls @ 0 mls/hr IVPB PRN PRN; Protocol; Titrate PRN Reason: To Maintain SBP< 140mmHG Phenylephrine HCl (Ramón-Synephrine) 250 mls @ 0 mls/hr IVPB PRN PRN; Protocol; Titrate PRN Reason: To maintain SBP > 90 mmHG Dextrose/Water (D5w) 1,000 mls @ 0 mls/hr IV INF PRN; As Directed PRN Reason: PRN HYPOGLYCEMIC PROTOCOL Amiodarone HCl 450 mg/Miscellaneous Medication 1 each/ Dextrose/Water 259 mls @ 0 mls/hr IVPB INF ZULEIKA; As Directed PRN Reason: Protocol Last Admin: 06/13/17 05:28 Dose: 259 mls Sodium Chloride (1/2 Normal Saline) 1,000 mls @ 50 mls/hr IV .Q20H ZULEIKA Last Admin: 06/13/17 08:48 Dose: 1,000 mls Morphine Sulfate (Morphine) 2 mg SLOW IVP Q15MIN PRN PRN Reason: Severe Pain (7-10) Last Admin: 06/11/17 15:34 Dose: 2 mg Ondansetron HCl (Zofran) 4 mg IVP Q6H PRN PRN Reason: Nausea/Vomiting Last Admin: 06/13/17 06:42 Dose: 4 mg Potassium Chloride (Kcl) 20 meq IVPB PRN PRN PRN Reason: K level </= 4.0 Last Admin: 06/11/17 15:50 Dose: 20 meq Pregabalin (Lyrica) 50 mg PO BID ZULEIKA Last Admin: 06/13/17 08:33 Dose: 50 mg Promethazine HCl (Phenergan) 6.25 mg IM Q4H PRN PRN Reason: Nausea/Vomiting Sodium Chloride (Flush - Normal Saline) 10 ml IVF PRN PRN PRN Reason: Saline Flush
[2017-06-13] MEDS ORDERED: Bisacodyl 10 MG SUPP PR PRN (16:33)
[2017-06-13] MEDS ORDERED: Guaifenesin DM 100-10/5 ML UDCUP PO PRN (16:33)
[2017-06-13] MEDS ORDERED: Fentanyl 100 MCG/2 ML VIAL SLOW IVP PRN ×2 (16:33)
[2017-06-13] MEDS ORDERED: Ondansetron HCl/PF 4 MG/2 ML Vial IVP PRN (16:33)
[2017-06-13] MEDS ORDERED: diphenhydrAMINE 25 MG CAP PO PRN (16:33)
[2017-06-13] MEDS ORDERED: Nitroglycerin 0.4 MG TAB (25 Tab Bottle) SL PRN (16:33)
[2017-06-13] MEDS ORDERED: Zolpidem Tartrate 5 MG TAB PO PRN (16:33)
[2017-06-13] MEDS ORDERED: Artificial Tears 18 DROP/0.9 ML EA EYE PRN (16:33)
[2017-06-13] MEDS ORDERED: Bisacodyl 5 MG TAB PO PRN (16:33)
[2017-06-13] MEDS ORDERED: Mag-Al 1200 mg/1200 mg/30 ML UDCUP PO PRN (16:33)
[2017-06-13] MEDS ORDERED: Mineral Oil ENEMA PR PRN (16:33)
[2017-06-13] MEDS ORDERED: Milk Of Magnesia 30 ML UDCUP PO PRN (16:33)
[2017-06-13] MEDS ORDERED: Promethazine HCl 25 MG/ML VIAL IM PRN (16:33)
[2017-06-13] MEDS ORDERED: Acetaminophen 325 MG TAB PO PRN (16:33)
[2017-06-13] MEDS: Famotidine 20 MG TAB PO SCH (20:39)
[2017-06-13] MEDS: HYDROcodone/Acetaminophen 5/325 mg Tablet PO PRN (20:41)
[2017-06-13] MEDS ORDERED: Famotidine/PF 20 mg/2ml Vial SLOW IVP SCH (21:00)
[2017-06-13] MEDS ORDERED: Simvastatin 20 MG TAB PO SCH (21:00)
[2017-06-14] MEDS: Sodium Chloride 0.45% 1,000 ML IV SCH ×2 (02:59→20:41)
[2017-06-14 06:02] LABS: Anion Gap 10 mmol/L (10-20); BUN (Urea Nitrogen) 29 mg/dL (9.8-20.1); Calc. Creatinine Clearance 35 mL/min (70-130); Carbon Dioxide 24 mmol/L (23-31); Chloride 103 mmol/L (98-107); Estimated GFR-MDRD 23
[2017-06-14] MEDS: Aspirin 325 mg Enteric Coated Tablet PO SCH (08:27)
[2017-06-14] MEDS: Famotidine 20 MG TAB PO SCH ×2 (08:27→20:37)
[2017-06-14] MEDS: Pregabalin 50 MG CAP PO SCH ×2 (08:28→20:37)
[2017-06-14] MEDS: FLUoxetine HCl 20 MG CAP PO SCH (08:28)
[2017-06-14] MEDS: HYDROcodone/Acetaminophen 5/325 mg Tablet PO PRN (08:29)
--- NOTE | 2017-06-14 12:30 | PRG ---
DATE OF SERVICE: 06/14/2017 SUBJECTIVE: Patient is awake, alert, sitting up seems to be doing okay except for some soreness fro m her operative site. PHYSICAL EXAMINATION: VITAL SIGNS: Temperature 97.8, pulse 56, respirations 16, O2 saturation 94%, blood pressure 112/54. HEENT: Unremarkable. NECK: No JVD. CHEST: Clear to auscultation. CARDIAC: S1 and S2 regular. ABDOMEN: Soft. EXTREMITIES: No edema. LABORATORY DATA: Sodium 132, potassium 4.2, chloride 103, CO2 of 24, BUN 29, creatinine 2.1, glucos e 103. ASSESSMENT: 1. Status post coronary artery bypass grafting surgery. 2. Renal insufficiency. 3. Stable pulmonary status. PLAN: Patient is currently on amiodarone drip. She seems to be improving slowly, but steadily. No new recommendations at this time.
--- NOTE | 2017-06-14 19:08 | PDOC.PN ---
- Subjective Encounter Start Date: 06/14/17 Encounter Start Time: 14:30 Patient seen and examined. No new complaints. No overnight events. On tele floor. - Objective Resuscitation Status: Resuscitation Status FULL:Full Resuscitation MAR Reviewed: Yes Vital Signs & Weight: Vital Signs (12 hours) Temp Pulse Pulse Pulse Resp BP BP 06/14/17 18:49 55 L 53 L 137/59 L 108/54 L 06/14/17 15:31 97.5 F L 54 L 12 06/14/17 11:34 97.8 F 54 L 16 06/14/17 09:47 06/14/17 08:26 97.8 F 56 L 16 BP Pulse Ox Pulse Ox Pulse Ox 06/14/17 18:49 95 97 06/14/17 15:31 114/53 L 92 L 06/14/17 11:34 96/47 L 96 06/14/17 09:47 94 L 06/14/17 08:26 112/54 L 94 L Weight Admit Weight 200 lb Weight 188 lb 14.4 oz Most Recent Monitor Data Heart Rate from ECG 52 NIBP 109/36 NIBP BP-Mean 82 Respiration from ECG 18 SpO2 87 I&O: 06/13/17 06/14/17 06/15/17 06:59 06:59 05:59 Intake Total 2079 2155 1635 Output Total 730 1035 1000 Balance 1349 1120 635 Result Diagrams: 06/13/17 03:20 06/15/17 04:05 EKG Reviewed by me: Yes (Tele SR) Phys Exam - Physical Examination Constitutional: NAD on Amio drip Respiratory: no wheezing, no rhonchi Cardiovascular: RRR, no rub Gastrointestinal: soft, non-tender, positive bowel sounds Musculoskeletal: no edema Psychiatric: normal affect, A&O x 3 Dx/Plan - Plan incentive spirometry, out of bed/ambulate, DVT proph w/SCDs IMPRESSION: 1. Atrial fibrillation with rapid ventricular response. in SR. Cardiology following. Off Cardizem. on Amiodarone drip. 2. Coronary artery disease, status post stent placement and myocardial infarction in the past. on aspirin and beta blockers. - s/p CABG on 06/11. Plavix /Coreg on hold 3. NSVT. no new episodes. on Amiodarone. 4. New onset systolic heart failure - acute - prob due to ischemic CM with tachyarrythmias - Repeat Echo is SR - EF 35-40% 5. JOSE ENRIQUE on CKD 3 - improving with IVF 6. Chronic myeloid leukemia, currently in remission, followed by MD Quinteros. (on Bosutinib at home - discontinued by Cardiology) 7. Chronic low back pain. 8. Obesity with body mass index at 30.7 in the past. 9. History of paroxysmal atrial fibrillation. 10. Dyslipidemia. 11. Anxiety and depression. 12. Indeterminate troponins, probably secondary to demand ischemia from rapid ventricular rate. 13. Superficial thrombophlebitis - resolved. 14. Hyperkalemia/Hypokalemia - resolved PLAN: * Change Amiodarone to PO today if ok with Cardiology * Cont IVF @ 50 ml * BMP in AM * Cont supportive care * Cont current meds as below * Cont to monitor * Cardio/CT following Review of Systems - Medications/Allergies Allergies/Adverse Reactions: Allergies Allergy/AdvReac Type Severity Reaction Status Date / Time No Known Drug Allergies Allergy Verified 01/29/17 19:23 Medications: Current Medications Acetaminophen (Tylenol) 650 mg PO Q6H PRN PRN Reason: Headache/Fever or Pain Hydrocodone Bitart/Acetaminophen ([place] 5/325) 1 tab PO Q4H PRN PRN Reason: Moderate Pain (4-6) Last Admin: 06/14/17 08:29 Dose: 1 tab Hydrocodone Bitart/Acetaminophen ([place] 5/325) 2 tab PO Q4H PRN PRN Reason: Severe Pain (7-10) Last Admin: 06/13/17 20:41 Dose: 2 tab Al Hydroxide/Mg Hydroxide (Maalox) 30 ml PO Q4H PRN PRN Reason: Indigestion Albuterol/Ipratropium (Duoneb) 3 ml NEB [id number] PRN PRN Reason: Respiratory Distress Amiodarone HCl (Cordarone) 200 mg PO BID ZULEIKA Artificial Tears (Tears Naturale) 0 drop EA EYE PRN PRN PRN Reason: Dry Eyes Aspirin (Ecotrin) 325 mg PO DAILY [facility] Last Admin: 06/14/17 08:27 Dose: 325 mg Atorvastatin Calcium (Lipitor) 20 mg PO HS ZULEIKA Bisacodyl (Dulcolax) 10 mg PO Q12H PRN PRN Reason: Constipation Bisacodyl (Dulcolax) 10 mg [place] Q12H PRN PRN Reason: Constipation Diphenhydramine HCl (Benadryl) 25 mg PO Q6H PRN PRN Reason: Itching & Insomnia or George Krzysztof Famotidine (Pepcid) 20 mg PO BID [facility] Last Admin: 06/14/17 08:27 Dose: 20 mg Fentanyl (Sublimaze) 25 mcg SLOW IVP Q2H PRN PRN Reason: Moderate breakthrough pain Fentanyl (Sublimaze) 50 mcg SLOW IVP Q2H PRN PRN Reason: Severe breakthrough pain Fluoxetine HCl (Prozac) 20 mg PO DAILY [facility] Last Admin: 06/14/17 08:28 Dose: 20 mg Guaifenesin/Dextromethorphan (Robitussin Dm) 15 ml PO Q4H PRN PRN Reason: Cough Hydralazine HCl (Apresoline) 10 mg SLOW IVP Q6H PRN PRN Reason: To Maintain SBP< 140mmHG Sodium Chloride (1/2 Normal Saline) 1,000 mls @ 50 mls/hr IV .Q20H [facility] Last Admin: 06/14/17 02:59 Dose: 1,000 mls Magnesium Hydroxide (Milk Of Magnesium) 30 ml PO Q12H PRN PRN Reason: Constipation Mineral Oil (Fleet Mineral Oil) 133 ml [place] DAILYPRN PRN PRN Reason: Constipation Nitroglycerin (Nitrostat) 0.4 mg SL Q5MIN PRN PRN Reason: Chest Pain Ondansetron HCl (Zofran) 4 mg IVP Q6H PRN PRN Reason: Nausea/Vomiting Last Admin: 06/13/17 22:22 Dose: 4 mg Pregabalin (Lyrica) 50 mg PO BID [facility] Last Admin: 06/14/17 08:28 Dose: 50 mg Promethazine HCl (Phenergan) 6.25 mg IM Q4H PRN PRN Reason: Nausea/Vomiting Sodium Chloride (Flush - Normal Saline) 10 ml IVF PRN PRN PRN Reason: Saline Flush Last Admin: 06/13/17 20:42 Dose: 10 ml Zolpidem Tartrate (Ambien) 5 mg PO HSPRN PRN PRN Reason: Insomnia
[2017-06-14] MEDS: Atorvastatin Calcium 20 MG TAB PO SCH (20:37)
[2017-06-14] MEDS: Amiodarone 200 MG TAB PO SCH (20:41)
[2017-06-15] MEDS: HYDROcodone/Acetaminophen 5/325 mg Tablet PO PRN ×2 (02:08→22:14)
[2017-06-15 05:17] LABS: Anion Gap 9 mmol/L (10-20); BUN (Urea Nitrogen) 22 mg/dL (9.8-20.1); Calc. Creatinine Clearance 50 mL/min (70-130); Calcium 8.9 mg/dL (7.8-10.44); Carbon Dioxide 24 mmol/L (23-31); Chloride 109 mmol/L (98-107); Estimated GFR-MDRD 34
[2017-06-15] MEDS ORDERED: Polyethylene Glycol 3350 17 GM Packet PO PRN (06:27)
[2017-06-15] MEDS: Senokot S 8.6-50 MG TAB PO SCH ×2 (08:52→20:55)
[2017-06-15] MEDS: Amiodarone 200 MG TAB PO SCH ×2 (08:52→20:55)
[2017-06-15] MEDS: Famotidine 20 MG TAB PO SCH ×2 (08:52→20:54)
[2017-06-15] MEDS: Aspirin 325 mg Enteric Coated Tablet PO SCH (08:52)
[2017-06-15] MEDS: FLUoxetine HCl 20 MG CAP PO SCH (08:52)
[2017-06-15] MEDS: Pregabalin 50 MG CAP PO SCH ×2 (08:52→20:54)
--- NOTE | 2017-06-15 10:54 | PDOC.PN ---
- Subjective Encounter Start Date: 06/15/17 Encounter Start Time: 10:50 Patient seen and examined. No new complaints. No overnight events - Objective Resuscitation Status: Resuscitation Status FULL:Full Resuscitation MAR Reviewed: Yes Vital Signs & Weight: Vital Signs (12 hours) Temp Pulse Resp BP Pulse Ox 06/15/17 08:00 98.2 F 57 L 18 130/70 95 06/15/17 04:19 96 06/15/17 04:00 98.0 F 56 L 20 103/51 L 95 Weight Admit Weight 200 lb Weight 189 lb Most Recent Monitor Data Heart Rate from ECG 52 NIBP 109/36 NIBP BP-Mean 82 Respiration from ECG 18 SpO2 87 I&O: 06/14/17 06/15/17 06/16/17 07:59 06:59 06:59 Intake Total 240 Output Total Balance 240 Result Diagrams: 06/13/17 03:20 06/15/17 04:05 EKG Reviewed by me: Yes (Tele SB) Phys Exam - Physical Examination Constitutional: NAD Respiratory: no wheezing, no rales, no rhonchi Cardiovascular: RRR, no rub Gastrointestinal: soft, non-tender, positive bowel sounds Musculoskeletal: no edema Neurological: non-focal, moves all 4 limbs Psychiatric: normal affect, A&O x 3 Dx/Plan - Plan IMPRESSION: 1. Atrial fibrillation with rapid ventricular response. Cardiology following. Off Cardizem and Amiodarone drip. On PO Amidarone. in SR 2. Coronary artery disease, status post stent placement and myocardial infarction in the past. on aspirin and beta blockers. - s/p CABG on 06/11. Plavix /Coreg on hold 3. NSVT. no new episodes. on Amiodarone. electrolyes normal. 4. New onset systolic heart failure - acute - prob due to ischemic CM with tachyarrythmias - EF 35-40% 5. JOSE ENRIQUE on CKD 3 - improved with IVF - IVF dced today 6. Chronic myeloid leukemia, currently in remission, followed by MD Quinteros. (on Bosutinib at home - discontinued by Cardiology) 7. Chronic low back pain. 8. Obesity with body mass index at 35.7 9. History of paroxysmal atrial fibrillation. 10. Dyslipidemia. 11. Anxiety and depression. 12. Indeterminate troponins, probably secondary to demand ischemia from rapid ventricular rate. 13. Superficial thrombophlebitis - resolved. 14. Hyperkalemia/Hypokalemia - resolved PLAN: * BMP in AM * Cont supportive care/Cardiac rehab * Cont current meds as below * Cont to monitor * Cardio/CT following * DC planning Review of Systems - Review of Systems Respiratory: negative: Cough, Dry, Shortness of Breath, Hemoptysis, SOB with Excertion, Pleuritic Pain, Sputum, Wheezing Cardiovascular: negative: Chest Pain, Palpitations, Orthopnea, Paroxysmal Noc. Dyspnea, Edema, Light Headedness, Other Gastrointestinal: negative: Nausea, Vomiting, Abdominal Pain, Diarrhea, Constipation, Melena, Hematochezia, Other - Medications/Allergies Allergies/Adverse Reactions: Allergies Allergy/AdvReac Type Severity Reaction Status Date / Time No Known Drug Allergies Allergy Verified 01/29/17 19:23 Medications: Current Medications Acetaminophen (Tylenol) 650 mg PO Q6H PRN PRN Reason: Headache/Fever or Pain Hydrocodone Bitart/Acetaminophen ([place] 5/325) 1 tab PO Q4H PRN PRN Reason: Moderate Pain (4-6) Last Admin: 06/15/17 02:08 Dose: 1 tab Hydrocodone Bitart/Acetaminophen ([place] 5/325) 2 tab PO Q4H PRN PRN Reason: Severe Pain (7-10) Last Admin: 06/13/17 20:41 Dose: 2 tab Al Hydroxide/Mg Hydroxide (Maalox) 30 ml PO Q4H PRN PRN Reason: Indigestion Albuterol/Ipratropium (Duoneb) 3 ml NEB [id number] PRN PRN Reason: Respiratory Distress Amiodarone HCl (Cordarone) 200 mg PO BID [facility] Last Admin: 06/15/17 08:52 Dose: 200 mg Artificial Tears (Tears Naturale) 0 drop EA EYE PRN PRN PRN Reason: Dry Eyes Aspirin (Ecotrin) 325 mg PO DAILY [facility] Last Admin: 06/15/17 08:52 Dose: 325 mg Atorvastatin Calcium (Lipitor) 20 mg PO HS [facility] Last Admin: 06/14/17 20:37 Dose: 20 mg Bisacodyl (Dulcolax) 10 mg PO Q12H PRN PRN Reason: Constipation Bisacodyl (Dulcolax) 10 mg [place] Q12H PRN PRN Reason: Constipation Diphenhydramine HCl (Benadryl) 25 mg PO Q6H PRN PRN Reason: Itching & Insomnia or George Krzysztof Famotidine (Pepcid) 20 mg PO BID [facility] Last Admin: 06/15/17 08:52 Dose: 20 mg Fentanyl (Sublimaze) 25 mcg SLOW IVP Q2H PRN PRN Reason: Moderate breakthrough pain Fentanyl (Sublimaze) 50 mcg SLOW IVP Q2H PRN PRN Reason: Severe breakthrough pain Fluoxetine HCl (Prozac) 20 mg PO DAILY [facility] Last Admin: 06/15/17 08:52 Dose: 20 mg Guaifenesin/Dextromethorphan (Robitussin Dm) 15 ml PO Q4H PRN PRN Reason: Cough Last Admin: 06/15/17 02:09 Dose: 15 ml Hydralazine HCl (Apresoline) 10 mg SLOW IVP Q6H PRN PRN Reason: To Maintain SBP< 140mmHG Magnesium Hydroxide (Milk Of Magnesium) 30 ml PO Q12H PRN PRN Reason: Constipation Mineral Oil (Fleet Mineral Oil) 133 ml [place] DAILYPRN PRN PRN Reason: Constipation Nitroglycerin (Nitrostat) 0.4 mg SL Q5MIN PRN PRN Reason: Chest Pain Ondansetron HCl (Zofran) 4 mg IVP Q6H PRN PRN Reason: Nausea/Vomiting Last Admin: 06/13/17 22:22 Dose: 4 mg Polyethylene Glycol (Miralax) 17 gm PO DAILYPRN PRN PRN Reason: Constipation Pregabalin (Lyrica) 50 mg PO BID [facility] Last Admin: 06/15/17 08:52 Dose: 50 mg Promethazine HCl (Phenergan) 6.25 mg IM Q4H PRN PRN Reason: Nausea/Vomiting Senna/Docusate Sodium (Senokot S) 1 tab PO BID [facility] Last Admin: 06/15/17 08:52 Dose: 1 tab Sodium Chloride (Flush - Normal Saline) 10 ml IVF PRN PRN PRN Reason: Saline Flush Last Admin: 06/13/17 20:42 Dose: 10 ml Zolpidem Tartrate (Ambien) 5 mg PO HSPRN PRN PRN Reason: Insomnia
--- NOTE | 2017-06-15 12:19 | PRG ---
DATE OF SERVICE: 06/15/2017 SUBJECTIVE: She is breathing well, has no complaints. OBJECTIVE: VITAL SIGNS: Temperature 98.2, pulse 57, respirations 16, O2 sat 95%, blood pressure 130/70. HEENT: Unremarkable. NECK: No JVD. CHEST: Clear. CARDIAC: S1, S2 regular. ABDOMEN: Soft. EXTREMITIES: No edema. LABORATORY DATA: Sodium 130, potassium 4.3, BUN 22, creatinine 1.5, glucose 100. ASSESSMENT: 1. Improved post coronary artery bypass graft. 2. Renal insufficiency. 3. Stable pulmonary status. PLAN: Hopefully, she can go home tomorrow. No new recommendations.
[2017-06-15] MEDS: Atorvastatin Calcium 20 MG TAB PO SCH (20:55)
[2017-06-16 05:34] LABS: Anion Gap 11 mmol/L (10-20); BUN (Urea Nitrogen) 15 mg/dL (9.8-20.1); Calc. Creatinine Clearance 73 mL/min (70-130); Calcium 9.2 mg/dL (7.8-10.44); Carbon Dioxide 22 mmol/L (23-31); Chloride 110 mmol/L (98-107); Estimated GFR-MDRD 54
[2017-06-16] MEDS: Amiodarone 200 MG TAB PO SCH (08:20)
[2017-06-16] MEDS: Senokot S 8.6-50 MG TAB PO SCH (08:21)
[2017-06-16] MEDS: FLUoxetine HCl 20 MG CAP PO SCH (08:21)
[2017-06-16] MEDS: Pregabalin 50 MG CAP PO SCH (08:21)
[2017-06-16] MEDS: Famotidine 20 MG TAB PO SCH (08:21)
[2017-06-16] MEDS ORDERED: Bisacodyl 10 MG SUPP PR SCH (09:30)
[2017-06-16] MEDS: Aspirin 325 mg Enteric Coated Tablet PO SCH (09:58)
[2017-06-16 12:27] VITALS: BP 135/64; TEMP 97.9
--- NOTE | 2017-06-16 12:43 | PDOC.CTH ---
Cardiology Progress Note - Subjective She is feeling better. She had a BM yesterday. She has been walking with cardiac rehab without issues. - Objective Vital Signs Temp Pulse Pulse Pulse Resp BP BP 06/16/17 12:24 97.9 F 57 L 17 06/16/17 09:32 58 L 53 L 169/70 H 150/68 H 06/16/17 08:21 97.5 F L 52 L 17 06/16/17 05:31 06/16/17 04:00 97.6 F 52 L 18 BP BP Pulse Ox Pulse Ox Pulse Ox 06/16/17 12:24 135/64 97 06/16/17 09:32 96 96 06/16/17 08:21 166/72 H 97 06/16/17 05:31 98 06/16/17 04:00 125/62 99 Admit Weight 200 lb Weight 184 lb 06/15/17 06/16/17 06/17/17 06:59 06:59 06:59 Intake Total 1540 Output Total 1650 Balance -110 - Physical Examination General/Neuro: alert & oriented x3, NAD Neck: no JVD present Lungs: unlabored respirations Heart: RRR Abdomen: NT/ND Extremities: + edema B (1+) - Telemetry Telemetry Rhythm: S Kane - Labs Result Diagrams: 06/13/17 03:20 06/16/17 04:47 Troponin/CKMB CK-MB (CK-2) 1.9 ng/mL (0-6.6) 06/02/17 11:48 Troponin I 0.052 ng/mL (< 0.028) H 06/02/17 11:48 - Assessment/Plan 1. Afib RVR, paroxysmal, currenlty in sinus 2. LV dysfunction. EF at 35-40% 3. 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 Acute on chronic systolic dysfunction. Improved. 6. Severe in stent re stenosis of the LAD. 7. S/P CABG with ALDANA to LAD. 8. JOSE ENRIQUE on CKD, improved. PLAN: - Aspirin and statin for life. - Will restart Lisinopril at lower dose 5 mg daily and will restart coreg at 3.125mg BID. - Continue amiodarone 200 mg BID for 5 more days then back to 200 mg daily. - Continue aspirin alone for stroke prophylaxis. - May discharge home. Follow up with me in 2 weeks.
--- NOTE | 2017-06-16 14:07 | DIS ---
DATE OF ADMISSION: 06/15/2017 DATE OF DISCHARGE: 06/16/2017 FOLLOWUP: 1. Follow up with primary care Dr. Roy in 1 week. 2. Follow up with Dr. Arce after a week. 3. Follow up with Dr. Tsai as scheduled. 4. Outpatient cardiac rehabilitation. ALLERGIES: No known drug allergies. DISCHARGE MEDICATIONS: 1. Aspirin 325 mg daily. 2. Allopurinol 100 mg daily. 3. Amiodarone 200 mg twice daily for the next 5 days, then once a day. 4. Carvedilol 3.125 mg b.i.d. 5. Cyclobenzaprine as needed. 6. Fluoxetine 20 mg daily. 7. Ferrous sulfate 325 mg daily. 8. [place] as needed. 9. Lisinopril 5 mg daily. 10. Lyrica 50 mg b.i.d. 11. Zocor 20 mg at bedtime. 12. Sublingual nitroglycerin as needed. The patient was seen and examined on the day of discharge. Denies any new complaints. No chest cj n, shortness of breath or palpitations. INPATIENT CONSULTANTS: Cardiology, Dr. Arce; Cardiovascular, Dr. Tsai and Pulmonary, Dr. Barber. BRIEF HOSPITAL COURSE: The patient is a 66-year-old female with coronary artery disease, status pos t NV with recent pericardial window presented to the hospital with chest discomfort. Please refer t o the history and physical dated 06/02/2017 for further details. The patient was admitted to the hospital with the diagnosis of atrial fibrillation with rapid ventri cular response. Heart rate on admission was in the 140s, requiring Cardizem drip. Home medications including carvedilol and amiodarone were resumed. She was on aspirin and Plavix on admission. The patient was evaluated by Cardiology, Dr. Arce. An echocardiogram was performed that showed an ej ection fraction of 30% to 35% with moderate to severe tricuspid regurgitation. Due to low ejection fraction, cardiac catheterization was performed on 06/06/2017 that showed severe in-stent restenosis to the mid LAD. RCA and left circumflex were patent. Anterior wall was akinetic. Patient was keyur luated by Cardiovascular, Dr. Tsai. The patient underwent coronary artery bypass grafting on 08/2016. The pericardium was diffusely thickened, inflamed and hemorrhagic. Epicardial tissues were very friable and also covered with fibroexudative debris. LAD was ultimately able to be identified . She underwent coronary artery bypass grafting x1. She was then monitored in the CCU per protocol . She was later transferred to the telemetry unit. She remained on amiodarone most of the time int ravascularly. She will continue amiodarone 200 mg twice a day for the next 5 days and will go back to once a day. She has been cleared by consultants for discharge. FINAL DIAGNOSES: 1. Atrial fibrillation with rapid ventricular response. She was placed on amiodarone and Cardizem drip. She is currently in sinus rhythm. She was also started on anticoagulation at one point initi ally this admission. 2. Coronary artery disease. The patient underwent coronary artery bypass grafting x1 on 06/11. Pl avix has been discontinued. She also was found to have in-stent thrombosis. She also has myocardia l infarction in the past. 3. Non-sustained ventricular tachycardia, short episode initially in this admission. No repeat epi sodes while on amiodarone. 4. New onset of systolic heart failure, probably secondary to ischemic cardiomyopathy with tachyarr hythmias. Ejection fraction 35% to 40% range. 5. Acute kidney injury on chronic kidney disease stage 3, post-coronary artery bypass graft, [facility] ed with IV fluids. Her creatinine on the day of discharge is 1.03. Maximum creatinine was 2.21. 6. Chronic myeloid leukemia. The patient was on bosutinib that has been discontinued by Cardiology . 7. Chronic low back pain. 8. Obesity with a BMI of 35.7. 9. History of paroxysmal atrial fibrillation. 10. Dyslipidemia. 11. Anxiety and depression. 12. Indeterminate troponins, probably secondary to demand ischemia from rapid ventricular rate. 13. Superficial thrombophlebitis of the left arm, resolved. 14. Electrolyte imbalance including hypokalemia and hyperkalemia, resolved. 15. Obesity with a BMI of 35.7. 16. Chronic anemia. Plan of care was discussed with the patient and the family at the bedside, they stated understanding . Total time coordinating the discharge of this patient was 36 minutes.
--- NOTE | 2017-06-16 16:21 | PRG ---
DATE OF SERVICE: 06/16/2017 SUBJECTIVE: Ms. Swan is doing well. [facility] She lives here in town, so traveling would not be a problem. OBJECTIVE: VITAL SIGNS: She is afebrile, heart rate is 57, respiratory rate is 17, oximetry is 97% on room air , and blood pressure 169/70. LUNGS: Completely clear. HEART: Regular rhythm. LABORATORY DATA: Sodium 138, potassium 4.6, chloride 110, bicarbonate 20, BUN 15, creatinine 1.03. Intake and output is negative 110. IMPRESSION: 1. Status post coronary artery bypass grafting, clinically doing well, should go through outpatient rehabilitation of emphasized the importance of exercise at outside rehab. 2. Status post drug-induced pericarditis with a recent pericardial window making the surgery techni irvin more difficult. 3. History of atrial fibrillation. 4. Nonsustained ventricular tachycardia while she was here. 5. Depressed left ventricular systolic function. 6. History of chronic myelogenous leukemia. PLAN: Physical therapy and supportive care.
[2017-06-16] MEDS ORDERED: Carvedilol 3.125 MG TAB PO SCH (17:00)
[2017-06-17] MEDS ORDERED: Lisinopril 5 MG TAB PO SCH (09:00)
--- NOTE | 2017-06-21 16:00 | EKG ---
Test Reason : CHEST PAIN Blood Pressure : / mmHG Vent. Rate : 149 BPM Atrial Rate : 150 BPM P-R Int : 000 ms QRS Dur : 114 ms QT Int : 342 ms P-R-T Axes : 000 -29 123 degrees QTc Int : 538 ms Atrial fibrillation with rapid ventricular response Non-specific intra-ventricular conduction delay Abnormal ECG Confirmed by GEOFF GROSSMAN DO ([id number]), clinical editor MADAI WILLARD ([id number]) on 06/21/2017 4:00:29 PM Referred By: Confirmed By:GEOFF GROSSMAN DO
== END 2017-06-16 15:37 | disposition home or self-care (01) | DRG 233 ==
LOC: ERS 03:21 → 2SE 06:47 → CCU 06-11 12:31 → 2NO 06-13 18:18
PROVIDERS: ADMIT Family Medicine; ATTEND Family Medicine
PROC: 4A023N7 Measurement of Cardiac Sampling and Pressure, Left Heart, Percutaneous Approach (ICD-10-PCS; 2017-06-06)
PROC: B2151ZZ Fluoroscopy of Left Heart using Low Osmolar Contrast (ICD-10-PCS; 2017-06-06)
PROC: B2111ZZ Fluoroscopy of Multiple Coronary Arteries using Low Osmolar Contrast (ICD-10-PCS; 2017-06-06)
PROC: 02100Z9 Bypass Coronary Artery, One Artery from Left Internal Mammary, Open Approach (ICD-10-PCS; principal; 2017-06-11)
PROC: 30233R1 Transfusion of Nonautologous Platelets into Peripheral Vein, Percutaneous Approach (ICD-10-PCS; 2017-06-11)
PROC: 30233N1 Transfusion of Nonautologous Red Blood Cells into Peripheral Vein, Percutaneous Approach (ICD-10-PCS; 2017-06-11)
DX: I48.0 Paroxysmal atrial fibrillation (principal); I50.23 Acute on chronic systolic (congestive) heart failure; N17.9 Acute kidney failure, unspecified; I31.0 Chronic adhesive pericarditis; C92.10 Chronic myeloid leukemia, BCR/ABL-positive, not having achieved remission; I24.8 Other forms of acute ischemic heart disease; I31.3 Pericardial effusion (noninflammatory); I13.0 Hypertensive heart and chronic kidney disease with heart failure and stage 1 through stage 4 chronic kidney disease, or unspecified chronic kidney disease; N18.3 Chronic kidney disease, stage 3 (moderate); I25.10 Atherosclerotic heart disease of native coronary artery without angina pectoris; E78.5 Hyperlipidemia, unspecified; I25.2 Old myocardial infarction; F32.9 Major depressive disorder, single episode, unspecified; F41.9 Anxiety disorder, unspecified; E66.9 Obesity, unspecified; Z68.30 Body mass index [BMI] 30.0-30.9, adult; Z95.5 Presence of coronary angioplasty implant and graft; E87.5 Hyperkalemia; E87.6 Hypokalemia
CPT/HCPCS: 36415; 36416; 36430; 71010; 80048; 80053; 80069; 81003; 82550; 82553; 82805; 83605; 83690; 83735; 83880; 84100; 84443; 84484; 85014; 85018; 85025; 85049; 85610; 85730; 86850; 86900; 86901; 88305; 93005; 93010; 93306; 93458; 93798; 93970; 94002; 94150; 94760; 96365; 96366; 96376; 99152; A4216; C1769; J0282; J1265; J1642; J1644; J1650; J1815; J1885; J1940; J2001; J2250; J2270; J2405; J2440; J2720; J3010; J3370; J3475; J3480; J7050; J7070; P9016; P9035; P9045; P9059; S0028

== ENCOUNTER 2017-06-17 22:16 | Observation (INO) | payer MEDICARE ==
--- NOTE | 2017-06-17 23:27 | RAD ---
FRONTAL VIEW CHEST 06/17/17 COMPARISON: 06/13/17 INDICATION: Medication overdose. FINDINGS: Removal of prior right subclavian venous catheter. Additional prior artifacts and supportive tubes h ave been removed. There is enlargement of the cardiac silhouette with vascular congestion. Pleural b ased density also seen at the inferior left hemithorax. Evidence of prior sternotomy again seen. IMPRESSION: CHF with edema. Probable left pleural fluid. Continued followup is recommended. POS: JUDAH
[2017-06-17 23:51] LABS: #Basophils 0.1 thou/uL (0.0-0.2); #Eosinphils 0.3 thou/uL (0.0-0.7); #Lymphocytes 1.2 thou/uL (1.20-3.40); #Monocytes 0.9 thou/uL (0.11-0.59); #Neutrophils 6.6 thou/uL (1.40-6.50); %Basophils 0.6 % (0.0-1.0); %Eosinophils 3.5 % (0.0-10.0); Mean Platelet Volume 8.2 fL (7.4-10.4); Red Blood Cell (RBC) Count 3.14 mill/uL (4.20-5.40); White Blood Cell (WBC) Count 9.1 thou/uL (4.8-10.8)
[2017-06-17] MEDS ORDERED: HYDROcodone/Acetaminophen 10/325 mg Tablet ONE (23:59)
[2017-06-18 00:16] LABS: ALT (SGPT) Less than 7 U/L (8-55); AST (SGOT) 7 U/L (5-34); Alkaline Phosphatase 63 U/L (40-150); Anion Gap 11 mmol/L (10-20); BUN (Urea Nitrogen) 11 mg/dL (9.8-20.1); Bilirubin, Total 0.2 mg/dL (0.2-1.2); CK (CPK) 29 U/L (29-168); Calc. Creatinine Clearance 0 mL/min (70-130); Calcium 6.8 mg/dL (7.8-10.44); Carbon Dioxide 20 mmol/L (23-31); Chloride 117 mmol/L (98-107); Estimated GFR-MDRD 85; Globulin 1.9 g/dL (2.4-3.5); Protein, Total 4.2 g/dL (6.0-8.3)
[2017-06-18] MEDS ORDERED: Acetaminophen 325 MG TAB PO PRN ×2 (00:36→01:02)
[2017-06-18] MEDS ORDERED: Ondansetron HCl/PF 4 MG/2 ML Vial IVP PRN ×2 (00:36→01:02)
[2017-06-18] MEDS ORDERED: Ondansetron ODT 4 MG TAB SL PRN (00:36)
[2017-06-18 00:37] VITALS: BMI 30.4
[2017-06-18] MEDS ORDERED: Nitroglycerin 0.4 MG TAB (25 Tab Bottle) SL PRN (01:02)
[2017-06-18] MEDS ORDERED: Ondansetron ODT 4 MG TAB PO PRN (01:02)
[2017-06-18] MEDS ORDERED: Mag-Al 1200 mg/1200 mg/30 ML UDCUP PO PRN (01:02)
[2017-06-18] MEDS ORDERED: HYDROcodone/Acetaminophen 5/325 mg Tablet PO PRN (01:02)
[2017-06-18] MEDS ORDERED: Cyclobenzaprine 10 MG TAB PO PRN (01:02)
[2017-06-18 06:20] LABS: Anion Gap 10 mmol/L (10-20); BUN (Urea Nitrogen) 14 mg/dL (9.8-20.1); Calc. Creatinine Clearance 89 mL/min (70-130); Calcium 9.2 mg/dL (7.8-10.44); Carbon Dioxide 28 mmol/L (23-31); Chloride 107 mmol/L (98-107); Estimated GFR-MDRD 65
[2017-06-18] MEDS ORDERED: Carvedilol 3.125 MG TAB PO SCH (08:00)
[2017-06-18 08:07] VITALS: TEMP 97.5
--- NOTE | 2017-06-18 08:50 | HP ---
PRIMARY CARE PHYSICIAN: Sara Roy D.O. SUPERINTENDENT STATIONS: Dinh Arce M.D. CHIEF COMPLAINT: I took 2 extra amiodarone. HISTORY OF PRESENT ILLNESS: Ms. Swan is a pleasant 66-year-old female who just recently left the hospital about 2 days ago after being treated for instent restenosis of the LAD. The patient alvarez d to have a ALDANA to the LAD performed. She also has a history of a recent large pericardial effusio n which required a pericardial window and that was done in May of this year. She had only been home for 2 days when she says that she was planning on taking hydrocodone for some incisional pain. When she took the two hydrocodone, this was after she had taken her scheduled amiodarone that she t akes for paroxysmal atrial fibrillation. She says the pills looked somewhat similar, then she laid down and realized that the two tablets that she took were actually the amiodarone and not hydrocodon e. She told her about it and they got concerned and came to the ER for evaluation. The pat ient is being placed in observation as a result of this. The patient denies any symptoms such as fe eling dizzy or lightheaded, no nausea, no vomiting, no chest pressure or chest tightness. Poison Co krzysztofol was contacted from the ER physician and was told to monitor for signs of hypotension and also to monitor her for at least 6 hours post ingestion. The patient currently is asymptomatic and has n o complaints other than some incisional pain that she originally had earlier. REVIEW OF SYSTEMS: CONSTITUTIONAL: There have been no fevers, no chills, no night sweats, no weigh t loss. HEENT: No headache, no dizziness, no visual changes, no sore throat, rhinorrhea, neck pain , no adenopathy. PULMONARY: No hemoptysis, no cough, no wheezing. CARDIOVASCULAR: She denies any chest pain, no shortness of breath, no PND, no orthopnea. GASTROINTESTINAL: No abdominal pain, no nausea, no vomiting, no change in bowels. GENITOURINARY: No urinary frequency, hematuria, no hesi tancy. NEUROLOGIC: No focal weakness, numbness, no seizures. PSYCHIATRIC: No symptoms of anxiety or depression. SKIN AND INTEGUMENT: No skin changes. No rash. PAST MEDICAL HISTORY: Significant for pericardial effusion status post window in 05/2017, recent si ngle vessel coronary artery bypass grafting with ALDANA to the LAD, paroxysmal atrial fibrillation, co ronary artery disease, chronic myelogenous leukemia, dyslipidemia, anxiety and depression, diverticu losis, and chronic low back pain. PAST SURGICAL HISTORY: She has had a coronary stent, recent bypass surgery, pericardial window, per icardiocentesis, hysterectomy, and bilateral tubal ligation. ALLERGIES: No known drug allergies. SOCIAL HISTORY: She is a nonsmoker, nondrinker. She is . She is a F[employer]. FAMILY HISTORY: Significant for coronary artery disease in her father. One brother had an UT in hi s 40s. Another brother of a heart attack at 54. CURRENT MEDICATIONS: She says she is on the same medications as that on discharge and these include d Zocor 20 mg at bedtime, Lyrica 50 mg twice a day, Zyloprim 100 mg daily, amiodarone 200 mg twice a day, aspirin 325 mg daily, carvedilol 3.125 mg twice a day, cyclobenzaprine 5 mg t.i.d., Prozac 20 mg daily, iron sulfate 325 mg daily, [place] 5/325 mg 1 tablet q.4 as needed, Zestril 5 mg daily, and Nitrostat 0.4 sublingual as needed. PHYSICAL EXAMINATION: GENERAL: She is alert and oriented. She appears to be in no acute distress. VITAL SIGNS: Her blood pressure was reported to be stable from the ER. HEENT: Pupils are equal, round, and reactive. Extraocular muscles are intact. Her sclerae are ani cteric. Throat; no erythema, no exudates. NECK: No adenopathy, no bruits. LUNGS: Clear. No wheezing, no rales. CARDIOVASCULAR: She has a normal S1 and S2. I did not appreciate an S3 or S4. No murmurs, clicks or rubs. ABDOMEN: Soft, it is nontender, nondistended. Positive for bowel sounds. No rebound or guarding. EXTREMITIES: There is no clubbing, cyanosis, no edema. Neurologic: Neurologically, her exam is nonfocal. LABORATORY DATA AND IMAGING: Sodium 144, potassium 3.7, chloride is 117, CO2 is 20, BUN of 11, crea tinine 0.9, and glucose is 76. White blood cell count 9.1, hemoglobin 8.6, hematocrit is 28, and pl atelet count is 417. ASSESSMENT AND PLAN: This is a pleasant 66-year-old female who presents after accidentally taking t oo many and amiodarone. Currently, she is asymptomatic. Her heart rate has been stable in the 50s, which her says she normally runs, and her blood pressure has been stable as well. She will be monitored in observation overnight and should she remains stable into the late morning and after noon then likely she could be discharged home. We will go ahead and continue her home medications a nd likely can restart her amiodarone tomorrow as well.
[2017-06-18] MEDS ORDERED: Ferrous Sulfate 325 MG TAB PO SCH (09:00)
[2017-06-18] MEDS ORDERED: Allopurinol 100 MG TAB PO SCH (09:00)
[2017-06-18] MEDS ORDERED: FLUoxetine HCl 20 MG CAP PO SCH (09:00)
[2017-06-18] MEDS ORDERED: Lisinopril 5 MG TAB PO SCH (09:00)
[2017-06-18] MEDS ORDERED: Aspirin 325 mg Enteric Coated Tablet PO SCH (09:00)
[2017-06-18] MEDS ORDERED: Enoxaparin Sodium 40 MG/0.4 ML SYRINGE SC SCH (09:00)
[2017-06-18] MEDS ORDERED: Pregabalin 50 MG CAP PO SCH (09:00)
[2017-06-18 09:04] VITALS: BP 139/65
[2017-06-18] MEDS ORDERED: Furosemide 40 MG TAB PO SCH (09:15)
--- NOTE | 2017-06-18 10:47 | DIS ---
DATE OF ADMISSION: 06/18/2017 DATE OF DISCHARGE: 06/18/2017 BRIEF HOSPITAL COURSE: Patient is a 66-year-old female, who was discharged recently from this [facility], presented to the hospital with accidental overdose of amiodarone. Please refer to the history and physical dictated by Dr. Tobias for further details. The patient was monitored on telemetry. There were no significant arrhythmias. Patient was evaluat ed by Dr. Arce, Cardiology. He added Lasix as needed. He has been cleared by Cardiology for disc harge. No changes in the medications were made. The patient has been cleared by Cardiology for dis charge. This was discussed with the patient.
--- NOTE | 2017-06-18 10:57 | CON ---
DATE OF CONSULTATION: 06/18/2017 CHIEF COMPLAINT: \\\\"I took too much amiodarone by mistake\\\\". HISTORY OF PRESENT ILLNESS: Ms. Swan is a very pleasant 66-year-old white female who recently was admitted to the hospital for atrial fibrillation, RVR, heart failure and was found to have a de creased LV function and in-stent restenosis of her LAD which required a ALDANA to the LAD. She underw ent bypass surgery last week. She did well postoperatively. She did have postop atrial fibrillatio n and she had been having atrial fibrillation in the days before that and she did well. She was leah carin on an amiodarone drip and was sent home on a mini load with 200 mg of amiodarone twice a day for about 5 days and then she would go back to her regular dose of 200 a day. She states that last nig ht she was about to take her second dose of 200 mg of amiodarone for the day and by mistake she took 3 tablets, so a total of 600 mg last night and 200 mg in the morning, making her have 800 mg in the whole day. became concerned so she was brought in for evaluation. She was admitted for ob servation of her heart rate. She has remained in sinus bradycardia, heart rate in the 50s, which is her baseline. Otherwise, she has no other complaints. PAST MEDICAL HISTORY: 1. Paroxysmal atrial fibrillation. 2. Coronary artery disease as above. 3. CML. 4. Hyperlipidemia. 5. Anxiety/depression. 6. Diverticulosis. 7. Chronic low back pain. PAST SURGICAL HISTORY: 1. Status post percutaneous coronary intervention of LAD. 2. Recent pericardial window. 3. History of pericardiocentesis secondary to . 4. Hysterectomy. 5. Bilateral tubal ligation. 6. Coronary bypass grafting with ALDANA to LAD only. DISCHARGE MEDICATIONS: 1. Amiodarone 200 mg, take twice a day for 5 days and then once a day. 2. Aspirin 325 a day. 3. Hydrocodone p.r.n. 4. Lisinopril 5 mg a day. 5. Nitroglycerin sublingual. 6. Ferrous sulfate. 7. Allopurinol. 8. Coreg 3.125 mg b.i.d. 9. Fluoxetine. 10. Lyrica. 11. Zocor 20 mg at bedtime. 12. Cyclobenzaprine. ALLERGIES: No known drug allergies. SOCIAL HISTORY: No alcohol, tobacco or drugs. FAMILY HISTORY: Brother with ND at 46. Brother of ND at 54. Father had an ND. REVIEW OF SYSTEMS: Twelve point review of systems was done, it is all negative unless stated in the history of present illness. PHYSICAL EXAMINATION: VITAL SIGNS: Temperature 97.5, pulse 52, respiration rate 18, satting 95% on room, blood pressure 1 39/65. GENERAL: Awake, alert, oriented x3, in no distress. HEENT: Normocephalic, atraumatic. NECK: Supple. LUNGS: Clear. CARDIOVASCULAR: S1, S2, no S3 or S4. No murmurs or rubs. ABDOMEN: Soft, positive bowel sounds. EXTREMITIES: 1+ edema. SKIN: Warm and dry. LABORATORY WORK: Reviewed. CBC: White count of 9, hemoglobin of 8, hematocrit 28, platelet count 417. Chemistries was unremarkable. ASSESSMENT AND PLAN: 1. Extra doses of amiodarone taken yesterday: This is really not an overdose. It is actually less than what a loading dose would be. She is hemodynamically stable in sinus bradycardia which she alvarez s been, 800 mg in 1 day is really not an issue in her. Would plan to send her home today. I will a dd a dose of Lasix 40 mg p.o. twice a day p.r.n. for edema which she should take in the next few day s as she has a little bit of edema on both legs. Otherwise, she should be able to be discharged stephon e today. 2. She will follow up as scheduled in the office in 2 weeks. Thank you for letting us participate in the care of your patient. We will sign off.
[2017-06-18] MEDS ORDERED: Simvastatin 20 MG TAB PO SCH (21:00)
== END 2017-06-18 09:40 | disposition home or self-care (01) ==
LOC: ERS 22:16 → 2SW 06-18 00:21
PROVIDERS: ADMIT Internal Medicine; ATTEND Internal Medicine
DX: T46.2X1A Poisoning by other antidysrhythmic drugs, accidental (unintentional), initial encounter (principal); I25.10 Atherosclerotic heart disease of native coronary artery without angina pectoris; I48.0 Paroxysmal atrial fibrillation; C92.10 Chronic myeloid leukemia, BCR/ABL-positive, not having achieved remission; E78.5 Hyperlipidemia, unspecified; F41.8 Other specified anxiety disorders; M54.5 Low back pain; G89.29 Other chronic pain; Z79.82 Long term (current) use of aspirin; Z79.899 Other long term (current) drug therapy; Z98.51 Tubal ligation status; Z95.1 Presence of aortocoronary bypass graft; Z95.818 Presence of other cardiac implants and grafts; Z90.710 Acquired absence of both cervix and uterus; Z98.890 Other specified postprocedural states; Z82.49 Family history of ischemic heart disease and other diseases of the circulatory system
CPT/HCPCS: 71010; 80048; 80053; 82550; 85025; 93005; 99285; G0378; 36415; J1650

== ENCOUNTER 2017-06-26 23:44 | Inpatient (IN) | payer MEDICARE ==
[2017-06-27 00:48] LABS: #Lymphocytes 0.7 thou/uL (1.20-3.40); #Neutrophils 12.8 thou/uL (1.40-6.50); %Basophils 0.1 % (0.0-1.0); %Eosinophils 0.3 % (0.0-10.0); %Lymphocytes 5.1 % (21.0-51.0); %Monocytes 6.5 % (0.0-10.0); Hematocrit 29.3 % (36.0-47.0); Mean Platelet Volume 8.5 fL (7.4-10.4); White Blood Cell (WBC) Count 14.5 thou/uL (4.8-10.8)
[2017-06-27 01:03] LABS: Lactic Acid - Sepsis 0.8 mmol/L (0.5-2.2)
[2017-06-27 01:08] LABS: ALT (SGPT) Less than 7 U/L (8-55); AST (SGOT) 15 U/L (5-34); Alkaline Phosphatase 101 U/L (40-150); Anion Gap 13 mmol/L (10-20); BUN (Urea Nitrogen) 23 mg/dL (9.8-20.1); Bilirubin, Total 0.4 mg/dL (0.2-1.2); Calc. Creatinine Clearance 0 mL/min (70-130); Calcium 8.9 mg/dL (7.8-10.44); Carbon Dioxide 29 mmol/L (23-31); Chloride 94 mmol/L (98-107); Estimated GFR-MDRD 48; Globulin 3.4 g/dL (2.4-3.5); Magnesium 1.8 mg/dL (1.6-2.6); Protein, Total 6.5 g/dL (6.0-8.3)
[2017-06-27 01:10] LABS: Bacteria/HPF None Seen HPF (None Seen); Bilirubin Negative (Negative); Blood, Urine Negative (Negative); Glucose, Urine (Dipstick) Negative (Negative); Hyaline Casts/LPF 0-3 HYALINE CAST LPF (0-3 Hyaline); Ketone, Urine Negative (Negative); Nitrite Negative (Negative); Protein, Urine (Dipstick) Negative (Neg-Trace); RBC/HPF 0-3 HPF (0-3); Squamous Epithelial 0-3 HPF (0-3); Urobilinogen 0.2 mg/dL (0.2-1.0); WBC/HPF None Seen HPF (0-3)
[2017-06-27] MEDS ORDERED: Vancomycin HCl 1.25 GM in Sodium Chloride 0.9% 250 ML 250 ML IVPB SCH (01:45)
[2017-06-27] MEDS ORDERED: Furosemide 40 MG/4 ML VIAL ONE (02:13)
[2017-06-27 02:36] LABS: Troponin I 0.025 ng/mL (< 0.028)
[2017-06-27] MEDS ORDERED: Acetaminophen 325 MG TAB PO PRN ×2 (04:18→04:20)
[2017-06-27] MEDS ORDERED: Potassium Chloride 20 MEQ TAB PO SCH (04:20)
[2017-06-27] MEDS ORDERED: Eucerin (Mineral Oil/Petrolatum,White) 30 gm Jar TOP PRN (04:20)
[2017-06-27] MEDS ORDERED: Sodium Chloride 0.65% Nasal 44 ML BOT EA NARE PRN (04:20)
[2017-06-27] MEDS ORDERED: Loperamide HCl 2 MG CAP PO PRN (04:20)
[2017-06-27] MEDS ORDERED: Milk Of Magnesia 30 ML UDCUP PO PRN (04:20)
[2017-06-27] MEDS ORDERED: Chloraseptic Spray 180 ml Bottle PO PRN (04:20)
[2017-06-27] MEDS ORDERED: Mag-Al 1200 mg/1200 mg/30 ML UDCUP PO PRN (04:20)
[2017-06-27] MEDS ORDERED: Loratadine 10 MG TAB PO PRN (04:20)
[2017-06-27] MEDS ORDERED: Nitroglycerin 0.4 MG TAB (25 Tab Bottle) SL PRN (04:20)
[2017-06-27] MEDS ORDERED: Artificial Tears 18 DROP/0.9 ML EA EYE PRN (04:20)
[2017-06-27] MEDS ORDERED: Metoclopramide HCl 10 MG/2 ML VIAL IVP PRN (04:20)
[2017-06-27] MEDS ORDERED: Diabetic Tussin 200 MG/10 ML UDCUP PO PRN (04:20)
[2017-06-27] MEDS ORDERED: Senokot 8.6 MG TAB PO PRN (04:20)
[2017-06-27] MEDS ORDERED: hydrALAZINE 20 MG/ML VIAL SLOW IVP PRN (04:20)
[2017-06-27] MEDS ORDERED: Cyclobenzaprine 10 MG TAB PO PRN (04:36)
[2017-06-27 04:42] VITALS: BMI 29.3
--- NOTE | 2017-06-27 05:26 | HP ---
PRIMARY CARE PHYSICIAN: Sara Roy D.O. PRIMARY QUILL MACHINE TENDER: Dinh Arce M.D. REASON FOR ADMISSION: Sepsis, CHF exacerbation, and hypoxia. HISTORY OF PRESENT ILLNESS: A 66-year-old female who has a complicated hospital course lately. She had a pericardial window done for large pericardial effusion on 06/02/2017. Subsequently, patient alvarez d in-stent stenosis, required a cardiac catheterization on 06/02/2017. Patient was recommended for n onemergent CABG, which was done on 06/11/2017. Patient only underwent CABG x1 because of diffusely t hickened and inflamed and hemorrhagic pericardium, so only LAD was identified. Diagonal branches wer e not identified and that is why CABG x1 was performed. Patient also has moderate to severe systolic dysfunction with systolic heart failure. Patient was discharged from the hospital on 06/16/2017. P gabrielle required another Emergency Room visit on 06/18/2017 because patient had accidental overdose of amiodarone and subsequently, patient was discharged on the same day. Since then, patient was relati vely doing well. Patient started having high-grade fever, temperature 101.9 at home. She was having on and off fever entire day. She was also feeling shortness of breath. She denies any diarrhea. She denies any calf tenderness, but she was having left leg pain. She denies any chest pain, palpitation, dizziness or syncope. She denies any pleuritic chest pain. She denies any cough or hemoptysis. As patient's fev er was on and off and that is why she decided to come to emergency room for evaluation. Today in the emergency room, patient had leukocytosis. Her fever was 100.5. Patient also had a ches t x-ray, which did not show any acute process. CT angio was obtained but official report is pending by the time of dictation. Patient had blood culture done and empiric antibiotic therapy was given. At this point, we are admitting this patient for further evaluation and treatment to rule out sepsis. PAST MEDICAL HISTORY: Chronic myeloid leukemia in remission, treated by MD Quinteros, hypertension, d yslipidemia, chronic systolic heart failure, history of CAD status post stenting to the LAD. Subsequ ently, patient had in-stent stenosis, status post CABG x1, history of large pericardial effusion, req uired pericardial window, obesity, history of diverticulitis. PAST SURGICAL HISTORY: History of pericardial effusion, required pericardiocentesis as well as subse quently pericardial window, CABG x1, hysterectomy, bilateral tubal ligation, cardiac catheterization with stent placement. PAST PSYCHIATRIC HISTORY: Anxiety and depression. FAMILY HISTORY: Positive for fall early coronary artery disease, two brothers. Patient's brothers h ad early [place] in their early age of 46 and 54. No strong family history of cancer or stroke. ALLERGIES: No known drug allergies. SOCIAL HISTORY: Patient is . Her is present at bedside. No history of tobacco, alco hol or illicit drug abuse. REVIEW OF SYSTEMS: Please see my HPI for pertinent positives and negatives. All other review of sys tems reviewed and negative except as mentioned in the HPI. Constitutional: Weight loss or gain, ability to conduct usual activities. Skin: Rash, itching. Eyes: Double vision, pain. ENT/Mouth: Nose bleeding, neck stiffness, pain, tenderness. Cardiovascular: Palpitations, dyspnea on exertion, orthopnea. Respiratory: Shortness of breath, wheezing, cough, hemoptysis, fever or night sweats. Gastrointestinal: Poor appetite, abdominal pain, heartburn, nausea, vomiting, constipation, or diarr hea. Genitourinary: Urgency, frequency, dysuria, nocturia. Musculoskeletal: Pain, swelling. Neurologic/Psychiatric: Anxiety, depression. Allergy/Immunologic: Skin rash, bleeding tendency. CURRENT HOME MEDICATIONS: Allopurinol 100 mg p.o. daily, amiodarone 200 mg p.o. daily, aspirin 325 m g p.o. daily, Coreg 3.125 mg p.o. b.i.d., Flexeril 5 mg t.i.d. p.r.n., ferrous sulfate 325 mg p.o. da juan josé, Prozac 20 mg p.o. daily, Lasix 40 mg p.o. b.i.d., [place] 5 one tablet q.4 h. p.r.n., lisinopril 5 mg p.o. daily, nitroglycerin 0.4 mg sublingual p.r.n., Lyrica 50 mg p.o. b.i.d., Zocor 20 mg p.o. at bedtime. EMERGENCY ROOM COURSE: Patient is given Lasix 40 mg, vancomycin and IV fluid. PHYSICAL EXAMINATION: VITAL SIGNS: On arrival, blood pressure 108/57, pulse 68, respiratory rate 18, temperature 100.5, sa turation 94% on room air, weight 85.6 kilograms. GENERAL: Patient is currently alert, awake, appears weak, in no obvious acute distress. HEAD: Normocephalic, atraumatic. EYES: Pupils round, reactive to light. Extraocular muscles intact. ENT: Oropharynx within normal limits. Moist mucous membranes. No oral lesions. No pharyngeal eryt tash, no exudate. NECK: Supple. Range of motion is normal. No meningeal signs of irritation, no JVD, no thyromegaly, no carotid bruit. LUNGS: Air entry reduced, bilateral lower lobe. No obvious rales or wheezing heard. No accessory m uscles of respiration in use. CARDIAC: S1, S2 appears regular without any significant murmur. ABDOMEN: Soft, bowel sounds present, nontender, nondistended. No organomegaly, no mass, no suprapub ic tenderness. BACK: Unremarkable, no CVA tenderness. EXTREMITIES: Upper extremity passive movement of all joints is normal. Lower extremity surgical sit e is clean and healthy. No calf tenderness, no edema. Good peripheral pulsation. SKIN: Patient's chest wall surgical site is clean and healthy without any fluctuance or drainage. N o rash noted. HEMATOLOGICAL: No lymphadenopathy. PSYCHIATRIC: Normal affect. NEUROLOGIC: Nonfocal examination. SIGNIFICANT LABS: EKG showing normal sinus rhythm, nonspecific ST-T changes. CT angio, no evidence of pulmonary embolism, bilateral pleural effusion and adjacent atelectasis, post-surgical changes of CABG and cardiomegaly. Chest x-ray also showing cardiomegaly and post-CABG changes. CBC: WBC 14.5, hemoglobin 9.2, platelets 337. BMP: Sodium 133, potassium 3.2, chloride 94, carbon dioxide 29, ani on gap 13, BUN 23, creatinine 1.13, glucose 116, calcium 8.9. Lactic acid 0.8. Magnesium 1.8. LFT: AST 15, ALT less than 7, alkaline phosphatase 101, albumin 3.1. CK-MB 0.5, troponin I 0.025 an d then 0.030. BNP 1204. Urinalysis normal. ASSESSMENT AND PLAN: 1. Sepsis/systemic inflammatory response syndrome. This patient has high grade fever with a tempera ture maximum at home 101.9 and currently 100.5 with leukocytosis. Source of infection is unclear. H er urinalysis is normal. Her chest x-ray does not show any acute infiltration. CT angio is also neg ative for pulmonary embolism. She does have basilar atelectasis. She is at risk for hospital-acquir ed infection given her recurrent hospital visits. Another differential diagnosis is viral infection. We will check influenza screen. Meanwhile, we will continue with vancomycin as per pharmacy adjust ed dose and Rocephin 1 g q.24 hours. We will repeat CBC tomorrow. We will follow up on culture resu lt and rule out sepsis. 2. Hyponatremia, hypochloremia, likely related with congestive heart failure and diuretic use. We w ill give her potassium chloride 40 mEq p.o. daily and will restrict fluid intake, about 1500 mL per d ay. We will repeat BMP tomorrow. 3. Acute on chronic systolic congestive heart failure exacerbation. We will continue with Lasix 40 mg IV b.i.d. 4. Abnormal troponin, likely due to recent surgery and demand ischemia. We will do serial cardiac e nzymes x3. 5. Chronic kidney disease, stage 3. We will monitor renal function and replace electrolytes as need ed basis. 6. Coronary artery disease with history of left anterior descending stent and in-stent stenosis, req uired coronary artery bypass graft. We will continue post-surgical treatment as well as continue wit h aspirin 325 mg p.o. daily, Coreg 3.125 mg p.o. b.i.d., and lisinopril 5 mg p.o. daily. 7. Paroxysmal atrial fibrillation. We will continue amiodarone 200 mg p.o. daily. The patient was planned for maze procedure, but because of a bad pericardium, pericardial maze procedure was not done with the coronary artery bypass graft. At this point, we will continue amiodarone 200 mg p.o. daily and aspirin 325 mg p.o. daily. Anticoagulation, will defer to Cardiology. We will also consult Card iology on the case. 8. Anxiety and depression. We will continue Prozac 20 mg p.o. daily. 9. Peripheral neuropathy/chronic low back pain. Continue Lyrica 50 mg p.o. b.i.d. 10. Dyslipidemia. Continue Zocor 20 mg p.o. at bedtime. 11. Gout. We will continue allopurinol 100 mg p.o. daily. 12. Anemia, normocytic, normochromic. Continue ferrous sulfate 325 mg p.o. daily. 13. Deep venous thrombosis prophylaxis. Lovenox 40 mg subcu daily. 14. Gastrointestinal prophylaxis. Protonix 40 mg p.o. daily. 15. Code status: Patient is full code. Patient's is surrogate decision maker. DISPOSITION PLAN: Based on clinical course. We are expecting patient's stay in hospital more than 2 midnights. Plan of care discussed with the patient in detail.
[2017-06-27] MEDS: cefTRIAXone\\ROCEPHIN 1 GM in Syringe 10 ML SLOW IVP SCH (05:45)
[2017-06-27] MEDS ORDERED: Furosemide 20 MG/2 ML VIAL SLOW IVP SCH (06:00)
[2017-06-27 07:15] LABS: Troponin I 0.031 ng/mL (< 0.028)
--- NOTE | 2017-06-27 07:19 | PDOC.PN ---
- Subjective Encounter Start Date: 06/27/17 Encounter Start Time: 07:11 Subjective: alert, min SOB, no fever, chills - Objective Resuscitation Status: Resuscitation Status FULL:Full Resuscitation MAR Reviewed: Yes Vital Signs & Weight: Vital Signs (12 hours) Temp Pulse Resp BP Pulse Ox 06/27/17 04:30 98.3 F 63 16 95 06/27/17 04:20 98.3 F 63 16 124/56 L 95 Weight Weight 187 lb 8 oz Result Diagrams: 06/27/17 00:30 06/27/17 00:30 Phys Exam - Physical Examination Constitutional: NAD Neck: no JVD Respiratory: clear to auscultation bilateral except coarse rales L base with decreased BS Cardiovascular: RRR, no significant murmur Gastrointestinal: soft, no distention, positive bowel sounds Musculoskeletal: no edema, pulses present Dx/Plan (1) Sepsis Code(s): A41.9 - SEPSIS, UNSPECIFIED ORGANISM Status: Acute Qualifiers: Sepsis type: sepsis due to unspecified organism Qualified Code(s): A41.9 - Sepsis, unspecified organism (2) CKD stage G3b/A1, GFR 30-44 and albumin creatinine ratio <30 mg/g Code(s): N18.3 - CHRONIC KIDNEY DISEASE, STAGE 3 (MODERATE) Status: Chronic (3) Dyslipidemia Code(s): E78.5 - HYPERLIPIDEMIA, UNSPECIFIED Status: Chronic (4) S/P CABG (coronary artery bypass graft) Code(s): Z95.1 - PRESENCE OF AORTOCORONARY BYPASS GRAFT Status: Chronic (5) Anxiety and depression Code(s): F41.9 - ANXIETY DISORDER, UNSPECIFIED; F32.9 - MAJOR DEPRESSIVE DISORDER, SINGLE EPISODE, UNSPECIFIED Status: Chronic (6) CAD (coronary artery disease) Code(s): I25.10 - ATHSCL HEART DISEASE OF [place] CORONARY ARTERY W/O ANG PCTRS Status: Chronic Qualifiers: Coronary Disease-Associated Artery/Lesion type: [place] artery [place] vs. transplanted heart: [place] heart Associated angina: without angina Qualified Code(s): I25.10 - Atherosclerotic heart disease of [place] coronary artery without angina pectoris (7) Dyslipidemia Code(s): E78.5 - HYPERLIPIDEMIA, UNSPECIFIED Status: Chronic (8) Hypertension Code(s): I10 - ESSENTIAL (PRIMARY) HYPERTENSION Status: Chronic Qualifiers: Hypertension type: essential hypertension Qualified Code(s): I10 - Essential (primary) hypertension - Plan await C&S results, cont iv antibx -: selected home meds * .
--- NOTE | 2017-06-27 07:45 | RAD ---
EXAM: CHEST 2 VIEWS: COMPARISON: 05/22/17, 06/17/17. HISTORY: Fever. FINDINGS: Sternotomy wires are redemonstrated. There is atherosclerosis of the aorta. Heart is enlarged. The pulmonary vessels are slightly prominent. Small bilateral effusions. Parenchymal changes in the le ft and right lung base. No pneumothorax. IMPRESSION: Bibasilar pleural and parenchymal changes. Pneumonia is suspected. Continued surveillance to ensure resolution. POS: STACIA
--- NOTE | 2017-06-27 07:55 | CT ---
PRELIMINARY REPORT/[facility]/EMERGENCY AFTER HOURS PROCEDURE: EXAM: CT Angiography Chest With Intravenous Contrast CLINICAL HISTORY: 66 years old, female; Signs and symptoms; Dyspnea; Prior surgery; Patient HX: F66 presents to ed C/O fever. Pt is S/P cabgx1 on 06/11/2017. Highest temp at home 101.9. Pt reports mild SOB captain assistant and does no t use o2 at home. Pt reports waking up with a sore l leg yesterday am. Denies cough, denies urinary s ymptoms, denies recent cold or congestion, denies HX of blood clots. Spouse reports dr. Arce wanted to do an ablation on two other vessels but was unable to. Pt reports her cml is in remission and she 's been off of chemo meds for a couple of weeks. Pt had a pericardial window before the cabg. TECHNIQUE: Axial computed tomographic angiography images of the chest with intravenous contrast using pulmonary embolism protocol. CONTRAST: 70 mL of isovue 370 administered intravenously. COMPARISON: No relevant prior studies available. FINDINGS: Pulmonary arteries: No evidence of pulmonary embolism. Aorta: No thoracic aortic aneurysm. Mild calcifications. Lungs: Limited evaluation of the lung parenchyma due to motion. Bilateral loculated pleural effusions . Adjacent bilateral compressive atelectasis. Patchy groundglass appearance, likely related to expira tory imaging/dependent atelectasis. Pleural space: See above. No pneumothorax. Heart: Cardiomegaly. Mild coronary calcifications. LAD stent. CABG. Trace pericardial fluid. Mediastinum: Mild edema/fluid in the mediastinum, likely postsurgical. Small hiatal hernia. Thyroid: Partially visualized thyroid nodules. Bones/joints: Postsurgical changes from sternotomy. Lymph nodes: No enlarged lymph nodes. IMPRESSION: No evidence of pulmonary embolism. Bilateral pleural effusions and adjacent atelectasis. Postsurgical changes from recent CABG. Cardiomegaly. Other findings above. Thank you for allowing us to participate in the care of your patient. Dictated and Authenticated by: Denis Giles MD 06/27/2017 2:08 AM Central Time ([place] & [place]) FINAL REPORT EMERGENT AFTER HOURS CT ANGIO OF CHEST PERFORMED WITH INTRAVENOUS CONTRAST ENHANCEMENT WITH 3D RECONS TRUCTIONS: HISTORY: Shortness of breath. FINDINGS: There are moderately large bilateral pleural effusions with atelectatic changes in both lung bases. Some ground-glass opacity in both lung mckinnon is seen. There is no confluent infiltrative process. Thoracic aorta is normal in caliber. Pulmonary arteries are well opacified, there is no CT evidence for pulmonary embolus. Visualized liver parenchyma shows no focal findings. IMPRESSION: 1. Large bilateral pleural effusions with bibasilar atelectatic lung change. 2. No CT evidence for pulmonary embolus. 3. Postop coronary artery bypass graft. 4. This report is in agreement with the temporary report issued by [facility]. POS: JUDAH
[2017-06-27] MEDS ORDERED: Carvedilol 3.125 MG TAB PO SCH (08:00)
[2017-06-27] MEDS ORDERED: Enoxaparin Sodium 40 MG/0.4 ML SYRINGE SC SCH (09:00)
[2017-06-27] MEDS ORDERED: Non-Formulary Item 1 EACH (Amiodarone Hcl [Amiodarone Hcl] 200 MG) PO SCH (09:00)
[2017-06-27] MEDS ORDERED: Non-Formulary Item 1 EACH (Ferrous Sulfate [Ferrous Sulfate] 325 MG) PO SCH ×2 (09:00)
[2017-06-27] MEDS ORDERED: Aspirin 325 MG TAB PO SCH (09:00)
[2017-06-27] MEDS ORDERED: Furosemide 80 MG TAB PO SCH (09:00)
[2017-06-27] MEDS ORDERED: Lisinopril 5 MG TAB PO SCH (09:00)
[2017-06-27] MEDS ORDERED: Furosemide 40 MG TAB PO SCH (09:00)
[2017-06-27] MEDS ORDERED: Pregabalin 50 MG CAP PO SCH (09:00)
[2017-06-27] MEDS ORDERED: FLUoxetine HCl 20 MG CAP PO SCH (09:00)
[2017-06-27] MEDS: Allopurinol 100 MG TAB PO SCH ×2 (09:38→09:39)
[2017-06-27] MEDS: Ferrous Sulfate 325 MG TAB PO SCH ×2 (09:39→09:40)
[2017-06-27] MEDS: Amiodarone 200 MG TAB PO SCH (09:39)
[2017-06-27] MEDS: Carvedilol 3.125 MG TAB PO SCH (09:39)
[2017-06-27] MEDS: Aspirin 325 mg Enteric Coated Tablet PO SCH (09:39)
[2017-06-27] MEDS: FLUoxetine HCl 20 MG CAP PO SCH (09:40)
[2017-06-27] MEDS: Lisinopril 5 MG TAB PO SCH (09:40)
[2017-06-27] MEDS: Pregabalin 50 MG CAP PO SCH ×2 (09:41→21:05)
[2017-06-27] MEDS: Saccharomyces boulardii 250 MG CAP PO SCH (09:41)
[2017-06-27] MEDS: Furosemide 100 MG/10 ML VIAL SLOW IVP SCH (13:58)
--- NOTE | 2017-06-27 14:44 | CON ---
DATE OF CONSULTATION: 06/27/2017 CARDIOLOGY CONSULTATION REASON FOR CONSULTATION: Heart failure. HISTORY OF PRESENT ILLNESS: Ms. Swan is a very pleasant 66-year-old white female well known to myself who comes into the hospital for fevers and increased shortness of breath. She was initially seen in January of this year for preop. She had a stress at that time that showed anterior ischemia, so I was called to evaluate her for this ischemia. We took her to the [facility] and she was found to alvarez ve severe LAD disease with very two small diagonals. There was also stenosis at the ostium. We spok e about possibly doing bypass versus trying to stent to see if we would be able to save those diagona ls and she wanted to try the stents first. We have successfully stented the LAD; however, her first diagonal pinched off and she had a small [place] at that time. The second diagonal was also pinched. She did well postoperatively and her LV function remained normal. She came to see me back several times in the last few times. The first time she came in, she had a large pericardial effusion which was s omething new. It was thought to be secondary to the bosutinib that she is on for CML, and this was s topped. She was admitted and a window was done and was discharged home a few days later. At that ti me, LV function showed to be about 40%-45%. This was in the setting of her going into atrial fibrill ation, so this was thought to be related to her atrial fibrillation. She went home. She went back a bout a week later in heart failure. She was admitted, her EF had gone down to about 35%-40%, so we d ecided to repeat a heart catheterization about 6 months after the stent and she had severe in-stent r estenosis. The two branches were still open to two diagonal branches but her EF was down and her ant erior wall was hypokinetic. So she was referred to Dr. Tsai for bypass surgery. She had ALDNAA to t he LAD. She was unable to do vein graft to the diagonals as there was a lot of swelling and inflamma tion, so we could not locate them. She did well postoperatively and had a few bouts of paroxysmal at rial fibrillation that got better with amiodarone. She was eventually discharged home. Last night, she calls me telling me that all day long she had been having temperatures about 101.5 an d 101.9 and she did not know what to do as the temperature was not going away. I asked her to come i nto the hospital as I was concerned about postop infection. She came in yesterday through the ER, he r temperature was 100.5. She was admitted for further care. She was also complaining of increased s hortness of breath over the last day. CT of the chest showed bilateral pleural effusions and atelect atic changes next to the effusion and the lungs which could be an acute infection versus just related to the fluid pressing on the lungs. Since admission, cultures have remained negative and she was st arted on empiric antibiotics and she has not had any more fevers. PAST MEDICAL HISTORY: 1. CML in remission, treated at [facility]. 2. Hypertension. 3. Hyperlipidemia. 4. Ischemic cardiomyopathy with last EF of 40%. 5. Status post bypass x1 recently. 6. Pericardial effusion thought to be related to bosutinib. 7. Diverticulitis in the past. PAST SURGICAL HISTORY: 1. Pericardial window as above. 2. CABG x1 as above. 3. Hysterectomy. 4. Bilateral tubal ligation. 5. History of stent placement as above. OUTPATIENT MEDICATIONS: Include, 1. Allopurinol. 2. Amiodarone 200 mg a day. 3. Aspirin 325 a day. 4. Coreg 3.125 mg b.i.d. 5. Flexeril. 6. Ferrous sulfate. 7. Prozac. 8. Lasix 40 mg p.o. b.i.d. 9. [place] 5 p.r.n. pain. 10. Lisinopril 5 mg a day. 11. Nitroglycerin sublingual. 12. Lyrica. 13. Zocor 20 mg at bedtime. ALLERGIES: No known drug allergies. SOCIAL HISTORY: No alcohol, tobacco or drugs. FAMILY HISTORY: Early coronary artery disease in 2 brothers. REVIEW OF SYSTEMS: A 12-point review of systems was done and is all negative unless stated in the his tory of present illness. PHYSICAL EXAMINATION: VITAL SIGNS: Temperature highest is 99.0 while inpatient, but in the ER it was 100.5, at home 101.9. Pulse 63, respiratory rate 16, satting 92% on room air, and blood pressure 121/51. GENERAL: Awake, alert, oriented x3, in no distress. HEENT: Normocephalic, atraumatic. NECK: Supple. LUNGS: Reduced breath sounds bilaterally. CARDIOVASCULAR: S1, S2, no S3, S4, no murmurs or rubs. ABDOMEN: Soft, positive bowel sounds. EXTREMITIES: No edema. SKIN: Warm and dry. LABORATORY DATA AND IMAGING: Laboratory work was reviewed. White count of 14 with 88% neutrophils, hemoglobin of 9.2, hematocrit 29, platelet count of 237. Chemistries: Sodium of 133, potassium of 3 .2, chloride of 94, BUN of 23, creatinine 1.13, GFR of 48, glucose of 116. Lactic acid was normal. Magnesium was normal. AST 15, ALT less than assay limit, alkaline phosphatase was normal. Troponin was 0.02, 0.03, 0.03. BNP was 1204, albumin of 3.1. UA was clear. Chest x-ray showed bibasilar pleural and parenchymal changes, suspected pneumonia. CT of the chest shows large bilateral pleural effusions with bibasilar atelectatic lung changes, no p ulmonary embolus, postop coronary artery bypass. There is trace pericardial fluid. ASSESSMENT AND PLAN: 1. Acute on chronic systolic heart failure. We will change p.o. Lasix to IV at 80 mg IV b.i.d. Mos t likely, the reason for decompensated state is her infectious process, which is most likely related to her lungs. If her effusions not improve in the next few days, she may need a thoracentesis and th is may be parapneumonic effusion, however, this is unlikely as it is bilateral. 2. Fevers: May be related to pneumonia. IV antibiotics per primary team. 3. Chronic myeloid leukemia: Under control right now. Continue to trend white count as I expect th is to come down once antibiotics have been started. Thank you for letting us to participate in the care of your patient. We will follow.
[2017-06-27] MEDS ORDERED: Enoxaparin Sodium 80 MG/0.8 ML SYRINGE SC SCH (15:45)
[2017-06-27] MEDS: Vancomycin HCl 750 MG in Sodium Chloride 0.9% 250 ML 250 ML IVPB SCH (16:27)
[2017-06-27] MEDS ORDERED: ISOVUE-370 76%-LOCM 1 ML ONE (17:19)
[2017-06-27] MEDS ORDERED: Simvastatin 40 MG TAB PO SCH (21:00)
[2017-06-27] MEDS: HYDROcodone/Acetaminophen 5/325 mg Tablet PO PRN (21:04)
[2017-06-27] MEDS: Simvastatin 20 MG TAB PO SCH (21:05)
[2017-06-27] MEDS: Atorvastatin Calcium 20 MG TAB PO SCH (21:08)
[2017-06-28] MEDS: Vancomycin HCl 750 MG in Sodium Chloride 0.9% 250 ML 250 ML IVPB SCH ×2 (03:58→15:51)
[2017-06-28 05:12] LABS: #Lymphocytes 0.7 thou/uL (1.20-3.40); %Basophils 0.2 % (0.0-1.0); %Eosinophils 0.5 % (0.0-10.0); %Lymphocytes 8.2 % (21.0-51.0); Hematocrit 28.7 % (36.0-47.0); Mean Platelet Volume 8.1 fL (7.4-10.4); White Blood Cell (WBC) Count 8.7 thou/uL (4.8-10.8)
[2017-06-28] MEDS: Furosemide 100 MG/10 ML VIAL SLOW IVP SCH (05:24)
[2017-06-28 05:28] LABS: ALT (SGPT) Less than 7 U/L (8-55); AST (SGOT) 9 U/L (5-34); Alkaline Phosphatase 94 U/L (40-150); Anion Gap 12 mmol/L (10-20); BUN (Urea Nitrogen) 18 mg/dL (9.8-20.1); Bilirubin, Total 0.4 mg/dL (0.2-1.2); Calc. Creatinine Clearance 80 mL/min (70-130); Carbon Dioxide 31 mmol/L (23-31); Chloride 99 mmol/L (98-107); Estimated GFR-MDRD 60; Globulin 2.9 g/dL (2.4-3.5); Protein, Total 5.7 g/dL (6.0-8.3)
[2017-06-28] MEDS: cefTRIAXone\\ROCEPHIN 1 GM in Syringe 10 ML SLOW IVP SCH (05:28)
[2017-06-28] MEDS: Potassium Chloride 20 MEQ TAB PO SCH ×2 (05:56→14:57)
[2017-06-28] MEDS: Aspirin 325 mg Enteric Coated Tablet PO SCH (08:58)
[2017-06-28] MEDS: Allopurinol 100 MG TAB PO SCH ×2 (08:58)
[2017-06-28] MEDS: Amiodarone 200 MG TAB PO SCH ×3 (08:58→21:50)
[2017-06-28] MEDS: Ferrous Sulfate 325 MG TAB PO SCH ×2 (08:59→09:01)
[2017-06-28] MEDS: Lisinopril 5 MG TAB PO SCH (08:59)
[2017-06-28] MEDS: Saccharomyces boulardii 250 MG CAP PO SCH (08:59)
[2017-06-28] MEDS: Carvedilol 3.125 MG TAB PO SCH (08:59)
[2017-06-28] MEDS ORDERED: Enoxaparin Sodium 80 MG/0.8 ML SYRINGE SC SCH (09:00)
[2017-06-28] MEDS: FLUoxetine HCl 20 MG CAP PO SCH (09:01)
[2017-06-28] MEDS: Pregabalin 50 MG CAP PO SCH ×2 (09:01→21:51)
[2017-06-28] MEDS ORDERED: Furosemide 40 MG/4 ML VIAL SLOW IVP SCH (14:00)
[2017-06-28] MEDS ORDERED: Sodium Chloride 0.9% 500 ML IVPB SCH (14:00)
[2017-06-28] MEDS ORDERED: Sodium Chloride 0.9% 500 ML IV SCH ×2 (14:15→14:45)
--- NOTE | 2017-06-28 14:17 | PRG ---
DATE OF SERVICE: 06/28/2017 SUBJECTIVE: Ms. Swan went into atrial fibrillation yesterday with a rapid ventricular response . The patient has remained in atrial fibrillation this morning, her rate was rapid as well. The patient developed hypotension and the blood pressure was 80 systolic and now is in the 70s systol ic. Rate is now 110. The patient feels like she was going to faint. OBJECTIVE: VITAL SIGNS: On examination, blood pressure is 75 systolic, pulse 110 and irregular. LUNGS: Clear. CARDIAC: Irregular, irregular. ABDOMEN: Obese, nontender. LABORATORY DATA: Potassium this morning was 2.9. The patient did receive intravenous Lasix this morning. I&O yesterday, she put out 2.7 liters on las t night yesterday. ASSESSMENT: 1. Hypotension. 2. Atrial fibrillation with a rapid rate. 3. Recent bypass surgery. PLAN: 1. Intravenous fluid bolus. 2. Stop Lasix. 3. Hold lisinopril. 4. Stop Carvedilol for now. 5. We will increase amiodarone dose.
[2017-06-28] MEDS ORDERED: Digoxin 0.5 MG/2 ML AMP SLOW IVP SCH ×2 (14:30→17:00)
[2017-06-28] MEDS ORDERED: Amiodarone 200 MG TAB PO SCH (15:00)
--- NOTE | 2017-06-28 15:08 | PDOC.PN ---
- Subjective Encounter Start Date: 06/28/17 Encounter Start Time: 15:05 Subjective: feels ok .low Bp noted earlier w pt feeling dizzy -: denies nay chest pain/SOB. - Objective Resuscitation Status: Resuscitation Status FULL:Full Resuscitation MAR Reviewed: Yes Vital Signs & Weight: Vital Signs (12 hours) Temp Pulse Pulse Pulse Resp BP BP 06/28/17 14:57 112 H 06/28/17 14:37 108 H 06/28/17 12:38 112 H 110 H 115/64 06/28/17 11:20 99.0 F 112 H 18 06/28/17 08:59 110 H 95/77 06/28/17 08:00 97.8 F 110 H 16 06/28/17 07:42 97.8 F 110 H 16 06/28/17 03:55 98.6 F 96 16 BP BP BP Pulse Ox Pulse Ox Pulse Ox 06/28/17 14:57 06/28/17 14:37 93/52 L 06/28/17 12:38 103/54 L 99 94 L 06/28/17 11:20 82/60 L 94 L 06/28/17 08:59 06/28/17 08:00 94 L 06/28/17 07:42 95/77 94 L 06/28/17 03:55 104/55 L 94 L Weight Weight 183 lb 1.6 oz I&O: 06/27/17 06/28/17 06/29/17 06:59 06:59 06:59 Intake Total 980 Output Total 2700 Balance -1720 Result Diagrams: 06/28/17 04:56 06/28/17 04:56 Additional Labs: Microbiology 06/27/17 00:45 Venous blood - Left Hand Blood Culture - Preliminary Specimen has been received and culture in progress. No Growth to date. 06/27/17 00:45 Urine clean catch Urine Culture - Preliminary Presumptive Escherichia coli Presumptive Kleb/Enterobacter 06/27/17 00:45 Urine clean catch Urine Culture - Preliminary Gram Negative Wilfred 06/27/17 00:30 Venous blood - Right Hand Blood Culture - Preliminary Specimen has been received and culture in progress. No Growth to date. Laboratory Tests 06/27/17 06/27/17 06/27/17 00:30 00:30 00:30 WBC 14.5 H Troponin I 0.025 B-Natriuretic Peptide 1204.1 H 06/27/17 06/27/17 06/28/17 03:37 06:39 04:56 WBC 8.7 Troponin I 0.030 H 0.031 H B-Natriuretic Peptide Radiology Reviewed by me: Yes (CTA -b/l pleural effusions.no PE) Phys Exam - Physical Examination Constitutional: NAD weak and tired looking HEENT: PERRLA, moist MMs, sclera anicteric, oral pharynx no lesions Neck: no nodes, no JVD, supple, full ROM Respiratory: no wheezing, no rales, no rhonchi, clear to auscultation bilateral reduced at bases Cardiovascular: no significant murmur, irregular Gastrointestinal: soft, non-tender, no distention, positive bowel sounds Musculoskeletal: pulses present, edema present Neurological: non-focal, normal sensation, moves all 4 limbs Psychiatric: normal affect, A&O x 3 Skin: no rash Dx/Plan (1) Hypotension Status: Acute Comment: Joey medication induced (2) Atrial fibrillation with RVR Code(s): I48.91 - UNSPECIFIED ATRIAL FIBRILLATION Status: Resolved (3) Sepsis Code(s): A41.9 - SEPSIS, UNSPECIFIED ORGANISM Status: Acute Qualifiers: Sepsis type: sepsis due to unspecified organism Qualified Code(s): A41.9 - Sepsis, unspecified organism Comment: [place] UTI (4) Acute on chronic systolic CHF (congestive heart failure) Code(s): I50.23 - ACUTE ON CHRONIC SYSTOLIC (CONGESTIVE) HEART FAILURE Status : Acute (5) CKD stage G3b/A1, GFR 30-44 and albumin creatinine ratio <30 mg/g Code(s): N18.3 - CHRONIC KIDNEY DISEASE, STAGE 3 (MODERATE) Status: Chronic (6) Dyslipidemia Code(s): E78.5 - HYPERLIPIDEMIA, UNSPECIFIED Status: Chronic (7) CAD (coronary artery disease) Code(s): I25.10 - ATHSCL HEART DISEASE OF [place] CORONARY ARTERY W/O ANG PCTRS Status: Chronic Qualifiers: Coronary Disease-Associated Artery/Lesion type: [place] artery [place] vs. transplanted heart: [place] heart Associated angina: without angina Qualified Code(s): I25.10 - Atherosclerotic heart disease of [place] coronary artery without angina pectoris (8) CML (chronic myelocytic leukemia) Code(s): C92.10 - CHRONIC MYELOID LEUK, BCR/ABL-POSITIVE, NOT ACHIEVE REMIS Status: Chronic (9) Dyslipidemia Code(s): E78.5 - HYPERLIPIDEMIA, UNSPECIFIED Status: Chronic (10) Hypertension Code(s): I10 - ESSENTIAL (PRIMARY) HYPERTENSION Status: Chronic Qualifiers: Hypertension type: essential hypertension Qualified Code(s): I10 - Essential (primary) hypertension (11) S/P CABG (coronary artery bypass graft) Code(s): Z95.1 - PRESENCE OF AORTOCORONARY BYPASS GRAFT Status: Chronic Comment: 06/11/17 ALDANA to LAD - Plan plan discussed w/ family, 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 -: cont Rocephin for possible E.Coli UTI. follow final Cx results -: HR high-amiodarone dose increased.started on Digoxin.appreciate cardiology -: cont ASA,statin.home meds as belwo. AM labs * . Review of Systems - Review of Systems Constitutional: Weakness, Malaise. negative: Fever, Chills, Sweats, Other Respiratory: Cough, SOB with Excertion. negative: Dry, Shortness of Breath, Hemoptysis, Pleuritic Pain, Sputum, Wheezing Cardiovascular: negative: Chest Pain, Palpitations, Orthopnea, Paroxysmal Noc. Dyspnea, Edema, Light Headedness, Other Gastrointestinal: negative: Nausea, Vomiting, Abdominal Pain, Diarrhea, Constipation, Melena, Hematochezia, Other Genitourinary: negative: Dysuria, Frequency, Incontinence, Hematuria, Retention , Other Musculoskeletal: negative: Neck Pain, Shoulder Pain, Arm Pain, Back Pain, Hand Pain, Leg Pain, Foot Pain, Other Neurological: negative: Weakness, Numbness, Incoordination, Change in Speech, Confusion, Seizures, Other - Medications/Allergies Allergies/Adverse Reactions: Allergies Allergy/AdvReac Type Severity Reaction Status Date / Time No Known Drug Allergies Allergy Verified 06/27/17 04:43 Medications: Current Medications Acetaminophen (Tylenol) 650 mg PO Q4H PRN PRN Reason: Headache/Fever or Pain Hydrocodone Bitart/Acetaminophen ([place] 5/325) 1 tab PO Q4H PRN PRN Reason: Moderate Pain (4-6) Last Admin: 06/27/17 21:04 Dose: 1 tab Al Hydroxide/Mg Hydroxide (Maalox) 30 ml PO Q6H PRN PRN Reason: Heartburn or Indigestion Albuterol/Ipratropium (Duoneb) 3 ml NEB Q6H PRN PRN Reason: SOB &/or Wheezing Allopurinol (Zyloprim) 100 mg PO DAILY [facility] Last Admin: 06/28/17 08:58 Dose: Not Given Amiodarone HCl (Cordarone) 200 mg PO TID [facility] Last Admin: 06/28/17 14:58 Dose: 200 mg Artificial Tears (Tears Naturale) 0 drop EA EYE PRN PRN PRN Reason: Dry Eyes Aspirin (Ecotrin) 325 mg PO DAILY [facility] Last Admin: 06/28/17 08:58 Dose: 325 mg Atorvastatin Calcium (Lipitor) 20 mg PO HS [facility] Last Admin: 06/27/17 21:08 Dose: Not Given Cyclobenzaprine HCl (Flexeril) 5 mg PO TIDPRN PRN PRN Reason: Back spasm Digoxin (Lanoxin) 0.25 mg SLOW IVP NOW [facility] Stop: 06/28/17 16:00 Last Admin: 06/28/17 14:57 Dose: 0.25 mg Ferrous Sulfate (Feosol) 325 mg PO DAILY [facility] Last Admin: 06/28/17 09:01 Dose: Not Given Fluoxetine HCl (Prozac) 20 mg PO DAILY [facility] Last Admin: 06/28/17 09:01 Dose: 20 mg Guaifenesin (Robitussin Sf) 200 mg PO Q4H PRN PRN Reason: Cough Hydralazine HCl (Apresoline) 10 mg SLOW IVP Q4H PRN PRN Reason: Systolic BP > 180 Ceftriaxone Sodium 1 gm/ (Syringe) 10 mls @ 120 mls/hr SLOW IVP Q24HR@0500 [facility] Last Admin: 06/28/17 05:28 Dose: 10 mls Vancomycin HCl 750 mg/ Sodium (Chloride) 250 mls @ 250 mls/hr IVPB 0400,1600 [facility] Last Admin: 06/28/17 03:58 Dose: 250 mls Sodium Chloride (Normal Saline 0.9%) 500 mls @ 250 mls/hr IV .Q2H [facility] Stop: 06/28/17 16:44 Last Admin: 06/28/17 14:56 Dose: 500 mls Loperamide HCl (Imodium) 2 mg PO PRN PRN PRN Reason: Diarrhea/Loose Stools Loratadine (Claritin) 10 mg PO DAILYPRN PRN PRN Reason: Sinus Symptoms Magnesium Hydroxide (Milk Of Magnesium) 30 ml PO DAILYPRN PRN PRN Reason: Constipation Metoclopramide HCl (Reglan) 5 mg IVP Q4H PRN PRN Reason: Nausea Mineral Oil/White Petrolatum (Eucerin Cream) 0 gm TOP BIDPRN PRN PRN Reason: Dry Skin Miscellaneous Medication (Pharmacy To Dose) 0 each IVPB PRN PRN PRN Reason: VANC Pharmacy to Dose Nitroglycerin (Nitrostat) 0.4 mg SL Q5MIN PRN PRN Reason: Chest Pain Pantoprazole Sodium (Protonix) 40 mg PO DAILY [facility] Last Admin: 06/28/17 08:59 Dose: 40 mg Phenol (Chloraseptic Unity 180 Ml Bot) 0 ml PO PRN PRN PRN Reason: Sore Throat Pregabalin (Lyrica) 50 mg PO BID [facility] Last Admin: 06/28/17 09:01 Dose: 50 mg Saccharomyces Boulardii (Florastor) 250 mg PO DAILY [facility] Last Admin: 06/28/17 08:59 Dose: 250 mg Senna (Senokot) 2 tab PO HSPRN PRN PRN Reason: Constipation Simvastatin (Zocor) 20 mg PO HS [facility] Last Admin: 06/27/17 21:05 Dose: 20 mg Sodium Chloride (Roe Nasal Unity 0.65%) 0 ml EA NARE QIDPRN PRN PRN Reason: Nasal Congestion Sodium Chloride (Flush - Normal Saline) 10 ml IVF Q12HR [facility] Last Admin: 06/28/17 09:01 Dose: 10 ml Sodium Chloride (Flush - Normal Saline) 10 ml IVF PRN PRN PRN Reason: Saline Flush Last Admin: 06/27/17 16:19 Dose: 10 ml
[2017-06-28] MEDS: Atorvastatin Calcium 20 MG TAB PO SCH (21:49)
[2017-06-28] MEDS: Simvastatin 20 MG TAB PO SCH (21:50)
[2017-06-29 03:07] LABS: #Eosinphils 0.1 thou/uL (0.0-0.7); #Lymphocytes 0.8 thou/uL (1.20-3.40); #Monocytes 0.9 thou/uL (0.11-0.59); %Basophils 0.7 % (0.0-1.0); %Eosinophils 1.2 % (0.0-10.0); %Lymphocytes 11.5 % (21.0-51.0); %Monocytes 13.7 % (0.0-10.0); Hematocrit 27.2 % (36.0-47.0); Mean Platelet Volume 8.4 fL (7.4-10.4); Red Blood Cell (RBC) Count 3.12 mill/uL (4.20-5.40); White Blood Cell (WBC) Count 6.9 thou/uL (4.8-10.8)
[2017-06-29 03:22] LABS: Vancomycin, Trough 15.2 ug/mL
[2017-06-29] MEDS: Vancomycin HCl 750 MG in Sodium Chloride 0.9% 250 ML 250 ML IVPB SCH ×2 (04:12→15:38)
[2017-06-29] MEDS: cefTRIAXone\\ROCEPHIN 1 GM in Syringe 10 ML SLOW IVP SCH (05:33)
[2017-06-29] MEDS: FLUoxetine HCl 20 MG CAP PO SCH (08:41)
[2017-06-29] MEDS: Aspirin 325 mg Enteric Coated Tablet PO SCH (08:41)
[2017-06-29] MEDS: Allopurinol 100 MG TAB PO SCH (08:41)
[2017-06-29] MEDS: Saccharomyces boulardii 250 MG CAP PO SCH (08:41)
[2017-06-29] MEDS: Pregabalin 50 MG CAP PO SCH ×2 (08:42→21:09)
[2017-06-29] MEDS: Ferrous Sulfate 325 MG TAB PO SCH (08:42)
[2017-06-29] MEDS: Amiodarone 200 MG TAB PO SCH ×2 (08:43→21:08)
--- NOTE | 2017-06-29 09:11 | PDOC.PN ---
- Subjective Encounter Start Date: 06/29/17 Encounter Start Time: 08:50 Subjective: Patient reports feeling better today. at bedside confirms improved - Objective Resuscitation Status: Resuscitation Status FULL:Full Resuscitation MAR Reviewed: Yes Vital Signs & Weight: Vital Signs (12 hours) Temp Pulse Resp BP Pulse Ox 06/29/17 08:00 98.4 F 64 16 113/67 98 06/29/17 03:24 98.6 F 62 16 119/59 L 97 06/28/17 23:28 99.2 F 65 18 128/65 95 Weight Weight 186 lb 14.4 oz I&O: 06/28/17 06/29/17 06/30/17 06:59 06:59 06:59 Intake Total 980 2950 Output Total 2700 650 Balance -1720 2300 Result Diagrams: 06/29/17 02:56 06/29/17 02:56 Phys Exam - Physical Examination Constitutional: NAD HEENT: PERRLA, moist MMs, sclera anicteric Neck: supple, full ROM Respiratory: clear to auscultation bilateral Cardiovascular: RRR brandon Gastrointestinal: soft, non-tender Musculoskeletal: no edema, pulses present Neurological: non-focal, moves all 4 limbs Psychiatric: normal affect, A&O x 3 Deviation from normal: surgical scar with steri strips chest wall Dx/Plan (1) Acute on chronic systolic CHF (congestive heart failure) Code(s): I50.23 - ACUTE ON CHRONIC SYSTOLIC (CONGESTIVE) HEART FAILURE Status : Acute (2) Sepsis Code(s): A41.9 - SEPSIS, UNSPECIFIED ORGANISM Status: Acute Qualifiers: Sepsis type: sepsis due to unspecified organism Qualified Code(s): A41.9 - Sepsis, unspecified organism Comment: [place] UTI (3) CKD stage G3b/A1, GFR 30-44 and albumin creatinine ratio <30 mg/g Code(s): N18.3 - CHRONIC KIDNEY DISEASE, STAGE 3 (MODERATE) Status: Chronic (4) Chest pain Code(s): R07.9 - CHEST PAIN, UNSPECIFIED Status: Acute (5) CML (chronic myelocytic leukemia) Code(s): C92.10 - CHRONIC MYELOID LEUK, BCR/ABL-POSITIVE, NOT ACHIEVE REMIS Status: Chronic (6) Hypertension Code(s): I10 - ESSENTIAL (PRIMARY) HYPERTENSION Status: Chronic Qualifiers: Hypertension type: essential hypertension Qualified Code(s): I10 - Essential (primary) hypertension (7) Paroxysmal atrial fibrillation Code(s): I48.0 - PAROXYSMAL ATRIAL FIBRILLATION Status: Chronic (8) S/P CABG (coronary artery bypass graft) Code(s): Z95.1 - PRESENCE OF AORTOCORONARY BYPASS GRAFT Status: Chronic Comment: 06/11/17 KATYA to CRISTOPHER - Plan cont current plan of care, plan discussed w/ family, continue antibiotics, PT/OT , incentive spirometry * .
--- NOTE | 2017-06-29 13:42 | PRG ---
DATE OF SERVICE: 06/29/2017 SUBJECTIVE: Ms. Swan feels much better today. She is back in sinus rhythm as well. She has no chest pain or pressure. She is feeling dramatically better. PHYSICAL EXAMINATION: VITAL SIGNS: Blood pressure is 129/53, pulse is 62 and it is sinus on the monitor. LUNGS: Clear. CARDIAC: Normal S1, S2. ASSESSMENT: 1. Paroxysmal atrial fibrillation, back in sinus rhythm. 2. Previous bypass surgery. 3. Severe hypotension yesterday, resolved. PLAN: 1. Go back on Lisinopril starting tomorrow. 2. Hypokalemia, replete potassium. 3. Reduce the amiodarone dose back to 200 mg twice a day. 4. She received some digoxin yesterday 0.5 mg total. We will not give any further doses. 5. Carvedilol still on hold due to relative bradycardia.
[2017-06-29] MEDS ORDERED: Potassium Chloride 20 MEQ TAB PO SCH (17:00)
[2017-06-29] MEDS: Simvastatin 20 MG TAB PO SCH (21:08)
[2017-06-29] MEDS: HYDROcodone/Acetaminophen 5/325 mg Tablet PO PRN (21:09)
[2017-06-29] MEDS: Atorvastatin Calcium 20 MG TAB PO SCH (21:12)
[2017-06-30] MEDS: Vancomycin HCl 750 MG in Sodium Chloride 0.9% 250 ML 250 ML IVPB SCH (04:27)
[2017-06-30 05:41] LABS: Anion Gap 10 mmol/L (10-20); BUN (Urea Nitrogen) 17 mg/dL (9.8-20.1); Calc. Creatinine Clearance 84 mL/min (70-130); Calcium 9.3 mg/dL (7.8-10.44); Carbon Dioxide 30 mmol/L (23-31); Chloride 103 mmol/L (98-107); Estimated GFR-MDRD 63
[2017-06-30] MEDS: cefTRIAXone\\ROCEPHIN 1 GM in Syringe 10 ML SLOW IVP SCH (05:46)
[2017-06-30] MEDS: Lisinopril 5 MG TAB PO SCH (08:05)
[2017-06-30] MEDS: Ferrous Sulfate 325 MG TAB PO SCH (08:10)
[2017-06-30] MEDS: Amiodarone 200 MG TAB PO SCH ×2 (08:10→21:42)
[2017-06-30] MEDS: FLUoxetine HCl 20 MG CAP PO SCH (08:10)
[2017-06-30] MEDS: Pregabalin 50 MG CAP PO SCH ×2 (08:11→21:42)
[2017-06-30] MEDS: Allopurinol 100 MG TAB PO SCH (08:11)
[2017-06-30] MEDS: Aspirin 325 mg Enteric Coated Tablet PO SCH (08:11)
[2017-06-30] MEDS: Saccharomyces boulardii 250 MG CAP PO SCH (08:11)
--- NOTE | 2017-06-30 09:38 | PDOC.PN ---
- Subjective Encounter Start Date: 06/30/17 Encounter Start Time: 10:00 Subjective: Patient ambulating in hallways 2x this AM. Some coughing after ambulation. -: Desat to 88 while sleeping so back on 1L NC. Feeling much better. - Objective Resuscitation Status: Resuscitation Status FULL:Full Resuscitation MAR Reviewed: Yes Vital Signs & Weight: Vital Signs (12 hours) Temp Pulse Resp BP Pulse Ox 06/30/17 08:05 56 L 06/30/17 08:00 98.5 F 57 L 20 134/58 L 97 06/30/17 03:16 98.3 F 56 L 18 127/53 L 97 06/30/17 03:12 94 L 06/29/17 23:14 98.7 F 63 18 118/56 L 94 L Weight Weight 191 lb 9.6 oz I&O: 06/29/17 06/30/17 07/01/17 06:59 06:59 06:59 Intake Total 2950 2019 Output Total 650 Balance 2300 2019 Result Diagrams: 06/29/17 02:56 06/30/17 05:03 Phys Exam - Physical Examination Constitutional: NAD HEENT: moist MMs Respiratory: no wheezing, no rales, no rhonchi Cardiovascular: RRR sternotomy incision healing well Gastrointestinal: soft, positive bowel sounds Musculoskeletal: no edema Neurological: non-focal, moves all 4 limbs Psychiatric: normal affect, A&O x 3 Dx/Plan (1) Acute on chronic systolic CHF (congestive heart failure) Code(s): I50.23 - ACUTE ON CHRONIC SYSTOLIC (CONGESTIVE) HEART FAILURE Status : Acute Comment: improving (2) UTI (urinary tract infection) Status: Acute Comment: Small amount of pansensitive E. coli and K. pneumonia, on Rocephin, d/c Vanc (3) Sepsis Code(s): A41.9 - SEPSIS, UNSPECIFIED ORGANISM Status: Resolved Qualifiers: Sepsis type: sepsis due to unspecified organism Qualified Code(s): A41.9 - Sepsis, unspecified organism Comment: Possibly due to UTI (4) CKD stage G3b/A1, GFR 30-44 and albumin creatinine ratio <30 mg/g Code(s): N18.3 - CHRONIC KIDNEY DISEASE, STAGE 3 (MODERATE) Status: Chronic (5) Chest pain Code(s): R07.9 - CHEST PAIN, UNSPECIFIED Status: Acute (6) CML (chronic myelocytic leukemia) Code(s): C92.10 - CHRONIC MYELOID LEUK, BCR/ABL-POSITIVE, NOT ACHIEVE REMIS Status: Chronic (7) Hypertension Code(s): I10 - ESSENTIAL (PRIMARY) HYPERTENSION Status: Chronic Qualifiers: Hypertension type: essential hypertension Qualified Code(s): I10 - Essential (primary) hypertension (8) Paroxysmal atrial fibrillation Code(s): I48.0 - PAROXYSMAL ATRIAL FIBRILLATION Status: Chronic (9) S/P CABG (coronary artery bypass graft) Code(s): Z95.1 - PRESENCE OF AORTOCORONARY BYPASS GRAFT Status: Chronic Comment: 06/11/17 ALDANA to LAD - Plan cont current plan of care, continue antibiotics, PT/OT will measure room air sats at rest, ambulating, and while sleeping, order -: home O2 if needed. -: Plan on d/c home with ok from cardiac standpoint. * . - Discharge Day Encounter end time: 10:30
[2017-06-30] MEDS ORDERED: Ondansetron ODT 4 MG TAB SL PRN (11:00)
[2017-06-30] MEDS ORDERED: Ondansetron HCl/PF 4 MG/2 ML Vial IVP PRN (11:00)
[2017-06-30] MEDS ORDERED: Bisacodyl 5 MG TAB PO PRN (11:03)
--- NOTE | 2017-06-30 13:13 | CON ---
DATE OF CONSULTATION: 06/30/2017 REFERRING PHYSICIAN: Dr. Arce HISTORY: I am seeing Ms. 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 Her problems are: 1. Paroxysmal atrial fibrillation with rapid rates. A. Current admission with atrial fibrillation paroxysms with recurrence during the hospitalization, requiring change on her amiodarone dose. B. Chronic amiodarone use since 06/11/2017 after her bypass surgery. 2. History of coronary artery disease. A. Prior history of LAD and stenting, eventually requiring a coronary artery bypass grafting surgery in 06/11/2017. 3. Worsening LV dysfunction. A. LVEF 60-65% on echo in 10/2015, but gradually worsening to 30-35% on echo in 05/2017. 4. History of pericardial effusion requiring window placement. 5. History of chronic lymphocytic leukemia. 6. Chronic risk factors. A. Hypertension. B. Hyperlipidemia. 7. Acute admission with fevers. ALLERGIES: None noted. MEDICATIONS AT HOME: Included allopurinol, amiodarone 200 mg a day, aspirin 325 daily, Coreg 3.125 mg twice a day, Flexeril, ferrous sulfate, Prozac, Lasix , [place], lisinopril, nitroglycerin, Lyrica, Zocor. SUBJECTIVE: Ms. Swan was admitted on the with progressive fevers and worsening shortness of breath. She was hospitalized and treated for a urinary tract infection as well as she noticed improving sternal wound swelling as well. While she was in the hospital, she was noted to have a rapid irregular heart beating, atrial fibrillation, rapid ventricular response was documented on telemetry strips. Her amiodarone dose was doubled and she is spontaneously back in sinus rhythm now. Currently feeling fair. Her fever, chills are improving, still has poor pulmonary status. She has no dizziness or loss of consciousness. No stroke-like symptoms. No neurological deficits. No bleeding issues. No angina. REVIEW OF SYSTEMS: The rest of 12 point system otherwise unremarkable. PAST MEDICAL HISTORY: As above, also carries a history of diverticulitis in the past. Again, [facility], dys[facility], large pericardial effusion in the past requiring pericardial window possibly of unclear origin. Prior history of bypass surgery, obesity. SOCIAL HISTORY: The patient is , denies smoking, ETOH or drug abuse. FAMILY HISTORY: Significant for early coronary disease in 2brothers, [place] at 46 and 54 ages. No cancer or stroke is noted. OBJECTIVE DATA: VITAL SIGNS: Blood pressure 133/57, heart rate 58, respirations 20, temperature 97.8 degrees Fahrenheit. GENERAL: Reveals an alert and oriented woman in no apparent distress. NECK: Supple. Jugular veins are not distended. CHEST: Coarse with wheezing on the left side and fine crackles in that base also noted. The midsternal scars are appreciated. CARDIAC: Heart sounds are regular rate and rhythm. No murmur or gallop appreciated. PMI is difficult to palpate. ABDOMEN: Benign. Bowel sounds positive. EXTREMITIES: Lower extremities without edema, clubbing or cyanosis. Pulses are adequate. NEUROLOGIC: Patient is nonfocal. MUSCULOSKELETAL: No joint swelling or deformities. SKIN: Without rash. DATABASE: The EKG is reviewed initially reveals sinus rhythm with a rate of 67 beats per minute with a QRS is narrow 102 milliseconds, the QT is prolonged at 550 milliseconds. Subsequent EKGs reveal atrial fibrillation/atrial flutter. Subsequently the patient converted to sinus rhythm. LABORATORY DATA: White count 6.9, hemoglobin 8.3, platelet count is 287. Sodium 139, potassium 4.1, BUN is 7, creatinine 0.9. BNP is 1204. Troponin I is 0.025, 0..03 and 0.03 consecutively. Initial potassium on the 17th was 3.2, potassium on the 18th was 2.9. The chest x-ray on 17 showed bibasilar pleural and parenchymal changes, suspected pneumonia. Chest CT showed no evidence of pulmonary embolism, large bilateral pleural effusions. ASSESSMENT AND PLAN: Ms. Swan is a pleasant 66-year-old woman with prior history of coronary artery disease with recent coronary artery bypass grafting surgery, prior stents. She also had a documented [place] related to diagonal arteries. Her LVEF was normal last year, but now progressively worsened to the 30-35% range on most recent echocardiogram. Also her atrial fibrillation is more and more prevalent especially after her bypass surgery requiring amiodarone suppression. She has been admitted with fever, which possibly urinary tract infection or a skin infection related, but she has been improving on that. She had transient atrial fibrillation episode which required adjustment of her amiodarone currently back in sinus rhythm. My plan would be at this point: 1. Regarding atrial fibrillation, she seems to be controlled on current amiodarone dose. She had QT prolongation which needs to be monitored possibly related to the defect of hypokalemia and the amiodarone also on board. Also possibly added effect from Prozac could be also suspected. She nevertheless is continued with amiodarone. At this point, I would continue that, again consider changing her Prozac to an alternative medication which does not prolong the QT would be preferred. Also, fully control her potassium levels are important as well. Currently, inadequate. 2. Her anticoagulation is an issue due to her recent surgery and pleural effusion. This might be reasonable to hold off anticoagulants long-term, this could be reconsidered. 3. She had LV dysfunction in moderate to severe range, if LVEF remains under 35 % with adequate therapy with 3 months of after bypass surgery, ICD therapy could be considered. 4. We could also consider catheter ablative options if after recovering from her bypass surgery and weaning from amiodarone would result in recurrent atrial fibrillation episodes, but at this point she clearly needs to be stabilized further prior to that. We will discuss with Dr. Arce and the patient and her . MILLER
--- NOTE | 2017-06-30 20:14 | PDOC.CTH ---
Cardiology Progress Note - Subjective She is doing better today. No new issues. - Objective Vital Signs Temp Pulse Pulse Pulse Resp BP BP 06/30/17 19:21 98.1 F 64 20 06/30/17 16:06 06/30/17 15:58 97.8 F 58 L 20 06/30/17 12:20 06/30/17 11:37 97.8 F 58 L 20 06/30/17 09:55 59 L 58 L 147/80 H 118/46 L BP BP Pulse Ox 06/30/17 19:21 148/63 H 95 06/30/17 16:06 93 L 06/30/17 15:58 138/53 L 94 L 06/30/17 12:20 94 L 06/30/17 11:37 133/57 L 94 L 06/30/17 09:55 Weight 191 lb 9.6 oz 06/29/17 06/30/17 07/01/17 06:59 06:59 06:59 Intake Total 2950 2019 Output Total 650 Balance 2300 2019 - Physical Examination General/Neuro: alert & oriented x3, NAD Neck: no JVD present Lungs: unlabored respirations, other: (Reduced breath sounds worse on left base) Heart: RRR Abdomen: NT/ND Extremities: other: (no edema.) - Telemetry Telemetry Rhythm: NSR - Labs Result Diagrams: 06/29/17 02:56 06/30/17 05:03 Troponin/CKMB CK-MB (CK-2) 0.5 ng/mL (0-6.6) 06/27/17 00:30 Troponin I 0.031 ng/mL (< 0.028) H 06/27/17 06:39 - Assessment/Plan 1. Fever, possible pneumonia 2. UTI?, asymptomatic. 3. Acute systolic heart failure, improved. 4. Pleural effusions 5. Afib paroxysmal, currently in sinus. PLAN: - CXR today - Continue amiodarone at current dose. - She has had GI bleeding in the past as well as a bloody pericardial effusion. Not a good candidate for full anticoagulation. - May d/c home tomorrow if CXR unremarkable.
--- NOTE | 2017-06-30 21:12 | RAD ---
TWO VIEW CHEST: History: Shortness of breath. Comparison: 06-27-17 FINDINGS: Confluent infiltrate in the left mid and lower lung is again seen. This has progressed since prior st udy. The right lung remains clear. Heart appears mildly enlarged with post op sternotomy change. IMPRESSION: Evidence of dense infiltrate/consolidation in the left mid and lower lung which has progressed since prior study. POS: [facility]
[2017-06-30] MEDS: Atorvastatin Calcium 20 MG TAB PO SCH (21:39)
[2017-06-30] MEDS: Simvastatin 20 MG TAB PO SCH (21:42)
[2017-06-30] MEDS: Cefdinir 300 MG CAP PO SCH (21:43)
[2017-06-30] MEDS: Docusate 100 MG CAP PO SCH (21:43)
[2017-07-01 05:27] LABS: Hematocrit 28.2 % (36.0-47.0)
[2017-07-01 05:41] LABS: Anion Gap 9 mmol/L (10-20); BUN (Urea Nitrogen) 14 mg/dL (9.8-20.1); Calc. Creatinine Clearance 91 mL/min (70-130); Calcium 9.3 mg/dL (7.8-10.44); Carbon Dioxide 30 mmol/L (23-31); Chloride 103 mmol/L (98-107); Estimated GFR-MDRD 69
--- NOTE | 2017-07-01 07:49 | PDOC.PN ---
- Subjective Encounter Start Date: 07/01/17 Encounter Start Time: 08:30 Subjective: No complaint this AM. Breathing a bit easier. Still coughing quite a lot. -: Chest pain with cough only at sternotomy site. - Objective Resuscitation Status: Resuscitation Status FULL:Full Resuscitation MAR Reviewed: Yes Vital Signs & Weight: Vital Signs (12 hours) Temp Pulse Resp BP Pulse Ox 07/01/17 07:12 98.6 F 62 18 139/54 L 95 07/01/17 04:41 94 L 07/01/17 04:00 98.5 F 64 16 119/46 L 92 L 07/01/17 00:00 99.0 F 68 16 145/70 H 92 L 06/30/17 20:10 98.1 F 64 20 95 Weight Weight 189 lb 14.4 oz I&O: 06/30/17 07/01/17 07/02/17 06:59 06:59 06:59 Intake Total 2019 480 Balance 2019 480 Result Diagrams: 07/01/17 04:59 07/01/17 04:59 Phys Exam - Physical Examination Constitutional: NAD HEENT: moist MMs Bibasilar crackles, worse on left side Cardiovascular: RRR Gastrointestinal: soft, positive bowel sounds Musculoskeletal: edema present trace to ankles Neurological: non-focal, moves all 4 limbs Psychiatric: normal affect, A&O x 3 Dx/Plan (1) Acute on chronic systolic CHF (congestive heart failure) Code(s): I50.23 - ACUTE ON CHRONIC SYSTOLIC (CONGESTIVE) HEART FAILURE Status : Acute Comment: improving, still with significant pleural effusion, possibly a bit worse on repeat CXR (2) UTI (urinary tract infection) Status: Acute Comment: Small amount of pansensitive E. coli and K. pneumonia, converted to oral Omnicef (3) Sepsis Code(s): A41.9 - SEPSIS, UNSPECIFIED ORGANISM Status: Resolved Qualifiers: Sepsis type: sepsis due to unspecified organism Qualified Code(s): A41.9 - Sepsis, unspecified organism Comment: Possibly due to UTI (4) CKD stage G3b/A1, GFR 30-44 and albumin creatinine ratio <30 mg/g Code(s): N18.3 - CHRONIC KIDNEY DISEASE, STAGE 3 (MODERATE) Status: Chronic (5) Chest pain Code(s): R07.9 - CHEST PAIN, UNSPECIFIED Status: Resolved (6) CML (chronic myelocytic leukemia) Code(s): C92.10 - CHRONIC MYELOID LEUK, BCR/ABL-POSITIVE, NOT ACHIEVE REMIS Status: Chronic (7) Hypertension Code(s): I10 - ESSENTIAL (PRIMARY) HYPERTENSION Status: Chronic Qualifiers: Hypertension type: essential hypertension Qualified Code(s): I10 - Essential (primary) hypertension (8) Paroxysmal atrial fibrillation Code(s): I48.0 - PAROXYSMAL ATRIAL FIBRILLATION Status: Chronic (9) S/P CABG (coronary artery bypass graft) Code(s): Z95.1 - PRESENCE OF AORTOCORONARY BYPASS GRAFT Status: Chronic Comment: 06/11/17 ALDANA to LAD - Plan cont current plan of care, continue antibiotics Consult pulmonology- Dr. Bear to evaluate effusion, determine if drainag -: necessary. * . - Discharge Day Encounter end time: 08:50
[2017-07-01] MEDS: Amiodarone 200 MG TAB PO SCH ×2 (08:12→21:41)
[2017-07-01] MEDS: Allopurinol 100 MG TAB PO SCH (08:12)
[2017-07-01] MEDS: Aspirin 325 mg Enteric Coated Tablet PO SCH (08:12)
[2017-07-01] MEDS: Lisinopril 5 MG TAB PO SCH (08:12)
[2017-07-01] MEDS: Saccharomyces boulardii 250 MG CAP PO SCH (08:12)
[2017-07-01] MEDS: Pregabalin 50 MG CAP PO SCH ×2 (08:13→21:41)
[2017-07-01] MEDS: Ferrous Sulfate 325 MG TAB PO SCH (08:13)
[2017-07-01] MEDS: Cefdinir 300 MG CAP PO SCH ×2 (08:13→21:41)
[2017-07-01] MEDS: Docusate 100 MG CAP PO SCH ×2 (08:13→21:41)
[2017-07-01] MEDS ORDERED: Furosemide 20 MG/2 ML VIAL SLOW IVP SCH (14:00)
[2017-07-01 14:25] LABS: BF Reference Range Comment Note:
[2017-07-01 14:51] LABS: BF Color Yellow
[2017-07-01 14:52] LABS: RBC Count-Automated 11000 /cumm
[2017-07-01 15:23] LABS: Number Cells Counted-Fluids 100
--- NOTE | 2017-07-01 17:06 | CON ---
DATE OF SERVICE: 07/01/2017 SERVICE: Pulmonary Medicine. HISTORY OF PRESENT ILLNESS: The patient is a 66-year-old white female. She was in her usual state o f health until the beginning of this month. She underwent coronary artery bypass graft. The postop course was actually uncomplicated. Roughly 2 days prior to admission, she started having onset of fe vers. She had a little bit of a cough but was not brining up any sputum production. She had a littl e bit of dyspnea. Because of these changes however, she came to the emergency department. She was f ound to have a temperature of 101. It later cleared after she was given some antibiotics. She was f eeling better, but that being said, serial chest x-rays demonstrated increasing size of the effusion. As such, Pulmonary was consulted. She currently denies any fevers, chills, nausea, vomiting or clarissa st discomfort. Her breathing is very comfortable. She has no specific complaints otherwise. PAST MEDICAL HISTORY: 1. Coronary artery disease, status post coronary artery bypass graft, postoperative week #3. 2. Dyslipidemia. 3. Hypertension. 4. History of pericardial effusion requiring pericardial window. 5. Obesity. 6. Diverticulosis. 7. CML, currently in remission, treated by May Quinteros. PAST SURGICAL HISTORY: 1. Pericardial window. 2. Coronary artery bypass graft x1 vessel. 3. Hysterectomy. 4. Bilateral tubal ligation. 5. Cardiac catheterization with history of PCI. FAMILY HISTORY: Noncontributory. SOCIAL HISTORY: Negative for current alcohol, tobacco or illicit drug use. She has no exposure to c hemicals, dust, asbestosis or tuberculosis. ALLERGIES: No known drug allergies. MEDICATIONS: List of inpatient medications was reviewed. No specific updates were made. REVIEW OF SYSTEMS: General, head, ears, eyes, nose, throat, cardiovascular, respiratory, GI, , mus culoskeletal, neurologic and skin is negative except as mentioned in the HPI. PHYSICAL EXAMINATION: VITAL SIGNS: Afebrile, pulse 60, blood pressure 121/50, respirations 22, saturation 92% on 1 liter n betsy cannula. GENERAL: The patient is awake, alert, in no apparent distress. LUNGS: Excellent air entry on the right. There are minimal depending crackles present. There is d ecreased air entry on the left. There is no prolonged expiratory phase or rhonchi. HEART: Normal rate, regular. ABDOMEN: Soft, nontender, nondistended, bowel sounds positive. MUSCULOSKELETAL: No cyanosis or clubbing. No pitting in the bilateral lower extremities. NEUROLOGIC: Grossly nonfocal. LABORATORY DATA: WBC 6.9 and clearing. Hemoglobin is stable at 8.5. Basic metabolic profile is unr emarkable with potassium of 4.1. Urinalysis is negative. Vancomycin trough is 15.2. She is growing E. coli and Klebsiella pneumoniae in the urine. Both of these organisms are pansensitive. Blood cu ltures x2 are otherwise unremarkable. IMAGING: Chest x-ray demonstrates moderate pleural effusion on the left. Cardiomegaly is likely pre sent. Previous sternotomy is evident. There is no significant effusion on the right. ASSESSMENT: 1. Coronary artery disease, status post coronary artery bypass graft, postoperative weeks 3. 2. Pleural effusion, large. 3. Paroxysmal atrial fibrillation. PLAN: I will put in a consult for Dr. Tsai to see the patient just that he knows that she is in [facility]. Thoracentesis will be performed to verify that this fluid is sterile. If it is not, we will cross that bridge if we need to. I will continue to follow along for a couple of days.
--- NOTE | 2017-07-01 17:14 | PRG ---
DATE OF SERVICE: 07/01/2017 This is an electrophysiology followup report. SUBJECTIVE: Ms. Cunningham seems to be doing better. She just underwent a pleural tap draining the left-sided pleural effusion, breathing is easier. OBJECTIVE: VITAL SIGNS: Blood pressure 139/54, heart rate 60, respirations 18, temperature 98.6 degrees Fahrenh eit. GENERAL: Alert and oriented woman in no apparent distress. NECK: Supple. Jugular veins not distended. CHEST: Coarse. No crackles. CARDIOVASCULAR: Heart sounds are regular to rate and rhythm. No murmur or gallop. ABDOMEN: Benign. Bowel sounds positive. EXTREMITIES: Lower extremities without edema, clubbing, or cyanosis. DATABASE: Telemetry strips reveal continued sinus rhythm, no atrial fibrillation. The hemoglobin 8. 5 today. Electrolytes in normal range except for anion gap is 9. ASSESSMENT AND PLAN: Mr. Cunningham is a pleasant 66-year-old woman with history of persisting atria l fibrillation in proceeding her recent bypass surgery, but now requiring amiodarone therapy for main tenance. She is doing pretty poorly with atrial fibrillation episodes. Her IVF actually has worsene d with ejection fraction of 30%-35% in 05/2017. This time was admitted though predominantly with dys pnea and pleural effusions were noted. She also had some urinary tract infection, now it was resolve d and her pleural effusions were tapped. She required an increased dose of amiodarone to suppress th e episodes of atrial fibrillation. She seems to be stable enough. PLAN: 1. For now, continue amiodarone possibly consider decreasing dose after all the incontinences resolv ed in next 2-4 weeks. 2. Coronary artery bypass grafting surgery with subsequent pleural effusion, status post tap. 3. History of pericardial effusion and bloody pericardial during bypass surgery likely pericarditis process is still active, making atrial fibrillation more likely. 4. Poor anticoagulation candidate due to the bleeds and the pericardial process. 5. Reduced LV function with EF of 30%-35%, we will need to be monitored. Consider repeating echo 3 months after bypass surgery remains reduced. Consider possible biventricular ICD implant and we will follow her in the office.
--- NOTE | 2017-07-01 17:42 | PDOC.CTH ---
Cardiology Progress Note - Subjective She is doing well. No more fevers. Her CXR showed a large pleural effusion on the left. Clinically she i doing better so I am doubtful this is an empyema or she would be much sicker. - Objective Vital Signs Temp Pulse Pulse Pulse Resp BP BP 07/01/17 15:10 97.6 F 57 L 18 07/01/17 11:16 97.8 F 60 22 H 07/01/17 09:18 67 64 152/58 H 137/68 07/01/17 08:46 98.6 F 62 18 07/01/17 08:12 62 07/01/17 07:12 98.6 F 62 18 BP Pulse Ox 07/01/17 15:10 133/59 L 94 L 07/01/17 11:16 121/50 L 92 L 07/01/17 09:18 07/01/17 08:46 95 07/01/17 08:12 07/01/17 07:12 139/54 L 95 Weight 189 lb 14.4 oz 06/30/17 07/01/17 07/02/17 06:59 06:59 06:59 Intake Total 2019 480 720 Output Total 1100 Balance 2019 480 -380 - Physical Examination General/Neuro: alert & oriented x3, NAD Neck: no JVD present Lungs: unlabored respirations, other: (Reduced breath sounds on legft base. ) Heart: RRR Abdomen: NT/ND Extremities: other: (Trace edema.) - Telemetry Telemetry Rhythm: NSR - Labs Result Diagrams: 07/01/17 04:59 07/01/17 04:59 Troponin/CKMB CK-MB (CK-2) 0.5 ng/mL (0-6.6) 06/27/17 00:30 Troponin I 0.031 ng/mL (< 0.028) H 06/27/17 06:39 - Assessment/Plan 1. Fever, possible pneumonia 2. UTI 3. Acute systolic heart failure, improved. 4. Pleural effusions, larger on left side. 5. Afib paroxysmal, currently in sinus. PLAN: - Continue amiodarone at current dose. - She has had GI bleeding in the past as well as a bloody pericardial effusion. Not a good candidate for full anticoagulation. - Pulmonary to do theracenthesis.
[2017-07-01] MEDS: Atorvastatin Calcium 20 MG TAB PO SCH (21:24)
[2017-07-01] MEDS: Simvastatin 20 MG TAB PO SCH (21:41)
[2017-07-02 05:33] LABS: Anion Gap 10 mmol/L (10-20); BUN (Urea Nitrogen) 14 mg/dL (9.8-20.1); Calc. Creatinine Clearance 83 mL/min (70-130); Calcium 9.3 mg/dL (7.8-10.44); Carbon Dioxide 28 mmol/L (23-31); Chloride 106 mmol/L (98-107); Estimated GFR-MDRD 63
[2017-07-02] MEDS: Docusate 100 MG CAP PO SCH (08:00)
[2017-07-02] MEDS: Amiodarone 200 MG TAB PO SCH (08:00)
[2017-07-02] MEDS: Cefdinir 300 MG CAP PO SCH (08:00)
[2017-07-02] MEDS: Saccharomyces boulardii 250 MG CAP PO SCH (08:00)
[2017-07-02] MEDS: Lisinopril 5 MG TAB PO SCH (08:00)
[2017-07-02] MEDS: Allopurinol 100 MG TAB PO SCH (08:00)
[2017-07-02] MEDS: Pregabalin 50 MG CAP PO SCH (08:01)
[2017-07-02] MEDS: Aspirin 325 mg Enteric Coated Tablet PO SCH (08:02)
[2017-07-02] MEDS: Ferrous Sulfate 325 MG TAB PO SCH (08:02)
--- NOTE | 2017-07-02 09:44 | PDOC.PN ---
- Subjective Encounter Start Date: 07/02/17 Encounter Start Time: 08:45 no acute night events. states she is doing well. denies any worsening of SOB. denies fevers or chills - Objective Resuscitation Status: Resuscitation Status FULL:Full Resuscitation Vital Signs & Weight: Vital Signs (12 hours) Temp Pulse Resp BP Pulse Ox 07/02/17 08:00 97.5 F L 56 L 16 07/02/17 07:15 97.5 F L 56 L 16 153/61 H 97 07/02/17 03:14 97.7 F 56 L 18 112/51 L 93 L 07/01/17 23:29 98.6 F 59 L 18 130/49 L 93 L Weight Weight 187 lb 8 oz I&O: 07/01/17 07/02/17 07/03/17 06:59 06:59 06:59 Intake Total 480 1200 Output Total 1100 Balance 480 100 Result Diagrams: 07/01/17 04:59 07/02/17 04:46 Phys Exam - Physical Examination HEENT: PERRLA, moist MMs Neck: no nodes, no JVD faint rales on right side Cardiovascular: no significant murmur, no rub elizabeth Gastrointestinal: soft, non-tender, positive bowel sounds Musculoskeletal: pulses present Neurological: non-focal Psychiatric: normal affect, A&O x 3 Dx/Plan (1) Acute on chronic systolic CHF (congestive heart failure) Code(s): I50.23 - ACUTE ON CHRONIC SYSTOLIC (CONGESTIVE) HEART FAILURE Status : Acute Comment: improving, still with significant pleural effusion, possibly a bit worse on repeat CXR (2) CKD stage G3b/A1, GFR 30-44 and albumin creatinine ratio <30 mg/g Code(s): N18.3 - CHRONIC KIDNEY DISEASE, STAGE 3 (MODERATE) Status: Chronic (3) Sepsis Code(s): A41.9 - SEPSIS, UNSPECIFIED ORGANISM Status: Resolved Qualifiers: Sepsis type: sepsis due to unspecified organism Qualified Code(s): A41.9 - Sepsis, unspecified organism Comment: Possibly due to UTI (4) CAD (coronary artery disease) Code(s): I25.10 - ATHSCL HEART DISEASE OF [place] CORONARY ARTERY W/O ANG PCTRS Status: Chronic Qualifiers: Coronary Disease-Associated Artery/Lesion type: [place] artery [place] vs. transplanted heart: [place] heart Associated angina: without angina Qualified Code(s): I25.10 - Atherosclerotic heart disease of [place] coronary artery without angina pectoris (5) Hypertension Code(s): I10 - ESSENTIAL (PRIMARY) HYPERTENSION Status: Chronic Qualifiers: Hypertension type: essential hypertension Qualified Code(s): I10 - Essential (primary) hypertension (6) Paroxysmal atrial fibrillation Code(s): I48.0 - PAROXYSMAL ATRIAL FIBRILLATION Status: Chronic (7) S/P CABG (coronary artery bypass graft) Code(s): Z95.1 - PRESENCE OF AORTOCORONARY BYPASS GRAFT Status: Chronic Comment: 06/11/17 ALDANA to LAD (8) UTI (urinary tract infection) Status: Acute Comment: Small amount of pansensitive E. coli and K. pneumonia, converted to oral Omnicef (9) Chest pain Code(s): R07.9 - CHEST PAIN, UNSPECIFIED Status: Resolved - Plan cont current plan of care, plan discussed w/ family, continue antibiotics, respiratory therapy * . s/p thoracentesis today. follow with results accordingly. prelims are negative at this time. Likely home tmrw if continues to be negative and doing well. continue current abx regimen
[2017-07-02 11:45] VITALS: TEMP 97.6
[2017-07-02 15:46] VITALS: BP 140/66
--- NOTE | 2017-07-02 16:31 | PDOC.CTH ---
Cardiology Progress Note - Subjective She is doing better. Dr. Bear did thoracenthesis yesterday and took out about 600 ml of serous fluid. no pus. - Objective Vital Signs Temp Pulse Pulse Pulse Resp BP BP 07/02/17 15:20 97.6 F 57 L 18 07/02/17 11:22 97.6 F 54 L 18 07/02/17 09:35 59 L 56 L 172/82 H 148/80 H 07/02/17 08:00 97.5 F L 56 L 16 07/02/17 07:15 97.5 F L 56 L 16 BP Pulse Ox 07/02/17 15:20 140/66 96 07/02/17 11:22 138/66 95 07/02/17 09:35 07/02/17 08:00 07/02/17 07:15 153/61 H 97 Weight 187 lb 8 oz 07/01/17 07/02/17 07/03/17 06:59 06:59 06:59 Intake Total 480 1200 Output Total 1100 Balance 480 100 - Physical Examination General/Neuro: alert & oriented x3, NAD Neck: no JVD present Lungs: unlabored respirations Heart: RRR Abdomen: soft Extremities: other: (no edema.) - Telemetry Telemetry Rhythm: NSR - Labs Result Diagrams: 07/01/17 04:59 07/02/17 04:46 Troponin/CKMB CK-MB (CK-2) 0.5 ng/mL (0-6.6) 06/27/17 00:30 Troponin I 0.031 ng/mL (< 0.028) H 06/27/17 06:39 - Assessment/Plan 1. Fever, possible pneumonia 2. UTI 3. Acute systolic heart failure, improved. 4. Pleural effusions, larger on left side. 5. Afib paroxysmal, currently in sinus. PLAN: - Continue amiodarone at current dose. - She has had GI bleeding in the past as well as a bloody pericardial effusion. Not a good candidate for full anticoagulation. - Pleural fluid sterile so far with no bacteria on gram stain only white and red cells. - Would prefer to expand antibiotics to cover for pneumonia as well as UTI. - May discharge home any time from cardiac perspective. - Follow up in 1 month.
[2017-07-02 18:10] LABS: Fungus Smear Status Final report (.)
--- NOTE | 2017-07-02 19:41 | PRG ---
DATE OF SERVICE: 07/02/2017 SERVICE: Pulmonary Medicine. INTERVAL HISTORY: The patient is doing really well from a respiratory standpoint. After pulling the fluid off yesterday from her left lung, she had a profound improvement in her symptoms. She denies any current fevers, chills, nausea, or vomiting. Otherwise, there has been no interval change to her condition. Cardiology has cleared her for discharge from the hospital. At this point, I really do not see any think from a lung perspective that should keep her here provided that she returns to the hospital with recrudescence of fever. PHYSICAL EXAMINATION: VITAL SIGNS: Afebrile, pulse 57, blood pressure 140/66, respirations 18, saturation 95% on room air. GENERAL: The patient is awake and alert. She is in no apparent distress. LUNGS: Improved air entry at the left base. There is an excellent air entry at the right base. The re is no prolonged expiratory phase, wheezing, rhonchi, or crackles appreciated. HEART: Normal rate, regular. ABDOMEN: Soft, nontender, nondistended. Bowel sounds are positive. MUSCULOSKELETAL: No cyanosis or clubbing. There is no pitting in the bilateral lower extremities. NEUROLOGIC: Grossly nonfocal. LABORATORY DATA: Basic metabolic profile is completely unremarkable at this time with the sodium joleen t has returned to normal at 3.9. Body fluid demonstrates a lymphocytic exudate within normal pH. Pa thology is currently pending. AFB smear and culture are negative to date. The routine culture is al so sterile at this time. ASSESSMENT: 1. Coronary artery disease, status post coronary artery bypass graft, postop 3 weeks. 2. Pleural effusion, large. 3. Paroxysmal atrial fibrillation. 4. Community-acquired pneumonia, suspected. PLAN: The patient will go out on azithromycin for 5 days, and she will complete a 7-day course of Om nicef. I did not see any significant fluid collections on the CT scan of the chest to make me think of a heart related issue. I will have her return to clinic to see me in 2-3 weeks for the preclinic chest x-ray. I have counseled the patient that if she has a recrudescence in symptoms, she has to pr esent back to the emergency department or notify a physician sooner. At this point, the pleural flui d is weak lymphocytic exudate. As such, my suspicion is that this is just a routine postoperative fl uid. I cannot absolutely prove that there is no infection next to the pleural fluid. As such, I thi nk, the patient's best interest to treat her like she has community-acquired pneumonia. From my pers pective, she is stable for transition out of the hospital.
--- NOTE | 2017-07-03 02:48 | DIS ---
DISCHARGE DIAGNOSES: 1. Sepsis likely secondary to pneumonia as well as urinary tract infection. 2. Acute on chronic systolic heart failure. 3. Paroxysmal atrial fibrillation. 4. Chronic kidney disease. 5. Coronary artery disease, status post stent placements as well as coronary artery bypass grafting. 6. Large left pleural effusion. HOSPITAL COURSE: While the patient was in the hospital, the patient was found to be in acute on analytical lead vincenzo systolic heart failure. She was also found to have probable pneumonia, seen on chest x-ray as we ll as urinary tract infection with symptoms and signs suggestive of sepsis. The patient was started on the appropriate IV antibiotics while here in the hospital. Cardiology as well as Pulmonology was consulted with regard to both of the issues that were going on at this time. She also was found to h ave atrial fibrillation with RVR while here in the hospital. She was started on diuresis initially, which had made her somewhat hypotensive; therefore, her blood pressure medications were held and her symptoms had improved. Her atrial fibrillation with RVR had improved with the help of Cardiology. S he had improved with the antibiotics as well as the heart failure and atrial fibrillation management that were on board. While here, she was found to have a large left-sided pleural effusion which was causing her to have some shortness of breath. With the help of Pulmonology, the patient had a thorac entesis. Fluid was drawn. It was deemed that the pleural effusion was likely transudative in nature , therefore, not related to infection, etiology, or an empyema. Therefore, no further interventions were required. Prelims were negative. She was hemodynamically stable and was afebrile; therefore, becca veras did not feel at this point that we need to continue to watch the cultures that were drawn. After t he patient had improved significantly, Cardiology as well as Pulmonology was consulted with yamileth ng the patient home to follow up with them in the clinic as well as primary care and cardiac rehabili tation. She will be going home with 2 antibiotics. Due to her history of gastrointestinal bleeding in the past, it was felt that full anticoagulation for atrial fibrillation, made her not a good jeannette date at this time. Due to her doing very well, we were comfortable discharging the patient home. Paula veras had agreed with this and was thankful for being able to go home. All questions were answered prior to discharge. DISCHARGE CONDITION: Much improved when she first came in. DISCHARGE ACTIVITY: As tolerated. DISCHARGE DIET: Heart-healthy, 2 g sodium diet. DISCHARGE MEDICATIONS: Please see full discharge medication list on her chart. FOLLOWUP APPOINTMENTS: The patient will follow up with primary care physician in 1 week as well as C ardiology and Pulmonology as per their recommendations. DISCHARGE PLAN: Discharge planning was greater than 30 minutes.
--- NOTE | 2017-07-06 08:37 | EKG ---
Test Reason : Blood Pressure : / mmHG Vent. Rate : 062 BPM Atrial Rate : 062 BPM P-R Int : 174 ms QRS Dur : 102 ms QT Int : 446 ms P-R-T Axes : 039 063 -41 degrees QTc Int : 452 ms Normal sinus rhythm Lateral infarct (cited on or before 11-JUN-2017) Abnormal ECG When compared with ECG of 27-JUN-2017 00:20, (Unconfirmed) QT has shortened Confirmed by Leonard SCOTT ([id number]) on 07/06/2017 8:37:08 AM Referred By: [facility] Confirmed By:Leonard SCOTT
--- NOTE | 2017-07-06 08:42 | EKG ---
Test Reason : Blood Pressure : / mmHG Vent. Rate : 055 BPM Atrial Rate : 055 BPM P-R Int : 184 ms QRS Dur : 106 ms QT Int : 466 ms P-R-T Axes : 038 057 -13 degrees QTc Int : 445 ms Sinus bradycardia Lateral infarct (cited on or before 11-JUN-2017) Abnormal ECG When compared with ECG of 01-JUL-2017 06:27, (Unconfirmed) No significant change was found Confirmed by Leonard SCOTT ([id number]) on 07/06/2017 8:41:39 AM Referred By: [facility] Confirmed By:Leonard SCOTT
--- NOTE | 2017-07-07 13:03 | OP ---
DATE OF PROCEDURE: 07/01/2017 SERVICE: Pulmonary Medicine. PROCEDURE PERFORMED: Left-sided pleural drainage with catheter insertion, under ultrasound guidance. CONSENT: Risks and benefits of this procedure were explained to the patient. All questions were ans wered and alternative options explained. STAFF PHYSICIAN: Maximo Bear M.D. MEDICATIONS USED: Lidocaine 1% without epinephrine, total quantity 8 mL PREOPERATIVE DIAGNOSIS: Pleural effusion. POSTPROCEDURE DIAGNOSIS: Pleural effusion. DESCRIPTION OF PROCEDURE: Time out was performed by the procedure team and the patient. The patient was positively identified using name and date of . The procedure site was marked. Vital sign monitoring was accomplished by noninvasive hemodynamic monitoring, pulsoximetry, and telemetry. In the seated position, the left posterior hemithorax was examined using ultrasound probe. The diaph ragm and pleural fluid were easily identified. The skin was prepped and draped in a sterile fashion, and anesthetized with 1% lidocaine without epinephrine. A finder needle was inserted in the pleural space with return of tian, fairly clear pleural fluid. A pleural drainage catheter was inserted in the same location and fluid was removed by syringe pump technique. A sample was sent for analysis. The intact catheter was subsequently removed on exhalation. A sterile dressing was applied. The pa tient is with stable vital signs throughout the entire procedure. ESTIMATED BLOOD LOSS: 2 mL COMPLICATIONS: None.
--- NOTE | 2017-08-09 10:41 | EKG ---
Test Reason : Blood Pressure : / mmHG Vent. Rate : 067 BPM Atrial Rate : 067 BPM P-R Int : 166 ms QRS Dur : 102 ms QT Int : 522 ms P-R-T Axes : 017 053 001 degrees QTc Int : 551 ms Normal sinus rhythm Lateral infarct , age undetermined Prolonged QT Abnormal ECG Confirmed by BRENDEN BRANDON M.D. ([id number]), associate editor MADAI WILLARD ([id number]) on 08/09/2017 10:40:56 AM Referred By: Confirmed By:BRENDEN BRANDON M.D.
== END 2017-07-02 17:59 | disposition home or self-care (01) | DRG 871 ==
LOC: ERS 23:44 → 2SE 06-27 03:00
PROVIDERS: ADMIT Internal Medicine; ATTEND Internal Medicine
PROC: 0W9B3ZZ Drainage of Left Pleural Cavity, Percutaneous Approach (ICD-10-PCS; principal; 2017-07-01)
PROC: 0W9B4ZX Drainage of Left Pleural Cavity, Percutaneous Endoscopic Approach, Diagnostic (ICD-10-PCS; 2017-07-01)
DX: A41.9 Sepsis, unspecified organism (principal); J18.9 Pneumonia, unspecified organism; I50.23 Acute on chronic systolic (congestive) heart failure; J90 Pleural effusion, not elsewhere classified; I24.8 Other forms of acute ischemic heart disease; I13.0 Hypertensive heart and chronic kidney disease with heart failure and stage 1 through stage 4 chronic kidney disease, or unspecified chronic kidney disease; G62.9 Polyneuropathy, unspecified; C95.11 Chronic leukemia of unspecified cell type, in remission; N39.0 Urinary tract infection, site not specified; E87.1 Hypo-osmolality and hyponatremia; E87.8 Other disorders of electrolyte and fluid balance, not elsewhere classified; I48.0 Paroxysmal atrial fibrillation; E78.5 Hyperlipidemia, unspecified; I25.10 Atherosclerotic heart disease of native coronary artery without angina pectoris; Z95.1 Presence of aortocoronary bypass graft; E66.9 Obesity, unspecified; F41.9 Anxiety disorder, unspecified; F32.9 Major depressive disorder, single episode, unspecified; N18.3 Chronic kidney disease, stage 3 (moderate); M10.9 Gout, unspecified; D64.9 Anemia, unspecified; E87.6 Hypokalemia; B96.20 Unspecified Escherichia coli [E. coli] as the cause of diseases classified elsewhere; B96.1 Klebsiella pneumoniae [K. pneumoniae] as the cause of diseases classified elsewhere; I25.5 Ischemic cardiomyopathy; Z95.5 Presence of coronary angioplasty implant and graft; Z91.81 History of falling
CPT/HCPCS: 36415; 71020; 71275; 80048; 80053; 80202; 82553; 82565; 82945; 83605; 83615; 83735; 83880; 83986; 84157; 84484; 85014; 85018; 85025; 85049; 85060; 87040; 87070; 87077; 87086; 87116; 87186; 87205; 87206; 88112; 88305; 89051; 93005; 93010; 93798; 96365; 96375; A4216; G8978-GP-CI; G8979-GP-CI; G8980-GP-CI; J0696; J1160; J1650; J1940; J3370; J7050

== ENCOUNTER 2017-07-25 00:02 | Inpatient (IN) | payer MEDICARE ==
[2017-07-25 00:49] LABS: #Basophils 0.1 thou/uL (0.0-0.2); #Eosinphils 0.2 thou/uL (0.0-0.7); #Lymphocytes 1.4 thou/uL (1.20-3.40); #Monocytes 0.9 thou/uL (0.11-0.59); #Neutrophils 5.9 thou/uL (1.40-6.50); %Basophils 0.7 % (0.0-1.0); %Eosinophils 2.4 % (0.0-10.0); %Lymphocytes 16.3 % (21.0-51.0); %Monocytes 10.6 % (0.0-10.0); Hematocrit 34.4 % (36.0-47.0); Red Blood Cell (RBC) Count 4.08 mill/uL (4.20-5.40); White Blood Cell (WBC) Count 8.4 thou/uL (4.8-10.8)
[2017-07-25 01:11] LABS: ALT (SGPT) 7 U/L (8-55); AST (SGOT) 11 U/L (5-34); Alkaline Phosphatase 101 U/L (40-150); Anion Gap 15 mmol/L (10-20); BUN (Urea Nitrogen) 12 mg/dL (9.8-20.1); Bilirubin, Total 0.5 mg/dL (0.2-1.2); Calc. Creatinine Clearance 0 mL/min (70-130); Calcium 9.4 mg/dL (7.8-10.44); Carbon Dioxide 25 mmol/L (23-31); Chloride 102 mmol/L (98-107); Estimated GFR-MDRD 59; Globulin 3.5 g/dL (2.4-3.5); Protein, Total 6.8 g/dL (6.0-8.3)
[2017-07-25 01:14] LABS: Troponin I 0.013 ng/mL (< 0.028)
--- NOTE | 2017-07-25 02:07 | HP ---
DATE OF ADMISSION: 07/25/2017 PRIMARY CARE PHYSICIAN: Dr. Roy. PRIMARY REGISTERED TRAVEL NURSE: Dr. Arce. CODE STATUS: FULL CODE. SURROGATE DECISION-MAKER: Spouse. CHIEF COMPLAINT: Palpitations. HISTORY OF PRESENT ILLNESS: The patient is a 66-year-old female with chronic systolic heart failure, ejection fraction 35% to 40% range, paroxysmal atrial fibrillation, on amiodarone, presented to the emergency room with above complaints. The patient was discharged from this facility on 07/02/2017 with a diagnosis of sepsis secondary to pneumonia/UTI with congestive heart failure exacerbation. She had large left pleural effusion requiring thoracentesis. Over the last two days, the patient developed gradual worsening shortness of breath, which was worse on exertion as well as lying flat. There was also minimal leg swelling. She called Dr. Arce's office, who advised her to increase Lasix to 80 mg p.o. b.i.d. from 40 mg b.i.d. Her symptoms started to improve. She was seen at the cardiac rehabilitation yesterday morning and participated in 6 minutes exercise. She was in sinus rhythm at this time. The patient woke up around 11:30 p.m. with sudden onset of palpitations, associated with mild shortness of breath. She denied any lightheadedness, dizziness, nausea or diaphoresis. She denies recent immobilization, travel except for recent hospitalization. No fever or chills reported. She denies any dysuria, hematuria or urgency. She is compliant with all of her medications. In the emergency room, her initial vital signs showed temperature of 98.4, respirations 18, pulse rate of 122 with a blood pressure of 140/85 with O2 saturation 97% on room air. Chest x-ray was negative for infiltrate. There was questionable small effusion on the left side. Cardizem IV 5 mg push along with 250 mL of normal saline has been ordered. PAST MEDICAL HISTORY: 1. Coronary artery disease, status post stent placement in January. She underwent coronary artery bypass grafting in 06/2017. 2. Paroxysmal atrial fibrillation, currently on amiodarone. She is not on anticoagulation due to GI bleeding, requiring blood transfusion in 10/2015. 3. Hypertension. 4. Hyperlipidemia. 5. Chronic anemia. 6. CML followed by [facility]. 7. History of nonsustained ventricular tachycardia in the past. PAST SURGICAL HISTORY: 1. Coronary stent placement with in-stent thrombosis with subsequent coronary artery bypass grafting. 2. Pericardial effusion, requiring pericardial window. 3. Hysterectomy. 4. Bilateral tubal ligation. 5. Cardiac catheterization with stent placement. ALLERGIES: No known drug allergies. CURRENT HOME MEDICATIONS: 1. Entresto, exact dose unknown. 2. Zocor 40 mg daily. 3. [place] as needed. 4. Lasix 40 mg b.i.d. Please note that patient was advised to take 80 mg b.i.d. over the last 2 days per Cardiology. 5. Prozac 20 mg daily. 6. Ferrous sulfate 325 mg daily. 7. Carvedilol 6.25 mg b.i.d. 8. Aspirin 325 mg daily. 9. Amiodarone 200 mg daily. 10. Allopurinol 100 mg daily. SOCIAL HISTORY: The patient currently lives at home with her . Denies any smoking, alcohol or drug use. FAMILY HISTORY: Positive for premature coronary artery disease. REVIEW OF SYSTEMS: The following complete review of systems was negative, unless otherwise mentioned in the HPI or below: Constitutional: Weight loss or gain, ability to conduct usual activities. Skin: Rash, itching. Eyes: Double vision, pain. ENT/Mouth: Nose bleeding, neck stiffness, pain, tenderness. Cardiovascular: Palpitations, dyspnea on exertion, orthopnea. Respiratory: Shortness of breath, wheezing, cough, hemoptysis, fever or night sweats. Gastrointestinal: Poor appetite, abdominal pain, heartburn, nausea, vomiting, constipation, or diarrhea. Genitourinary: Urgency, frequency, dysuria, nocturia. Musculoskeletal: Pain, swelling. Neurologic/Psychiatric: Anxiety, depression. Allergy/Immunologic: Skin rash, bleeding tendency. PHYSICAL EXAMINATION: VITAL SIGNS: As discussed above. GENERAL: A 66-year-old female, in no apparent distress, appears comfortable. HEENT: Head atraumatic, normocephalic. Sclerae are anicteric. Moist mucous membranes. No oral lesion. NECK: Supple, no JVD appreciated. No carotid bruit. LUNGS: Showed scattered rales at bases, left more than right. No wheezing or rhonchi. HEART: S1, S2 present. Irregularly irregular. Healed midline scar from previous CABG. ABDOMEN: Soft, nontender, bowel sounds present. EXTREMITIES: Trace edema in bilateral lower extremities. SKIN: Warm and dry. LYMPH NODES: No palpable lymph nodes in the neck. PERIPHERAL VASCULAR: Radial pulses palpable bilaterally. MUSCULOSKELETAL: No joint swelling or tenderness. LABORATORY FINDINGS: CBC showed WBC of 8.4 with hemoglobin 10.7, hematocrit 34.4, platelet of 254. Chemistries showed sodium 138, potassium 3.5, chloride 102, bicarbonate 25, BUN 12, creatinine of 0.95. LFTs in normal range. Albumin 3.3. Cardiac enzymes were normal. EKG by my review showed atrial fibrillation with rapid ventricular response. Chest x-ray by my review as discussed above. IMPRESSION: 1. Palpitations secondary to atrial fibrillation with rapid ventricular response. 2. Coronary artery disease with recent coronary artery bypass grafting. 3. Chronic systolic heart failure, ejection fraction 35% to 40%, appears to be compensated. 4. Chronic low back pain. 5. Hypertension. 6. Anxiety, depression. 7. Dyslipidemia. 8. Chronic kidney disease, stage 3. 9. History of pericardial effusion, requiring pericardial window. 10. History of GI bleeding, requiring blood transfusion in 10/2015. 11. Chronic myeloid leukemia. PLAN: 1. The patient will be monitored as a 23-hour observation on telemetry. Cardiology will be consulted. We will give her carvedilol as well as amiodarone (extra dose tonight). Serial cardiac enzymes. We will keep n.p.o. past midnight. We will resume other home medications. We will hold Cardizem drip for now. Plan of care was discussed with the patient in detail, she stated understanding. MTDD
[2017-07-25] MEDS ORDERED: Nitroglycerin 0.4 MG TAB (25 Tab Bottle) PO PRN (02:14)
[2017-07-25] MEDS ORDERED: Calcium Carbonate 500 MG ChewTAB PO PRN (02:14)
[2017-07-25] MEDS ORDERED: Mag-Al 1200 mg/1200 mg/30 ML UDCUP PO PRN (02:14)
[2017-07-25] MEDS ORDERED: Senokot 8.6 MG TAB PO PRN (02:14)
[2017-07-25] MEDS ORDERED: Amiodarone 200 MG TAB PO SCH (02:15)
[2017-07-25] MEDS ORDERED: Carvedilol 3.125 MG TAB PO SCH (02:15)
[2017-07-25] MEDS ORDERED: Potassium Chloride 20 MEQ TAB PO SCH (02:15)
[2017-07-25 02:23] LABS: Magnesium 1.7 mg/dL (1.6-2.6); Phosphorus 3.3 mg/dL (2.3-4.7)
[2017-07-25 02:31] VITALS: BMI 28.1
--- NOTE | 2017-07-25 08:41 | RAD ---
FRONTAL VIEW CHEST: COMPARISON: 06/17/17. INDICATION: Chest pain. FINDINGS: Cardiac silhouette is enlarged. The left lung base was obscured. There is vascular prominence bilat erally as well as interstitial prominence. Eliptiform intensity of the infralateral right chest like ly relates to soft tissue from overlying right upper extremity. IMPRESSION: Evidence of congestive heart failure. There is obscuration of the left lower lung zone due to enlarg ed cardiac silhouette. Recommend followup with dedicated 2- view chest series. POS: [facility]
[2017-07-25] MEDS: Amiodarone 200 MG TAB PO SCH (09:17)
[2017-07-25] MEDS: Aspirin 325 MG TAB PO SCH (09:17)
[2017-07-25] MEDS: Ondansetron ODT 4 MG TAB PO PRN ×2 (09:17→17:15)
[2017-07-25] MEDS: FLUoxetine HCl 20 MG CAP PO SCH (09:17)
[2017-07-25] MEDS: Carvedilol 3.125 MG TAB PO SCH ×2 (09:18→20:08)
[2017-07-25] MEDS: Allopurinol 100 MG TAB PO SCH (11:46)
[2017-07-25] MEDS: Furosemide 40 MG TAB PO SCH ×2 (11:54→13:34)
[2017-07-25] MEDS: Potassium Chloride 10 MEQ TAB PO SCH ×3 (11:54→17:16)
[2017-07-25] MEDS ORDERED: Digoxin 0.25 MG TAB PO SCH (13:45)
[2017-07-25] MEDS ORDERED: Digoxin 0.5 MG/2 ML AMP SLOW IVP SCH (13:45)
--- NOTE | 2017-07-25 15:16 | CON ---
DATE OF SERVICE: 07/25/2017 REASON FOR CONSULTATION: Atrial fibrillation, rapid ventricular response. HISTORY OF PRESENT ILLNESS: Mrs. Swan is a very pleasant 66-year-old white female who comes to the hospital for palpitation. She is very well known to myself. She has a history of ischemic cardiomyopathy and having had a recent bypass with the ALDANA to the LAD as she had failed a stent to her LAD. She has had paroxysmal atrial fibrillation for some time now. She has had several pericardial effusion episodes, before the bypass she had to have a pericardial window. She comes in she felt a sudden onset of palpitations last night. She was very symptomatic from it and increasingly more short of breath, so she decided to come in for this. In the ER, she was found to be in atrial fibrillation with RVR and was admitted for further evaluation and care. Currently, her heart rate is in the low 100s to upper 90s. She has taken all her medications including the amiodarone. She has not had any fevers or chills. She was seen by EP last time she was in the hospital for fevers after her surgery and continued medical therapy was recommended given her situation at that time was more of an infection. She had not had paroxysmal of atrial fibrillation since being in the hospital at that time. PAST MEDICAL HISTORY: 1. Ischemic cardiomyopathy. 2. CML in remission. 3. Hypertension. 4. Hyperlipidemia. 5. Status post bypass with ALDANA to LAD only. 6. Pericardial effusion status post window, thought to be related to bosutinib. 7. Diverticulitis in the past. PAST SURGICAL HISTORY: 1. Pericardial window. 2. CABG x1. 3. Hysterectomy. 4. Bilateral tubal ligation. 5. Stent placement as well. OUTPATIENT MEDICATIONS: Include, 1. Carvedilol 6.25 mg p.o. b.i.d. 2. Entresto 24/26 b.i.d. 3. Zocor 40 q.p.m. 4. [place] p.r.n. 5. Furosemide 40 mg b.i.d. 6. Ferrous sulfate 325 mg a day. 7. Prozac 20 mg a day. 8. Aspirin 325 a day. 9. Amiodarone 200 mg a day. 10. Allopurinol 100 mg a day. ALLERGIES: No known drug allergies. SOCIAL HISTORY: No alcohol, tobacco or drugs. FAMILY HISTORY: Two brothers of coronary artery disease. REVIEW OF SYSTEMS: A 12-point review of systems was done and is all negative unless stated in the history of present illness. PHYSICAL EXAMINATION: VITAL SIGNS: Temperature 98.5, pulse 97, respiration rate 20, satting 93% on 2 liters, blood pressure 105/69. GENERAL: Awake, alert, oriented x3, in no distress. HEENT: Normocephalic, atraumatic. NECK: Supple. LUNGS: Clear. CARDIOVASCULAR: S1, S2, no S3, S4. There is a irregularly irregular heart rate. No significant murmurs. ABDOMEN: Soft. EXTREMITIES: No edema. SKIN: Warm and dry. LABORATORY WORK: Reviewed. CBC is unremarkable. Chemistry is unremarkable. Albumin of 3.3. Troponin is negative x1. EKG was reviewed, atrial fibrillation. ASSESSMENT AND PLAN: 1. Paroxysmal atrial fibrillation, A flutter on arrival. Recurrent despite treating with amiodarone. She came in in a more organized rhythm in flutter but has since degenerated back to afib. We will ask for the [employer] consultation as I think she would be a candidate for an ablation at this point. We will defer to the electrophysiology recommendations for this. For now, we will continue to try to rate control. She has a lot of paroxysms of atrial fibrillation when she behaves this way and she will most likely go back to sinus in the next few hours. Otherwise, we will try to keep the heart rate less than 110. We will give one dose of digoxin and try to do this for now as she drops significantly her blood pressure when given 1 dose of diltiazem. 2. Coronary artery disease, stable at this time. 3. Chronic myeloid leukemia, in remission. Thank you for letting us participate in the care of your patient. We will follow. MILLER
[2017-07-25] MEDS: Acetaminophen 325 MG TAB PO PRN (17:16)
[2017-07-25] MEDS: Simvastatin 40 MG TAB PO SCH (20:08)
[2017-07-25] MEDS: Enoxaparin Sodium 80 MG/0.8 ML SYRINGE SC SCH (20:08)
[2017-07-26] MEDS: Potassium Chloride 10 MEQ TAB PO SCH ×3 (08:14→17:55)
[2017-07-26] MEDS: Allopurinol 100 MG TAB PO SCH (08:14)
[2017-07-26] MEDS: Aspirin 325 MG TAB PO SCH (08:14)
[2017-07-26] MEDS: Furosemide 40 MG TAB PO SCH ×2 (08:14→13:33)
[2017-07-26] MEDS: FLUoxetine HCl 20 MG CAP PO SCH (08:14)
[2017-07-26] MEDS: Carvedilol 3.125 MG TAB PO SCH ×2 (08:14→20:08)
[2017-07-26] MEDS: Amiodarone 200 MG TAB PO SCH (08:14)
[2017-07-26] MEDS: Enoxaparin Sodium 80 MG/0.8 ML SYRINGE SC SCH ×2 (08:15→20:08)
--- NOTE | 2017-07-26 11:59 | PDOC.PN ---
- Subjective Encounter Start Date: 07/26/17 Encounter Start Time: 08:50 Pt seen and examined, chart reviewed. Seen by Dr Arce yesterday. Called EP as pt has had multiple admits for afib with RVR and he thinks she needs and ablation. I started po cardizem yesterday. PT converted to NSR at 1800 last evening. Feeling better, getting around, no syncope or syncope, no f/C, no CP or SOb, no abd complaints. 10 point ROs performed and neg for all systems except as PER HPI - Objective MAR Reviewed: Yes Vital Signs & Weight: Vital Signs (12 hours) Temp Pulse Resp BP Pulse Ox 07/26/17 11:20 97.5 F L 51 L 18 109/54 L 91 L 07/26/17 08:00 99.3 F 59 L 18 07/26/17 07:20 99.3 F 59 L 18 113/55 L 96 07/26/17 04:00 98.5 F 57 L 16 116/54 L 96 07/26/17 00:00 98.4 F 58 L 16 110/58 L 95 Weight Weight 181 lb I&O: 07/25/17 07/26/17 07/27/17 06:59 06:59 06:59 Intake Total 500 Balance 500 Result Diagrams: 07/25/17 00:36 07/25/17 00:36 Radiology Reviewed by me: Yes EKG Reviewed by me: Yes Phys Exam - Physical Examination Constitutional: NAD HEENT: PERRLA, moist MMs, sclera anicteric, oral pharynx no lesions Neck: no nodes, no JVD, supple, full ROM Respiratory: no wheezing, no rales, no rhonchi, clear to auscultation bilateral Cardiovascular: RRR, no significant murmur, no rub Gastrointestinal: soft, non-tender, no distention, positive bowel sounds Musculoskeletal: no edema, pulses present Neurological: non-focal, normal sensation, moves all 4 limbs Lymphatic: no nodes Psychiatric: normal affect, A&O x 3 Skin: no rash, normal turgor, cap refill <2 seconds Dx/Plan (1) Chronic systolic CHF (congestive heart failure) Code(s): I50.22 - CHRONIC SYSTOLIC (CONGESTIVE) HEART FAILURE Status: Chronic (2) CML (chronic myelocytic leukemia) Code(s): C92.10 - CHRONIC MYELOID LEUK, BCR/ABL-POSITIVE, NOT ACHIEVE REMIS Status: Chronic (3) Dyslipidemia Code(s): E78.5 - HYPERLIPIDEMIA, UNSPECIFIED Status: Chronic (4) Hypertension Code(s): I10 - ESSENTIAL (PRIMARY) HYPERTENSION Status: Chronic Qualifiers: Hypertension type: essential hypertension Qualified Code(s): I10 - Essential (primary) hypertension (5) Atrial fibrillation with RVR Code(s): I48.91 - UNSPECIFIED ATRIAL FIBRILLATION Status: Resolved - Plan cont current plan of care * . cardizem stopped by anthony yesterday, obviously will not restart. Dr Carmona to see geeta for him, unsure when EP will come by. they did not see him yesterday or did not leave a note. Written chart and electronic chart reviewed
[2017-07-26] MEDS: Simvastatin 40 MG TAB PO SCH (20:08)
[2017-07-27] MEDS: Potassium Chloride 10 MEQ TAB PO SCH ×3 (08:39→17:30)
[2017-07-27] MEDS: Amiodarone 200 MG TAB PO SCH (08:39)
[2017-07-27] MEDS: Allopurinol 100 MG TAB PO SCH (08:39)
[2017-07-27] MEDS: Furosemide 40 MG TAB PO SCH ×2 (08:39→14:50)
[2017-07-27] MEDS: Carvedilol 3.125 MG TAB PO SCH ×2 (08:39→20:07)
[2017-07-27] MEDS: FLUoxetine HCl 20 MG CAP PO SCH (08:39)
[2017-07-27] MEDS: Aspirin 325 MG TAB PO SCH (08:39)
[2017-07-27] MEDS: Enoxaparin Sodium 80 MG/0.8 ML SYRINGE SC SCH ×2 (08:40→20:11)
--- NOTE | 2017-07-27 10:21 | PDOC.PN ---
- Subjective Encounter Start Date: 07/27/17 Encounter Start Time: 09:05 Pt feeling good, no F/c, no N/V/D/C, no CP or sOB. remaining NSR. Cardiology note from yesterday reviewed, awaiting EP. 10 point ROs performed and neg for all systems except as per HPI - Objective MAR Reviewed: Yes Vital Signs & Weight: Vital Signs (12 hours) Temp Pulse Resp BP Pulse Ox 07/27/17 07:48 98.3 F 57 L 16 112/53 L 95 07/27/17 04:00 98.3 F 53 L 16 111/52 L 90 L 07/27/17 01:13 100 F H 54 L 16 102/49 L 91 L Weight Weight 180 lb 4.8 oz I&O: 07/26/17 07/27/17 07/28/17 06:59 06:59 06:59 Intake Total 500 1300 Balance 500 1300 Result Diagrams: 07/25/17 00:36 07/25/17 00:36 Radiology Reviewed by me: Yes EKG Reviewed by me: Yes Phys Exam - Physical Examination Constitutional: NAD HEENT: PERRLA, moist MMs, sclera anicteric, oral pharynx no lesions Neck: no nodes, no JVD, supple, full ROM Respiratory: no wheezing, no rales, no rhonchi, clear to auscultation bilateral Cardiovascular: RRR, no significant murmur, no rub Gastrointestinal: soft, non-tender, no distention, positive bowel sounds Musculoskeletal: no edema, pulses present Neurological: non-focal, normal sensation, moves all 4 limbs Lymphatic: no nodes Psychiatric: normal affect, A&O x 3 Skin: no rash, normal turgor, cap refill <2 seconds Dx/Plan (1) Chronic systolic CHF (congestive heart failure) Code(s): I50.22 - CHRONIC SYSTOLIC (CONGESTIVE) HEART FAILURE Status: Chronic (2) CML (chronic myelocytic leukemia) Code(s): C92.10 - CHRONIC MYELOID LEUK, BCR/ABL-POSITIVE, NOT ACHIEVE REMIS Status: Chronic (3) Dyslipidemia Code(s): E78.5 - HYPERLIPIDEMIA, UNSPECIFIED Status: Chronic (4) Hypertension Code(s): I10 - ESSENTIAL (PRIMARY) HYPERTENSION Status: Chronic Qualifiers: Hypertension type: essential hypertension Qualified Code(s): I10 - Essential (primary) hypertension (5) Atrial fibrillation with RVR Code(s): I48.91 - UNSPECIFIED ATRIAL FIBRILLATION Status: Resolved Comment: rachel martínez. likely NPO after MN. medically stable now. - Plan cont current plan of care * .
[2017-07-27] MEDS: Simvastatin 40 MG TAB PO SCH (20:07)
[2017-07-28] MEDS: Amiodarone 200 MG TAB PO SCH (11:10)
[2017-07-28] MEDS: Carvedilol 3.125 MG TAB PO SCH ×2 (11:10→20:09)
[2017-07-28] MEDS: Potassium Chloride 10 MEQ TAB PO SCH ×4 (11:10→17:35)
[2017-07-28] MEDS: Allopurinol 100 MG TAB PO SCH (11:10)
[2017-07-28] MEDS: Furosemide 40 MG TAB PO SCH ×2 (11:10→13:56)
[2017-07-28] MEDS: FLUoxetine HCl 20 MG CAP PO SCH (11:10)
[2017-07-28] MEDS: Aspirin 325 MG TAB PO SCH (11:10)
[2017-07-28] MEDS: Enoxaparin Sodium 80 MG/0.8 ML SYRINGE SC SCH ×2 (11:11→20:10)
--- NOTE | 2017-07-28 11:23 | PDOC.CTH ---
Cardiology Progress Note - Subjective No new issues. She converted to sinus rhythm over the weekend and has remained asymptomatic. - Objective Vital Signs Temp Pulse Resp BP Pulse Ox 07/28/17 08:00 97.7 F 50 L 18 94 L 07/28/17 07:20 97.7 F 50 L 18 135/61 94 L 07/28/17 03:57 98.3 F 53 L 16 119/58 L 95 07/27/17 23:41 98.3 F 54 L 16 106/54 L 97 Weight 179 lb 1.6 oz 07/27/17 07/28/17 07/29/17 06:59 06:59 06:59 Intake Total 1300 1350 Balance 1300 1350 - Physical Examination General/Neuro: alert & oriented x3, NAD Neck: no JVD present Lungs: CTA, unlabored respirations Heart: RRR Abdomen: NT/ND Extremities: other: (no edema.) - Telemetry Telemetry Rhythm: S elizabeth. - Labs Result Diagrams: 07/25/17 00:36 07/25/17 00:36 Troponin/CKMB CK-MB (CK-2) 0.7 ng/mL (0-6.6) 07/25/17 00:36 Troponin I 0.013 ng/mL (< 0.028) 07/25/17 00:36 - Assessment/Plan 1. Aflutter/Afib, paroxysmal 2. CAD s/p ALDANA to LAD. 3. Pericardial effusion s.p window in the past. 4. CML in remission. 5. Ischemic CM last EF at 40%. PLAN: - Will do echo today. - EP saw patient and plan to do aflutter ablation tomorrow and Afib ablation in the future. - Continue full anticoagulation for now. - No evidence of bleeding.
--- NOTE | 2017-07-28 12:01 | PDOC.PN ---
- Subjective Encounter Start Date: 07/28/17 Encounter Start Time: 09:40 Pt seen by cardiology and EP since my visit with her, plan to do aflutter ablation tomorrow and afib ablation later as an outpatient. remains in NSR. No CP or SOB. cardiology wants to get an echo today No F/C, no N/V/D/C. 10 point ROS performed and neg for all systems except as per HPI - Objective MAR Reviewed: Yes Vital Signs & Weight: Vital Signs (12 hours) Temp Pulse Resp BP Pulse Ox 07/28/17 11:21 97.7 F 52 L 18 174/71 H 99 07/28/17 08:00 97.7 F 50 L 18 94 L 07/28/17 07:20 97.7 F 50 L 18 135/61 94 L 07/28/17 03:57 98.3 F 53 L 16 119/58 L 95 Weight Weight 179 lb 1.6 oz I&O: 07/27/17 07/28/17 07/29/17 06:59 06:59 06:59 Intake Total 1300 1350 Balance 1300 1350 Result Diagrams: 07/25/17 00:36 07/25/17 00:36 Radiology Reviewed by me: Yes EKG Reviewed by me: Yes Phys Exam - Physical Examination Constitutional: NAD HEENT: PERRLA, moist MMs, sclera anicteric, oral pharynx no lesions Neck: no nodes, no JVD, supple, full ROM Respiratory: no wheezing, no rales, no rhonchi, clear to auscultation bilateral Cardiovascular: RRR, no significant murmur, no rub Gastrointestinal: soft, non-tender, no distention, positive bowel sounds Musculoskeletal: no edema, pulses present Neurological: non-focal, normal sensation, moves all 4 limbs Lymphatic: no nodes Psychiatric: normal affect, A&O x 3 Skin: no rash, normal turgor, cap refill <2 seconds Dx/Plan (1) Chronic systolic CHF (congestive heart failure) Code(s): I50.22 - CHRONIC SYSTOLIC (CONGESTIVE) HEART FAILURE Status: Chronic Comment: repeat echo today. cardiology following. No acute exacerbation (2) CML (chronic myelocytic leukemia) Code(s): C92.10 - CHRONIC MYELOID LEUK, BCR/ABL-POSITIVE, NOT ACHIEVE REMIS Status: Chronic Comment: in remission (3) Dyslipidemia Code(s): E78.5 - HYPERLIPIDEMIA, UNSPECIFIED Status: Chronic (4) Hypertension Code(s): I10 - ESSENTIAL (PRIMARY) HYPERTENSION Status: Chronic Qualifiers: Hypertension type: essential hypertension Qualified Code(s): I10 - Essential (primary) hypertension (5) Paroxysmal atrial fibrillation Code(s): I48.0 - PAROXYSMAL ATRIAL FIBRILLATION Status: Chronic (6) Atrial fibrillation with RVR Code(s): I48.91 - UNSPECIFIED ATRIAL FIBRILLATION Status: Resolved Comment: rachel martínez. likely NPO after MN. medically stable now. - Plan cont current plan of care * . aflutter ablation tomorrow, likely discharge after. NPO after midnight follow up on echo results
[2017-07-28] MEDS: Acetaminophen 325 MG TAB PO PRN (13:54)
--- NOTE | 2017-07-28 17:39 | CON ---
DATE OF CONSULTATION: 07/28/2017 ELECTROPHYSIOLOGY CONSULTATION REASON FOR CONSULTATION: Atrial fibrillation with rapid ventricular response. REFERRING PHYSICIAN: Dr. Dinh Arce. HISTORY OF PRESENT ILLNESS: Ms. Swan is a very pleasant 66-year-old female who was recently ad mitted to the hospital for palpitations. She has been hospitalized in the past recently for bypass, recurrent pericardial effusion, and recurrent fevers. We were initially consulted at this time as [facility] patient was found to be in atrial fibrillation with RVR, and at that time recommend continued amiod arone when medical management given her acute illness. She has been well maintained with her oral re gimen until the night of the at which time she became very symptomatic with her arrhythmia. At around 11:30 at night, she woke up with sensation of racing heart and thumping in her chest. She den ies any pain associated with this arrhythmia or passing out, but does report that was extremely uncom fortable. She has had episodes like this in the past and usually it subside; however, she went to [facility] emergency room. She reports that she is not missed any of her medications. Denies any recent acut e illness. She denies any fevers, chills, malaise, stroke or stroke-like symptoms. Since being admi tted to the floor, she has not had any recurrent racing of her heart. PAST MEDICAL HISTORY: 1. Ischemic cardiomyopathy. 2. Chronic lymphocytic leukemia in remission. 3. Recurrent pericardial effusions, status post window. 4. Coronary artery disease, status post single vessel bypass (ALDANA to LAD only). 5. Hypertension. 6. Hyperlipidemia. 7. Diverticulitis. PAST SURGICAL HISTORY: Pericardial window; coronary artery bypass, single vessel; hysterectomy; bila teral tubal ligation; and coronary stent placement to the LAD. ALLERGIES: No known drug allergies. HOME MEDICATIONS: Include allopurinol, amiodarone 200 mg daily, aspirin 325 mg daily, Coreg 6.25 mg p.o. b.i.d., Entresto 24/26 p.o. b.i.d., Zocor 40 mg q.p.m., furosemide 20 mg p.o. b.i.d., ferrous mooney lfate 325 mg p.o. daily, Prozac 20 mg daily. SOCIAL HISTORY: Denies alcohol, tobacco, or drug use. FAMILY HISTORY: The patient had 2 brothers, who from myocardial infarctions at ages of 4 6 and 54. Denies family history of cancer or stroke. The patient has had QT prolongation since last time we saw her and at that time it was recommended to optimize her medical therapy including discontinuing Prozac in favor of an alternative agent that wo uld be less likely to contribute to QT prolongation. REVIEW OF SYMPTOMS: A 12-point review of systems was completed and negative with the exception of th at stated in the HPI. PHYSICAL EXAMINATION: VITAL SIGNS: 97.7 degrees Fahrenheit, pulse is 58, respirations 18, oxygen saturation 99% on room ai r, blood pressure is 135/61. GENERAL: The patient is alert and oriented, in no acute distress. Her affect is appropriate. Her s peech is clear. NECK: Supple. Jugular veins are not distended. LUNGS: Clear to auscultation bilaterally without wheezes, crackles, or rhonchi. There is good bilat eral excursion. CARDIOVASCULAR: Heart sounds are irregularly irregular without murmurs, rubs or gallops. PMI is bijan nt. ABDOMEN: Benign, positive bowel sounds. No hepatosplenomegaly. Hepatojugular reflex is negative. NEUROLOGIC: Grossly intact. The patient is nonfocal without deficit. EXTREMITIES: Warm and dry to touch without evidence of edema, cyanosis, or clubbing. Pulses are pal pable. DATABASE: EKG performed in the emergency room upon presentation revealed atrial fibrillation with ve ntricular response of 120 beats per minute. Since that time, the patient has occasionally being in s inus bradycardia. Then, at one time, had an episode of atrial tachycardia, which could be typical at [facility] as well. Currently, the patient in sinus bradycardia, heart rate in the 50s. Initial E KG that revealed atrial fibrillation and the ventricular response rate of 120 beats via QRC duration was 106 milliseconds and QTC is prolonged at 537 milliseconds. LABORATORY DATA: Labs were performed on 07/25/2017, WBC is 8.4, hemoglobin 7.7, hematocrit 34.4, and platelets 154. Chemistry panel on the 15, sodium 138, potassium 3.5, chloride 102, carbon dioxide 25, BUN 12, creatinine 0.95. AST 11, ALT 7, phosphorus 3.3, and magnesium 1.9. Troponins were nega tive. Chest x-ray from 07/25/2017 revealed some evidence of congestive heart failure with an left l ower region [place] from an enlarged cardiac silhouette. ASSESSMENT AND PLAN: 1. [place] her paroxysmal atrial fibrillation and spontaneously converted to normal sinus rhythm las t night. 2. Ischemic cardiomyopathy. 3. Apparent pericardial effusion. Status post pericardial window. 4, Intervention urination. Paroxysmal atrial fibrillation recently with rapid ventricular date putting her to seek case medical attention emergency room. She has spontaneously converted to normal sinus mechanism at this time but continues to have atrial arrhythmias intermittently. With reviewing her telemetry strips. It appea rs that she has typical atrial flutter, but would likely be best served with EP study to better evalu ate and understand her arrhythmias. This has been discussed with the patient and is scheduled for to [place]. If we find typical atrial flutter, we will proceed with cavotricuspid isthmus ablation. Reg arding her QTC prolongation, the recommendations, agents, which may consider to the. We would recomm end discontinuing her back in favor of an alternative age. We recently just increased her dose. Sh e may need more time at this dose and to become therapeutic or may need to increased dose of amiodaro ne in the future for improved supression of atrial arrhythmias. We discussed with the patient, the r isks involved with an EP studies and CT ablation which include bleeding at the groin access sites and hematoma formation and damage to tissues, blood vessels, and/or nerves in the surrounding area and p rogressing up to the heart. In addition to the tissue, bleeding at the end of the pericardium and po ssible need for a pacemaker. The patient verbalizes understanding these risks and wishes to proceed with the procedure tomorrow. She will be n.p.o after midnight. All her family have had a chance to ask questions, which have all been answered. Thank you for allowing us to participate in the care of this patient.
[2017-07-28] MEDS: Simvastatin 40 MG TAB PO SCH (20:09)
[2017-07-29] MEDS: Carvedilol 3.125 MG TAB PO SCH ×2 (06:03→20:35)
[2017-07-29] MEDS: Amiodarone 200 MG TAB PO SCH (06:04)
[2017-07-29] MEDS: Potassium Chloride 10 MEQ TAB PO SCH ×2 (10:41→19:34)
[2017-07-29] MEDS: Enoxaparin Sodium 80 MG/0.8 ML SYRINGE SC SCH ×2 (10:41→20:36)
[2017-07-29] MEDS: Allopurinol 100 MG TAB PO SCH (10:41)
[2017-07-29] MEDS: Furosemide 40 MG TAB PO SCH ×2 (10:41→19:35)
--- NOTE | 2017-07-29 10:53 | PDOC.PN ---
- Subjective Encounter Start Date: 07/29/17 Encounter Start Time: 08:30 Ablation scheduled for 3pm. No afib. No complaint,s no acute events. Deneis F/C, no N/V/d/C, no CP or SOB 10 point ROS performed and neg for all systems except as above - Objective MAR Reviewed: Yes Vital Signs & Weight: Vital Signs (12 hours) Temp Pulse Resp BP Pulse Ox 07/29/17 08:00 97.6 F 48 L 18 95 07/29/17 07:20 97.6 F 48 L 18 133/63 95 07/29/17 03:36 97.7 F 52 L 16 117/56 L 95 07/29/17 00:10 97.8 F 56 L 18 117/60 97 Weight Weight 180 lb 1.6 oz I&O: 07/28/17 07/29/17 07/30/17 06:59 06:59 06:59 Intake Total 1350 1440 Balance 1350 1440 Result Diagrams: 07/25/17 00:36 07/25/17 00:36 Radiology Reviewed by me: No EKG Reviewed by me: Yes Phys Exam - Physical Examination Constitutional: NAD HEENT: PERRLA, moist MMs, sclera anicteric, oral pharynx no lesions Neck: no nodes, no JVD, supple, full ROM Respiratory: no wheezing, no rales, no rhonchi, clear to auscultation bilateral Cardiovascular: RRR, no significant murmur, no rub Gastrointestinal: soft, non-tender, no distention, positive bowel sounds Musculoskeletal: no edema, pulses present Neurological: non-focal, normal sensation, moves all 4 limbs Lymphatic: no nodes Psychiatric: normal affect, A&O x 3 Skin: no rash, normal turgor, cap refill <2 seconds Dx/Plan (1) Chronic systolic CHF (congestive heart failure) Code(s): I50.22 - CHRONIC SYSTOLIC (CONGESTIVE) HEART FAILURE Status: Chronic Comment: Echo results reviewed. cardiology following. No acute exacerbation (2) CML (chronic myelocytic leukemia) Code(s): C92.10 - CHRONIC MYELOID LEUK, BCR/ABL-POSITIVE, NOT ACHIEVE REMIS Status: Chronic Comment: in remission (3) Dyslipidemia Code(s): E78.5 - HYPERLIPIDEMIA, UNSPECIFIED Status: Chronic (4) Hypertension Code(s): I10 - ESSENTIAL (PRIMARY) HYPERTENSION Status: Chronic Qualifiers: Hypertension type: essential hypertension Qualified Code(s): I10 - Essential (primary) hypertension (5) Paroxysmal atrial fibrillation Code(s): I48.0 - PAROXYSMAL ATRIAL FIBRILLATION Status: Chronic Comment: in NSR, ablation for flutter today, fib later (6) Atrial fibrillation with RVR Code(s): I48.91 - UNSPECIFIED ATRIAL FIBRILLATION Status: Resolved Comment: awiaitng EP eval. likely NPO after MN. medically stable now. - Plan * . anticipate discharge today after ablation or otmorrow AM, will follow up on cardiology and EP recommendations
[2017-07-29] MEDS ORDERED: ePHEDrine/0.9% NaCl/PF SYRINGE 50 mg/10 ml ONE (11:41)
[2017-07-29] MEDS ORDERED: Lidocaine 1% PF 5 ML VIAL ONE (11:41)
[2017-07-29] MEDS ORDERED: PHENYLEPHRINE-NS 100 MCG/ML 10 ML SYRINGE ONE (11:41)
--- NOTE | 2017-07-29 12:42 | PDOC.CTH ---
Cardiology Progress Note - Subjective She is doing well. She is awaiting EP study and possible aflutter ablation. - Objective Vital Signs Temp Pulse Resp BP Pulse Ox 07/29/17 11:20 97.8 F 50 L 18 137/64 96 07/29/17 08:00 97.6 F 48 L 18 95 07/29/17 07:20 97.6 F 48 L 18 133/63 95 07/29/17 03:36 97.7 F 52 L 16 117/56 L 95 Weight 180 lb 1.6 oz 07/28/17 07/29/17 07/30/17 06:59 06:59 06:59 Intake Total 1350 1440 Balance 1350 1440 - Physical Examination General/Neuro: alert & oriented x3, NAD Neck: no JVD present Lungs: unlabored respirations Heart: RRR Abdomen: NT/ND Extremities: other: (no edema) - Telemetry Telemetry Rhythm: S Kane. - Labs Result Diagrams: 07/25/17 00:36 07/25/17 00:36 Troponin/CKMB CK-MB (CK-2) 0.7 ng/mL (0-6.6) 07/25/17 00:36 Troponin I 0.013 ng/mL (< 0.028) 07/25/17 00:36 - Assessment/Plan 1. Aflutter/Afib, paroxysmal 2. CAD s/p ALDANA to LAD. 3. Pericardial effusion s/p window in the past. 4. CML in remission. 5. Ischemic CM, EF improved now at 45-50%. PLAN: - Awaiting results of PE study and possible ablation. - Continue full anticoagulation for now. - No evidence of bleeding.
[2017-07-29] MEDS ORDERED: Heparin 1000 UNIT/NS 500ML(OR) 500 ML ONE (15:38)
[2017-07-29] MEDS ORDERED: Midazolam HCl 2 mg/2 ml Vial ONE (15:42)
[2017-07-29] MEDS ORDERED: Fentanyl 100 MCG/2 ML VIAL ONE (15:42)
[2017-07-29] MEDS ORDERED: Diprivan 20 ML ONE (15:44)
[2017-07-29] MEDS ORDERED: Ondansetron HCl/PF 4 MG/2 ML Vial IVP PRN ×2 (16:17→18:57)
--- NOTE | 2017-07-29 16:32 | EKG ---
Test Reason : PREOP Blood Pressure : / mmHG Vent. Rate : 049 BPM Atrial Rate : 049 BPM P-R Int : 188 ms QRS Dur : 104 ms QT Int : 604 ms P-R-T Axes : 029 046 -05 degrees QTc Int : 545 ms Marked sinus bradycardia Non-specific intra-ventricular conduction delay Lateral infarct , age undetermined Prolonged QT Abnormal ECG Confirmed by ISABELL BUTLER ([id number]) on 07/29/2017 4:32:00 PM Referred By: CATARINO Confirmed By:ISABELL BUTLER
[2017-07-29] MEDS ORDERED: Heparin 10,000 UNITS/1 ML VIAL ONE (16:43)
[2017-07-29] MEDS ORDERED: Diltiazem 125 MG/25 ML ONE (16:58)
[2017-07-29] MEDS ORDERED: Propofol 500 MG/50 ML VIAL ONE (16:58)
[2017-07-29] MEDS ORDERED: DOPamine 400 MG/D5W 250 ML 250 ML ONE (17:00)
[2017-07-29] MEDS ORDERED: Silver Sulfadiazine 1% Cream 50 GM JAR TOP PRN (18:57)
[2017-07-29] MEDS ORDERED: Bisacodyl 10 MG SUPP PR PRN (18:57)
[2017-07-29] MEDS ORDERED: Nitroglycerin 0.4 MG TAB (25 Tab Bottle) SL PRN (18:57)
[2017-07-29] MEDS ORDERED: Mag-Al 1200 mg/1200 mg/30 ML UDCUP PO PRN (18:57)
[2017-07-29] MEDS ORDERED: Acetaminophen 325 MG TAB PO PRN (18:57)
[2017-07-29] MEDS ORDERED: traMADol HCl 50 MG TAB PO PRN (18:57)
[2017-07-29] MEDS ORDERED: diphenhydrAMINE 25 MG CAP PO PRN (18:57)
[2017-07-29] MEDS ORDERED: Bisacodyl 5 MG TAB PO PRN (18:57)
[2017-07-29] MEDS ORDERED: Temazepam 15 MG CAP PO PRN (18:57)
[2017-07-29] MEDS: Aspirin 325 MG TAB PO SCH (19:34)
[2017-07-29] MEDS: FLUoxetine HCl 20 MG CAP PO SCH (19:34)
[2017-07-29] MEDS: Simvastatin 40 MG TAB PO SCH (20:35)
[2017-07-30 06:38] LABS: Hematocrit 33.2 % (36.0-47.0)
--- NOTE | 2017-07-30 06:38 | CCLSPC ---
DATE: 07/29/2017 REFERRING PHYSICIAN: Dinh Arce MD ELECTROPHYSIOLOGY STUDY AND RADIOFREQUENCY ABLATION REPORT Ms. Swan is a 66-year-old female with prior history of paroxysmal then persistent atrial fibril lation requiring amiodarone suppression in the setting of pericarditis who required pericardial tap i n last admission. We are treating her with IV amiodarone, now returned with recurrent palpitation wi th EKG suggesting of typical atrial flutter. She has spontaneously converted back to sinus rhythm bu t has the high symptomatic flutter. We are planning a cavotricuspid isthmus ablation. DESCRIPTION OF PROCEDURE: The patient received deep anesthesia by Anesthesia specialist. After adeq uate level of sedation achieved, the right femoral vein was prepped and draped, anesthetized using mooney bcutaneous lidocaine and two 8-Amharic short sheath was introduced after accessing the vein with a mul tipurpose needle. Through this, a good decapolar catheter was advanced to the CS, His bundle at [facility] t ventricle area. Pacing, mapping and recording was obtained location. Basic EP study was obt ained revealing baseline cycle length of 1284 milliseconds, PA 210 milliseconds, HV 45 milliseconds, QT is about 448 milliseconds. The sinus node recovery time is 991 milliseconds with corrected sinus recovering time is 707 milliseconds. AV Wenckebach cycle length 440, ventricular pacing revealed no VA conduction. Burst atrial pacing induced typical atrial flutter with distal CS pacing terminating the atrial flutt er with long cycle length. Subsequent to that cavotricuspid isthmus ablation was performed using a [employer] cathete r after right atrial 3D map was obtained. was also obtained. After ablation, the transisthmus time is increased over 200 milliseconds. This was rechecked after dopamine challenge. The burst at rial pacing did induce atrial fibrillation and a repeat 150 mg amiodarone bolus was also given. CONCLUSION: 1. Typical atrial flutter induced. 2. Successful cavotricuspid isthmus ablation. 3. Residual atrial fibrillation suppressed with IV amiodarone bolus. 4. Prolonged sinus node recovery time suggestive of sinus node disease in the setting of chronic ami odarone use. PLAN: Routine postoperative care. Consider long-term pulmonary venous isolation procedure after recovering from pericardial process. POS: [facility]
[2017-07-30 08:14] VITALS: BP 129/68; TEMP 98.8
[2017-07-30] MEDS: Aspirin 325 MG TAB PO SCH (08:34)
[2017-07-30] MEDS: Enoxaparin Sodium 80 MG/0.8 ML SYRINGE SC SCH (08:34)
[2017-07-30] MEDS: Potassium Chloride 10 MEQ TAB PO SCH ×2 (08:34→11:01)
[2017-07-30] MEDS: Allopurinol 100 MG TAB PO SCH (08:34)
[2017-07-30] MEDS: Furosemide 40 MG TAB PO SCH (08:34)
[2017-07-30] MEDS: FLUoxetine HCl 20 MG CAP PO SCH (08:34)
[2017-07-30] MEDS: Amiodarone 200 MG TAB PO SCH (08:55)
[2017-07-30] MEDS: Carvedilol 3.125 MG TAB PO SCH (09:42)
[2017-07-30] MEDS ORDERED: Carvedilol 3.125 MG TAB PO SCH ×2 (10:00→21:00)
--- NOTE | 2017-07-30 10:08 | DIS ---
PRIMARY CARE PHYSICIAN: Listed is Dr. Sara Roy EP PHYSICIAN: Dr. Sean Sinclair BINDER AND WRAPPER PACKER: Dr. Dinh Arce DATE OF ADMISSION: 07/25/2017 DATE OF DISCHARGE: 07/30/2017 DISCHARGE DIAGNOSES: 1. Paroxysmal atrial fibrillation. 2. Paroxysmal atrial flutter. 3. Chronic diastolic congestive heart failure. 4. Pericardial effusion, chronic, status post pericardial window remotely. 5. Chronic myelogenous leukemia in remission. 6. Hyperlipidemia. 7. Hypertension, essential. 8. Atrial fibrillation with rapid ventricular response, resolved. CONSULTATIONS: 1. Cardiology, Dr. Arce. 2. Electrophysiology, Dr. Sinclair PROCEDURES: Atrial flutter ablation 07/29/2017. HISTORY OF PRESENT ILLNESS: Ms. Swan is a 66-year-old white female with the above history who presented to the Emergency Department for shortness of breath and chest pressure on 07/25/2017. She was found to be in atrial fibrillation with RVR. She presented to the emergency department initiall y late on 07/24/2017 and was seen and worked up and we were called for admission. The patient was seen wrapper hand by Dr. Osman Torres and admitted. Her amiodarone was increased. C ardiology was consulted. An echocardiogram was ordered. Echo was unchanged, Dr. Arce saw her and actually stopped the oral Cardizem. Because she has been in and out with multiple episodes of paroxysmal disease and Electrophysiology was consulted. However , due to the weekend, Electrophysiology was unable to see the patient until 07/28/2017. On their keyur luation, they agreed to take her to the EP Lab on 07/29/2017 for an atrial flutter ablation now and g o back in a few months for atrial fibrillation ablation. She had remained in sinus rhythm throughout her hospital stay. She tolerated the procedure on 2016 well without any difficulties. She remains in sinus rhythm and was stable for discharge. PHYSICAL EXAMINATION: The patient was seen and examined on the day of discharge. Discharge plan and disposition were discussed with the patient and her face to face at the [facility]. DISCHARGE MEDICATIONS: 1. Eliquis 5 mg p.o. b.i.d. New prescription sent for 1 month supply with 2 refills. 2. Allopurinol 100 mg daily to continue. 3. Amiodarone 200 mg daily. 4. Aspirin 325 mg daily. 5. Iron sulfate 325 mg daily. 6. Hydrocodone per home dosing. 7. Entresto one p.o. b.i.d. 8. Zocor 40 mg p.o. at bedtime. 9. Lasix 40 mg p.o. b.i.d. to continue. 10. Prozac 20 mg daily to continue. 11. Coreg 3.125 mg p.o. b.i.d., prescription sent for one month supply with 2 refills. FOLLOWUP APPOINTMENTS: 1. Primary care physician within a week. 2. Dr. Arce per his clinic. 3. Dr. Sinclair in the EP Clinic in 3-4 weeks in August. DISCHARGE DIET: Heart healthy recommended. ACTIVITY: Discharge activity per cardiopulmonary limits. Patient is being enrolled in [facility]. DISCHARGE CONDITION: Good. DISPOSITION: She can be discharged home via private vehicle.
--- NOTE | 2017-07-30 12:33 | EKG ---
Test Reason : STAT Blood Pressure : / mmHG Vent. Rate : 053 BPM Atrial Rate : 053 BPM P-R Int : 188 ms QRS Dur : 104 ms QT Int : 508 ms P-R-T Axes : 063 059 077 degrees QTc Int : 476 ms Sinus bradycardia Non-specific intra-ventricular conduction delay Lateral infarct (cited on or before 11-JUN-2017) Abnormal ECG Confirmed by ISABELL BUTLER ([id number]) on 07/30/2017 12:33:04 PM Referred By: CAROL Confirmed By:ISABELL BUTLER
--- NOTE | 2017-07-30 12:41 | EKG ---
Test Reason : Blood Pressure : / mmHG Vent. Rate : 053 BPM Atrial Rate : 053 BPM P-R Int : 186 ms QRS Dur : 106 ms QT Int : 646 ms P-R-T Axes : 058 016 095 degrees QTc Int : 606 ms Normal sinus rhythm Non-specific intra-ventricular conduction delay Lateral infarct , age undetermined cannot be excluded Prolonged QT Abnormal ECG Confirmed by ISABELL BUTLER ([id number]) on 07/30/2017 12:41:01 PM Referred By: CATARINO Confirmed By:ISABELL BUTLER
[2017-07-30] MEDS ORDERED: Apixaban 5 MG TAB PO SCH (21:00)
--- NOTE | 2017-08-09 10:47 | EKG ---
Test Reason : Blood Pressure : / mmHG Vent. Rate : 120 BPM Atrial Rate : 093 BPM P-R Int : 000 ms QRS Dur : 106 ms QT Int : 380 ms P-R-T Axes : 000 -09 146 degrees QTc Int : 537 ms Atrial fibrillation with rapid ventricular response Lateral infarct , age undetermined Abnormal ECG Confirmed by ROMA Olvera, BRENDEN ([id number]), food expeditor MADAI WILLARD ([id number]) on 08/09/2017 10:46:39 AM Referred By: ROMA Confirmed By:BRENDEN BRANDON M.D.
== END 2017-07-30 11:30 | disposition home or self-care (01) | DRG 274 ==
LOC: ERS 00:02 → 2SW 02:13 → OBSVTOIN 16:02 → 2SE 17:43
PROVIDERS: ADMIT Internal Medicine; ATTEND Internal Medicine
PROC: 02583ZZ Destruction of Conduction Mechanism, Percutaneous Approach (ICD-10-PCS; principal; 2017-07-29)
PROC: 4A023FZ Measurement of Cardiac Rhythm, Percutaneous Approach (ICD-10-PCS; 2017-07-29)
PROC: 4A0234Z Measurement of Cardiac Electrical Activity, Percutaneous Approach (ICD-10-PCS; 2017-07-29)
DX: I48.0 Paroxysmal atrial fibrillation (principal); J90 Pleural effusion, not elsewhere classified; I31.3 Pericardial effusion (noninflammatory); I50.22 Chronic systolic (congestive) heart failure; I13.0 Hypertensive heart and chronic kidney disease with heart failure and stage 1 through stage 4 chronic kidney disease, or unspecified chronic kidney disease; C92.11 Chronic myeloid leukemia, BCR/ABL-positive, in remission; N18.3 Chronic kidney disease, stage 3 (moderate); I25.10 Atherosclerotic heart disease of native coronary artery without angina pectoris; I25.5 Ischemic cardiomyopathy; E78.00 Pure hypercholesterolemia, unspecified; I48.92 Unspecified atrial flutter; F41.9 Anxiety disorder, unspecified; F32.9 Major depressive disorder, single episode, unspecified; M54.5 Low back pain; G89.29 Other chronic pain; Z95.5 Presence of coronary angioplasty implant and graft; Z95.1 Presence of aortocoronary bypass graft; Z82.49 Family history of ischemic heart disease and other diseases of the circulatory system
CPT/HCPCS: 36415; 71010; 76942; 80053; 82553; 82565; 83735; 84100; 84484; 85014; 85018; 85025; 85049; 93005; 93010; 93306; 93613; 93623; 93653; C1730; C1769; J0282; J1265; J1644; J1650; J2001; J2250; J2704; J3010; Q0162

== ENCOUNTER 2017-09-01 13:36 | Outpatient (CLI) | payer MEDICARE ==
--- NOTE | 2017-09-01 15:36 | RAD ---
RADIOGRAPH CHEST 2 VIEWS: Date: 09-01-17 Time: 1:52 p.m. HISTORY: 66-year-old female with dyspnea. COMPARISON: 07-24-17 FINDINGS: There continues to be cardiomegaly. There has been improved aeration of the left lower lobe, previous ly partially consolidated. Tiny left pleural effusion remains. Pulmonary vasculature is slightly engo rged, but has improved since previous exam. There was minimal pulmonary interstitial edema previously , which has now cleared. Currently there is no air space density. No pneumothorax. Findings of previo us CABG. IMPRESSION: Cardiomegaly and mild pulmonary vascular engorgement; internal improvement in the congestive heart fa ilure since 07-24-17. JOSHUA POS: [facility]
== END 2017-09-01 13:37 | disposition home or self-care (01) ==
LOC: RAD 13:36
PROVIDERS: ATTEND Internal Medicine
DX: R06.00 Dyspnea, unspecified (principal); I50.9 Heart failure, unspecified; I51.7 Cardiomegaly
CPT/HCPCS: 71046

== ENCOUNTER 2017-10-25 13:20 | Inpatient (IN) | payer MEDICARE ==
[2017-10-25] MEDS ORDERED: ISOVUE-370 76%-LOCM 1 ML ONE (13:54)
[2017-10-25 14:04] LABS: #Basophils 0.1 thou/uL (0.0-0.2); #Eosinphils 0.1 thou/uL (0.0-0.7); #Lymphocytes 1.1 thou/uL (1.20-3.40); #Monocytes 0.5 thou/uL (0.11-0.59); #Neutrophils 3.4 thou/uL (1.40-6.50); %Eosinophils 2.8 % (0.0-10.0); %Lymphocytes 20.2 % (21.0-51.0); Hemoglobin 12.4 g/dL (12.0-16.0); Mean Corpuscular HGB CONC 31.4 g/dL (32.0-36.0); Mean Corpuscular Hemoglobin 27.3 pg (27.0-31.0); Mean Corpuscular Volume 86.7 fl (81.0-99.0); Mean Platelet Volume 9.6 fL (7.4-10.4); Platelet Count 219 thou/uL (130-400); RBC Distribution Width 18.4 % (11.5-14.5); Red Blood Cell (RBC) Count 4.55 mill/uL (4.20-5.40); White Blood Cell (WBC) Count 5.2 thou/uL (4.8-10.8)
[2017-10-25] MEDS ORDERED: Magnesium Sulfate 2 GM/100 ML BAG ONE (14:04)
[2017-10-25 14:23] LABS: ALT (SGPT) 12 U/L (8-55); AST (SGOT) 18 U/L (5-34); Albumin 3.8 g/dL (3.4-4.8); Alkaline Phosphatase 102 U/L (40-150); Anion Gap 13 mmol/L (10-20); BUN (Urea Nitrogen) 27 mg/dL (9.8-20.1); Bilirubin, Total 0.5 mg/dL (0.2-1.2); Calc. Creatinine Clearance 0 mL/min (70-130); Calcium 9.2 mg/dL (7.8-10.44); Carbon Dioxide 27 mmol/L (23-31); Chloride 102 mmol/L (98-107); Estimated GFR-MDRD 41; Globulin 2.9 g/dL (2.4-3.5); Glucose 87 mg/dL (80-115); Potassium 3.9 mmol/L (3.5-5.1); Protein, Total 6.7 g/dL (6.0-8.3); Sodium 138 mmol/L (136-145)
[2017-10-25 14:27] LABS: CKMB 1.2 ng/mL (0-6.6); Troponin I Less than 0.010 ng/mL (< 0.028)
[2017-10-25 14:38] LABS: INR-International Normal Ratio 1.1; PTT 34.4 SEC (22.9-36.1); Prothrombin Time 14.7 SEC (12.0-14.7)
--- NOTE | 2017-10-25 16:16 | CT ---
BRAIN CT WITHOUT IV CONTRAST: 10/25/17 HISTORY: 67-year-old female with history of patient on Eliquis with fall with left sided pain. No focal mass or midline shift. No intra or extra-axial hemorrhage. Minimal fluid in the right maxill nora sinus and sphenoid sinus. IMPRESSION: No acute intracranial process. No mass or bleed. Minimal fluid in the right maxillary sinus and sphen oid sinus. POS: [facility]
[2017-10-25 17:04] LABS: Bilirubin Negative (Negative); Blood, Urine Negative (Negative); Clarity CLEAR (Clear); Glucose, Urine (Dipstick) Negative (Negative); Leukocyte Trace (Negative); Nitrite Negative (Negative); Protein, Urine (Dipstick) Negative (Neg-Trace); Specific Gravity, Urine 1.009 (1.002-1.036); Urobilinogen 0.2 mg/dL (0.2-1.0)
[2017-10-25 17:06] LABS: Bacteria/HPF None Seen HPF (None Seen); Hyaline Casts/LPF 0-3 HYALINE CAST LPF (0-3 Hyaline); RBC/HPF 0-3 HPF (0-3); Squamous Epithelial None Seen HPF (0-3); WBC/HPF None Seen HPF (0-3)
--- NOTE | 2017-10-25 19:03 | CT ---
CHEST CT SCAN WITH IV CONTRAST ABDOMEN AND PELVIC CT SCAN WITH IV CONTRAST THORACIC SPINE CT SCAN WITH IV CONTRAST LIMITED LUMBAR SPINE CT SCAN WITH IV CONTRAST LIMITED 10/25/17 HISTORY: 67-year-old female with history of fall down stairs. Patient on blood thinners. There are some linear parenchymal changes in the left chest with some thickening of the major fissure as well as some minimal pleural based parenchymal changes and pleural thickening all having more of a chronic appearance. Postop midline sternotomy. Small hiatal hernia. 1.1 cm diameter nodule in the l eft lobe of the thyroid. No pleural effusion or pericardial effusion. The aorta is unremarkable. Liver, gallbladder, pancreas, and spleen are unremarkable. Adrenal glands are unremarkable. No renal calculus or obstruction. Minimal colonic diverticulosis without acute diverticulitis. Small anteri or abdominal wall, somewhat periumbilical fat containing hernia. No free intraperitoneal fluid or ret roperitoneal hematoma. IMPRESSION: No significant acute posttraumatic process in the chest, abdomen or pelvis. THORACIC SPINE CT SCAN WITH IV CONTRAST LIMITED: IMPRESSION: Degenerative changes with bone demineralization without acute fracture or dislocation. LUMBAR SPINE CT SCAN WITH IV CONTRAST LIMITED IMPRESSION: Multilevel generalized disc desiccation changes and ligament and facet hypertrophic changes with some variable severity, mostly mild to moderate canal, lateral recess, and foraminal stenosis without rosa elena dence for acute fracture or dislocation or significant malalignment. POS: [facility]
--- NOTE | 2017-10-25 19:38 | CT ---
CERVICAL SPINE CT WITHOUT CONTRAST: 10/25/17 COMPARISON: None. HISTORY: Fall, trauma, pain. TECHNIQUE: Serial axial CT imaging at 2.5 mm intervals from the skull base through the lung apices without contr ast media. Coronal and sagittal reformatted imaging obtained. FINDINGS: The thyroid gland is heterogeneous and demonstrates numerous hypodense nodules, measuring up to 1.5 c m on the left. Nonemergent followup thyroid ultrasound is advised. There is atherosclerotic calcification at the origin of the right subclavian artery. The visualized lung apices appear unremarkable. Occipital condyles, dens, C1 ring, C1-2 articulation, atlantoaxial interspace, and craniocervical eboni ction demonstrate no acute findings. The cervicothoracic junction appears normal. There is minimal retrolisthesis of C3 on C4. There is no prevertebral soft tissue abnormality. There is no displaced fracture or evidence of dislocation seen. A disc bulge is suspected at C4-5, not well characterized. There is osteophyte encroachment on the ne ural foramina on the left at C5-6 and C6-7. There is displaced fracture or evidence of dislocation se en. there is mild posterior osteophyte formation at C5-6 and C6-7. IMPRESSION: 1. No displaced fracture or evidence of dislocation. 2. Thyroid nodules, for which nonemergent followup thyroid ultrasound advised. 3. Degenerative change within the cervical spine. POS: [facility]
--- NOTE | 2017-10-25 19:47 | HP ---
PRIMARY CARE PHYSICIAN: Sara Roy D.O. CHIEF COMPLAINT: Fall and weakness. HISTORY OF PRESENT ILLNESS: This is a 67-year-old white female with a known history of CHF and previ ous atrial fibrillation/atrial flutter, who was seen in the hospital a couple months ago and had an a blation. She has been doing well since then until the last couple of weeks, she started feeling lot more tired, this has gotten worse over the last couple of days and then today, the patient was walkin g down the stairs, she gone to the second last step and suddenly fell. She was unable to say why she fell, could not say if she lost her balance or maybe she even passed out. She does remember waking up herself on the floor with her head hurting and her side hurting, but uncertain if she lost conscio usness all during that time. She has been able to ambulate with a decent steadiness in the emergency room with assistance from family and nurses. The patient was brought into the ER, she was found to be mildly bradycardiac in the high 40s to low 50s. She also had an EKG done that showed sinus bradyc ardia with a prolonged QT. The patient has not had any palpitations, no preceding or falling presync opal sort of symptoms. She does not fall regularly, has not fallen in a long time. The patient had a CT of the brain, CT of the cervical spine, and trauma CT of the chest, abdomen, and pelvis without any evidence of injury. PAST MEDICAL HISTORY: 1. Coronary artery disease, status post stent placement in January and coronary bypass grafting in [facility] of last year. 2. Paroxysmal atrial fibrillation, status post ablation, in sinus rhythm since. 3. Hypertension. 4. Hyperlipidemia. 5. Systolic and diastolic congestive heart failure. 6. Chronic pericardial effusion. 7. Chronic anemia. 8. Chronic myeloid leukemia, followed by [facility] in remission. 9. History of nonsustained ventricular tachycardia in the past. PAST SURGICAL HISTORY: 1. Coronary stent placement. 2. Coronary artery bypass grafting single vessel. 3. Pericardial window. 4. Hysterectomy. 5. Bilateral tubal ligation. SOCIAL HISTORY: The patient lives with her . No tobacco, alcohol or illicit drug use. FAMILY HISTORY: Positive for early heart disease. ALLERGIES: No known drug allergies. CURRENT MEDICATIONS: 1. Amiodarone 200 mg daily. 2. Coreg 3.125 mg twice a day. 3. Prozac 20 mg daily. 4. Lyrica 0.5 mg twice a day as needed for back pain. 5. Aspirin 325 mg daily. 6. Ferrous sulfate 325 mg daily. 7. Allopurinol 100 mg daily. 8. Furosemide 40 mg twice a day. 9. Zocor 40 mg daily. 10. Eliquis 5 mg twice a day. REVIEW OF SYSTEMS: CONSTITUTIONAL: No fevers, no chills. EYES: No double vision or blurred vision. ENT: No congestion, drainage or sore throat. PULMONARY: No wheezing or shortness of breath. She has had an occasional cough, nonproductive. CARDIOVASCULAR: No chest pain. No palpitations or racing heart. GASTROINTESTINAL: No abdominal pain. She has had some nausea immediately after the fall and current ly no vomiting, no diarrhea or constipation. GENITOURINARY: No dysuria or hematuria. She did not lose control of her bowels or bladder. MUSCULOSKELETAL: The patient has some left-sided rib pain after the fall and pain on the side of her left roman catholic where she hit when she fell. NEUROLOGIC: No numbness, tingling or focal weakness. SKIN: No rashes or other lesions she has noted. PHYSICAL EXAMINATION: VITAL SIGNS: Blood pressure 167/72, pulse 48, respirations 19, O2 sat 96% on room air, temperature 9 7.6. GENERAL: This is a well-developed, well-nourished white female, in no apparent distress. HEAD: The patient does have a contusion to the left roman catholic. No bony deformity or tender to palpatio n. No abrasion or laceration. EENT: Pupils equal, round, and reactive to light. Extraocular movements intact. Oropharynx clear w ithout lesions, erythema or exudate. NECK: Supple. No lymphadenopathy. No thyroid nodules or enlargement. No JVD. No tenderness to pa lpation. HEART: Bradycardic but regular rhythm, no murmurs. LUNGS: Clear to auscultation bilaterally. No wheezes, crackles or rhonchi. ABDOMEN: Soft, nontender to palpation, normoactive bowel sounds. No hepatosplenomegaly or other mas ses. MUSCULOSKELETAL: The patient has tenderness to palpation of the inferior edge of the left rib cage, especially anteriorly, less in the back. No spinal tenderness to palpation. She does not have any t enderness or deformity of her extremities. No clubbing, cyanosis or edema of the extremities. SKIN: No rashes or other lesions noted besides the bruise contusion on the left roman catholic. NEUROLOGIC: Cranial nerves intact and equal bilaterally. No facial droop. Deep tendon reflexes 2+ in all extremities and strength 5/5 in all extremities. LABORATORY DATA: CBC within normal limits. Coagulation profile negative. D-dimer is elevated at 2. 2. Complete metabolic panel was notable only for a BUN of 27, creatinine of 1.29, this is not as low but has actually been higher than this before since not in her range of normal. No other abnormalit ies. Her cardiac marker set is negative x1. Urinalysis negative. CT of the brain shows no acute pr ocess, some minimal fluid in the right maxillary sinus and sphenoid sinus. A CT of the chest, abdome n, and pelvis in trauma shows multilevel generalized disk desiccation changes and some chronic degene rative changes with some mild to moderate canal lateral recess and foraminal stenosis. No acute frac tures or dislocations. No significant abnormalities. No significant process in the chest, abdomen o r pelvis. CT of the cervical spine showed no evidence for fracture or dislocation. ASSESSMENT: 1. Fall with possible presyncope or syncopal episode. 2. Sinus bradycardia likely secondary to medications and recent ablation as possible her bradycardia is becoming symptomatic as the patient has been feeling weaker in the last couple of weeks especiall y last couple of days. We will get orthostatic vital signs on her and watch her on the telemetry mon itor overnight. She has no significant pauses or worsening of her heart rate that she can likely be discharged in the morning to follow up with Cardiology as an outpatient. She might need to have her Coreg changed for either in strength or change out for other medication that will slow her heart. If patient does have any more severe bradycardia or pauses, then she may need a Cardiology consultation and EP evaluation for a possible pacemaker. 3. History of congestive heart failure. We will check brain natriuretic peptide. We will continue her home medications except for carvedilol. 4. Hypertension. Resume patient's home medications and we will consider adding non-bradycardic BP m edication to her current regimen. 5. GI prophylaxis, put the patient on Pepcid twice a day. 6. DVT prophylaxis, we will continue patient's anticoagulant. CODE STATUS: I did discuss with the patient. She is a FULL CODE. Should she be incapacitated, her would be her medical decision, Rg Swan.
[2017-10-25] MEDS ORDERED: Ondansetron ODT 4 MG TAB PO PRN (20:47)
[2017-10-25] MEDS ORDERED: Ondansetron HCl/PF 4 MG/2 ML Vial IVP PRN (20:47)
[2017-10-25] MEDS ORDERED: Acetaminophen 650 MG Suppository PR PRN (20:47)
[2017-10-25] MEDS ORDERED: Bisacodyl 5 MG TAB PO PRN (20:47)
[2017-10-25 21:03] VITALS: BMI 29.3
[2017-10-25] MEDS: Docusate 100 MG CAP PO SCH (21:34)
[2017-10-25] MEDS: Sacubitril 24.5 MG/Valsartan 25.5 MG TABLET PO SCH (21:34)
[2017-10-25] MEDS: Furosemide 40 MG TAB PO SCH (21:34)
[2017-10-25] MEDS: Apixaban 5 MG TAB PO SCH (21:34)
[2017-10-25] MEDS: Famotidine 20 MG TAB PO SCH (21:34)
[2017-10-26] MEDS: Acetaminophen 325 MG TAB PO PRN ×3 (01:40→21:02)
[2017-10-26 05:04] LABS: #Eosinphils 0.1 thou/uL (0.0-0.7); #Monocytes 0.6 thou/uL (0.11-0.59); #Neutrophils 3.6 thou/uL (1.40-6.50); %Basophils 0.7 % (0.0-1.0); %Eosinophils 2.7 % (0.0-10.0); %Lymphocytes 18.9 % (21.0-51.0); %Monocytes 10.6 % (0.0-10.0); Hemoglobin 11.9 g/dL (12.0-16.0); Mean Corpuscular HGB CONC 31.7 g/dL (32.0-36.0); Mean Corpuscular Hemoglobin 26.9 pg (27.0-31.0); Mean Platelet Volume 9.6 fL (7.4-10.4); Platelet Count 204 thou/uL (130-400); RBC Distribution Width 18.3 % (11.5-14.5); Red Blood Cell (RBC) Count 4.43 mill/uL (4.20-5.40); White Blood Cell (WBC) Count 5.4 thou/uL (4.8-10.8)
[2017-10-26 05:30] LABS: Anion Gap 11 mmol/L (10-20); BUN (Urea Nitrogen) 22 mg/dL (9.8-20.1); Calc. Creatinine Clearance 75 mL/min (70-130); Carbon Dioxide 27 mmol/L (23-31); Chloride 105 mmol/L (98-107); Estimated GFR-MDRD 57; Glucose 80 mg/dL (80-115); Potassium 3.7 mmol/L (3.5-5.1); Sodium 139 mmol/L (136-145)
[2017-10-26] MEDS: Furosemide 40 MG TAB PO SCH ×2 (08:52→21:00)
[2017-10-26] MEDS: Sacubitril 24.5 MG/Valsartan 25.5 MG TABLET PO SCH ×2 (08:52→21:01)
[2017-10-26] MEDS: Apixaban 5 MG TAB PO SCH (08:52)
[2017-10-26] MEDS ORDERED: FLUoxetine HCl 20 MG CAP PO SCH (09:15)
[2017-10-26] MEDS ORDERED: Bisacodyl 10 MG SUPP PR SCH (09:15)
[2017-10-26] MEDS: Docusate 100 MG CAP PO SCH ×2 (09:16→21:00)
--- NOTE | 2017-10-26 15:32 | PDOC.PN ---
- Subjective Encounter Start Date: 10/26/17 Encounter Start Time: 10:00 Pt seen for followup re: bradycardia. Denies chest pain or shortness of breath. No nausea or vomiting. - Objective Resuscitation Status: Resuscitation Status FULL:Full Resuscitation MAR Reviewed: Yes Vital Signs & Weight: Vital Signs (12 hours) Temp Pulse Pulse Pulse Pulse Pulse Resp 10/26/17 14:07 51 L 54 L 55 L 60 10/26/17 12:43 49 L 10/26/17 11:48 97.9 F 52 L 16 10/26/17 09:00 10/26/17 08:00 98.3 F 49 L 16 10/26/17 07:13 98.3 F 49 L 16 BP BP BP BP BP BP BP 10/26/17 14:07 124/57 L 150/67 H 157/73 H 169/72 H 10/26/17 12:43 10/26/17 11:48 118/58 L 10/26/17 09:00 117/53 L 10/26/17 08:00 10/26/17 07:13 131/59 L BP BP Pulse Ox Pulse Ox Pulse Ox Pulse Ox 10/26/17 14:07 91 L 94 L 92 L 10/26/17 12:43 10/26/17 11:48 95 10/26/17 09:00 105/52 L 109/53 L 10/26/17 08:00 10/26/17 07:13 93 L Weight Weight 187 lb 8 oz I&O: 10/25/17 10/26/17 10/27/17 06:59 06:59 06:59 Intake Total 250 490 Output Total 425 515 Balance -175 -25 Result Diagrams: 10/26/17 04:03 10/26/17 04:03 EKG Reviewed by me: Yes (Tele: sinus bradycardia) Phys Exam - Physical Examination Constitutional: NAD HEENT: PERRLA, moist MMs, sclera anicteric, oral pharynx no lesions Neck: no nodes, no JVD, supple, full ROM Respiratory: no wheezing, no rales, no rhonchi, clear to auscultation bilateral S1, S2, reg, elizabeth Gastrointestinal: soft, non-tender Neurological: moves all 4 limbs Psychiatric: normal affect, A&O x 3 Dx/Plan (1) Bradycardia Code(s): R00.1 - BRADYCARDIA, UNSPECIFIED Status: Acute Comment: Coreg on hold for now, await cardiology consult (2) Syncope Code(s): R55 - SYNCOPE AND COLLAPSE Status: Suspected Comment: Syncope vs presyncope, unclear from history (3) Fall Code(s): W19.XXXA - UNSPECIFIED FALL, INITIAL ENCOUNTER Status: Acute Comment: No fractures on imaging (4) CAD (coronary artery disease) Code(s): I25.10 - ATHSCL HEART DISEASE OF [place] CORONARY ARTERY W/O ANG PCTRS Status: Chronic Qualifiers: Coronary Disease-Associated Artery/Lesion type: [place] artery [place] vs. transplanted heart: [place] heart Associated angina: without angina Qualified Code(s): I25.10 - Atherosclerotic heart disease of [place] coronary artery without angina pectoris Comment: stable (5) Dyslipidemia Code(s): E78.5 - HYPERLIPIDEMIA, UNSPECIFIED Status: Chronic Comment: continue statin (6) Hypertension Code(s): I10 - ESSENTIAL (PRIMARY) HYPERTENSION Status: Chronic Qualifiers: Hypertension type: essential hypertension Qualified Code(s): I10 - Essential (primary) hypertension Comment: Monitor vital signs, titrate antihypertensives as needed (7) S/P CABG (coronary artery bypass graft) Code(s): Z95.1 - PRESENCE OF AORTOCORONARY BYPASS GRAFT Status: Chronic Comment: Jul 2017 - Plan plan discussed w/ family, PT/OT, out of bed/ambulate * . Review of Systems - Review of Systems Constitutional: negative: fever, chills, sweats, weakness, malaise Respiratory: negative: Cough, Dry, Shortness of Breath, Hemoptysis, SOB with Excertion, Pleuritic Pain, Sputum, Wheezing Cardiovascular: negative: chest pain, palpitations, orthopnea, paroxysmal nocturnal dyspnea, edema, light headedness, other Gastrointestinal: negative: Nausea, Vomiting, Abdominal Pain, Diarrhea, Constipation, Melena, Hematochezia Genitourinary: negative: Dysuria, Frequency, Incontinence, Hematuria, Retention - Medications/Allergies Allergies/Adverse Reactions: Allergies Allergy/AdvReac Type Severity Reaction Status Date / Time No Known Drug Allergies Allergy Verified 10/25/17 20:57 Medications: Current Medications Acetaminophen (Tylenol) 650 mg PO Q4H PRN PRN Reason: Headache/Fever or Pain Last Admin: 10/26/17 12:32 Dose: 650 mg Acetaminophen (Tylenol) 650 mg OR Q4H PRN PRN Reason: Headache/Fever or Pain Apixaban (Eliquis) 5 mg PO BID [facility] Last Admin: 10/26/17 08:52 Dose: 5 mg Bisacodyl (Dulcolax) 10 mg PO DAILYPRN PRN PRN Reason: Constipation Docusate Sodium (Colace) 100 mg PO BID [facility] Last Admin: 10/26/17 09:16 Dose: Not Given Famotidine (Pepcid) 20 mg PO Q24HR [facility] Last Admin: 10/25/17 21:34 Dose: 20 mg Fluoxetine HCl (Prozac) 20 mg PO DAILY [facility] Furosemide (Lasix) 40 mg PO BID [facility] Last Admin: 10/26/17 08:52 Dose: 40 mg Ondansetron HCl (Zofran Odt) 4 mg PO Q6H PRN PRN Reason: Nausea/Vomiting Ondansetron HCl (Zofran) 4 mg IVP Q6H PRN PRN Reason: Nausea/Vomiting Sacubitril/Valsartan (Entresto 24.5 Mg-25.5 Mg Tablet) 1 tab PO BID [facility] Last Admin: 10/26/17 08:52 Dose: 1 tab
[2017-10-26] MEDS: Famotidine 20 MG TAB PO SCH (21:00)
--- NOTE | 2017-10-27 04:44 | CON ---
DATE OF CONSULTATION: 10/26/2017 HISTORY OF PRESENT ILLNESS: Geno Swan is a 67-year-old white female who was admitted after a fall and possible syncope at home. She has history of ischemic cardiomyopathy, underwent CABG x1 with ALDANA to the LAD after she had restenosis of her LAD stent. She also has history of paroxysmal atrial fibrillation. She had multiple pericardial effusion episodes and before CABG had a pericardial window placed. She was admitted in 07/2017 with atrial fibrillation with rapid ventricular response as well as some episodes of what is like atrial flutter. She was on amiodarone and ultimately she underwent electrophysiology study and ablation of the typical atrial flutter. It is also of note that in looking at this electrophysiology study from 3 months ago that she had prolonged sinus node recovery time of 991 milliseconds with a corrected sinus node recovery time of 707 milliseconds. It was felt that there was some sinus node disease in the setting of chronic amiodarone use. Since that ablation, she states she has not had any further episodes of rapid heartbeat. She has not had any significant shortness of breath or chest discomfort. She now is admitted after a fall at home. She was walking down the steps and got to the last step. She then felt as if she was falling to the side. She remembers hitting her head on the ground. In the emergency room, she had heart rates in the 40s and 50s with sinus bradycardia. Since admission , amiodarone and her carvedilol low-dose have been held. Her heart rate has been increased into the upper 50s. PAST MEDICAL HISTORY: Significant for stent placement in the LAD in January and then CABG in 06/2017. She has paroxysmal atrial fibrillation as well as atrial flutter, has undergone ablation of the atrial flutter. She has hyperlipidemia, hypertension, systolic and diastolic heart failure, chronic pericardial effusions, chronic myeloid leukemia in remission, and history of nonsustained ventricular tachycardia in the past. MEDICATIONS: Amiodarone 200 mg daily, carvedilol 3.125 b.i.d., Prozac 20 daily , Lyrica 0.5 mg b.i.d., aspirin 325 daily, ferrous sulfate 325 daily, allopurinol 100 daily, furosemide 40 mg b.i.d., simvastatin 40 mg at bedtime, and Eliquis 5 mg b.i.d. OPERATIONS: CABG with ALDANA to the LAD, placement of pericardial window prior to CABG, hysterectomy, bilateral tubal ligation, ablation of atrial flutter. SOCIAL HISTORY: She does not smoke or drink. FAMILY HISTORY: Positive for coronary artery disease. ALLERGIES: None. REVIEW OF SYSTEMS: Twelve-point review of systems, otherwise unremarkable. PHYSICAL EXAMINATION: VITAL SIGNS: Blood pressure 132/61, pulse 55. HEENT: PERRL. NECK: Supple. CHEST: Clear. CARDIAC: S1, S2 normal without any S3, S4, or murmurs. ABDOMEN: Normal bowel sounds without tenderness, organomegaly. EXTREMITIES: Revealed no clubbing, cyanosis, or edema. NEUROLOGIC: Grossly intact. SKIN: Warm and dry. LABORATORY DATA: EKG on admission revealed sinus bradycardia with rate of 50 per minute, lateral infarct and prolonged QT. Hemoglobin 11.9, hematocrit 37.7 , white count 5400, platelets 204,000. INR 1.1. Sodium 139, potassium 3.7, chloride 105, carbon dioxide 27, BUN 22, creatinine 0.97. BNP 1056.7. Troponin I is normal. IMPRESSION: 1. Fall versus episode of syncope. 2. Sick sinus syndrome with episodes of atrial fibrillation for which she is on Amiodarone, atrial flutter, which has been ablated and prolonged sinus node recovery time on EP study, 3 months ago. 3. Status post coronary artery bypass graft. 4. Recurrent pericardial effusion, status post window. 5. Systolic and diastolic heart failure. 6. Chronic anemia. 7. History of chronic myeloid leukemia in remission. 8. Hypertension. 9. Hyperlipidemia. PLAN: Ms. Swan will continue to be monitored. With this current finding as well as prolonged sinus node recovery time on electrophysiology testing, consideration may need to be given to pacemaker insertion. Electrophysiology has evaluated her previously and will be consulted in the morning. Also, I would discontinue her Eliquis at this time in case pacemaker is inserted. At the very least if pacemaker was not inserted, then consideration should be given to an implantable loop recorder. MILLER
[2017-10-27 05:52] LABS: Hemoglobin 11.5 g/dL (12.0-16.0); Platelet Count 190 thou/uL (130-400)
[2017-10-27] MEDS: Furosemide 40 MG TAB PO SCH ×2 (09:38→22:02)
[2017-10-27] MEDS: FLUoxetine HCl 20 MG CAP PO SCH (09:38)
[2017-10-27] MEDS: Sacubitril 24.5 MG/Valsartan 25.5 MG TABLET PO SCH ×2 (09:38→22:02)
[2017-10-27] MEDS: Docusate 100 MG CAP PO SCH ×2 (09:38→22:01)
--- NOTE | 2017-10-27 09:58 | PDOC.PN ---
- Subjective Encounter Start Date: 10/27/17 Encounter Start Time: 08:00 Pt seen for followup re: bradycardia. No chest pain or shortness of breath. - Objective MAR Reviewed: Yes Result Diagrams: 10/27/17 04:11 10/27/17 04:11 EKG Reviewed by me: Yes (Tele: sinus bradycardia) Phys Exam - Physical Examination Constitutional: NAD HEENT: moist MMs Neck: supple Respiratory: clear to auscultation bilateral S1, S2, elizabeth, reg Gastrointestinal: soft Neurological: moves all 4 limbs Psychiatric: normal affect Dx/Plan (1) Bradycardia Code(s): R00.1 - BRADYCARDIA, UNSPECIFIED Status: Acute Comment: Plan for pacemaker placement noted, pt is NPO (2) Syncope Code(s): R55 - SYNCOPE AND COLLAPSE Status: Suspected Comment: Syncope vs presyncope (3) Fall Code(s): W19.XXXA - UNSPECIFIED FALL, INITIAL ENCOUNTER Status: Acute (4) CAD (coronary artery disease) Code(s): I25.10 - ATHSCL HEART DISEASE OF [place] CORONARY ARTERY W/O ANG PCTRS Status: Chronic Qualifiers: Coronary Disease-Associated Artery/Lesion type: [place] artery [place] vs. transplanted heart: [place] heart Associated angina: without angina Qualified Code(s): I25.10 - Atherosclerotic heart disease of [place] coronary artery without angina pectoris Comment: stable (5) Dyslipidemia Code(s): E78.5 - HYPERLIPIDEMIA, UNSPECIFIED Status: Chronic Comment: on statin (6) Hypertension Code(s): I10 - ESSENTIAL (PRIMARY) HYPERTENSION Status: Chronic Qualifiers: Hypertension type: essential hypertension Qualified Code(s): I10 - Essential (primary) hypertension Comment: Coreg on hold, titrate antihypertensives as needed (7) S/P CABG (coronary artery bypass graft) Code(s): Z95.1 - PRESENCE OF AORTOCORONARY BYPASS GRAFT Status: Chronic - Plan plan discussed w/ family * . Pt with symptomatic bradycardia (syncope vs presyncope) resulting in fall, needing pacemaker. Change patient's admission status to in-patient. Review of Systems - Review of Systems Respiratory: negative: Cough, Dry, Shortness of Breath, Hemoptysis, SOB with Excertion, Pleuritic Pain, Sputum, Wheezing Cardiovascular: negative: chest pain, palpitations, orthopnea, paroxysmal nocturnal dyspnea, edema, light headedness - Medications/Allergies Allergies/Adverse Reactions: Allergies Allergy/AdvReac Type Severity Reaction Status Date / Time No Known Drug Allergies Allergy Verified 10/25/17 20:57 Medications: Current Medications Acetaminophen (Tylenol) 650 mg PO Q4H PRN PRN Reason: Headache/Fever or Pain Last Admin: 10/26/17 21:02 Dose: 650 mg Acetaminophen (Tylenol) 650 mg OR Q4H PRN PRN Reason: Headache/Fever or Pain Bisacodyl (Dulcolax) 10 mg PO DAILYPRN PRN PRN Reason: Constipation Docusate Sodium (Colace) 100 mg PO BID [facility] Last Admin: 10/27/17 09:38 Dose: Not Given Famotidine (Pepcid) 20 mg PO Q24HR [facility] Last Admin: 10/26/17 21:00 Dose: 20 mg Fluoxetine HCl (Prozac) 20 mg PO DAILY [facility] Last Admin: 10/27/17 09:38 Dose: Not Given Furosemide (Lasix) 40 mg PO BID [facility] Last Admin: 10/27/17 09:38 Dose: Not Given Ondansetron HCl (Zofran Odt) 4 mg PO Q6H PRN PRN Reason: Nausea/Vomiting Ondansetron HCl (Zofran) 4 mg IVP Q6H PRN PRN Reason: Nausea/Vomiting Sacubitril/Valsartan (Entresto 24.5 Mg-25.5 Mg Tablet) 1 tab PO BID [facility] Last Admin: 10/27/17 09:38 Dose: Not Given
--- NOTE | 2017-10-27 14:18 | CON-2 ---
DATE OF CONSULTATION: 10/27/2017 REFERRING PHYSICIAN: Dr. Dinh Arce REASON FOR CONSULTATION: Sick sinus syndrome and syncopal episode HISTORY OF PRESENT ILLNESS: Ms. Swan is a very pleasant 67-year-old female who was recently admitted after falling at home and hitting her head. She reports that she was walking downstairs and when she reached the last step she fell towards her left side and remembers hitting her head. She does not feel that she completely lost consciousness, but has never had an episode like this previously. She denies any preceding dizziness, heart racing or sense of palpitations. She presented to the emergency room for evaluation. Also, of note Ms. Swan has a history of paroxysmal atrial fibrillation and CTI dependent atrial flutter. She underwent flutter ablation on 09/19/2016 and also had an EP study at that time. She has had some evidence of sinus node disease which may be attributed to chronic amiodarone use. She has a prolonged SNRT of 991 milliseconds. We have previously seen her heart rates as low as in the mid 50s, which she was asymptomatic, until this time. This may represent cardiogenic syncope. When she presented to the emergency room, her heart rate was in the 40-50 range and rhythm was sinus bradycardia. Her amiodarone and carvedilol has been held and rates are now in the upper 50 range. PAST MEDICAL HISTORY: 1. Paroxysmal atrial arrhythmias. A. History of paroxysmal atrial fibrillation with rapid ventricular response. B. Amiodarone for rhythm suppression. C. Status post CTI ablation on 07/19/2017 for CTI dependent flutter. 2. Probable sinus node disease in the setting of chronic amiodarone use with a prolonged SNRT of 991 milliseconds and a corrected SNRT of 707 milliseconds. 3. History of coronary artery disease. A. Prior LAD stenting. B. Prior CABG in 08/2016. C. Worsening LVEF previously 60-65% in 10/2015, but most recently estimated at 30-35% by echo 05/2017. 4. History of pericardial effusion requiring pericardial window, possibly due to pericarditis in 06/2017. 5. History of chronic lymphocytic leukemia. 6. Coronary artery disease risk factors include hypertension and hyperlipidemia. ALLERGIES: No known allergies. HOME MEDICATIONS: Eliquis 5 mg b.i.d., carvedilol 3.125 mg b.i.d., hydrocodone as needed, simvastatin 40 mg daily, furosemide 40 mg daily, ferrous sulfate 325 mg daily, allopurinol 100 mg daily, fluoxetine 20 mg daily, aspirin 325 mg daily , losartan b.i.d., amiodarone 200 mg daily. SOCIAL HISTORY: Negative for tobacco habituation, alcohol abuse or illicit drug use. FAMILY HISTORY: Positive for coronary artery disease. REVIEW OF SYSTEMS: Twelve point review of systems was conducted and is negative except that listed in the history of present illness. PHYSICAL EXAMINATION: VITAL SIGNS: Temperature 98.4 degrees Fahrenheit, heart rate is 49, respirations 15, oxygen saturation 94% on room air, blood pressure 136/63. GENERAL: This is a female in no acute distress. She is alert and oriented x4. Her speech is clear. Her affect is appropriate. She is in no apparent distress. HEENT: She is normocephalic, atraumatic. Her sclerae are anicteric. EOMs are intact. Her pupils are equal, round, reactive and accommodating to light. NECK: Supple without jugular venous distention. Her thyroid is nonpalpable and there is no lymphadenopathy. Her oral mucosa is moist and pink with adequate dentition. CARDIOVASCULAR: Her heart rate is regularly irregular, but slow without significant murmur, rub or gallop. Her extremities are warm and dry to touch without clubbing, cyanosis or edema. PULMONARY: Her lungs are clear to auscultation bilaterally without wheezes, crackles or rhonchi. Respirations are even and unlabored with good bilateral excursion. GASTROINTESTINAL: Abdomen is soft and nontender to palpation. No palpable masses. Positive bowel tones are noted throughout. EXTREMITIES: Hepatojugular reflex is negative. NEUROLOGIC: Exam is grossly intact of cranial nerves II-XII. Exam is nonfocal and patient is without deficit. DATABASE: H&H from 10/27/2017 11.5 and 36.2. Chemistry from 10/26/2017; sodium 139, potassium 3.7, chloride 105, carbon dioxide 27, BUN is 22, creatinine is 0.97, GFR is 57. BNP is 1056. Troponin I was checked on 2017 and was less than 0.01. Review of telemetry and EKG; all rhythm strips were personally interpreted. The patient is currently in sinus bradycardia with rates currently in the mid 50 range. The patient had heart rates in the mid to low 40s. First degree AV block is intermittently seen. IMPRESSION: 1. Ms. Swan is a very pleasant 66-year-old woman with a fairly complex history as noted above. She presents with what is very likely a syncopal episode given her history of arrhythmias, bradycardia and sinus node disease. She has previously been asymptomatic with her sinus node disease; however, this has obviously changed. Sick sinus syndrome with a recent syncopal episode. 2. History of paroxysmal atrial arrhythmias, chronic amiodarone use. 3. Oral anticoagulation on Eliquis, currently on hold for pacemaker implantation. 4. Fatigue, likely attributable to her arrhythmia issues of paroxysmal atrial fibrillation with rapid ventricular response versus sinus node disease. RECOMMENDATIONS: At this point, the recommendation would be for a dual chamber pacemaker implantation given her sinus node disease and likely tachybrady syndrome. Pacemaker implantation risks and benefits have been discussed with the patient and her . Risks include infection, damage to the surrounding tissue, nerve endings or organs, pneumothorax, puncture of the pericardium and possible need for surgical repair or a chest tube placement. The patient and her family verbalized understanding of these risks and wished to proceed with pacemaker implantation. This will be performed later today with the assistance of anesthesia. Thank you for allowing us to participate in the care of this patient. Dictated as scribe for Dr. Sean BHATT
[2017-10-27] MEDS ORDERED: Iopamidol 370 76% 50 ML VIAL FS ONE (15:32)
[2017-10-27] MEDS ORDERED: Midazolam HCl 2 mg/2 ml Vial ONE (15:56)
[2017-10-27] MEDS ORDERED: CEFAZOLIN/Water 2 GM/20 ML SYRINGE ONE (15:56)
[2017-10-27] MEDS ORDERED: Fentanyl 250 MCG/5 ML VIAL ONE (15:57)
[2017-10-27] MEDS ORDERED: Lidocaine 1% (PF) 30 ML VIAL ONE ×2 (16:27→16:55)
--- NOTE | 2017-10-27 17:44 | PDOC.CTH ---
Cardiology Progress Note - Subjective She is doing well. Sore chest from fall. - Objective Vital Signs Temp Pulse Resp BP Pulse Ox 10/27/17 11:10 98.4 F 49 L 15 136/63 94 L - Physical Examination General/Neuro: alert & oriented x3, NAD Neck: no JVD present Lungs: unlabored respirations Heart: RRR Abdomen: NT/ND Extremities: other: (no edema.) - Telemetry Telemetry Rhythm: NSR - Labs Result Diagrams: 10/27/17 04:11 10/27/17 04:11 Troponin/CKMB CK-MB (CK-2) 1.2 ng/mL (0-6.6) 10/25/17 13:53 Troponin I Less than 0.010 ng/mL (< 0.028) 10/25/17 13:53 - Assessment/Plan 1. Syncope 2. AV node dysfunction. PLAN - Agree with EP about need for PPM. - Dr. Sinclair to place PPM today.
[2017-10-27] MEDS ORDERED: Acetaminophen/Codeine 30-300mg Tablet PO PRN ×2 (18:00)
[2017-10-27] MEDS: Acetaminophen 325 MG TAB PO PRN (22:02)
[2017-10-27] MEDS: Famotidine 20 MG TAB PO SCH (22:02)
[2017-10-28] MEDS: Cephalexin 250 MG CAP PO SCH ×3 (00:15→12:42)
[2017-10-28] MEDS: Acetaminophen 325 MG TAB PO PRN ×2 (02:12→10:19)
--- NOTE | 2017-10-28 08:18 | RAD ---
PORTABLE CHEST ONE VIEW: Date: 10-28-17 Time: 7:09 a.m. History: AICD placement. FINDINGS/IMPRESSION: Comparison is made with exam of 09-01-17. There has been interval placement of a left sided pacemaker device with leads in the right atrium and right ventricle. No pneumothoraces are seen. The heart is enlarged. Changes of median sternotomy are again noted. No lobar consolidation or pleural effusion identified. There is no evidence of deon pu lmonary edema. POS: [facility]
[2017-10-28] MEDS: Docusate 100 MG CAP PO SCH (08:52)
[2017-10-28] MEDS: Sacubitril 24.5 MG/Valsartan 25.5 MG TABLET PO SCH (08:52)
[2017-10-28] MEDS: FLUoxetine HCl 20 MG CAP PO SCH (08:52)
[2017-10-28] MEDS: Furosemide 40 MG TAB PO SCH (08:52)
[2017-10-28] MEDS ORDERED: Carvedilol 3.125 MG TAB PO SCH ×2 (13:45→21:00)
[2017-10-28 15:15] VITALS: BP 135/61; TEMP 97.6
--- NOTE | 2017-10-28 16:17 | PDOC.CTH ---
<Chhaya Amarona - Last Filed: 10/28/17 16:15> Cardiology Progress Note - Subjective EP progress note: Patient has done well overnight. She has mild discomfort at the PPM implant site that was relieved with tylenol alone. No new cardiac complaints. - Objective Vital Signs Temp Pulse Resp BP BP Pulse Ox 10/28/17 14:46 97.6 F 60 20 135/61 96 10/28/17 11:37 97.4 F L 60 16 178/81 H 97 10/28/17 08:00 97.5 F L 60 16 10/28/17 07:24 97.5 F L 60 16 176/74 H 97 Weight 186 lb 9.6 oz 10/27/17 10/28/17 10/29/17 06:59 06:59 06:59 Intake Total 260 Output Total 700 Balance -440 - Physical Examination General/Neuro: alert & oriented x3, NAD Neck: carotid US brisk, no JVD present Lungs: CTA, unlabored respirations Heart: PMI normal, RRR Abdomen: no HSM, NT/ND Other PE findings: PPM implant incision- edges well approximated.-drainage. min swelling - Labs Result Diagrams: 10/27/17 04:11 10/27/17 04:11 Troponin/CKMB CK-MB (CK-2) 1.2 ng/mL (0-6.6) 10/25/17 13:53 Troponin I Less than 0.010 ng/mL (< 0.028) 10/25/17 13:53 - Assessment/Plan 1. Atrial arrhythmias- suppressed with amiodarone. On Eliquis for CVA prophylaxis. Continue both at this time 2. Syncope 3. Sick sinus syndrome- s/p dual chamber pacemaker implanted 3.18 Site stable, no hematoma. Prescription for Kelfex in chart to continue upon discharge. will follow up as outpatient at [facility] clinic in 7-10 days for site check. OK for discharge by EP <Sean Sinclair - Last Filed: 10/28/17 16:45> Cardiology Progress Note - Objective Vital Signs Temp Pulse Resp BP BP Pulse Ox 10/28/17 14:46 97.6 F 60 20 135/61 96 10/28/17 11:37 97.4 F L 60 16 178/81 H 97 10/28/17 08:00 97.5 F L 60 16 03/20/18 07:24 97.5 F L 60 16 176/74 H 97 Weight 186 lb 9.6 oz 10/27/17 10/28/17 10/29/17 06:59 06:59 06:59 Intake Total 260 Output Total 700 Balance -440 - Labs Result Diagrams: 10/27/17 04:11 10/27/17 04:11 Troponin/CKMB CK-MB (CK-2) 1.2 ng/mL (0-6.6) 10/25/17 13:53 Troponin I Less than 0.010 ng/mL (< 0.028) 10/25/17 13:53 Attending Addendum - Attending Addendum Date/Time: 10/28/17 [id number] I personally evaluated the patient and discussed the management with Ms Amaro. I agree with the History, Examination, Assessment and Plan documented above with any addition or exceptions noted below.
--- NOTE | 2017-10-28 17:05 | DIS ---
DATE OF ADMISSION: 10/27/2017 DATE OF DISCHARGE: 10/28/2017 PRIMARY CARE PROVIDER: Sara Roy D.O. DISCHARGE DIAGNOSES: 1. Bradycardia. 2. Fall. CONDITION OF PATIENT AT THE TIME OF DISCHARGE: Stable. I assessed Ms. Swan on the day of disc harge. She denies any chest pain or shortness of breath. Vital signs are stable. S1 and S2 are heard, regular. Lungs are clear to auscultation bilaterally. DISCHARGE MEDICATIONS: No changes were made to her preadmission home medications as dictated on hist ory and physical note from 10/27/2017. In addition, she has been started on Keflex 500 mg every 6 ho urs as ordered by Electrophysiology Service. CONSULTATIONS DURING THIS HOSPITALIZATION: Cardiology, Dr. Carmona and Electrophysiology, Dr. Sinclair. HOSPITAL COURSE: Ms. Swan is a pleasant 67-year-old lady who was admitted to [facility] on 10/25/2017 following the fall. She was found to be bradycardic. Her carvedilol was held. She continued to be bradycardic. Cardiology and electrophysiology services were consulted . On 10/27/2017, she underwent permanent pacemaker placement. Beta jer has been resumed. She i s being discharged home in a stable condition. Many thanks for allowing me to participate in your patient's care. Please feel free to contact me wi th any questions or concerns. Please note that at the time of admission, she had acute renal insuffi ciency with a creatinine of 1.29. Creatinine normalized to 1.04 by 10/27/2017. Her BNP during this hospitalization was elevated at 1056.7. DISCHARGE DESTINATION: Home. TOTAL AMOUNT OF TIME SPENT COORDINATING THIS DISCHARGE: Thirty three minutes.
[2017-10-28] MEDS ORDERED: Potassium Chloride 20 MEQ TAB PO SCH (21:00)
[2017-10-28] MEDS ORDERED: Atorvastatin Calcium 10 MG TAB PO SCH (21:00)
[2017-10-29] MEDS ORDERED: Aspirin 325 MG TAB PO SCH (09:00)
[2017-10-29] MEDS ORDERED: Amiodarone 200 MG TAB PO SCH (09:00)
[2017-10-29] MEDS ORDERED: FLUoxetine HCl 20 MG CAP PO SCH (09:00)
[2017-10-29] MEDS ORDERED: Apixaban 5 MG TAB PO SCH (09:00)
[2017-10-29] MEDS ORDERED: Allopurinol 100 MG TAB PO SCH (09:00)
[2017-10-29] MEDS ORDERED: Ferrous Sulfate 325 MG TAB PO SCH (09:00)
--- NOTE | 2017-10-31 11:57 | EKG ---
Test Reason : SYNCOPE Blood Pressure : / mmHG Vent. Rate : 050 BPM Atrial Rate : 050 BPM P-R Int : 190 ms QRS Dur : 108 ms QT Int : 576 ms P-R-T Axes : 033 007 071 degrees QTc Int : 525 ms Sinus bradycardia Lateral infarct , age undetermined Prolonged QT Abnormal ECG Confirmed by ROMA Olvera, BRENDEN ([id number]), television news video editor MADAI WILLARD ([id number]) on 10/31/2017 11:56:09 AM Referred By: ROMA Confirmed By:BRENDEN BRANDON M.D.
== END 2017-10-28 17:00 | disposition home or self-care (01) | DRG 243 ==
LOC: ERS 13:20 → 2SW 17:45 → OBSVTOIN 10-27 08:50
PROVIDERS: ADMIT Emergency Medicine; ATTEND Emergency Medicine
PROC: 0JH606Z Insertion of Pacemaker, Dual Chamber into Chest Subcutaneous Tissue and Fascia, Open Approach (ICD-10-PCS; principal; 2017-10-27)
PROC: 02H63JZ Insertion of Pacemaker Lead into Right Atrium, Percutaneous Approach (ICD-10-PCS; 2017-10-27)
PROC: 02HK3JZ Insertion of Pacemaker Lead into Right Ventricle, Percutaneous Approach (ICD-10-PCS; 2017-10-27)
DX: I49.5 Sick sinus syndrome (principal); I50.42 Chronic combined systolic (congestive) and diastolic (congestive) heart failure; C92.10 Chronic myeloid leukemia, BCR/ABL-positive, not having achieved remission; I48.0 Paroxysmal atrial fibrillation; Z95.1 Presence of aortocoronary bypass graft; I11.0 Hypertensive heart disease with heart failure; I25.10 Atherosclerotic heart disease of native coronary artery without angina pectoris; Z79.01 Long term (current) use of anticoagulants; Z95.5 Presence of coronary angioplasty implant and graft; E78.5 Hyperlipidemia, unspecified; D63.8 Anemia in other chronic diseases classified elsewhere
CPT/HCPCS: 33208; 36415; 70450; 71045; 71260; 72125; 74177; 80048; 80053; 81003; 81015; 82553; 82565; 83880; 84484; 85014; 85018; 85025; 85049; 85379; 85610; 85730; 93005; 93798; 94760; 96361; 96365; 99152; 99153; C1785; C1898; G8984-GP-CI; G8985-GP-CI; G8986-GP-CI; J2001; J2250; J3010; J3475; J3490

== ENCOUNTER 2018-02-05 19:34 | Emergency (ER) | payer MEDICARE ==
[2018-02-05] MEDS ORDERED: HYDROcodone/Acetaminophen 5/325 mg Tablet ONE (20:20)
--- NOTE | 2018-02-05 21:00 | RAD ---
RADIOGRAPH RIGHT ELBOW 2 VIEWS: Date: 02/05/18 Time: 7:30 p.m. HISTORY: 67-year-old female with traumatic right elbow pain due to fall. FINDINGS: There is a minimally displaced linear fracture at the head of the radius. This includes the capitello radial articular surface where there is a minimal, less than 1 mm step-off. There is minimal impactio n and angulation at the volar aspect of the radial neck as seen on the lateral view. There are positi ve posterior and anterior displaced fat pad signs indicating distended joint capsule. No dislocation. No other fracture identified, but a three or four view radiograph would be more sensitive for the de tection of other nondisplaced fractures. IMPRESSION: Minimally displaced and nondisplaced, acute, traumatic, intra-articular fracture of radial head and n cabrera. POS: [facility]
--- NOTE | 2018-02-05 21:27 | RAD ---
RADIOGRAPH RIGHT WRIST THREE VIEWS: 02/05/18 HISTORY: 67-year-old female with traumatic right wrist pain due to fall. FINDINGS: No fracture is identified. However, if there is snuff box tenderness that suggests an occult scaphoid fracture, then the general recommendation is immobilization and followup imaging in 5 to 10 days. Th ere is diffuse osteopenia. Moderate DJD at first CMC. The rest of the joint spaces are maintained wit hout erosions or osteophytes. IMPRESSION: 1. No fracture identified. 2. Moderate osteoarthrosis of the first carpometacarpal joint. POS: [facility]
== END 2018-02-05 21:30 | disposition home or self-care (01) ==
LOC: ERS 19:34
DX: S52.121A Displaced fracture of head of right radius, initial encounter for closed fracture (principal); I11.0 Hypertensive heart disease with heart failure; I50.9 Heart failure, unspecified; I48.91 Unspecified atrial fibrillation; I25.10 Atherosclerotic heart disease of native coronary artery without angina pectoris; F32.9 Major depressive disorder, single episode, unspecified; Z79.82 Long term (current) use of aspirin; Z79.899 Other long term (current) drug therapy; W01.0XXA Fall on same level from slipping, tripping and stumbling without subsequent striking against object, initial encounter
CPT/HCPCS: 24655

== ENCOUNTER 2018-06-22 10:21 | Emergency (ER) | payer MEDICARE ==
[2018-06-22] MEDS ORDERED: Bacitracin Zinc 1 Packet ONE (11:23)
--- NOTE | 2018-06-22 11:27 | RAD ---
RIGHT FOREARM TWO VIEWS: History: Pain. Fall off a stool. Comparison: None. FINDINGS: Forearm is intact. The distal radius fracture likely extraarticular with dorsal impaction and angulat ion. IMPRESSION: Intact proximal forearm. Distal radial fracture transversely oriented with mild dorsal angulation an d impaction. The styloid fracture is not well seen at the ulna. POS: [facility]
--- NOTE | 2018-06-22 11:28 | RAD ---
RIGHT WRIST 3 VIEWS: HISTORY: Pain. Fall. Injury. COMPARISON: Radiograph 02/05/2018. FINDINGS: There is a transversely oriented possibly extraarticular fracture distal radius. There is also a fra cture of the ulnar styloid process at the base. Scapholunate interval does not appear to be widened. IMPRESSION: 1. Likely extraarticular fracture, transversely oriented, at the distal radius with moderate dorsal angulation and impaction. 2. Fracture of the ulnar styloid at the base without significant displacement. POS: [facility]
[2018-06-22] MEDS ORDERED: Adacel (T-DAP) 0.5 ML VIAL ONE (11:31)
[2018-06-22] MEDS ORDERED: HYDROcodone/Acetaminophen 10/325 mg Tablet ONE (11:31)
== END 2018-06-22 12:51 | disposition home or self-care (01) ==
LOC: ERS 10:21
DX: S52.501A Unspecified fracture of the lower end of right radius, initial encounter for closed fracture (principal); S52.611A Displaced fracture of right ulna styloid process, initial encounter for closed fracture; I48.91 Unspecified atrial fibrillation; I10 Essential (primary) hypertension; I25.10 Atherosclerotic heart disease of native coronary artery without angina pectoris; F32.9 Major depressive disorder, single episode, unspecified; Z79.82 Long term (current) use of aspirin; Z79.899 Other long term (current) drug therapy; Z79.891 Long term (current) use of opiate analgesic; W08.XXXA Fall from other furniture, initial encounter
CPT/HCPCS: 29125; 90471; 90715; 99283

== ENCOUNTER 2018-06-28 21:38 | Observation (INO) | payer MEDICARE ==
[~2018-06-28 21:38] MED LIST: ISOVUE-370 76%-LOCM 1 ML ONE
--- NOTE | 2018-06-28 22:27 | RAD ---
PORTABLE UPRIGHT FRONTAL CHEST RADIOGRAPH: 06/28/2018 HISTORY: Rectal bleeding and dyspnea. COMPARISON: 07/24/2017 FINDINGS: Midline sternotomy wires and mediastinal clips are present. There is a dual-lead transvenous pacing device, inserted via left subclavian approach, with leads overlying the region of the right ventricle and the right atrium. No pneumothorax, pleural fluid, lobar consolidation, or alveolar edema. IMPRESSION: Chronic findings, as detailed above. No focal consolidation or alveolar edema. POS: [facility]
[2018-06-28 22:53] LABS: #Eosinphils 0.1 thou/uL (0.0-0.7); #Lymphocytes 1.2 thou/uL (1.20-3.40); #Monocytes 0.7 thou/uL (0.11-0.59); #Neutrophils 4.4 thou/uL (1.40-6.50); %Basophils 0.7 % (0.0-1.0); %Eosinophils 1.9 % (0.0-10.0); %Lymphocytes 18.9 % (21.0-51.0); %Monocytes 10.3 % (0.0-10.0); %Neutrophils 68.3 % (42.0-75.0); Hemoglobin 13.2 g/dL (12.0-16.0); Mean Corpuscular HGB CONC 32.7 g/dL (32.0-36.0); Mean Corpuscular Hemoglobin 30.7 pg (27.0-31.0); Mean Corpuscular Volume 93.8 fL (78.0-98.0); Mean Platelet Volume 8.6 fL (7.4-10.4); Platelet Count 230 thou/uL (130-400); RBC Distribution Width 14.3 % (11.5-14.5); Red Blood Cell (RBC) Count 4.31 mill/uL (4.20-5.40); White Blood Cell (WBC) Count 6.4 thou/uL (4.8-10.8)
[2018-06-28 22:59] LABS: INR-International Normal Ratio 1.2; Prothrombin Time 15.3 SEC (12.0-14.7)
[2018-06-28 23:00] LABS: PTT 36.3 SEC (22.9-36.1)
[2018-06-28 23:16] LABS: ALT (SGPT) 25 U/L (8-55); AST (SGOT) 22 U/L (5-34); Albumin 3.7 g/dL (3.4-4.8); Alkaline Phosphatase 137 U/L (40-150); Anion Gap 14 mmol/L (10-20); BUN (Urea Nitrogen) 21 mg/dL (9.8-20.1); Bilirubin, Total 0.5 mg/dL (0.2-1.2); Calc. Creatinine Clearance 0 mL/min (70-130); Calcium 9.1 mg/dL (7.8-10.44); Carbon Dioxide 25 mmol/L (23-31); Chloride 103 mmol/L (98-107); Estimated GFR-MDRD 48; Glucose 125 mg/dL (80-115); Potassium 3.7 mmol/L (3.5-5.1); Protein, Total 6.7 g/dL (6.0-8.3); Sodium 138 mmol/L (136-145)
[2018-06-28 23:19] LABS: CKMB 1.5 ng/mL (0-6.6); Troponin I Less than 0.010 ng/mL (< 0.028)
[2018-06-29] MEDS ORDERED: Acetaminophen 325 MG TAB PO PRN ×2 (02:51→09:59)
[2018-06-29] MEDS ORDERED: Ondansetron PF 4 MG/2 ML Vial IVP PRN (02:51)
[2018-06-29] MEDS ORDERED: Ondansetron ODT 4 MG TAB SL PRN (02:51)
[2018-06-29 03:58] VITALS: BMI 34.9
[2018-06-29 05:41] LABS: #Eosinphils 0.1 thou/uL (0.0-0.7); #Lymphocytes 1.2 thou/uL (1.20-3.40); #Monocytes 0.6 thou/uL (0.11-0.59); #Neutrophils 3.9 thou/uL (1.40-6.50); %Basophils 0.5 % (0.0-1.0); %Eosinophils 2.2 % (0.0-10.0); %Lymphocytes 20.6 % (21.0-51.0); %Monocytes 9.9 % (0.0-10.0); %Neutrophils 66.8 % (42.0-75.0); Hemoglobin 12.6 g/dL (12.0-16.0); Mean Corpuscular HGB CONC 31.6 g/dL (32.0-36.0); Mean Corpuscular Hemoglobin 29.9 pg (27.0-31.0); Mean Corpuscular Volume 94.6 fL (78.0-98.0); Mean Platelet Volume 8.7 fL (7.4-10.4); Platelet Count 215 thou/uL (130-400); RBC Distribution Width 14.2 % (11.5-14.5); White Blood Cell (WBC) Count 5.8 thou/uL (4.8-10.8)
--- NOTE | 2018-06-29 08:28 | CT ---
PRELIMINARY REPORT/[facility]/EMERGENTY AFTER-HOURS PROCEDURE CT Abdomen and Pelvis With Intravenous Contrast EXAM DATE/TIME: 06/28/2018 11:35 PM CLINICAL HISTORY: 67 years old, female; acute-onset hematochezia; reports about 1/2 cup of deon blood in stool without clots and on toilet paper. HX CML in remission, paroxysmal Afib, CHF, and previous diverticular blee d 2 yrs prior. No pain, fever, melena, prior hematochezia, dizziness, or syncope. On eliquis for Afib - last taken this morning. TECHNIQUE: Axial computed tomography images of the abdomen and pelvis with intravenous contrast. Coronal reformatted images were created and reviewed. COMPARISON: No relevant prior studies available. FINDINGS: Tubes, catheters and devices: Prior pacemaker lead placement. Lower thorax: Fat-containing left Bochdalek hernia. Left basilar linear parenchymal scarring or subse gmental collapse / atelectasis. Small hiatal hernia. ABDOMEN: Liver: Normal. No mass. Gallbladder and bile ducts: Normal. No calcified stones. No ductal dilation. Pancreas: Normal. No ductal dilation. Spleen: Normal. No splenomegaly. Adrenals: Normal. No mass. Kidneys and ureters: Normal. No hydronephrosis. Stomach and bowel: Scattered colon diverticuli without evidence of diverticulitis. Duodenal diverticulum. Appendix: No evidence of appendicitis. PELVIS: Bladder: Unremarkable as visualized. Reproductive: Status post hysterectomy. ABDOMEN and PELVIS: Intraperitoneal space: Normal. No free air. No significant fluid collection. Bones/joints: No acute fracture. No dislocation. Soft tissues: Small fat-containing umbilical hernia. Fat-containing ventral hernia(s). Vasculature: Normal. No abdominal aortic aneurysm. Lymph nodes: Normal. No enlarged lymph nodes. IMPRESSION: 1. No acute intra-abdominal or pelvic process. 2. Scattered colon diverticuli without evidence of diverticulitis. 3. Small hiatal hernia. Thank you for allowing us to participate in the care of your patient. Dictated and Authenticated by: Wiley Márquez MD 06/29/2018 12:25 AM Central Time ([place] & [place]) FINAL REPORT CT ABDOMEN AND PELVIS WITH IV CONTRAST: I agree with the preliminary report, given by of [place]. POS: [facility]
[2018-06-29] MEDS ORDERED: traMADol HCl 50 MG TAB PO PRN (09:56)
[2018-06-29] MEDS ORDERED: Senokot S 8.6-50 MG TAB PO PRN (09:59)
[2018-06-29 11:13] LABS: Hemoglobin 12.6 g/dL (12.0-16.0)
--- NOTE | 2018-06-29 13:15 | HP ---
PRIMARY CARE PROVIDER: Sara Roy D.O. CHIEF COMPLAINT: Rectal bleeding. HISTORY OF PRESENT ILLNESS: Ms. Swan is a pleasant 67-year-old lady, who was seen at [facility] on 06/29/2018. She reports going to the bathroom yesterday. When she wiped after using the toilet, she noticed jacob k blood on the toilet paper. There were no clots. She subsequently had another bowel movement, in w hich she passed blood, but no stool. After that, she reports improvement in the amount of bleeding. She continues to have smears of blood on the toilet paper, but no bloody bowel movements as such. The patient takes apixaban for atrial fibrillation and took it yesterday afternoon. She denies any chest pain. She denies any lightheadedness. She denies any abdominal pain. She julissa es any nausea or vomiting. REVIEW OF SYSTEMS: All other systems reviewed and found to be negative. 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 She als o has a history of diverticulitis. PAST SURGICAL HISTORY: Pericardial effusion, status post pericardiocentesis, pericardial window; hys terectomy; bilateral tubal ligation; coronary stent placement; coronary artery bypass grafting, singl e vessel. SOCIAL HISTORY: The patient denies tobacco use, alcohol use, or recreational drug use. FAMILY HISTORY: Significant for myocardial infarction in her father. One brother at age 46 fro m myocardial infarction and another brother at age 54 from myocardial infarction. ALLERGIES: No known drug allergies. CURRENT MEDICATIONS: Tramadol 50 mg every 6 hours as needed, allopurinol 100 mg daily, amiodarone 20 0 mg daily, apixaban 5 mg 2 times a day, aspirin 325 mg daily, Coreg 6.25 mg 2 times a day, Prozac 20 mg daily, furosemide 40 mg in the afternoon and 80 mg in the morning, potassium chloride 20 mEq 2 ti mes a day, Entresto 24/26 mg 1 tablet 2 times a day, and Zocor 20 mg in the evening. PHYSICAL EXAMINATION: GENERAL: Ms. Swan is awake and alert, not in acute distress. VITAL SIGNS: Blood pressure is 128/60, pulse 64, respiratory rate 18, and oxygen saturation 96% on r oom air. She is afebrile. She is obese, with a BMI of 34.9. EYES: No scleral icterus. No conjunctival pallor. ENT: Moist mucosal membranes. No oropharyngeal erythema or exudates. NECK: Supple, nontender, trachea is midline. RESPIRATORY: Accessory muscles of breathing are not active. Chest wall movements are symmetric bila terally. LUNGS: Clear to auscultation without wheeze, rhonchi, or crepitations. CARDIOVASCULAR: S1 and S2 are heard, regular. Peripheral pulses palpable. No carotid bruit, no per icardial rub. ABDOMEN: Soft, nontender, bowel sounds are heard, no hepatomegaly, no splenomegaly. NEUROLOGIC: Cranial nerves II-XII intact. Deep tendon reflexes are 2+. MUSCULOSKELETAL: Power is 5/5 in all 4 extremities. SKIN: No rashes or subcutaneous nodules. LYMPHATIC: No cervical lymphadenopathy. PSYCHIATRIC: Normal mood, normal affect, patient is oriented to person, place, and time. LABORATORY DATA: Ms. Swan's labs and investigations were reviewed. I reviewed her electrocard iogram, which shows electronic atrial paced rhythm, no ST changes to suggest an acute coronary syndro me. I also reviewed her chest x-ray, which does not show any pulmonary infiltrates. She also had CT scan of the abdomen and pelvis with IV contrast, which did not show any acute intra-abdominal or pel narayan process. She had scattered colon diverticula without evidence of diverticulitis. She also has a small hiatal hernia. She has a normal white count; normal hemoglobin of 12.6, hemoglobin was 11.5 o n 10/27/2017; normal platelet count; INR 1.2; normal sodium; normal potassium; elevated blood urea ni trogen of 21; elevated creatinine of 1.14, last known creatinine 1.05 on 01/13/2018; normal liver fun ction tests and normal troponin I. BNP is elevated at 243.8. ASSESSMENT AND PLAN: Ms. Swan is a pleasant 67-year-old lady, who was seen at [facility] on 06/29/2018. Her problem list includes: 1. Gastrointestinal bleed: Ms. Swan is presenting with gastrointestinal bleed, most likely lo wer gastrointestinal bleed. She denies any abdominal pain. This is probably a diverticular bleed. She will be admitted to the hospital for further management including rechecking her hemoglobin. Gas troenterology service will be consulted for opinion and help with management. Aspirin and apixaban w ill be held. 2. Acute kidney injury: Mild. We will recheck her creatinine level. 3. Paroxysmal atrial fibrillation: We will continue beta jer. 4. Hypertension: We will resume home antihypertensives, monitor vital signs, and titrate antihypert ensives as needed. 5. Dyslipidemia: We will continue statin. Many thanks for allowing me to participate in your patient's care. Please feel free to contact me wi th any questions or concerns. LEVEL OF RISK: High. LEVEL OF COMPLEXITY: High.
[2018-06-29] MEDS: Furosemide 40 MG TAB PO SCH (14:06)
[2018-06-29] MEDS: Carvedilol 6.25 MG TAB PO SCH (20:03)
[2018-06-29] MEDS: Hydrocortisone Acetate 25 MG Suppository PR SCH (20:04)
[2018-06-29] MEDS: Sacubitril 24.5 MG/Valsartan 25.5 MG TABLET PO SCH (20:04)
[2018-06-29] MEDS ORDERED: Atorvastatin Calcium 10 MG TAB PO SCH (21:00)
[2018-06-29] MEDS ORDERED: Potassium Chloride 20 MEQ TAB PO SCH (21:00)
[2018-06-30 05:23] LABS: #Eosinphils 0.1 thou/uL (0.0-0.7); #Lymphocytes 1.2 thou/uL (1.20-3.40); #Monocytes 0.5 thou/uL (0.11-0.59); #Neutrophils 2.9 thou/uL (1.40-6.50); %Basophils 0.9 % (0.0-1.0); %Eosinophils 2.1 % (0.0-10.0); %Lymphocytes 25.3 % (21.0-51.0); %Monocytes 10.8 % (0.0-10.0); Hemoglobin 12.7 g/dL (12.0-16.0); Mean Corpuscular HGB CONC 31.1 g/dL (32.0-36.0); Mean Corpuscular Volume 96.4 fL (78.0-98.0); Mean Platelet Volume 8.8 fL (7.4-10.4); Platelet Count 219 thou/uL (130-400); RBC Distribution Width 14.4 % (11.5-14.5); Red Blood Cell (RBC) Count 4.23 mill/uL (4.20-5.40); White Blood Cell (WBC) Count 4.8 thou/uL (4.8-10.8)
[2018-06-30 05:35] LABS: Anion Gap 12 mmol/L (10-20); BUN (Urea Nitrogen) 18 mg/dL (9.8-20.1); Calc. Creatinine Clearance 84 mL/min (70-130); Calcium 9.6 mg/dL (7.8-10.44); Carbon Dioxide 28 mmol/L (23-31); Chloride 106 mmol/L (98-107); Estimated GFR-MDRD 53; Glucose 101 mg/dL (80-115); Potassium 3.7 mmol/L (3.5-5.1); Sodium 142 mmol/L (136-145)
[2018-06-30] MEDS ORDERED: FLUoxetine HCl 20 MG CAP PO SCH (09:00)
[2018-06-30] MEDS ORDERED: Allopurinol 100 MG TAB PO SCH (09:00)
[2018-06-30] MEDS ORDERED: Furosemide 80 MG TAB PO SCH (09:00)
[2018-06-30] MEDS ORDERED: Amiodarone 200 MG TAB PO SCH (09:00)
--- NOTE | 2018-06-30 09:05 | CON ---
DATE OF CONSULTATION: 06/29/2018 REASON FOR CONSULTATION: Rectal bleeding. HISTORY OF PRESENT ILLNESS: Ms. Mills is a pleasant 67-year-old female who is on aspirin and Eliq uis for cardiac disease. Yesterday evening, she had a bowel movement in which she thought she was alvarez ving a normal bowel movement, but when she wiped she saw deon blood on the tissue. She went back an d passed blood one more time, this has not recurred. She has no abdominal pain, no associated rectal pain. About a year or two ago, she was here for GI bleeding and was transfused, this was in 2016. She reports at that time, she was diagnosed with diverticular bleeding. She reports that she had a c olonoscopy at that time by Dr. Bunn which was normal. Presently, she feels well and wants to eat. S he denies any change in bowel function, melena, hematemesis, or nausea. PAST MEDICAL HISTORY: 1. Atrial fibrillation on chronic anticoagulation. 2. Recent fall with fracture of right arm, wrist, which was casted. 3. Coronary artery disease with previous stent placement and previous coronary artery bypass graftin g in 06/2017. 4. Cardiac ablation. 5. 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 6. Dyslipidemia. 7. CML in remission. 8. History of recurrent chronic pericardial effusions in the past. 9. Hypertension. 10. Dyslipidemia. 11. Congestive heart failure. 12. History of diverticular bleeding in 2015. PAST SURGICAL HISTORY: 1. Pericardial effusion, tapped in the past. 2. Previous pericardial window. 3. Hysterectomy. 4. Bilateral tubal ligation. 5. Coronary stent placements and coronary artery bypass grafting. 6. Cardiac ablation of arrhythmia and pacemaker placement. SOCIAL HISTORY: The patient denies alcohol, drugs, or tobacco. FAMILY HISTORY: Negative for myocardial infarction. The patient's father and brother at age 46 of myocardial disease and one at 54 of myocardial disease. ALLERGIES: None known. MEDICATIONS: Tramadol, allopurinol, amiodarone, apixaban, aspirin, Coreg, Prozac, furosemide, potass ium chloride, Entresto, Zocor. PRESENT MEDICATIONS HERE IN THE HOSPITAL: Acetaminophen, Tylenol, Coreg, Lipitor, Cordarone, Prozac, Lasix, Senokot, tramadol. REVIEW OF SYSTEMS: Negative for chest pain, shortness of breath, or dyspnea. Negative for weight lo ss or weight gain. PHYSICAL EXAMINATION: VITAL SIGNS: Temperature is 97.6, pulse 60, blood pressure 125/60. HEENT: Oropharynx without lesions. GENERAL: The patient is alert and oriented to person, place, and time. She is nondistressed. Oroph arynx is pink and moist. No lesions. NECK: Supple, no adenopathy. LUNGS: Clear. HEART: Regular rate and rhythm without murmurs. RECTAL: Reveals brown stool in the vault. There is no blood. It is formed. There are no fissures or tears. Small external hemorrhoids. EXTREMITIES: No clubbing, cyanosis, or edema. NEUROLOGIC: Grossly intact. LABORATORY STUDIES: Hemoglobin was 13.2 last night at 2200, it was 11.5 on 10/2017, it was 12.6 at 5 this morning and 12.6 at 11:30. Platelets normal at 215. INR was 1.2. Chemistries notable for nor mal comp metabolic profile: BUN and creatinine are 21 and 1.14. Liver function tests are normal. ASSESSMENT: Rectal outlet bleeding. This is likely hemorrhoidal, possibly exacerbated by her blood thinners. Th ere are no signs of overt hemorrhage at this time. She has had a history of diverticular hemorrhage in the past but has none now. She also has a recent colonoscopy in the past several years, and I erin l check in the office to see exactly when that was. RECOMMENDATIONS: 1. Advance diet. 2. Stop serial H and Hs. She will go home later today or tomorrow morning at the latest.
[2018-06-30] MEDS: Hydrocortisone Acetate 25 MG Suppository PR SCH (09:28)
[2018-06-30] MEDS: Carvedilol 6.25 MG TAB PO SCH (09:28)
[2018-06-30] MEDS: Sacubitril 24.5 MG/Valsartan 25.5 MG TABLET PO SCH (09:29)
[2018-06-30 09:45] VITALS: TEMP 97.9
[2018-06-30 12:47] VITALS: BP 132/64
[2018-06-30] MEDS: Furosemide 40 MG TAB PO SCH (14:29)
--- NOTE | 2018-06-30 19:50 | DIS ---
DATE OF ADMISSION: 06/29/2018 DATE OF DISCHARGE: 06/30/2018 PRIMARY CARE PROVIDER: Sara Roy D.O. DISCHARGE DIAGNOSES: 1. Rectal bleeding. 2. Probable hemorrhoidal bleed. 3. Acute on chronic, stage 2 renal failure. CONSULTATION DURING THIS HOSPITALIZATION: Gastroenterology, Dr. Sadler. DISCHARGE MEDICATIONS: All her preadmission home medications including apixaban and aspirin were res umed. Please refer to my history and physical note dated 06/29/2018 for further details of these med ications. In addition, she is being discharged home on Anusol-HC 25 mg suppository two times a day a s needed. HOSPITAL COURSE: Ms. Swan is a pleasant 67-year-old lady who was admitted to [facility] on 06/29/2018 for rectal bleed. Please refer to my history and physical note dated 06/29/2018 for further details. She was monitored on the telemetry floor. Her hemoglobin was rechec ked. It continued to be stable. Hemoglobin is 12.7 on the day of discharge. She also had acute renal insufficiency at the time of admission, with a creatinine of 1.14. It puja lized to 1.04 by the day of discharge. Ms. Swan was also seen by Gastroenterology Service. Af ter reviewing the records, it was felt that her rectal bleeding was likely secondary to hemorrhoids. She was started on Anusol-HC. She did not have any further episodes of bleeding and is being discha rged home in stable condition. Many thanks for allowing me to participate in your patient's care. Please feel free to contact me wi th any questions or concerns. On the day of discharge, she has white count 4,800, hemoglobin 12.7, platelet count 219,000 and puja l chem-7. BNP during this hospitalization was slightly elevated at 243.8. DISCHARGE DESTINATION: Home. TOTAL AMOUNT OF TIME SPENT COORDINATING THIS DISCHARGE: 33 minutes.
== END 2018-06-30 14:35 | disposition home or self-care (01) ==
LOC: ERS 21:38 → 2NO 06-29 01:49 → INTOOBSV 06-29 01:49
PROVIDERS: ADMIT Internal Medicine; ATTEND Internal Medicine
DX: K62.5 Hemorrhage of anus and rectum (principal); I25.10 Atherosclerotic heart disease of native coronary artery without angina pectoris; I48.0 Paroxysmal atrial fibrillation; E78.5 Hyperlipidemia, unspecified; I31.3 Pericardial effusion (noninflammatory); I13.0 Hypertensive heart and chronic kidney disease with heart failure and stage 1 through stage 4 chronic kidney disease, or unspecified chronic kidney disease; I50.40 Unspecified combined systolic (congestive) and diastolic (congestive) heart failure; N18.2 Chronic kidney disease, stage 2 (mild); D63.1 Anemia in chronic kidney disease; N17.9 Acute kidney failure, unspecified; Z85.6 Personal history of leukemia; Z79.01 Long term (current) use of anticoagulants; Z79.82 Long term (current) use of aspirin; Z79.899 Other long term (current) drug therapy; Z95.0 Presence of cardiac pacemaker; Z95.5 Presence of coronary angioplasty implant and graft; Z95.1 Presence of aortocoronary bypass graft; Z98.890 Other specified postprocedural states
CPT/HCPCS: 71045; 74177; 80048; 80053; 82553; 83880; 84484; 85014; 85018; 85025 ×3; 85610; 85730; 86850; 86900; 86901; 93005; 99285; G0378; 36415

== ENCOUNTER 2018-07-01 13:43 | Emergency (ER) | payer MEDICARE ==
--- NOTE | 2018-07-01 15:01 | RAD ---
CHEST ONE VIEW: History: Chest pain Comparison: 06-28-18 FINDINGS: There is a dual-lead cardiac pacer. No focal airspace consolidation, pneumothorax or effusion. Scarri ng in both lung bases. Multiple midline sternotomy wires. IMPRESSION: No acute intrathoracic abnormality. POS: JUDAH
[2018-07-01] MEDS ORDERED: Ketorolac Tromethamine 30 MG/ML VIAL ONE (15:31)
== END 2018-07-01 16:03 | disposition home or self-care (01) ==
LOC: ERS 13:43
DX: S20.211A Contusion of right front wall of thorax, initial encounter (principal); I48.91 Unspecified atrial fibrillation; I11.0 Hypertensive heart disease with heart failure; I50.9 Heart failure, unspecified; I25.10 Atherosclerotic heart disease of native coronary artery without angina pectoris; F32.9 Major depressive disorder, single episode, unspecified; Z79.899 Other long term (current) drug therapy; W19.XXXA Unspecified fall, initial encounter
CPT/HCPCS: 71045; 96374; J1885

== ENCOUNTER 2018-09-14 11:24 | Outpatient (CLI) | payer MEDICARE | END 2018-09-14 11:25 | disposition home or self-care (01) | LOC: BICMAMMO 11:24 | PROVIDERS: ATTEND Student in an Organized Health Care Education/Training Program | DX: Z12.31 Encounter for screening mammogram for malignant neoplasm of breast (principal); R92.1 Mammographic calcification found on diagnostic imaging of breast; Z80.3 Family history of malignant neoplasm of breast; Z85.89 Personal history of malignant neoplasm of other organs and systems | CPT/HCPCS: 77063; 77067 ==

== ENCOUNTER 2018-10-23 17:25 | Emergency (ER) | payer MEDICARE ==
--- NOTE | 2018-10-23 18:14 | RAD ---
THREE VIEWS LEFT HAND: 10/23/18 HISTORY: Tripping and fall with trauma to left hand. AP, lateral and oblique views left hand obtained. Three views left hand demonstrate an area of cortical irregularity seen in the base of the first left metacarpal. This appears to extend possibly into the articulating surface of the first carpometacarp al joint. The scaphoid is unremarkable. No other left wrist abnormality seen. IMPRESSION: Findings concerning for a fracture in the base of the first left metacarpal extending into the carpom etacarpal joint. POS: JUDAH
== END 2018-10-23 18:40 | disposition home or self-care (01) ==
LOC: ERS 17:25
DX: S62.232A Other displaced fracture of base of first metacarpal bone, left hand, initial encounter for closed fracture (principal); I48.91 Unspecified atrial fibrillation; I11.0 Hypertensive heart disease with heart failure; I50.9 Heart failure, unspecified; I25.10 Atherosclerotic heart disease of native coronary artery without angina pectoris; F32.9 Major depressive disorder, single episode, unspecified; Z79.899 Other long term (current) drug therapy; W18.30XA Fall on same level, unspecified, initial encounter
CPT/HCPCS: 26600

== ENCOUNTER 2019-04-17 14:04 | Observation (INO) | payer MEDICARE ==
[2019-04-17 15:33] LABS: #Eosinphils 0.1 thou/uL (0.0-0.7); #Lymphocytes 1.2 thou/uL (1.20-3.40); #Monocytes 0.6 thou/uL (0.11-0.59); #Neutrophils 4.9 thou/uL (1.40-6.50); %Basophils 0.5 % (0.0-1.0); %Eosinophils 1.9 % (0.0-10.0); %Lymphocytes 17.4 % (21.0-51.0); %Monocytes 8.6 % (0.0-10.0); %Neutrophils 71.6 % (42.0-75.0); Hemoglobin 14.6 g/dL (12.0-16.0); Mean Corpuscular HGB CONC 33.4 g/dL (32.0-36.0); Mean Corpuscular Hemoglobin 30.6 pg (27.0-31.0); Mean Corpuscular Volume 91.8 fL (78.0-98.0); Mean Platelet Volume 9.6 fL (7.4-10.4); Platelet Count 214 thou/uL (130-400); RBC Distribution Width 13.6 % (11.5-14.5); Red Blood Cell (RBC) Count 4.77 mill/uL (4.20-5.40); White Blood Cell (WBC) Count 6.8 thou/uL (4.8-10.8)
--- NOTE | 2019-04-17 15:36 | RAD ---
EXAM: Portable chest PROVIDED CLINICAL HISTORY: Dyspnea COMPARISON: 07/01/2018 FINDINGS: Cardiac and mediastinal silhouette is unchanged in appearance. Vascular calcification, median sternot chely changes and left subclavian cardiac pacing device are redemonstrated. No focal consolidation, pleural fluid or pneumothorax evident. IMPRESSION: No evidence for an acute cardiopulmonary process.
[2019-04-17 15:56] LABS: ALT (SGPT) 12 U/L (8-55); AST (SGOT) 16 U/L (5-34); Albumin 4.2 g/dL (3.4-4.8); Alkaline Phosphatase 106 U/L (40-150); Anion Gap 14 mmol/L (10-20); BUN (Urea Nitrogen) 60 mg/dL (9.8-20.1); Bilirubin, Total 0.4 mg/dL (0.2-1.2); CK (CPK) 38 U/L (29-168); Calc. Creatinine Clearance 0 mL/min (70-130); Calcium 10.1 mg/dL (7.8-10.44); Carbon Dioxide 25 mmol/L (23-31); Chloride 101 mmol/L (98-107); Estimated GFR-MDRD 21; Glucose 92 mg/dL (80-115); Potassium 4.2 mmol/L (3.5-5.1); Protein, Total 7.2 g/dL (6.0-8.3); Sodium 136 mmol/L (136-145)
[2019-04-17 17:34] LABS: Bilirubin Negative (Negative); Blood, Urine Negative (Negative); Clarity Clear (Clear); Glucose, Urine (Dipstick) Normal (Negative); Leukocyte Negative Leu/uL (Negative); Nitrite Negative (Negative); Protein, Urine (Dipstick) Negative (Neg-Trace); Urobilinogen Normal mg/dL (Less than 2)
[2019-04-17] MEDS ORDERED: Ondansetron PF 4 MG/2 ML Vial IVP PRN (17:39)
[2019-04-17] MEDS ORDERED: Ondansetron ODT 4 MG TAB PO PRN (17:39)
[2019-04-17 18:06] VITALS: BMI 34.9
--- NOTE | 2019-04-17 18:08 | PDOC.HHP ---
Hospitalist HPI - History of Present Illness Lightheaded and low BP History of Present Illness: Mrs. Jones states she has been feeling increasingly tired for the last 3 days. Reports feeling lightheaded at times and today became nauseous. She took her morning meds as normal including Lasix and later in the day when she checked her BP due to feeling badly she noticed it was low at 85/40. ED Course: In the ED she was noted to have a BP of 108/35 on arrival, improved to 124/64 after IVF (1L of NS). EKG showed NSR, HR 62. Chest xray: negative. Labs done ant notable for slightly elevated BNP of 112, and elevated renal function with a Cr. 2.28, GFR 21. Hospitalist ROS - Review of Systems Constitutional: reports: malaise. denies: fever, chills, sweats, weakness, other Eyes: denies: pain, vision change, conjunctivae inflammation, eyelid inflammation, redness, other ENT: denies: ear pain, ear discharge, nose pain, nose discharge, nose congestion , mouth pain, mouth swelling, throat pain, throat swelling, other Respiratory: denies: cough, dry, shortness of breath, hemoptysis, SOB with excertion, pleuritic pain, sputum, wheezing, other Cardiovascular: reports: light headedness. denies: chest pain, palpitations, orthopnea, paroxysmal noc. dyspnea, edema, other Gastrointestinal: reports: nausea, constipation. denies: vomitting, abdominal pain, diarrhea, melena, hematochezia, other Genitourinary: denies: dysuria, frequency, incontinence, hematuria, retention, other Musculoskeletal: denies: neck pain, shoulder pain, arm pain, back pain, hand pain, leg pain, foot pain, other Skin: denies: rash, lesions, bruising Neurological: denies: weakness, numbness, incoordination, change in speech, confusion, seizures, other Hospitalist History - Past Medical History Source: patient Cardiac: reports: AFIB, CAD, CHF, HTN, Other Heme/Onc: reports: Other (CML diagnosed 05/2014) Psych: reports: Depression - Past Surgical History Past Surgical History: reports: Appendectomy, CABG (one vessel), Hysterectomy, Tubal Ligation Other Surgical History: Cardiac stents, pacemaker, previous cardiac ablation Previous pericardial window. - Family History Family History: reports: no pertinent history - Social History Smoking Status: Never smoker Alcohol: reports: None Drugs: reports: none Activity level: independent ambulation - Exam General Appearance: NAD Eye: PERRL ENT: normocephalic atraumatic, no oropharyngeal lesions, dry oral mucosa Neck: supple, symmetric, no lymphadenopathy Heart: RRR, no murmur, no gallops, no rubs, normal peripheral pulses Respiratory: CTAB, no wheezes, no rales, no ronchi, normal chest expansion Gastrointestinal: soft, non-tender, non-distended, normal bowel sounds, no palpable masses, no guarding, no rigidity Extremities: no cyanosis, no clubbing, no edema Skin: no lesions, no rashes Neurological: CN's grossly intact, normal sensation to touch, no weakness, no focal deficits Musculoskeletal: normal tone, normal strength, no muscle wasting Psychiatric: normal affect, normal behavior, A&O x 3 Hospitalist Results - Labs Result Diagrams: 04/17/19 15:23 04/17/19 15:23 Lab results: WBC 6.8 thou/uL (4.8-10.8) 04/17/19 15:23 Hgb 14.6 g/dL (12.0-16.0) 04/17/19 15:23 Hct 43.8 % (36.0-47.0) 04/17/19 15:23 MCV 91.8 fL (78.0-98.0) 04/17/19 15:23 Plt Count 214 thou/uL (130-400) 04/17/19 15:23 Neutrophils % 71.6 % (42.0-75.0) 04/17/19 15:23 Sodium 136 mmol/L (136-145) 04/17/19 15:23 Potassium 4.2 mmol/L (3.5-5.1) 04/17/19 15:23 Chloride 101 mmol/L (98-107) 04/17/19 15:23 Carbon Dioxide 25 mmol/L (23-31) 04/17/19 15:23 BUN 60 mg/dL (9.8-20.1) H 04/17/19 15:23 Creatinine 2.28 mg/dL (0.6-1.1) H 04/17/19 15:23 Glucose 92 mg/dL (80-115) 04/17/19 15:23 Lactic Acid 1.1 mmol/L (0.5-2.2) 04/17/19 15:23 Calcium 10.1 mg/dL (7.8-10.44) 04/17/19 15:23 Total Bilirubin 0.4 mg/dL (0.2-1.2) 04/17/19 15:23 AST 16 U/L (5-34) 04/17/19 15:23 ALT 12 U/L (8-55) 04/17/19 15:23 Alkaline Phosphatase 106 U/L (40-150) 04/17/19 15:23 Creatine Kinase 38 U/L (29-168) 04/17/19 15:23 Troponin I Less than 0.010 ng/mL (< 0.028) 04/17/19 15:23 B-Natriuretic Peptide 112.9 pg/mL (0-100) H 04/17/19 15:23 Serum Total Protein 7.2 g/dL (6.0-8.3) 04/17/19 15:23 Albumin 4.2 g/dL (3.4-4.8) 04/17/19 15:23 Urine Ketones Negative mg/dL (Negative) 04/17/19 17:19 Urine Blood Negative (Negative) 04/17/19 17:19 Urine Nitrite Negative (Negative) 04/17/19 17:19 Ur Leukocyte Esterase Negative Talia/uL (Negative) 04/17/19 17:19 Hospitalist H&P A/P - Problem (1) Lightheaded Code(s): R42 - DIZZINESS AND GIDDINESS Status: Acute Assessment and Plan: Feeling better following IV fluids in the ED. Per Dr. Quintana, ED physician ordered Echo to be done in tmrw morning. No order at present, will place one. Orthostatic BPs. (2) Hypotension Status: Acute Assessment and Plan: Likely secondary to dehydration. She drinks 3 Dr. Peppers a day, minimal water intake. Has noted darkened urine in the mornings and constipation. Improved BP after fluids in ED. Continue to monitor and hold antihypertensives. (3) Acute on chronic renal insufficiency Code(s): N28.9 - DISORDER OF KIDNEY AND URETER, UNSPECIFIED; N18.9 - CHRONIC KIDNEY DISEASE, UNSPECIFIED Status: Acute Assessment and Plan: Creatinine 2.3, GFR 21. Will monitor renal function. If not improved following fluids, we will consider nephrology consult. (4) Constipation Code(s): K59.00 - CONSTIPATION, UNSPECIFIED Status: Chronic Assessment and Plan: Will treat with Senna. - Plan Plan: GI Prophylaxis and DVT prophylaxis with mechanical SCDs. She is ambulatory. Code status: FULL. Surrogate decision maker: Her Rg Swan. Plan discussed with Dr. Quintana who agrees with above. I have updated Dr. Arce, her external grinder tender.
[2019-04-17] MEDS: Sodium Chloride 0.9% 1,000 ML IV SCH (18:32)
[2019-04-17] MEDS ORDERED: Senokot 8.6 MG TAB PO PRN (20:54)
[2019-04-18 08:06] LABS: #Eosinphils 0.2 thou/uL (0.0-0.7); #Lymphocytes 1.5 thou/uL (1.20-3.40); #Monocytes 0.6 thou/uL (0.11-0.59); %Basophils 0.8 % (0.0-1.0); %Eosinophils 2.7 % (0.0-10.0); %Lymphocytes 23.3 % (21.0-51.0); %Monocytes 9.4 % (0.0-10.0); %Neutrophils 63.8 % (42.0-75.0); Hemoglobin 12.4 g/dL (12.0-16.0); Mean Corpuscular HGB CONC 31.3 g/dL (32.0-36.0); Mean Corpuscular Hemoglobin 28.9 pg (27.0-31.0); Mean Corpuscular Volume 92.3 fL (78.0-98.0); Mean Platelet Volume 9.7 fL (7.4-10.4); Platelet Count 179 thou/uL (130-400); RBC Distribution Width 13.6 % (11.5-14.5); Red Blood Cell (RBC) Count 4.28 mill/uL (4.20-5.40); White Blood Cell (WBC) Count 6.3 thou/uL (4.8-10.8)
[2019-04-18 08:23] LABS: Anion Gap 14 mmol/L (10-20); BUN (Urea Nitrogen) 49 mg/dL (9.8-20.1); Calc. Creatinine Clearance 54 mL/min (70-130); Calcium 9.5 mg/dL (7.8-10.44); Carbon Dioxide 23 mmol/L (23-31); Chloride 106 mmol/L (98-107); Estimated GFR-MDRD 32; Glucose 90 mg/dL (80-115); Potassium 4.1 mmol/L (3.5-5.1); Sodium 139 mmol/L (136-145)
[2019-04-18] MEDS: Sodium Chloride 0.9% 1,000 ML IV SCH (08:35)
[2019-04-18] MEDS: Famotidine/PF 20 mg/2ml Vial SLOW IVP SCH (08:35)
--- NOTE | 2019-04-18 16:38 | PDOC.HOSPP ---
- Subjective Encounter Date: 04/18/19 Encounter Time: 11:55 Subjective: pt up in bed feel well today - Objective Vital Signs & Weight: Vital Signs (12 hours) Temp Pulse Resp BP Pulse Ox 04/18/19 07:42 97.7 F 63 16 101/66 96 Weight Weight 224 lb I&O: 04/17/19 04/18/19 04/19/19 06:59 06:59 06:59 Intake Total 1580 Balance 1580 Result Diagrams: 04/18/19 07:37 04/18/19 07:37 Hospitalist ROS - Review of Systems Cardiovascular: denies: chest pain, palpitations, orthopnea, paroxysmal noc. dyspnea, edema, light headedness, other Gastrointestinal: denies: nausea, vomitting, abdominal pain, diarrhea, constipation, melena, hematochezia, other - Medication Medications: Active Medications Generic Name Dose Route Start Last Admin Trade Name Freq PRN Reason Stop Dose Admin Famotidine 20 mg 04/18/19 09:00 04/18/19 08:35 Pepcid SLOW IVP 20 mg DAILY ZULEIKA Administration - Exam Neck: negative: supple, symmetric, no JVD, no thyromegaly, no lymphadenopathy, no carotid bruit, JVD Heart: negative: RRR, no murmur, no gallops, no rubs, normal peripheral pulses, irregular, diminshed peripheral pulses, murmur present, II/IV, III/IV Respiratory: negative: CTAB, no wheezes, no rales, no ronchi, normal chest expansion, no tachypnea, normal percussion, rales, rhonchi, tachypneic, wheezes Hosp A/P (1) JOSE ENRIQUE (acute kidney injury) Code(s): N17.9 - ACUTE KIDNEY FAILURE, UNSPECIFIED Status: Acute (2) Lightheaded Code(s): R42 - DIZZINESS AND GIDDINESS Status: Acute (3) CAD (coronary artery disease) Code(s): I25.10 - ATHSCL HEART DISEASE OF [place] CORONARY ARTERY W/O ANG PCTRS Status: Chronic Qualifiers: Coronary Disease-Associated Artery/Lesion type: [place] artery [place] vs. transplanted heart: [place] heart Associated angina: without angina Qualified Code(s): I25.10 - Atherosclerotic heart disease of [place] coronary artery without angina pectoris (4) CKD stage G3b/A1, GFR 30-44 and albumin creatinine ratio <30 mg/g Code(s): N18.3 - CHRONIC KIDNEY DISEASE, STAGE 3 (MODERATE) Status: Chronic - Plan pt's jose enrique is improving, will continue fluids. will get echo. if pt feels well will discharge in am.
[2019-04-18 22:35] LABS: Bacteria/HPF None Seen HPF (None Seen); Bilirubin Negative (Negative); Blood, Urine Negative (Negative); Clarity Clear (Clear); Glucose, Urine (Dipstick) Normal (Negative); Leukocyte Negative Leu/uL (Negative); Nitrite Negative (Negative); Protein, Urine (Dipstick) Negative (Neg-Trace); RBC/HPF 0-3 HPF (0-3); Squamous Epithelial 0-3 HPF (0-3); Urobilinogen Normal mg/dL (Less than 2)
[2019-04-18 22:36] LABS: Urine Culture Reflex Yes Yes
[2019-04-19 05:34] VITALS: TEMP 98
[2019-04-19 07:33] VITALS: BP 112/73
[2019-04-19] MEDS: Famotidine/PF 20 mg/2ml Vial SLOW IVP SCH (08:13)
[2019-04-19] MEDS ORDERED: Allopurinol 100 MG TAB PO SCH (09:00)
[2019-04-19] MEDS ORDERED: Apixaban 5 MG TAB PO SCH (09:00)
[2019-04-19] MEDS ORDERED: Carvedilol 3.125 MG TAB PO SCH ×3 (09:32→21:00)
[2019-04-19 12:20] LABS: Anion Gap 16 mmol/L (10-20); BUN (Urea Nitrogen) 31 mg/dL (9.8-20.1); Calc. Creatinine Clearance 73 mL/min (70-130); Calcium 9.8 mg/dL (7.8-10.44); Carbon Dioxide 20 mmol/L (23-31); Chloride 108 mmol/L (98-107); Estimated GFR-MDRD 46; Glucose 77 mg/dL (80-115); Potassium 4.5 mmol/L (3.5-5.1); Sodium 139 mmol/L (136-145)
[2019-04-20] MEDS ORDERED: Spironolactone 25 MG TAB PO SCH (09:00)
--- NOTE | 2019-04-24 13:23 | EKG ---
Test Reason : Blood Pressure : / mmHG Vent. Rate : 062 BPM Atrial Rate : 062 BPM P-R Int : 164 ms QRS Dur : 098 ms QT Int : 458 ms P-R-T Axes : 037 -10 110 degrees QTc Int : 464 ms Normal sinus rhythm Lateral infarct , age undetermined Abnormal ECG Left atrial enlargement Lateral Ischemia Confirmed by NELSON GROVER, MAGUE Lucero ([id number]), multimedia editor СВЕТЛАНА MCDONNELL ([id number]) on 04/24/2019 1:22:50 PM Referred By: Confirmed By:MAGUE DAMON MD
== END 2019-04-19 13:35 | disposition home or self-care (01) ==
LOC: ERS 14:04 → T4-A 18:04
PROVIDERS: ADMIT Internal Medicine; ATTEND Internal Medicine
DX: I95.9 Hypotension, unspecified (principal); I13.0 Hypertensive heart and chronic kidney disease with heart failure and stage 1 through stage 4 chronic kidney disease, or unspecified chronic kidney disease; I50.9 Heart failure, unspecified; N18.9 Chronic kidney disease, unspecified; K59.00 Constipation, unspecified; I25.10 Atherosclerotic heart disease of native coronary artery without angina pectoris; Z79.01 Long term (current) use of anticoagulants; Z79.899 Other long term (current) drug therapy; Z95.5 Presence of coronary angioplasty implant and graft
CPT/HCPCS: 71045; 80048 ×2; 80053; 81001; 81003; 82550; 83605; 83735; 83880; 84484; 85025 ×2; 87086; 93005; 93306; 96361 ×3; 96374; 96376; 97139 ×2; 99285; G0378 ×4; 36415; 96360; S0028

== ENCOUNTER 2019-07-02 22:51 | Inpatient (IN) | payer MEDICARE ==
--- NOTE | 2019-07-02 23:56 | RAD ---
XR Chest 1 View Portable History: Chest pain Comparison: Radiograph April 17, 2019 Findings: Heart size is enlarged. No pneumothorax. No effusion. No confluent airspace consolidation. Likely a sliding hiatal hernia. Dual-lead pacer is similar. Impression: Chronic findings. No acute intrathoracic abnormality.
[2019-07-03 00:03] LABS: #Eosinphils 0.2 thou/uL (0.0-0.7); #Lymphocytes 1.5 thou/uL (1.20-3.40); #Monocytes 0.5 thou/uL (0.11-0.59); #Neutrophils 3.2 thou/uL (1.40-6.50); %Basophils 0.7 % (0.0-1.0); %Eosinophils 2.8 % (0.0-10.0); %Lymphocytes 28.5 % (21.0-51.0); %Monocytes 8.4 % (0.0-10.0); %Neutrophils 59.5 % (42.0-75.0); Hemoglobin 12.7 g/dL (12.0-16.0); Mean Corpuscular HGB CONC 33.3 g/dL (32.0-36.0); Mean Corpuscular Hemoglobin 30.3 pg (27.0-31.0); Mean Corpuscular Volume 90.8 fL (78.0-98.0); Mean Platelet Volume 9.8 fL (7.4-10.4); Platelet Count 180 thou/uL (130-400); RBC Distribution Width 13.2 % (11.5-14.5); Red Blood Cell (RBC) Count 4.18 mill/uL (4.20-5.40); White Blood Cell (WBC) Count 5.3 thou/uL (4.8-10.8)
[2019-07-03 00:24] LABS: ALT (SGPT) 11 U/L (8-55); AST (SGOT) 17 U/L (5-34); Albumin 3.8 g/dL (3.4-4.8); Alkaline Phosphatase 96 U/L (40-110); Anion Gap 11 mmol/L (10-20); BUN (Urea Nitrogen) 14 mg/dL (9.8-20.1); Bilirubin, Total 0.5 mg/dL (0.2-1.2); Calc. Creatinine Clearance 0 mL/min (70-130); Calcium 9.2 mg/dL (7.8-10.44); Carbon Dioxide 28 mmol/L (23-31); Chloride 106 mmol/L (98-107); Estimated GFR-MDRD 56; Globulin 2.7 g/dL (2.4-3.5); Glucose 98 mg/dL (80-115); Potassium 3.2 mmol/L (3.5-5.1); Protein, Total 6.5 g/dL (6.0-8.3); Sodium 142 mmol/L (136-145)
[2019-07-03 00:46] LABS: CKMB 2.6 ng/mL (0-6.6)
--- NOTE | 2019-07-03 02:02 | PDOC.FPRHP ---
- History of Present Illness Chief Complaint: SOB / high pulse History of Present Illness: Ms. Cunningham is here for increasing shortness of breath that started this morning. She states she has a history of heart failure, diagnosed 2 years ago. She took her BP at home and noted that her pulse was increased. She has a history of atrial fibrillation with RVR, on eliquis for anticoagulation. She states that she was under the management of Dr. Arce and they were trying to wean her off of diuretics. She had cut down from furosemide 40mg 3x/day to 1x/ day recently. Today when she noticed she was becoming more short of breath she took a total of 2, however this did not resolve her symptoms. She contacted Dr. Arce and was instructed to come to the ED. ED Course: 10mg cardizem, lasix 40mg, asa 325 - Allergies/Adverse Reactions Allergies Allergy/AdvReac Type Severity Reaction Status Date / Time No Known Drug Allergies Allergy Verified 04/17/19 18:12 - Home Medications Medication Instructions Recorded Confirmed Type Allopurinol 100 mg PO DAILY 06/27/17 07/03/19 History Aspirin 325 mg PO DAILY 06/27/17 07/03/19 History Apixaban [Eliquis] 5 mg PO BID 10/25/17 07/03/19 History Sacubitril/Valsartan [Entresto 97 1 tab PO BID 04/17/19 07/03/19 History mg-103 mg Tablet] Furosemide 40 mg PO DAILY #0 04/19/19 07/03/19 Rx Carvedilol [Coreg] 6.25 mg PO BID 07/03/19 07/03/19 History - History PMHx: HFpEF [50-55% (04/18/19)] Sick sinus syndrome (s/p dual chamber pacemaker implanted 10/27/2017) CML, cancer dx 2013 HTN CAD w/ stents PSHx: Pericardial window, 2017 Appendectomy Hysterecotomy CABG x1 Stent x 1 Pacemaker Ablation 07/2017 FHx: Dad: heart disease Brothers (2) 46 and 54 from heart disease Mother: uterine cancer Sister: breast cancer, Social: Denies tobacco, drug or alcohol use. - Review of Systems General: denies: fever/chills, weight/appetite/sleep changes Eyes: denies: eye pain, vision changes ENT: denies: nasal congestion, rhinorrhea Respiratory: reports: shortness of breath. denies: cough, congestion Cardiovascular: reports: chest pain, palpitation, edema. denies: paroxysmal nocturnal dyspnea, orthopnea Gastrointestinal: denies: nausea, vomiting, diarrhea, constipation Genitourinary: denies: incontinence, dysuria, polyuria Skin: denies: rashes, lesions, jaundice Musculoskeletal: denies: pain, tenderness Neurological: denies: numbness, syncope, seizure, weakness - Vital signs BP: 120/74 HR: 111 RR: 17 Pox: 95% on RA Wt: 105kg - Physical Exam Constitutional: NAD, awake, alert and oriented HEENT: normocephalic and atraumatic, PERRLA, EOMI, grossly normal vision, grossly normal hearing, MMM Neck: supple, trachea midline Heart: normal S1/S2, no murmurs/rubs/gallops, pulses present, no edema -Heart: Irregularly, irregular rhythm. Lungs: CTAB, no respiratory distress, good air movement Abdomen: soft, non-tender, bowel sounds present Musculoskeletal: normal structure, normal tone Neurological: no focal deficit, CN II-XII intact Skin: no rash/lesions, good turgor Heme/Lymphatic: no unusual bruising or bleeding, no purpura, no petechia Psychiatric: normal mood and affect, good judgment and insight, intact recent and remote memory FMR H&P: Results - Labs Result Diagrams: 07/02/19 23:54 07/02/19 23:54 Lab results: WBC 5.3 thou/uL (4.8-10.8) 07/02/19 23:54 Hgb 12.7 g/dL (12.0-16.0) 07/02/19 23:54 Hct 38.0 % (36.0-47.0) 07/02/19 23:54 MCV 90.8 fL (78.0-98.0) 07/02/19 23:54 Plt Count 180 thou/uL (130-400) 07/02/19 23:54 Neutrophils % 59.5 % (42.0-75.0) 07/02/19 23:54 Sodium 142 mmol/L (136-145) 07/02/19 23:54 Potassium 3.2 mmol/L (3.5-5.1) L 07/02/19 23:54 Chloride 106 mmol/L (98-107) 07/02/19 23:54 Carbon Dioxide 28 mmol/L (23-31) 07/02/19 23:54 BUN 14 mg/dL (9.8-20.1) 07/02/19 23:54 Creatinine 0.98 mg/dL (0.6-1.1) 07/02/19 23:54 Glucose 98 mg/dL (80-115) 07/02/19 23:54 Calcium 9.2 mg/dL (7.8-10.44) 07/02/19 23:54 Total Bilirubin 0.5 mg/dL (0.2-1.2) 07/02/19 23:54 AST 17 U/L (5-34) 07/02/19 23:54 ALT 11 U/L (8-55) 07/02/19 23:54 Alkaline Phosphatase 96 U/L (40-110) 07/02/19 23:54 CK-MB (CK-2) 2.6 ng/mL (0-6.6) 07/02/19 23:54 B-Natriuretic Peptide 1894.8 pg/mL (0-100) H 07/02/19 23:54 Serum Total Protein 6.5 g/dL (6.0-8.3) 07/02/19 23:54 Albumin 3.8 g/dL (3.4-4.8) 07/02/19 23:54 Laboratory Tests 07/02/19 23:54 Troponin I 0.077 H - Radiology Interpretation Chest x-ray Status: image reviewed by me, report reviewed by me (Impression: Chronic findings. No acute intrathoracic abnormality.) FMR H&P: A/P - Problem List (1) Elevated troponin I level Current Visit: Yes Status: Acute Code(s): R79.89 - OTHER SPECIFIED ABNORMAL FINDINGS OF BLOOD CHEMISTRY (2) Chronic systolic CHF (congestive heart failure) Current Visit: No Status: Chronic Code(s): I50.22 - CHRONIC SYSTOLIC ( CONGESTIVE) HEART FAILURE Comment: Echo results reviewed. cardiology following. No acute exacerbation (3) Dyslipidemia Current Visit: No Status: Chronic Code(s): E78.5 - HYPERLIPIDEMIA, UNSPECIFIED Comment: on statin (4) Hypertension Current Visit: No Status: Chronic Code(s): I10 - ESSENTIAL (PRIMARY) HYPERTENSION Qualifiers: Hypertension type: essential hypertension Qualified Code(s): I10 - Essential (primary) hypertension Comment: Coreg on hold, titrate antihypertensives as needed (5) S/P CABG (coronary artery bypass graft) Current Visit: No Status: Chronic Code(s): Z95.1 - PRESENCE OF AORTOCORONARY BYPASS GRAFT - Plan Atrial fibrillation with RVR Rate is currently controlled after 10mg push of diltiazem. Will monitor on telemetry. Will control rate with cardizem drip if necessary. Continue Eliquis for anticoagulation CHF (HFpEF) Exacerbation BNP 1894, up from 112 in April. Likely 2/2 decrease in home diuretics. Likely contributing to A-fib. Will diurese w/ Lasix 40mg IV BID. Recheck BMP in the morning to monitor renal function. ECHO done in 04/2018 showed EF 50-55% Elevated Troponin Likely demand ischemia 2/2 RVR Will trend troponins. HTN Will reconcile home medications and restart. HLD Will reconcile home medications and restart. CAD H/o CABG w/ 1 vessel graft H/o Stent x 1 Disposition/LOS: Dispo: Stable Code: Full PCP: ZAIN Roy VTE: Eliquis FMR H&P: Upper Level - Pertinent history 68 yo female presents for evaluation of increasing SOB. Patient was in contact with her primary healthcare representative, Dr. Arce, who recommended she present to ED for evaluation. Patient denies feeling palpitations. Please see digital media intern note above for further information. - Plan Date/Time: 07/03/19 [id number] I, Augusto Thomas MD, have evaluated this patient and agree with findings/ plan as outlined by digital media intern resident. Pertinent changes/additions are listed here. 1. A-fib with RVR - Now rate controlled after diltiazem - Will admit to Telemetry - Rate control as needed - Continue home anticoagulation 2. Elevated Troponin - Likely secondary to demand ischemia - Trend troponins 3. CHF - Most recent ECHO 50-55% - Titrating down home diuretic therapy - Will use increased dosing All other chronic conditions will be reviewed and home medications started as appropriate. PCP: ZAIN Roy CODE STATUS: FULL CODE Disposition: Stable, will admit to Telemetry for further evaluation Addendum - Attending - Attending Attestation Date/Time: 07/03/19 [id number] I personally evaluated the patient and discussed the management with Dr. Sanchez/ William. I agree with the History, Examination, Assessment and Plan documented above with any addition or exceptions noted below. Patient with history of HF and Afib here with shortness of breath and RVR. She was originally rate controlled with dilitazem push, but HR now hovering 90-120. She is feeling much better. We will restart her rate control therapy this morning and titrate as needed. Consider cardiology consult if not well controlled. She is also being diuresed due to some mild fluid overload.
[2019-07-03] MEDS ORDERED: Aspirin 325 MG TAB ONE (02:07)
[2019-07-03] MEDS ORDERED: Furosemide 40 MG/4 ML VIAL ONE (02:07)
[2019-07-03] MEDS ORDERED: Acetaminophen 325 MG TAB PO PRN (02:28)
[2019-07-03 03:10] LABS: Troponin I 0.049 ng/mL (< 0.028)
[2019-07-03 03:29] VITALS: BMI 35.6
[2019-07-03] MEDS: Furosemide 40 MG/4 ML VIAL SLOW IVP SCH ×2 (06:02→14:02)
[2019-07-03 06:28] LABS: Troponin I 0.083 ng/mL (< 0.028)
[2019-07-03] MEDS ORDERED: Potassium Chloride 20 MEQ TAB PO SCH (06:30)
[2019-07-03] MEDS: Atorvastatin Calcium 40 MG TAB PO SCH (08:17)
[2019-07-03] MEDS: Apixaban 5 MG TAB PO SCH ×2 (08:18→20:15)
[2019-07-03] MEDS: Carvedilol 6.25 MG TAB PO SCH ×2 (08:18→16:54)
[2019-07-03] MEDS: Sacubitril 49 MG/Valsartan 51 MG TABLET PO SCH ×2 (08:18→20:15)
[2019-07-03] MEDS: Allopurinol 100 MG TAB PO SCH (08:18)
[2019-07-03] MEDS ORDERED: Spironolactone 25 MG TAB PO SCH (09:00)
[2019-07-03] MEDS ORDERED: FLUoxetine HCl 20 MG CAP PO SCH (09:00)
[2019-07-03] MEDS: Aspirin 325 MG TAB PO SCH (09:44)
[2019-07-03 10:42] LABS: Anion Gap 13 mmol/L (10-20); BUN (Urea Nitrogen) 13 mg/dL (9.8-20.1); Calc. Creatinine Clearance 89 mL/min (70-130); Calcium 9.4 mg/dL (7.8-10.44); Carbon Dioxide 27 mmol/L (23-31); Chloride 106 mmol/L (98-107); Estimated GFR-MDRD 56; Glucose 107 mg/dL (80-115); Potassium 3.6 mmol/L (3.5-5.1); Sodium 142 mmol/L (136-145)
[2019-07-04] MEDS: Furosemide 40 MG/4 ML VIAL SLOW IVP SCH (05:49)
--- NOTE | 2019-07-04 05:50 | PDOC.FM ---
- Subjective Subjective: Pt feeling well this AM. No CP, no SOB. ambulating without difficulty. - Objective MAR Reviewed: Yes Vital Signs & Weight: Vital Signs (12 hours) Temp Pulse Resp BP BP Pulse Ox 07/04/19 05:33 94 L 07/04/19 04:00 98.7 F 61 20 122/60 94 L 07/03/19 19:18 98.0 F 62 18 124/64 96 07/03/19 18:33 98.1 F 75 16 131/61 98 Weight Weight 103.283 kg Most Recent Monitor Data Heart Rate from ECG 62 NIBP 160/77 NIBP BP-Mean 104 Respiration from ECG 19 SpO2 97 I&O: 07/02/19 07/03/19 07/04/19 06:59 06:59 06:59 Intake Total 370 Output Total 1100 Balance -730 Result Diagrams: 07/02/19 23:54 07/03/19 10:13 Phys Exam - Physical Examination Constitutional: NAD Respiratory: no wheezing, clear to auscultation bilateral Cardiovascular: RRR, no significant murmur Musculoskeletal: no edema Psychiatric: normal affect, A&O x 3 Dx/Plan (1) Elevated troponin I level Code(s): R79.89 - OTHER SPECIFIED ABNORMAL FINDINGS OF BLOOD CHEMISTRY Status : Acute (2) Acute on chronic systolic CHF (congestive heart failure) Code(s): I50.23 - ACUTE ON CHRONIC SYSTOLIC (CONGESTIVE) HEART FAILURE Status : Acute (3) CAD (coronary artery disease) Code(s): I25.10 - ATHSCL HEART DISEASE OF [place] CORONARY ARTERY W/O ANG PCTRS Status: Chronic Qualifiers: Coronary Disease-Associated Artery/Lesion type: [place] artery [place] vs. transplanted heart: [place] heart Associated angina: without angina Qualified Code(s): I25.10 - Atherosclerotic heart disease of [place] coronary artery without angina pectoris (4) Chronic systolic CHF (congestive heart failure) Code(s): I50.22 - CHRONIC SYSTOLIC (CONGESTIVE) HEART FAILURE Status: Chronic (5) Atrial fibrillation with RVR Code(s): I48.91 - UNSPECIFIED ATRIAL FIBRILLATION Status: Resolved - Plan Plan: 68-yo F, pt of [facility], admitted for: Atrial fibrillation with RVR, now rate controlled -s/p 10mg push of diltiazem. Will monitor on telemetry. -Continue Eliquis for anticoagulation - Pacemaker interrogated. Showed 7 days with more than 6 hour of atrial tach/a- fib. Avg ventricular rate >= 100 for 6hr during AT/AF. 30 treated episodes since Apr 17, 2019. - Needs follow up w/ [facility] sooner than her next scheduled appt which is in 6 months. CHF (HFpEF) Exacerbation -BNP 1894, up from 112 in April. -Likely 2/2 decrease in home diuretics. -Likely contributing to A-fib or vice versa. Will diurese w/ Lasix 40mg IV BID. - PO lasix 40 BID today. -ECHO done in 04/2018 showed EF 50-55% -BMP yesterday stable. Awaiting repeat today Elevated Troponin -Likely demand ischemia 2/2 RVR -Stable. Hx of CKD -Cr of 0.99, GFR of 56 HTN -home meds HLD -home meds CAD -H/o CABG w/ 1 vessel graft -H/o Stent x 1 -home meds Code: Full PCP: [facility] - Dr. Roy VTE: Tyrel Addendum - Attending - Attending Attestation Date/Time: 07/04/19 9562 I personally evaluated the patient and discussed the management with Dr. Larson. I agree with the History, Examination, Assessment and Plan documented above with any addition or exceptions noted below. Patient doing well, reports significant improvement. She is now rate controlled on her home meds. Continue with diuresis BID. Advised ambulation and continued monitoring. Possible d/c either this afternoon or tomorrow pending clinical course.
[2019-07-04] MEDS ORDERED: Sodium Chloride 0.9% 10 ML ONE ×2 (07:41→20:57)
[2019-07-04] MEDS: Carvedilol 6.25 MG TAB PO SCH ×2 (08:43→17:05)
[2019-07-04] MEDS: Sacubitril 49 MG/Valsartan 51 MG TABLET PO SCH ×2 (08:43→21:10)
[2019-07-04] MEDS: Allopurinol 100 MG TAB PO SCH (08:43)
[2019-07-04] MEDS: Atorvastatin Calcium 40 MG TAB PO SCH (08:44)
[2019-07-04] MEDS: Aspirin 325 MG TAB PO SCH (08:45)
[2019-07-04] MEDS: Apixaban 5 MG TAB PO SCH ×2 (08:45→21:09)
[2019-07-04] MEDS: Furosemide 40 MG TAB PO SCH ×2 (08:45→14:37)
[2019-07-04 09:09] LABS: Anion Gap 10 mmol/L (10-20); BUN (Urea Nitrogen) 14 mg/dL (9.8-20.1); Calc. Creatinine Clearance 78 mL/min (70-130); Calcium 9.5 mg/dL (7.8-10.44); Carbon Dioxide 29 mmol/L (23-31); Chloride 104 mmol/L (98-107); Estimated GFR-MDRD 50; Glucose 145 mg/dL (80-115); Potassium 3.4 mmol/L (3.5-5.1); Sodium 140 mmol/L (136-145)
[2019-07-04] MEDS ORDERED: Potassium Chloride 20 MEQ TAB PO SCH (10:30)
[2019-07-04] MEDS ORDERED: Labetalol HCl 100 MG/20 ML VIAL ONE (22:19)
[2019-07-04] MEDS ORDERED: Labetalol HCl 100 MG/20 ML VIAL SLOW IVP SCH (22:30)
[2019-07-04] MEDS ORDERED: Metoprolol Tartrate 5 MG/5 ML VIAL IVP SCH (23:59)
--- NOTE | 2019-07-05 00:11 | PDOC.EVN ---
Event Note - Event Note Event Note: Called by residents for recent ECG with a. flutter with variable block and c/f STD in lateral leads. I agree with read, except do not feel current STEMI. Will give metoprolol IV and repeat. On my interview with her she currently has no symptoms except some intermittent palps and had some mild neck pain prior to my exam, none currently, no chest pain. Will monitor closely.
[2019-07-05 00:41] LABS: CKMB 1.6 ng/mL (0-6.6)
--- NOTE | 2019-07-05 06:09 | PDOC.FM ---
- Subjective Subjective: Pt went into a-flutter last night w/ HR between 110 and up to 180s. Pt felt neck pain, palpitations, and SOB at that time. Metoprolol and labetalol were given with minimal effect on HR. EKG showing a-flutter without concern for ST changes. Pt still in a-flutter this morning. She feels tired this AM with no appetite. BP has been low 102 SBP, informed nurse okay to give coreg and lasix, hold entresto and give after BP check in 30 minutes if BP is stable. - Objective MAR Reviewed: Yes Vital Signs & Weight: Vital Signs (12 hours) Temp Pulse Resp BP BP Pulse Ox 07/05/19 05:48 93 L 07/05/19 03:17 97.5 F L 87 18 106/56 L 93 L 07/05/19 00:18 97.9 F 124 H 18 111/71 96 07/04/19 22:23 119 H 20 141/80 H 120/74 96 07/04/19 21:00 113 H 20 141/80 H 97 07/04/19 20:15 97.7 F 64 18 134/62 97 Weight Weight 100.38 kg Most Recent Monitor Data Heart Rate from ECG 62 NIBP 160/77 NIBP BP-Mean 104 Respiration from ECG 19 SpO2 97 I&O: 07/03/19 07/04/19 07/05/19 06:59 06:59 06:59 Intake Total 851 594 5526 Output Total 1100 Balance -495 917 1860 Result Diagrams: 07/02/19 23:54 07/05/19 07:48 Phys Exam - Physical Examination Constitutional: NAD Respiratory: no wheezing, clear to auscultation bilateral Cardiovascular: no significant murmur (tachycardic, regular) Musculoskeletal: no edema Psychiatric: normal affect, A&O x 3 Dx/Plan (1) Elevated troponin I level Code(s): R79.89 - OTHER SPECIFIED ABNORMAL FINDINGS OF BLOOD CHEMISTRY Status : Acute (2) Acute on chronic systolic CHF (congestive heart failure) Code(s): I50.23 - ACUTE ON CHRONIC SYSTOLIC (CONGESTIVE) HEART FAILURE Status : Acute (3) CAD (coronary artery disease) Code(s): I25.10 - ATHSCL HEART DISEASE OF [place] CORONARY ARTERY W/O ANG PCTRS Status: Chronic Qualifiers: Coronary Disease-Associated Artery/Lesion type: [place] artery [place] vs. transplanted heart: [place] heart Associated angina: without angina Qualified Code(s): I25.10 - Atherosclerotic heart disease of [place] coronary artery without angina pectoris (4) Chronic systolic CHF (congestive heart failure) Code(s): I50.22 - CHRONIC SYSTOLIC (CONGESTIVE) HEART FAILURE Status: Chronic (5) Atrial fibrillation with RVR Code(s): I48.91 - UNSPECIFIED ATRIAL FIBRILLATION Status: Resolved - Plan Plan: 68-yo F, pt of [facility], admitted for: Atrial fibrillation with RVR, now rate controlled A-flutter -s/p 10mg push of diltiazem on admission. -Continue Eliquis for anticoagulation - Pacemaker interrogated. Showed 7 days with more than 6 hour of atrial tach/a- fib. Avg ventricular rate >= 100 for 6hr during AT/AF. 30 treated episodes since Apr 17, 2019. - Due to episode of a-flutter onset last night, [facility] has been consulted this morning. Appreciate recs. CHF (HFpEF) Exacerbation -BNP 1894, up from 112 in April. -Likely 2/2 decrease in home diuretics. -Likely contributing to A-fib or vice versa. Will diurese w/ Lasix 40mg IV BID. - PO lasix 40 BID today. -ECHO done in 04/2018 showed EF 50-55% -BMP today. Elevated Troponin -Likely demand ischemia 2/2 RVR -Stable. Hx of CKD -Cr of 0.99, GFR of 56 HTN -home meds HLD -home meds CAD -H/o CABG w/ 1 vessel graft -H/o Stent x 1 -home meds Code: Full PCP: [facility] - Dr. Roy VTE: Tyrel Addendum - Attending - Attending Attestation Date/Time: 07/05/19 1113 I personally evaluated the patient and discussed the management with Dr. Larson. I agree with the History, Examination, Assessment and Plan documented above with any addition or exceptions noted below. Patient feeling well this morning. She was overall stable for discharge but had onset of RVR overnight that was symptomatic. She has been evaluated by cardiology and will now be seeing EP. Continue current meds but await next steps from EP.
[2019-07-05 08:10] LABS: Anion Gap 10 mmol/L (10-20); BUN (Urea Nitrogen) 19 mg/dL (9.8-20.1); Calc. Creatinine Clearance 92 mL/min (70-130); Calcium 9.4 mg/dL (7.8-10.44); Carbon Dioxide 30 mmol/L (23-31); Chloride 105 mmol/L (98-107); Estimated GFR-MDRD 60; Glucose 103 mg/dL (80-115); Potassium 3.6 mmol/L (3.5-5.1); Sodium 141 mmol/L (136-145)
[2019-07-05] MEDS: Sacubitril 49 MG/Valsartan 51 MG TABLET PO SCH ×2 (08:35→21:06)
[2019-07-05] MEDS: Aspirin 325 MG TAB PO SCH (08:41)
[2019-07-05] MEDS: Allopurinol 100 MG TAB PO SCH (08:41)
[2019-07-05] MEDS: Potassium Chloride 20 MEQ TAB PO SCH (08:41)
[2019-07-05] MEDS: Apixaban 5 MG TAB PO SCH ×2 (08:41→21:06)
[2019-07-05] MEDS: Carvedilol 6.25 MG TAB PO SCH ×2 (08:41→16:21)
[2019-07-05] MEDS: Furosemide 40 MG TAB PO SCH ×2 (08:42→14:38)
[2019-07-05] MEDS: Atorvastatin Calcium 40 MG TAB PO SCH (08:42)
--- NOTE | 2019-07-05 13:03 | CON ---
DATE OF CONSULTATION: 07/05/2019 REASON FOR CONSULTATION: Atrial flutter. HISTORY OF PRESENT ILLNESS: Ms. Swan is a very pleasant 68-year-old white female, very well known to myself, who comes to the hospital for palpitations and not feeling well. She got a hold of me last Friday, stating that she did not feel well. She told me her blood pressure was in the 140s, but her heart rate was in the 130s. I told her this may be some sort of arrhythmia, likely atrial fibrillation or atrial flutter, which she has had a history of and advised her to go to the ER. Sure enough, on coming to the ER, she was found to be in atrial flutter with variable AV block. She converted into sinus, but has been in and out of sinus rhythm since. Cardiology has been consulted for further evaluation and care. PAST MEDICAL HISTORY: 1. LAD stenting subsequently requiring CABG to her LAD with a ALDANA. 2. Paroxysmal atrial fibrillation. 3. Atrial flutter. 4. Status post flutter ablation in the past. 5. Hyperlipidemia. 6. Hypertension. 7. Systolic and diastolic heart failures in the past. Most recent EF was normal. 8. Chronic pericardial effusion. 9. Chronic myeloid leukemia in remission. 10. Nonsustained ventricular tachycardia. SURGICAL HISTORY: 1. CABG with ALDANA to the LAD. 2. Pericardial window prior to CABG. 3. Hysterectomy. 4. Bilateral tubal ligation. 5. Atrial flutter ablation. SOCIAL HISTORY: No alcohol, tobacco, or drugs. FAMILY HISTORY: Early coronary artery disease. ALLERGIES: NO KNOWN DRUG ALLERGIES. OUTPATIENT MEDICATIONS: 1. Allopurinol 100 mg a day. 2. Aspirin 325 a day. 3. Eliquis 5 mg b.i.d. 4. Entresto 97/103 b.i.d. 5. Furosemide 40 mg a day. 6. Carvedilol 6.25 b.i.d. REVIEW OF SYSTEMS: A 12-point review of systems was done and was all negative unless stated in the history of present illness. PHYSICAL EXAMINATION: VITAL SIGNS: Temperature 97.6; pulse 67; when she is in atrial flutter, she goes to the 120s; respiratory rate 16; saturating 96% on room air; and blood pressure 118/51. GENERAL: Awake, alert, and oriented x3, no distress. HEENT: Normocephalic and atraumatic. NECK: Supple. LUNGS: Clear. CARDIOVASCULAR: S1 and S2. No S3 or S4. No murmurs. ABDOMEN: Soft. Positive bowel sounds. EXTREMITIES: No edema. SKIN: Warm. LABORATORY DATA: Laboratory work was reviewed. CBC is unremarkable. Chemistry is unremarkable. She had a low potassium at 3.4, however, when she came in, she was 3.6, currently at 3.6. Troponin is in the indeterminate range at 0.07, 0.04, 0.08, and 0.03 in that order. Normal CK-MBs. Most recent echocardiogram was done in April of this year, EF at 50% to 55% with moderate to severely dilated left atrium, mild to moderate TR. ASSESSMENT: 1. Atrial flutter with variable AV block. 2. History of coronary artery disease, stable. No acute coronary syndrome. PLAN: We will consult Electrophysiology to see if they feel that she is a candidate for an atrial flutter ablation. She has atypical atrial flutter now. Thank you for letting us participate in the care of your patient. We will follow. Job ID: [id number]
[2019-07-05] MEDS: Amiodarone 200 MG TAB PO SCH ×2 (14:38→21:06)
--- NOTE | 2019-07-05 17:33 | CON ---
DATE OF CONSULTATION: 07/05/2019 ADDITIONAL REFERRING PHYSICIAN: Dr. Anna Francis. REASON FOR CONSULTATION: Recurrent atrial arrhythmias. HISTORY OF PRESENT ILLNESS: I am seeing Ms. Swan at our [facility] telemetry floor as Electrophysiology knowledge management consultant and her problems are; 1. Recurrent atrial arrhythmias. a. Prior history of atrial flutter, status post CTI ablation in 2016. b. Recurrent atrial fibrillation/atypical flutter prompting transient amiodarone use. c. Recurrent atypical atrial flutter/fibrillation episodes with suboptimal pace termination. 2. History of sinus node disease, status post dual-chamber pacemaker implantation. 3. History of coronary artery bypass grafting surgery, ischemic cardiomyopathy. a. Remote history of LAD stenting. b. CABG in August 2016. c. Worsening LV systolic function down to 30% to 35% on echo in May 2017, but improving on more recent outpatient echos. 4. History of pericardial effusion, requiring a window placement, mostly due to pericarditis process in June 2017. 5. History of chronic lymphocytic leukemia, on remission. 6. Hypertension, hyperlipidemia, and obesity. 7. Chronic anticoagulation with Eliquis. ALLERGIES: NONE NOTED. MEDICATIONS: At home included; 1. Allopurinol. 2. Aspirin. 3. Eliquis. 4. Entresto. 5. Furosemide. 6. Carvedilol. SUBJECTIVE: Ms. Swan is here with recurrent palpitations, for which she called Dr. Arce. She was indeed found to be in a sustained atrial flutter, but which eventually terminated on telemetry while on diltiazem drip. The atrial flutter appears to be atypical, not isthmus dependent. She has not passed out. No stroke-like symptoms noted. No significant chest pains at this time. No fever, chills, or cough. No nausea or vomiting. No bleeding issues, and rest of 12-point review of system otherwise unremarkable. Overall, she is feeling better now. PAST MEDICAL HISTORY: Significant for paroxysmal atrial fibrillation and also atrial flutter, status post CTI ablation; hypertension; hyperlipidemia; history of chronic systolic and diastolic heart failure with normalizing LVF more recently; chronic myeloid leukemia, in remission; history of nonsustained ventricular tachycardia; remote history of pericardial effusion, post window placement; also history of hysterectomy, bilateral tubal ligation. SOCIAL HISTORY: The patient denies smoking, EtOH, or drug abuse. FAMILY HISTORY: Significant for early coronary artery disease. PHYSICAL EXAMINATION: VITAL SIGNS: Blood pressure is 123/57, heart rate is 67, respirations 16, temperature 97.6 degrees Fahrenheit. GENERAL: This is an alert and oriented woman, in no apparent distress with elevated BMI. NECK: Supple. Jugular veins not distended. CHEST: Coarse without crackles. HEART: Sounds are regular to rate and rhythm. No murmur or gallop. ABDOMEN: Benign. Bowel sounds positive. EXTREMITIES: Lower extremities without edema, clubbing, or cyanosis. Pulses are adequate. NEUROLOGIC: The patient is nonfocal. MUSCULOSKELETAL: No joint swelling or deformities. SKIN: Without rash. DATABASE: The pacer interrogation reviewed, revealing a Medtronic Advisa dual-chamber pacemaker with adequate function, increasing episodes of atrial fibrillation since this September. The episodes on occasion with rapid rates, currently back in sinus rhythm with adequate capture and sensing noted. LABORATORY DATA: White cell count 5.3, hemoglobin 12.7, platelet count is 180. Sodium 141, potassium 3.6, BUN is 19, creatinine is 0.93. Troponin levels 0.037, previously 0.083, prior to that 0.047. The EKGs revealed atypical atrial flutter with variable AV conduction. ASSESSMENT AND PLAN: Ms. Swan is a pleasant 68-year-old woman with prior history of pericarditis, coronary artery bypass grafting surgery, typical atrial flutter post ablation, but also recurrent atypical atrial flutter and atrial fibrillation episodes as well. She was transiently suppressed with amiodarone, but now she is returning with recurrent atrial arrhythmias and displays no signs of pericarditis present, her most recent LVF has normalized. 1. We discussed the treatment options. At this point, it is reasonable to consider reinitiating amiodarone, which was stopped in the past with no recurrence of atrial arrhythmias. She never had a reaction to that and we also discussed the potential long-term side effects of pulmonary, thyroid, liver, and optic nerve toxicity. She understands, willing to proceed. We will also make arrangements to have her undergo an ablation procedure in the near future. We will start amiodarone 200 mg three times a day and tapering down to 200 mg a day and we will see her back as an outpatient for ablation. 2. In the meantime, continue pacemaker termination of the arrhythmias. We will make arrangements to have the ATP therapies made more aggressive by the Medtr[employer] rep. 3. Continue oral chronic anticoagulation. 4. Monitor LV function. Thank you again for letting me to participate in the care of this patient. Job ID: [id number]
[2019-07-06 03:47] VITALS: TEMP 97.6
[2019-07-06 04:52] LABS: Anion Gap 12 mmol/L (10-20); BUN (Urea Nitrogen) 21 mg/dL (9.8-20.1); Calc. Creatinine Clearance 78 mL/min (70-130); Calcium 8.9 mg/dL (7.8-10.44); Carbon Dioxide 27 mmol/L (23-31); Chloride 105 mmol/L (98-107); Estimated GFR-MDRD 49; Glucose 85 mg/dL (80-115); Potassium 3.7 mmol/L (3.5-5.1); Sodium 140 mmol/L (136-145)
[2019-07-06 05:22] LABS: #Eosinphils 0.1 thou/uL (0.0-0.7); #Lymphocytes 1.8 thou/uL (1.20-3.40); #Monocytes 0.6 thou/uL (0.11-0.59); #Neutrophils 3.2 thou/uL (1.40-6.50); %Basophils 0.4 % (0.0-1.0); %Eosinophils 2.5 % (0.0-10.0); %Lymphocytes 31.7 % (21.0-51.0); %Monocytes 9.7 % (0.0-10.0); %Neutrophils 55.9 % (42.0-75.0); Hemoglobin 12.6 g/dL (12.0-16.0); Mean Corpuscular HGB CONC 32.2 g/dL (32.0-36.0); Mean Corpuscular Hemoglobin 29.5 pg (27.0-31.0); Mean Corpuscular Volume 91.6 fL (78.0-98.0); Mean Platelet Volume 10.1 fL (7.4-10.4); Platelet Count 160 thou/uL (130-400); Platelet Morphology Comment Appears Adequate; RBC Distribution Width 13.6 % (11.5-14.5); RBC Morphology Normal; Red Blood Cell (RBC) Count 4.27 mill/uL (4.20-5.40); White Blood Cell (WBC) Count 5.7 thou/uL (4.8-10.8)
--- NOTE | 2019-07-06 06:19 | PDOC.FM ---
- Subjective Subjective: Pt is sleeping soundly and breathing easily. Overnight telemetry showed conversion to Sinus rhythm and some pacing. - Objective MAR Reviewed: Yes Vital Signs & Weight: Vital Signs (12 hours) Temp Pulse Resp BP Pulse Ox 07/06/19 03:46 97.6 F 62 16 113/53 L 95 07/05/19 23:33 97.7 F 65 20 102/50 L 95 07/05/19 20:55 97.4 F L 60 16 120/58 L 98 Weight Weight 100.698 kg Most Recent Monitor Data Heart Rate from ECG 62 NIBP 160/77 NIBP BP-Mean 104 Respiration from ECG 19 SpO2 97 I&O: 07/04/19 07/05/19 07/06/19 06:59 06:59 06:59 Intake Total 320 1970 720 Output Total 700 Balance 320 1270 720 Result Diagrams: 07/06/19 04:30 07/06/19 04:30 Phys Exam - Physical Examination Constitutional: NAD Respiratory: no wheezing, clear to auscultation bilateral Cardiovascular: RRR, no significant murmur Musculoskeletal: no edema Dx/Plan (1) Elevated troponin I level Code(s): R79.89 - OTHER SPECIFIED ABNORMAL FINDINGS OF BLOOD CHEMISTRY Status : Acute (2) Acute on chronic systolic CHF (congestive heart failure) Code(s): I50.23 - ACUTE ON CHRONIC SYSTOLIC (CONGESTIVE) HEART FAILURE Status : Acute (3) CAD (coronary artery disease) Code(s): I25.10 - ATHSCL HEART DISEASE OF [place] CORONARY ARTERY W/O ANG PCTRS Status: Chronic Qualifiers: Coronary Disease-Associated Artery/Lesion type: [place] artery [place] vs. transplanted heart: [place] heart Associated angina: without angina Qualified Code(s): I25.10 - Atherosclerotic heart disease of [place] coronary artery without angina pectoris (4) Chronic systolic CHF (congestive heart failure) Code(s): I50.22 - CHRONIC SYSTOLIC (CONGESTIVE) HEART FAILURE Status: Chronic (5) Atrial fibrillation with RVR Code(s): I48.91 - UNSPECIFIED ATRIAL FIBRILLATION Status: Resolved - Plan Plan: 68-yo F, pt of [facility], admitted for: Atrial fibrillation with RVR, now rate controlled A-flutter, symptomatic -s/p 10mg push of diltiazem on admission. -Continue Eliquis for anticoagulation - Pacemaker interrogated. Results in previous note. - Episode of sustained a-flutter 07/05. - Cardiology, Claude consulted, EP consulted, Appreciate recs. - Amiodarone initation and taper per EP. Recommend outpatient scheduling of ablation. Also they will increase aggressiveness of Med[employer] pacemaker in ability to control/stop arrhythmias. CHF (HFpEF) Exacerbation, improved -BNP 1894, up from 112 in April. -Likely 2/2 decrease in home diuretics. -Likely contributing to A-fib or vice versa. Will diurese w/ Lasix 40mg IV BID. - PO lasix 40 BID today. -ECHO done in 04/2018 showed EF 50-55% Elevated Troponin -Likely demand ischemia 2/2 RVR -Stable. Hx of CKD -Cr of 0.99, GFR of 56 HTN -home meds HLD -home meds CAD -H/o CABG w/ 1 vessel graft -H/o Stent x 1 -home meds Code: Full Diet: HH, w 1500mL fluid restriction PCP: [facility] - Dr. Roy VTE: Eliquis Dispo: inpatient tele. Will await EP recommendations, monitoring during amiodarone taper. Addendum - Attending - Attending Attestation Date/Time: 07/06/19 1116 I personally evaluated the patient and discussed the management with Dr. Larson. I agree with the History, Examination, Assessment and Plan documented above with any addition or exceptions noted below. Patient stable for discharge from cardiology and our standpoints.
[2019-07-06 07:48] VITALS: BP 109/55
--- NOTE | 2019-07-06 09:16 | PDOC.CPN ---
- Subjective Date: 07/06/19 Time: 11:00 Interval history: EP PROGRESS NOTE: 07/06 Follow up for atrial arrhythmias. Ms. Swan is a pleasant 68-year-old woman with prior history of pericarditis, coronary artery bypass grafting surgery, typical atrial flutter post ablation, but also recurrent atypical atrial flutter and atrial fibrillation episodes as well. She was transiently suppressed with amiodarone, but now she is returning with recurrent atrial arrhythmias and displays no signs of pericarditis present, her most recent LVF has normalized. - Review of Systems General: denies: fever/chills, weight/appetite/sleep changes, night sweats, fatigue Respiratory: denies: cough, congestion, shortness of breath, exercise intolerance Cardiovascular: denies: chest pain, palpitation, edema, paroxysmal nocturnal dyspnea, orthopnea Gastrointestinal: denies: nausea, vomiting, diarrhea, constipation, abd pain, GI bleeding Musculoskeletal: denies: pain, tenderness, stiffness, swelling, arthritis/ arthralgias Neurological: denies: numbness, syncope, seizure, weakness - Objective Allergies/Adverse Reactions: Allergies Allergy/AdvReac Type Severity Reaction Status Date / Time No Known Drug Allergies Allergy Verified 04/17/19 18:12 Visit Medications: Current Medications Acetaminophen (Tylenol) 650 mg PO Q4H PRN PRN Reason: Headache/Fever/Mild Pain (1-3) Allopurinol (Zyloprim) 100 mg PO DAILY [facility] Last Admin: 07/05/19 08:41 Dose: 100 mg Amiodarone HCl (Cordarone) 200 mg PO TID [facility] Last Admin: 07/05/19 21:06 Dose: 200 mg Apixaban (Eliquis) 5 mg PO BID [facility] Last Admin: 07/05/19 21:06 Dose: 5 mg Aspirin (Aspirin) 325 mg PO DAILY [facility] Last Admin: 07/05/19 08:41 Dose: 325 mg Carvedilol (Coreg) 6.25 mg PO BID-[facility] Last Admin: 07/05/19 16:21 Dose: 6.25 mg Furosemide (Lasix) 40 mg PO 0900,1400 [facility] Last Admin: 07/05/19 14:38 Dose: 40 mg Potassium Chloride (K-Dur) 20 meq PO QAM-[facility] Last Admin: 07/05/19 08:41 Dose: 20 meq Sacubitril/Valsartan (Entresto 49 Mg-51 Mg Tablet) 2 tab PO BID [facility] Last Admin: 07/05/19 21:06 Dose: 2 tab Vital Signs & Weight: Vital Signs Temp Pulse Resp BP Pulse Ox 07/06/19 07:45 97.6 F 60 20 109/55 L 97 07/06/19 03:46 97.6 F 62 16 113/53 L 95 07/05/19 23:33 97.7 F 65 20 102/50 L 95 Weight 223 lb 9.6 oz - Physical Exam General: alert & oriented x3, appears well, no apparent distress HEENT: mucus membranes moist, normocephaly Neck: supple neck, midline trachea, no JVD/HJR, no masses, no bruit, no lymphadenopathy, no thromegaly Cardiac: regular rate and rhythm, no murmur, regular rate, regular rhythm Lungs: clear to auscultation, normal breath sounds, normal exam, no wheeze, rales, rhonchi - Labs Result Diagrams: 07/06/19 04:30 07/06/19 04:30 Troponin/CKMB CK-MB (CK-2) 1.6 ng/mL (0-6.6) 07/04/19 23:43 Troponin I 0.037 ng/mL (< 0.028) H 07/04/19 23:43 - Telemetry Sinus rhythms and dysrhythmias: sinus rhythm - Assessment/Plan Assessment/Plan: 1. Atrial tachycardia -Amiodarone loading started: 200 mg three times a day and tapering down to 200 mg a day and we will see her back as an outpatient for ablation. -plan for outpatient PVAI to be arranged. 2. Permanent pacemaker - continue pacemaker termination of the arrhythmias. - ATP therapies made more aggressive by the Medtr[employer] rep. 3. Continue oral chronic anticoagulation. 4. Monitor LV function. Continue amio loading and OAC. Plan for OP PVAI. OK to DC by EP
[2019-07-06] MEDS: Sacubitril 49 MG/Valsartan 51 MG TABLET PO SCH (09:26)
[2019-07-06] MEDS: Allopurinol 100 MG TAB PO SCH (09:26)
[2019-07-06] MEDS: Amiodarone 200 MG TAB PO SCH (09:27)
[2019-07-06] MEDS: Furosemide 40 MG TAB PO SCH ×2 (09:27→14:07)
[2019-07-06] MEDS: Carvedilol 6.25 MG TAB PO SCH (09:27)
[2019-07-06] MEDS: Aspirin 325 MG TAB PO SCH (09:27)
[2019-07-06] MEDS: Potassium Chloride 20 MEQ TAB PO SCH (09:27)
[2019-07-06] MEDS: Apixaban 5 MG TAB PO SCH (09:27)
--- NOTE | 2019-07-06 14:03 | EKG ---
Test Reason : Blood Pressure : / mmHG Vent. Rate : 122 BPM Atrial Rate : 244 BPM P-R Int : 000 ms QRS Dur : 102 ms QT Int : 356 ms P-R-T Axes : 000 -16 251 degrees QTc Int : 507 ms Atrial flutter with variable A-V block Lateral infarct (cited on or before 11-JUN-2017) Marked ST abnormality, possible inferior subendocardial injury * ACUTE [place] * Abnormal ECG When compared with ECG of 02-JUL-2019 22:58, (Unconfirmed) ST now depressed in Inferior leads ST more depressed in Anterior leads T wave inversion now evident in Anterior leads Confirmed by MARIA VICTORIA GROVER, DR. Lakhani ([id number]) on 07/06/2019 2:03:25 PM Referred By: KENNETH Confirmed By:DR. Kar IRENE MD
--- NOTE | 2019-07-06 14:04 | EKG ---
Test Reason : ORDERED Blood Pressure : / mmHG Vent. Rate : 125 BPM Atrial Rate : 125 BPM P-R Int : 000 ms QRS Dur : 096 ms QT Int : 364 ms P-R-T Axes : 000 -07 172 degrees QTc Int : 525 ms Atrial fibrillation with rapid ventricular response Possible Lateral infarct (cited on or before 11-JUN-2017) Abnormal ECG When compared with ECG of 04-JUL-2019 23:14, (Unconfirmed) Atrial fibrillation has replaced Atrial flutter Confirmed by MARIA VICTORIA GROVER, SPing ([id number]) on 07/06/2019 2:04:13 PM Referred By: KENNETH Confirmed By:DR. Kar IRENE MD
--- NOTE | 2019-07-06 14:13 | EKG ---
Test Reason : Blood Pressure : / mmHG Vent. Rate : 064 BPM Atrial Rate : 064 BPM P-R Int : 096 ms QRS Dur : 102 ms QT Int : 436 ms P-R-T Axes : 016 035 -06 degrees QTc Int : 449 ms Electronic atrial pacemaker Lateral infarct (cited on or before 11-JUN-2017) Abnormal ECG When compared with ECG of 02-JUL-2019 22:58, (Unconfirmed) Electronic atrial pacemaker has replaced Atrial flutter Vent. rate has decreased BY 51 BPM Serial changes of Lateral infarct Present Confirmed by MARIA VICTORIA GROVER, DR. Lakhani ([id number]) on 07/06/2019 2:13:20 PM Referred By: [facility] Confirmed By:DR. Kar IRENE MD
--- NOTE | 2019-07-06 14:20 | EKG ---
Test Reason : Blood Pressure : / mmHG Vent. Rate : 061 BPM Atrial Rate : 061 BPM P-R Int : 102 ms QRS Dur : 106 ms QT Int : 462 ms P-R-T Axes : 028 035 003 degrees QTc Int : 465 ms Electronic atrial pacemaker Lateral infarct (cited on or before 11-JUN-2017) Abnormal ECG When compared with ECG of 05-JUL-2019 14:09, (Unconfirmed) No significant change was found Confirmed by MARIA VICTORIA GROVER, . SPing ([id number]) on 07/06/2019 2:20:36 PM Referred By: [facility] Confirmed By:DR. Kar IRENE MD
--- NOTE | 2019-07-10 21:09 | EKG ---
Test Reason : Blood Pressure : / mmHG Vent. Rate : 115 BPM Atrial Rate : 234 BPM P-R Int : 000 ms QRS Dur : 102 ms QT Int : 376 ms P-R-T Axes : 000 008 134 degrees QTc Int : 520 ms Atrial flutter with variable A-V block Lateral infarct , age undetermined Abnormal ECG Confirmed by KATHIE GREMAN ([id number]), multimedia editor MADAI WILLARD ([id number]) on 07/10/2019 9:07:39 PM Referred By: Confirmed By:KATHIE GERMAN
== END 2019-07-06 14:25 | disposition home or self-care (01) | DRG 291 ==
LOC: ERS 22:51 → IMCU/EMU 07-03 03:13 → 2NO 07-03 18:40
PROVIDERS: ADMIT Student in an Organized Health Care Education/Training Program; ATTEND Student in an Organized Health Care Education/Training Program
DX: I13.0 Hypertensive heart and chronic kidney disease with heart failure and stage 1 through stage 4 chronic kidney disease, or unspecified chronic kidney disease (principal); I50.43 Acute on chronic combined systolic (congestive) and diastolic (congestive) heart failure; I48.4 Atypical atrial flutter; C92.11 Chronic myeloid leukemia, BCR/ABL-positive, in remission; I24.8 Other forms of acute ischemic heart disease; I47.1 Supraventricular tachycardia; I49.5 Sick sinus syndrome; I25.10 Atherosclerotic heart disease of native coronary artery without angina pectoris; E78.5 Hyperlipidemia, unspecified; N18.9 Chronic kidney disease, unspecified; I48.91 Unspecified atrial fibrillation; Z90.710 Acquired absence of both cervix and uterus; Z95.0 Presence of cardiac pacemaker; Z95.1 Presence of aortocoronary bypass graft; Z79.899 Other long term (current) drug therapy; Z79.82 Long term (current) use of aspirin; Z79.01 Long term (current) use of anticoagulants; Z95.5 Presence of coronary angioplasty implant and graft
CPT/HCPCS: 36415; 36416; 71045; 80048; 80053; 82553; 83735; 83880; 84484; 85025; 93005; 93010; 93798; 94760; 96374; 96375; J1940

== ENCOUNTER 2019-07-22 12:38 | Outpatient (CLI) | payer MEDICARE ==
[2019-07-22 14:14] LABS: Hemoglobin 13.6 g/dL (12.0-16.0); Mean Corpuscular HGB CONC 33.1 g/dL (32.0-36.0); Mean Corpuscular Hemoglobin 30.4 pg (27.0-31.0); Mean Corpuscular Volume 91.8 fL (78.0-98.0); Mean Platelet Volume 10.4 fL (7.4-10.4); Platelet Count 174 thou/uL (130-400); RBC Distribution Width 13.6 % (11.5-14.5); Red Blood Cell (RBC) Count 4.45 mill/uL (4.20-5.40); White Blood Cell (WBC) Count 5.9 thou/uL (4.8-10.8)
[2019-07-22 14:34] LABS: Anion Gap 13 mmol/L (10-20); BUN (Urea Nitrogen) 21 mg/dL (9.8-20.1); Calc. Creatinine Clearance 0 mL/min (70-130); Calcium 9.3 mg/dL (7.8-10.44); Carbon Dioxide 27 mmol/L (23-31); Chloride 106 mmol/L (98-107); Estimated GFR-MDRD 46; Glucose 103 mg/dL (80-115); Potassium 3.2 mmol/L (3.5-5.1); Sodium 143 mmol/L (136-145)
[2019-07-22 15:19] LABS: INR-International Normal Ratio 1.1; PTT 35.3 SEC (22.9-36.1); Prothrombin Time 14.5 SEC (12.0-14.7)
== END 2019-07-22 12:39 | disposition home or self-care (01) ==
LOC: LABBT 12:38
PROVIDERS: ATTEND Internal Medicine Cardiovascular Disease
DX: Z01.812 Encounter for preprocedural laboratory examination (principal); I48.91 Unspecified atrial fibrillation
CPT/HCPCS: 80048; 85027; 85610; 85730

== ENCOUNTER 2019-07-26 10:26 | Observation (INO) | payer MEDICARE ==
[~2019-07-26 10:26] MED LIST changes: +Glycopyrrolate 0.2 MG/ML 5 ML SYRINGE ONE; -ISOVUE-370 76%-LOCM 1 ML ONE; +Labetalol HCl 100 MG/20 ML VIAL ONE; +Ondansetron PF 4 MG/2 ML Vial ONE; +PROPOFOL 200 MG/20 ML VIAL ONE; +Rocuronium Bromide 10 MG/ML (10ML VIAL) ONE; +Succinylcholine Chloride 20 MG/ML 10 ml SYRINGE FS ONE
[2019-07-26] MEDS ORDERED: Heparin (Artline) 1,500 ML ONE (12:14)
[2019-07-26] MEDS ORDERED: Heparin 10,000 UNITS/1 ML VIAL ONE (12:16)
[2019-07-26] MEDS ORDERED: Heparin 25,000 units/D5W 500 ML ONE (12:16)
[2019-07-26] MEDS ORDERED: Protamine Sulfate 50 MG/5 ML VIAL ONE (12:16)
[2019-07-26] MEDS ORDERED: Isoproterenol 0.2 MG/1 ML AMP ONE (12:16)
[2019-07-26] MEDS ORDERED: Midazolam HCl 2 mg/2 ml Vial ONE (13:05)
[2019-07-26] MEDS ORDERED: Ketamine 50 MG/ML (10ML VIAL) ONE (13:05)
[2019-07-26 18:53] VITALS: BMI 36.4
[2019-07-26] MEDS: Sucralfate 1 GM TAB PO SCH ×2 (19:59→22:32)
--- NOTE | 2019-07-27 00:05 | OP ---
DATE OF PROCEDURE: 07/26/2019 PROCEDURES PERFORMED: 1. Electrophysiology study. 2. Radiofrequency ablation. REASON FOR PROCEDURE: Ms. 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 DESCRIPTION OF PROCEDURE: The patient has received propofol by Anesthesia specialist, where general anesthesia was performed. The left and right femoral venous area was prepped, draped, and anesthetized using subcutaneous lidocaine. In the left femoral vein, 8- and 11-Sudanese sheaths were introduced. Through the 11-Sudanese, an intracardiac echocardiogram probe was passed into the right femoral vein IVC, then the right atrium. It was used to monitor the transeptal procedure as well as the pericardial space and catheter positioning throughout the procedure. Following that, left-sided 8-Sudanese sheath was exchanged to a Preface long sheath, which was used to position the duo-Deca catheter in the CS and the right atrial position appropriately. Through the right femoral venous sheath, a ThermoCool SFST catheter was advanced to the right atrium. 3D map of the right atrium was performed, delineating His bundle and CS positions. Following that, the two right-sided 8-Sudanese sheaths were exchanged to SL1 catheters which in turn used to perform transseptal puncture under ultrasound and fluoroscopic guidance utilizing a Soapbox powered transseptal needle. Prior to the transseptal puncture, IV heparin was administered in a bolus and a drip was started and ACT level was checked to keep the ACT levels over 350, the heparin was adjusted. Following that through the SL1 sheath, a ThermoCool SFST catheter and 20-pole Lasso catheter was advanced in the left atrium and 3D map of the left atrium was obtained. Pulmonary venous isolation procedure in the left atrium was performed. Also, superior and inferior lines were delivered to obtain posterior wall isolation. Throughout the procedure, transesophageal temperature probe was used to monitor the temperature in esophagus to avoid excessive heating. The patient in the beginning case was in sinus rhythm with frequent recurrences of atrial fibrillation seen. The 3D map revealed left common pulmonary vein and ablation in the left common pulmonary vein in the anterolateral wall, also the inferior lamas, where both right-sided vein isolation was performed. Inferior and superior line was placed to obtain posterior wall isolation as well. With the end of the case, atrial fibrillation episodes did not recur. Burst atrial pacing did not induce arrhythmias. LV pacing was performed and retrograde VA block was observed. No evidence of accessory pathway was found. Antegrade Wenckebach cycle was 260 milliseconds, on Isuprel. Isuprel was also administered and any reconnection were ablated. After that the catheters were removed. The right cavotricuspid isthmus line was checked and further lesions were delivered to prolong the transisthmus time to 170 milliseconds, occasionally typical appearing right-sided flutter morphology was observed. At the end of the case, pericardial space revealed no significant effusion by intracardiac echocardiogram and by the cardiac silhouette. The catheters were removed. IV heparin was stopped and reversed with protamine. Vascade device was used to obtain femoral venous closure. Following numerical findings, we noted IL is 165, QRS 108, QT 352, AH 142, HV 31 milliseconds. The AV Wenckebach cycle length on Isuprel was 260 milliseconds. No VA conduction was seen. PLAN: Continue oral anticoagulation. Stop amiodarone and monitor for recurrent atrial arrhythmias. Job ID: [id number] [facility]
[2019-07-27 08:50] VITALS: TEMP 97.6
[2019-07-27] MEDS ORDERED: Apixaban 5 MG TAB PO SCH (09:00)
[2019-07-27] MEDS: Sucralfate 1 GM TAB PO SCH (09:13)
[2019-07-27] MEDS ORDERED: Sacubitril 49 MG/Valsartan 51 MG TABLET PO SCH ×2 (09:30→21:00)
[2019-07-27] MEDS ORDERED: Carvedilol 6.25 MG TAB PO SCH ×2 (09:30→17:00)
[2019-07-27 10:30] VITALS: BP 147/104
--- NOTE | 2019-07-28 03:48 | DIS ---
DATE OF ADMISSION: 07/26/2019 DATE OF DISCHARGE: 07/27/2019 ADMITTING DIAGNOSES: Atrial fibrillation. PROCEDURES PERFORMED: Include electrophysiology study and pulmonary venous isolation ablation, 29 minutes RF energy lesions delivered. COMPLICATIONS: None. ESTIMATED BLOOD LOSS: Less than 10 mL. RECOMMENDATIONS: Post ablations, continue oral anticoagulation. Stop amiodarone to monitor for recurrent atrial arrhythmias, CTI line required reablations as well. HISTORY OF PRESENT ILLNESS: Ms. Swan is a 68-year-old woman with a history of persistent atrial fibrillation. She had atrial flutter previously requiring CTI ablation in 2016. She had a dual-chamber pacemaker implanted in October of 2018 for sinus node disease. She was taken to the EP lab for study and ablation by Dr. Sinclair on 07/26/2019 and underwent left atrial PVAI in addition to re-ablation of the CTI line in the right atria. Ms. Swan is doing well today. She does not have any cardiac concerns or complains and feels well. She is eager to get home. She denies any heart-racing palpitations, chest pain, pressure, syncope, near syncope, stroke, or stroke-like symptoms or bleeding at groin sites. REVIEW OF SYSTEMS: 8-point review of systems is negative except that listed above in the HPI. OBJECTIVE: VITAL SIGNS: Temperature 97.6, pulse 60, blood pressure 142/62, respirations 16, oxygen 97% on room air. GENERAL: The patient is alert and oriented. Speech is clear. Affect is appropriate. She is in no apparent distress at the time of exam. NECK: Supple without jugular venous distention. Carotids are without bruit. There is no lymphadenopathy. HEART: Irregularly irregular with a crisp S1, S2. No significant murmur, rub, or gallop is appreciated. LUNGS: Clear to auscultation bilaterally without wheezes, crackles, or rhonchi. Respirations are even and unlabored. ABDOMEN: Obese, soft, and nontender without palpable masses. Hepatojugular reflux is negative. Bilateral groin sites are stable with suspicion of bleeding or hematoma. EXTREMITIES: Warm and dry to touch without clubbing, cyanosis, or edema. NEUROLOGIC: Grossly intact and gait is stable. DISCHARGE MEDICATIONS: Resuming home medications are Prozac daily, Entresto b.i.d., Coreg b.i.d., aspirin 325 mg daily, Eliquis 5 mg b.i.d., and allopurinol 100 mg daily. New prescription for Carafate 1 g p.o. before meals and at bedtime x2 weeks and Protonix 40 mg daily. The patient has Lasix 40 mg at home which she will take as needed for shortness of breath, fluid retention, or swelling. DISCHARGE INSTRUCTIONS: 1. Light activity for the next 1 week with no lifting greater than 10 pounds and no soaking baths. 2. No driving for 48 hours. 3. She will follow up with her clinic in 6 weeks and contact [facility] with any postablation concerns or questions. 4. She will continue her Eliquis for stroke prophylaxis without any interruption. CONDITION AT DISCHARGE: Stable. Job ID: [id number]
== END 2019-07-27 11:13 | disposition home or self-care (01) ==
LOC: CCL 10:26 → 2SW 18:47
PROVIDERS: ADMIT Internal Medicine Cardiovascular Disease; ATTEND Internal Medicine Cardiovascular Disease
PROC: 02583ZZ Destruction of Conduction Mechanism, Percutaneous Approach (ICD-10-PCS; principal; 2019-07-26)
PROC: 4A023FZ Measurement of Cardiac Rhythm, Percutaneous Approach (ICD-10-PCS; 2019-07-26)
PROC: 4A0234Z Measurement of Cardiac Electrical Activity, Percutaneous Approach (ICD-10-PCS; 2019-07-26)
PROC: 02K83ZZ Map Conduction Mechanism, Percutaneous Approach (ICD-10-PCS; 2019-07-26)
DX: I48.19 Other persistent atrial fibrillation (principal); I48.4 Atypical atrial flutter; I49.5 Sick sinus syndrome; C91.11 Chronic lymphocytic leukemia of B-cell type in remission; I25.10 Atherosclerotic heart disease of native coronary artery without angina pectoris; I10 Essential (primary) hypertension; E78.5 Hyperlipidemia, unspecified; E66.9 Obesity, unspecified; Z68.36 Body mass index [BMI] 36.0-36.9, adult; Z79.01 Long term (current) use of anticoagulants; Z79.82 Long term (current) use of aspirin; Z79.899 Other long term (current) drug therapy; Z95.0 Presence of cardiac pacemaker; Z95.1 Presence of aortocoronary bypass graft; Z95.5 Presence of coronary angioplasty implant and graft
CPT/HCPCS: 76942; 85347 ×2; 93005 ×2; 93613; 93622; 93623; 93656; 93662; C1732 ×3; C1759; C1769; G0378 ×2; 93010; J1644; J2250; J2405; J2704; J2720

== ENCOUNTER 2019-12-22 10:27 | Emergency (ER) | payer MEDICARE ==
[2019-12-22] MEDS ORDERED: HYDROcodone/Acetaminophen 10/325 mg Tablet ONE (10:55)
[2019-12-22] MEDS ORDERED: Lidocaine 1% w/Epinephrine 1:100K 20 ML VIAL ONE (10:55)
== END 2019-12-22 12:04 | disposition home or self-care (01) ==
LOC: ERS 10:27
DX: L02.213 Cutaneous abscess of chest wall (principal); I11.0 Hypertensive heart disease with heart failure; I50.9 Heart failure, unspecified; F32.9 Major depressive disorder, single episode, unspecified; I48.91 Unspecified atrial fibrillation; I25.10 Atherosclerotic heart disease of native coronary artery without angina pectoris
CPT/HCPCS: 10060

== ENCOUNTER 2020-02-18 09:36 | Emergency (ER) | payer MEDICARE ==
[2020-02-18 10:09] LABS: #Basophils 0.1 thou/uL (0.0-0.2); #Eosinphils 0.1 thou/uL (0.0-0.7); #Monocytes 0.6 thou/uL (0.11-0.59); %Eosinophils 2.2 % (0.0-10.0); %Lymphocytes 14.3 % (21.0-51.0); %Monocytes 8.3 % (0.0-10.0); %Neutrophils 74.2 % (42.0-75.0); Hemoglobin 13.6 g/dL (12.0-16.0); Mean Corpuscular HGB CONC 32.8 g/dL (32.0-36.0); Mean Corpuscular Hemoglobin 31.1 pg (27.0-31.0); Mean Corpuscular Volume 95.1 fL (78.0-98.0); Mean Platelet Volume 9.7 fL (7.4-10.4); Platelet Count 198 thou/uL (130-400); RBC Distribution Width 13.8 % (11.5-14.5); Red Blood Cell (RBC) Count 4.37 mill/uL (4.20-5.40); White Blood Cell (WBC) Count 6.7 thou/uL (4.8-10.8)
[2020-02-18 10:33] LABS: ALT (SGPT) 10 U/L (8-55); AST (SGOT) 13 U/L (5-34); Albumin 4.1 g/dL (3.4-4.8); Alkaline Phosphatase 114 U/L (40-110); Anion Gap 14 mmol/L (10-20); BUN (Urea Nitrogen) 17 mg/dL (9.8-20.1); Bilirubin, Total 0.8 mg/dL (0.2-1.2); CK (CPK) 63 U/L (29-168); Calc. Creatinine Clearance 0 mL/min (70-130); Calcium 9.2 mg/dL (7.8-10.44); Carbon Dioxide 28 mmol/L (23-31); Chloride 101 mmol/L (98-107); Estimated GFR-MDRD 41; Globulin 2.9 g/dL (2.4-3.5); Glucose 103 mg/dL (80-115); Lipase 20 U/L (8-78); Potassium 3.9 mmol/L (3.5-5.1); Sodium 139 mmol/L (136-145)
--- NOTE | 2020-02-18 10:41 | RAD ---
Chest AP view INDICATION: Chest pain COMPARISON: July 02, 2019 single view of the chest FINDINGS: Lungs: Clear, no confluent airspace opacity Cardiac silhouette: Stable cardiomegaly and post CABG change. Stable dual-lead pacemaker. Pulmonary vasculature: Normal Pleural spaces: No pleural effusion or pneumothorax is demonstrated. Upper abdomen: No abnormality seen. Osseous structures: No acute osseous abnormality. Additional findings: None. IMPRESSION: No acute cardiopulmonary abnormality.
[2020-02-18] MEDS ORDERED: Nitroglycerin 0.4 MG TAB 1 EACH ONE (11:15)
[2020-02-18 11:54] LABS: Bilirubin Negative (Negative); Blood, Urine Negative (Negative); Clarity Clear (Clear); Glucose, Urine (Dipstick) Normal (Negative); Ketone, Urine Negative (Negative); Leukocyte Negative Leu/uL (Negative); Nitrite Negative (Negative); Protein, Urine (Dipstick) Negative (Neg-Trace); Specific Gravity, Urine 1.007 (1.002-1.036); Urobilinogen Normal mg/dL (Less than 2)
[2020-02-18 12:33] LABS: Troponin I 0.025 ng/mL (< 0.028)
--- NOTE | 2020-02-18 21:24 | SS ---
DATE OF ADMISSION: 02/18/2020 DATE OF DISCHARGE: 02/18/2020 Ms. Swan is a 69-year-old female with a medical history of coronary artery disease status post CABG, atrial fibrillation with RVR, currently rate controlled, heart failure with preserved ejection fraction, and CKD, who presented with chest pain. The patient exhibited stabbing sternal pains that last for seconds as well as pinpoint left shoulder pain. Both sternal and shoulder pain changed with position and reproducible with touch and have largely resolved on arrival to the ED. The pain is unrelated to exertion or stress. She was diagnosed with noncardiac pain based on the above-mentioned as well as negative troponin x2 and EKG x2 that did not show any acute ischemic signs. The patient did not require inpatient care and was therefore discharged after education in regard to proper lifestyle modification to control her heart failure as well as the nature of her pain and red flags that would trigger her to report to her primary care physician or come back to the ED. She was scheduled with an outpatient appointment with her gis software developer , Dr. Arce, within 3 days as well as with her primary care physician. On discharge , she was provided nitroglycerin tablets as well as acetaminophen for her noncardiac pain. Job ID: [id number] [facility]
== END 2020-02-18 13:44 | disposition home or self-care (01) ==
LOC: ERS 09:36
DX: R07.9 Chest pain, unspecified (principal); I11.0 Hypertensive heart disease with heart failure; I50.9 Heart failure, unspecified; I49.9 Cardiac arrhythmia, unspecified; I48.91 Unspecified atrial fibrillation; I25.10 Atherosclerotic heart disease of native coronary artery without angina pectoris; F32.9 Major depressive disorder, single episode, unspecified; Z79.82 Long term (current) use of aspirin; Z79.899 Other long term (current) drug therapy
CPT/HCPCS: 36415; 71045; 80053; 81003; 82550; 83690; 83880; 84484; 85025; 93005; 94760

== ENCOUNTER 2020-03-06 17:07 | Emergency (ER) | payer MEDICARE ==
--- NOTE | 2020-03-06 18:26 | RAD ---
LEFT ANKLE THREE VIEWS: History: Fall with ankle pain. FINDINGS: Prominent calcaneal spurs are present. There is a subtle nondisplaced distal fibular fracture noted, best seen on the oblique image. There does not appear to be a great deal of soft tissue swelling asso ciated with this. Atherosclerotic changes are noted. arthritic changes of the midfoot region are pres ent. IMPRESSION: Nondisplaced distal fibular fracture. POS: [facility]
== END 2020-03-06 18:57 | disposition home or self-care (01) ==
LOC: ERS 17:07
DX: S82.832A Other fracture of upper and lower end of left fibula, initial encounter for closed fracture (principal); X58.XXXA Exposure to other specified factors, initial encounter